=== PATIENT | male | born 1955 | race Caucasian/White ===

== ENCOUNTER → 2017-06-19 | Outpatient (CLI) | payer MEDICARE ==
--- NOTE | 2017-06-19 11:22 | REP ---
A PA and lateral chest: There are no comparisons. There are sternotomy wires and cardiomegaly. The right paratracheal stripe and right hilus are enlarged. This could represent adenopathy or mass. There is mild interstitial coarsening compatible with vascular engorgement versus interstitial lung disease. There are no focal infiltrates or effusions. Signed by Denton Treviño MD 06/19/2017 11:14 A
[2017-06-19 12:41] LABS: BASO # 0.1 10^3/uL (0.0-0.2); BASO % 0.4 % (0.0-1.0); EOS # 0.1 10^3/uL (0.0-0.50); EOS % 0.4 % (0.0-3.0); IMMATURE GRANULOCYTE % 0.4 % (0-0); LYMPH # 2.2 10^3/uL (1.5-4.5); LYMPH % 17.7 % (24.0-44.0); MEAN CORPUSCULAR HEMOGLOBIN 33.1 pg (27.0-33.0); MEAN CORPUSCULAR HGB CONC 32.3 g/dl (32.0-36.5); MEAN CORPUSCULAR VOLUME 102.5 fl (80.0-96.0); MONO # 0.8 10^3/uL (0.0-0.8); MONO % 6.6 % (0.0-5.0); NEUTROPHILS # 9.2 10^3/uL (1.8-7.7); NEUTROPHILS % 74.5 % (36.0-66.0); PLATELET COUNT, AUTOMATED 254 10^3/uL (150-450); RED CELL DISTRIBUTION WIDTH 13.3 % (11.5-14.5); WHITE BLOOD COUNT 12.4 10^3/uL (4.0-10.0)
[2017-06-19 12:48] LABS: INR 0.96
[2017-06-19 13:21] LABS: ALBUMIN 4.2 GM/DL (3.2-5.2); ALBUMIN/GLOBULIN RATIO 1.11 (1.00-1.93); ALKALINE PHOSPHATASE 85 U/L (45-117); ALT/SGPT 84 U/L (12-78); ANION GAP 9 MEQ/L (8-16); AST/SGOT 44 U/L (15-37); BILIRUBIN,TOTAL 0.5 MG/DL (0.2-1.0); BLOOD UREA NITROGEN 16 MG/DL (7-18); CALCIUM LEVEL 9.7 MG/DL (8.8-10.2); CARBON DIOXIDE LEVEL 32 MEQ/L (21-32); CHLORIDE LEVEL 99 MEQ/L (98-107); CHOLESTEROL LEVEL 198 MG/DL (<200); CREATININE FOR GFR 1.11 MG/DL (0.70-1.30); GLOMERULAR FILTRATION RATE > 60.0 (>49); GLUCOSE, FASTING 162 MG/DL (80-110); MAGNESIUM LEVEL 1.8 MG/DL (1.8-2.4); POTASSIUM SERUM 4.8 MEQ/L (3.5-5.1); SODIUM LEVEL 140 MEQ/L (136-145); TRIGLYCERIDES LEVEL 240 MG/DL (<150)
[2017-06-19 14:07] LABS: PLT CLUMPS? POS FLAG; POS COUNT POS FLAG
== END ==
LOC: M WUC 08:57
PROVIDERS: ATTEND Internal Medicine Cardiovascular Disease
DX: R06.02 Shortness of breath (principal); I51.7 Cardiomegaly; Z95.1 Presence of aortocoronary bypass graft; I48.2 Chronic atrial fibrillation; I25.10 Atherosclerotic heart disease of native coronary artery without angina pectoris

== ENCOUNTER → 2017-07-06 | Outpatient (CLI) | payer MEDICARE ==
[2017-07-06 17:09] LABS: INR 1.87
== END ==
LOC: M WUC 13:17
PROVIDERS: ATTEND Internal Medicine Cardiovascular Disease
DX: I48.2 Chronic atrial fibrillation (principal)

== ENCOUNTER → 2017-07-22 | Outpatient (CLI) | payer MEDICARE ==
[2017-07-22 17:01] LABS: INR 1.78
== END ==
LOC: M WUC 13:33
PROVIDERS: ATTEND Nurse Practitioner Family
DX: I48.2 Chronic atrial fibrillation (principal)

== ENCOUNTER → 2017-07-30 | Outpatient (CLI) | payer MEDICARE ==
[2017-07-30 13:32] LABS: INR 1.7
== END ==
LOC: M WUC 10:25
PROVIDERS: ATTEND Physician Assistant
DX: I48.2 Chronic atrial fibrillation (principal)

== ENCOUNTER → 2017-08-13 | Outpatient (CLI) | payer MEDICARE ==
[2017-08-13 17:03] LABS: INR 2.18
== END ==
LOC: M WUC 10:54
PROVIDERS: ATTEND Physician Assistant
DX: Z51.81 Encounter for therapeutic drug level monitoring (principal); Z79.01 Long term (current) use of anticoagulants; I48.2 Chronic atrial fibrillation

== ENCOUNTER → 2017-08-13 | Outpatient (CLI) | payer MEDICARE ==
[2017-08-13 16:43] LABS: MEAN CORPUSCULAR HEMOGLOBIN 32.3 pg (27.0-33.0); MEAN CORPUSCULAR HGB CONC 31.5 g/dl (32.0-36.5); MEAN CORPUSCULAR VOLUME 102.5 fl (80.0-96.0); PLATELET COUNT, AUTOMATED 314 10^3/uL (150-450); RED CELL DISTRIBUTION WIDTH 13.4 % (11.5-14.5); WHITE BLOOD COUNT 10.2 10^3/uL (4.0-10.0)
[2017-08-13 16:55] LABS: VITAMIN B12 LEVEL 234 PG/ML (247-911)
[2017-08-13 16:58] LABS: ADD MANUAL DIFFER YES; ALBUMIN 3.8 GM/DL (3.2-5.2); ALBUMIN/GLOBULIN RATIO 1.09 (1.00-1.93); ALT/SGPT 39 U/L (12-78); ANION GAP 5 MEQ/L (8-16); AST/SGOT 22 U/L (7-37); BILIRUBIN,TOTAL 0.4 MG/DL (0.2-1.0); BLASTS POS FLAG; BLOOD UREA NITROGEN 12 MG/DL (7-18); CALCIUM LEVEL 8.8 MG/DL (8.8-10.2); CARBON DIOXIDE LEVEL 33 MEQ/L (21-32); CHLORIDE LEVEL 103 MEQ/L (98-107); CHOLESTEROL LEVEL 118 MG/DL (<200); CREATININE FOR GFR 0.81 MG/DL (0.70-1.30); DIFF SLIDE NUMBER 188; GLOMERULAR FILTRATION RATE > 60.0 (>49); GLUCOSE, FASTING 111 MG/DL (80-110); POSITIVE MORPH POS FLAG; SODIUM LEVEL 141 MEQ/L (136-145); TOTAL PROTEIN 7.3 GM/DL (6.4-8.2); TRIGLYCERIDES LEVEL 234 MG/DL (<150)
[2017-08-13 17:04] LABS: ALKALINE PHOSPHATASE 85 U/L (45-117); FREE T4 0.97 NG/DL (0.76-1.46)
[2017-08-13 18:15] LABS: BANDS 1 % (< 11); BASOPHILS 1 % (0-4)
[2017-08-13 18:16] LABS: ANISOCYTOSIS 1+
== END ==
LOC: M WUC 10:50
PROVIDERS: ATTEND Physician Assistant Medical
DX: Z12.5 Encounter for screening for malignant neoplasm of prostate (principal); R73.01 Impaired fasting glucose; E78.00 Pure hypercholesterolemia, unspecified; E66.9 Obesity, unspecified; Z79.01 Long term (current) use of anticoagulants; I48.2 Chronic atrial fibrillation

== ENCOUNTER → 2017-08-26 | Outpatient (CLI) | payer MEDICARE | LOC: M SMT 11:02 | DX: G47.30 Sleep apnea, unspecified (principal) | CPT/HCPCS: 71046 ==

== ENCOUNTER → 2017-09-12 | Outpatient (CLI) | payer MEDICARE | LOC: M SLEEP 20:00 | DX: G47.33 Obstructive sleep apnea (adult) (pediatric) (principal) | CPT/HCPCS: 95810 ==

== ENCOUNTER → 2017-10-05 | Outpatient (CLI) | payer MEDICARE ==
[2017-10-05 19:19] LABS: INR 2.75; PROTHROMBIN TIME 30.3 SECONDS (12.4-14.5)
== END ==
LOC: M WUC 14:31
DX: Z79.01 Long term (current) use of anticoagulants (principal)
CPT/HCPCS: 85610

== ENCOUNTER → 2017-11-10 | Outpatient (CLI) | payer MEDICARE | LOC: M SLEEP 19:56 | DX: G47.33 Obstructive sleep apnea (adult) (pediatric) (principal) | CPT/HCPCS: 95811 ==

== ENCOUNTER → 2017-11-13 | Outpatient (CLI) | payer MEDICARE ==
[2017-11-13 13:16] LABS: INR 2.43; PROTHROMBIN TIME 27.4 SECONDS (12.4-14.5)
== END ==
LOC: M WUC 09:43
DX: I48.2 Chronic atrial fibrillation (principal)
CPT/HCPCS: 85610

== ENCOUNTER → 2017-11-26 | Outpatient (REF) | payer MEDICARE ==
[2017-11-26 15:53] LABS: BASO # 0.1 10^3/uL (0.0-0.2); BASO % 0.4 % (0.0-1.0); EOS # 0.1 10^3/uL (0.0-0.50); EOS % 0.5 % (0.0-3.0); HEMATOCRIT 46.6 % (42.0-52.0); HEMOGLOBIN 14.9 g/dl (13.5-17.5); IMMATURE GRANULOCYTE % 0.4 % (0-3.0); LYMPH % 16.6 % (24.0-44.0); MEAN CORPUSCULAR HEMOGLOBIN 31.7 pg (27.0-33.0); MEAN CORPUSCULAR VOLUME 99.1 fl (80.0-96.0); MONO # 0.9 10^3/uL (0.0-0.8); MONO % 7.5 % (0.0-5.0); NEUTROPHILS # 8.8 10^3/uL (1.8-7.7); NEUTROPHILS % 74.6 % (36.0-66.0); PLATELET COUNT, AUTOMATED 282 10^3/uL (150-450); RED CELL DISTRIBUTION WIDTH 13.2 % (11.5-14.5); WHITE BLOOD COUNT 11.9 10^3/uL (4.0-10.0)
[2017-11-26 16:14] LABS: ESTIMATED AVERAGE GLUCOSE 163 MG/DL (60-110); HEMOGLOBIN A1c 7.3 %
== END ==
LOC: M SFHCPLAZ 12:48
DX: R73.01 Impaired fasting glucose (principal); I10 Essential (primary) hypertension
CPT/HCPCS: 83036

== ENCOUNTER → 2018-02-18 | Outpatient (CLI) | payer MEDICARE ==
[2018-02-18 17:08] LABS: INR 2.26; PROTHROMBIN TIME 25.4 SECONDS (12.1-14.4)
== END ==
LOC: M WUC 14:24
DX: I48.2 Chronic atrial fibrillation (principal)
CPT/HCPCS: 85610

== ENCOUNTER → 2018-02-22 | Outpatient (REF) | payer MEDICARE ==
[2018-02-22 13:46] LABS: ALBUMIN 3.6 GM/DL (3.2-5.2); ALBUMIN/GLOBULIN RATIO 0.95 (1.00-1.93); ALKALINE PHOSPHATASE 88 U/L (45-117); ALT/SGPT 27 U/L (12-78); ANION GAP 4 MEQ/L (8-16); AST/SGOT 18 U/L (7-37); BILIRUBIN,TOTAL 0.4 MG/DL (0.2-1.0); BLOOD UREA NITROGEN 11 MG/DL (7-18); CALCIUM LEVEL 8.7 MG/DL (8.8-10.2); CARBON DIOXIDE LEVEL 32 MEQ/L (21-32); CHLORIDE LEVEL 105 MEQ/L (98-107); CHOLESTEROL LEVEL 84 MG/DL (<200); CHOLESTEROL RISK RATIO 2.625 (<5); CPK CREATINE PHOSPHOKINASE 70 U/L (39-308); CREATININE FOR GFR 0.84 MG/DL (0.70-1.30); GLOMERULAR FILTRATION RATE > 60.0 (>49); GLUCOSE, FASTING 156 MG/DL (70-100); HDL CHOLESTEROL 32 MG/DL (>40); LDL CHOLESTEROL 18.6 MG/DL (<100); NON-HDL-C 52 MG/DL; POTASSIUM SERUM 4.5 MEQ/L (3.5-5.1); SODIUM LEVEL 141 MEQ/L (136-145); TOTAL PROTEIN 7.4 GM/DL (6.4-8.2); TRIGLYCERIDES LEVEL 167 MG/DL (<150)
== END ==
LOC: M SFHCPLAZ 09:55
DX: E78.00 Pure hypercholesterolemia, unspecified (principal)
CPT/HCPCS: 82550

== ENCOUNTER → 2018-04-12 | Outpatient (CLI) | payer MEDICARE ==
[2018-04-12 17:44] LABS: INR 1.91; PROTHROMBIN TIME 22.3 SECONDS (12.1-14.4)
== END ==
LOC: M WUC 14:25
DX: Z51.81 Encounter for therapeutic drug level monitoring (principal); Z79.01 Long term (current) use of anticoagulants; I48.2 Chronic atrial fibrillation
CPT/HCPCS: 85610

== ENCOUNTER → 2018-05-06 | Outpatient (CLI) | payer MEDICARE ==
[2018-05-06 16:00] LABS: INR 1.19; PROTHROMBIN TIME 15.3 SECONDS (12.1-14.4)
== END ==
LOC: M WUC 13:44
DX: I48.2 Chronic atrial fibrillation (principal)
CPT/HCPCS: 85610

== ENCOUNTER → 2018-05-17 | Outpatient (CLI) | payer MEDICARE ==
[2018-05-17 18:47] LABS: INR 2.25; PROTHROMBIN TIME 25.3 SECONDS (12.1-14.4)
== END ==
LOC: M WUC 14:50
DX: I48.2 Chronic atrial fibrillation (principal)
CPT/HCPCS: 85610

== ENCOUNTER → 2018-06-01 | Outpatient (CLI) | payer MEDICARE ==
[2018-06-01 19:51] LABS: INR 2.04; PROTHROMBIN TIME 23.4 SECONDS (12.1-14.4)
== END ==
LOC: M WUC 16:10
DX: I48.2 Chronic atrial fibrillation (principal)
CPT/HCPCS: 85610

== ENCOUNTER → 2018-06-24 | Outpatient (REF) | payer MEDICARE ==
[2018-06-24 14:32] LABS: ALBUMIN 3.8 GM/DL (3.2-5.2); ALBUMIN/GLOBULIN RATIO 1.06 (1.00-1.93); ALKALINE PHOSPHATASE 76 U/L (45-117); ALT/SGPT 32 U/L (12-78); ANION GAP 8 MEQ/L (8-16); AST/SGOT 19 U/L (7-37); BILIRUBIN,TOTAL 0.5 MG/DL (0.2-1.0); BLOOD UREA NITROGEN 12 MG/DL (7-18); CALCIUM LEVEL 8.6 MG/DL (8.8-10.2); CARBON DIOXIDE LEVEL 31 MEQ/L (21-32); CHLORIDE LEVEL 100 MEQ/L (98-107); CREATININE FOR GFR 0.84 MG/DL (0.70-1.30); GLOMERULAR FILTRATION RATE > 60.0 (>49); GLUCOSE, FASTING 166 MG/DL (70-100); NT-PRO BNP 278 PG/ML (<125); POTASSIUM SERUM 4.4 MEQ/L (3.5-5.1); SODIUM LEVEL 139 MEQ/L (136-145); TOTAL PROTEIN 7.4 GM/DL (6.4-8.2)
[2018-06-24 14:46] LABS: ESTIMATED AVERAGE GLUCOSE 174 MG/DL (60-110); HEMOGLOBIN A1c 7.7 %
== END ==
LOC: M SFHCPLAZ 10:52
DX: E11.8 Type 2 diabetes mellitus with unspecified complications (principal); E78.00 Pure hypercholesterolemia, unspecified; I50.22 Chronic systolic (congestive) heart failure
CPT/HCPCS: 80053

== ENCOUNTER → 2018-07-08 | Outpatient (CLI) | payer MEDICARE ==
[2018-07-08 15:32] LABS: INR 2.04; PROTHROMBIN TIME 23.4 SECONDS (12.1-14.4)
== END ==
LOC: M WUC 12:14
DX: I48.2 Chronic atrial fibrillation (principal)
CPT/HCPCS: 85610

== ENCOUNTER → 2018-09-09 | Outpatient (CLI) | payer MEDICARE ==
[2018-09-09 11:46] LABS: BASO # 0.1 10^3/uL (0.0-0.2); BASO % 0.6 % (0.0-1.0); EOS # 0.1 10^3/uL (0.0-0.50); EOS % 0.6 % (0.0-3.0); HEMATOCRIT 39.9 % (42.0-52.0); HEMOGLOBIN 13.4 g/dl (13.5-17.5); LYMPH % 22.4 % (24.0-44.0); MEAN CORPUSCULAR HEMOGLOBIN 32.2 pg (27.0-33.0); MEAN CORPUSCULAR HGB CONC 33.6 g/dl (32.0-36.5); MEAN CORPUSCULAR VOLUME 95.9 fl (80.0-96.0); MONO # 0.7 10^3/uL (0.0-0.8); NEUTROPHILS # 6.1 10^3/uL (1.8-7.7); NEUTROPHILS % 68.1 % (36.0-66.0); PLATELET COUNT, AUTOMATED 247 10^3/uL (150-450); RED BLOOD COUNT 4.16 10^6/uL (4.30-6.10); WHITE BLOOD COUNT 8.9 10^3/uL (4.0-10.0)
[2018-09-09 12:30] LABS: ALBUMIN 3.6 GM/DL (3.2-5.2); ALT/SGPT 37 U/L (12-78); BILIRUBIN,TOTAL 0.4 MG/DL (0.2-1.0); BLOOD UREA NITROGEN 16 MG/DL (7-18); CALCIUM LEVEL 8.4 MG/DL (8.8-10.2); CARBON DIOXIDE LEVEL 32 MEQ/L (21-32); CHLORIDE LEVEL 98 MEQ/L (98-107); CREATININE FOR GFR 0.99 MG/DL (0.70-1.30); GLOMERULAR FILTRATION RATE > 60.0 (>49); GLUCOSE, FASTING 261 MG/DL (70-100); NT-PRO BNP 177 PG/ML (<125); POTASSIUM SERUM 4.4 MEQ/L (3.5-5.1); SODIUM LEVEL 137 MEQ/L (136-145)
== END ==
LOC: M WUC 09:39
PROVIDERS: ATTEND Internal Medicine Cardiovascular Disease
DX: I50.32 Chronic diastolic (congestive) heart failure (principal); I48.2 Chronic atrial fibrillation

== ENCOUNTER → 2018-09-09 | Outpatient (CLI) | payer MEDICARE ==
[2018-09-09 12:28] LABS: INR 1.87; PROTHROMBIN TIME 21.9 SECONDS (12.1-14.4)
== END ==
LOC: M WUC 09:42
PROVIDERS: ATTEND Physician Assistant
DX: I48.2 Chronic atrial fibrillation (principal)

== ENCOUNTER → 2018-11-24 | Outpatient (CLI) | payer MEDICARE ==
[2018-11-24 12:56] LABS: INR 1.76; PROTHROMBIN TIME 20.8 SECONDS (12.1-14.4)
== END ==
LOC: M WUC 10:20
PROVIDERS: ATTEND Physician Assistant
DX: I48.2 Chronic atrial fibrillation (principal)

== ENCOUNTER → 2018-12-10 | Outpatient (CLI) | payer MEDICARE ==
[2018-12-10 17:55] LABS: INR 2.16; PROTHROMBIN TIME 24.6 SECONDS (12.1-14.4)
== END ==
LOC: M WUC 12:19
PROVIDERS: ATTEND Physician Assistant
DX: I48.2 Chronic atrial fibrillation (principal)

== ENCOUNTER 2018-12-27 10:27 | Inpatient (IN) | payer MEDICARE ==
[~2018-12-27] VITALS: Ht 182.9 cm; Wt 141.0 kg
[2018-12-27] MEDS ORDERED: WARF-21 PO (10:48)
[2018-12-27] MEDS ORDERED: ASPI81CH33 PO (10:48)
[2018-12-27] MEDS ORDERED: LASI20TA3 PO (10:48)
[2018-12-27] MEDS ORDERED: METF500T13 PO (10:48)
[2018-12-27] MEDS ORDERED: ATOR80TA59 PO (10:48)
[2018-12-27] MEDS ORDERED: CETI10CH PO (10:48)
[2018-12-27] MEDS ORDERED: COUM10TA PO (10:48)
[2018-12-27] MEDS ORDERED: DIGO0.25 PO (10:48)
[2018-12-27] MEDS ORDERED: CARV6.25 PO (10:48)
[2018-12-27 11:17] LABS: BASO % 0.3 % (0.0-1.0); EOS # 0.1 10^3/uL (0.0-0.50); EOS % 0.4 % (0.0-3.0); HEMATOCRIT 45.1 % (42.0-52.0); LYMPH # 1.5 10^3/uL (1.5-4.5); LYMPH % 12.5 % (24.0-44.0); MEAN CORPUSCULAR HEMOGLOBIN 31.1 pg (27.0-33.0); MEAN CORPUSCULAR HGB CONC 33.3 g/dl (32.0-36.5); MEAN CORPUSCULAR VOLUME 93.4 fl (80.0-96.0); MONO # 1.1 10^3/uL (0.0-0.8); MONO % 8.9 % (0.0-5.0); NEUTROPHILS # 9.2 10^3/uL (1.8-7.7); NEUTROPHILS % 77.6 % (36.0-66.0); PLATELET COUNT, AUTOMATED 308 10^3/uL (150-450); RED BLOOD COUNT 4.83 10^6/uL (4.30-6.10); WHITE BLOOD COUNT 11.8 10^3/uL (4.0-10.0)
[2018-12-27] MEDS ORDERED: ONDANSETRON 4MG/2ML VIAL (J2405) IV ONE (11:45)
[2018-12-27 11:52] LABS: ALBUMIN 3.1 GM/DL (3.2-5.2); ALT/SGPT 40 U/L (12-78); BILIRUBIN,DIRECT 0.1 MG/DL (0.0-0.2); BILIRUBIN,TOTAL 0.8 MG/DL (0.2-1.0); BLOOD UREA NITROGEN 14 MG/DL (7-18); CALCIUM LEVEL 8.7 MG/DL (8.8-10.2); CARBON DIOXIDE LEVEL 30 MEQ/L (21-32); CHLORIDE LEVEL 93 MEQ/L (98-107); CK-MB VALUE MASS < 1.0 NG/ML (<3.6); CPK CREATINE PHOSPHOKINASE 103 U/L (39-308); GLOMERULAR FILTRATION RATE > 60.0 (>49); GLUCOSE, FASTING 397 MG/DL (70-100); LIPASE 83 U/L (73-393); MB/CK RELATIVE INDEX 0.97 (< OR =4); POTASSIUM SERUM 4.6 MEQ/L (3.5-5.1); SODIUM LEVEL 130 MEQ/L (136-145); TROPONIN I < 0.02 NG/ML (< 0.10)
[2018-12-27 12:03] LABS: INR 2.53; PROTHROMBIN TIME 27.8 SECONDS (12.1-14.4)
[2018-12-27 12:04] LABS: PARTIAL THROMBOPLASTIN TIME 42.4 SECONDS (25.4-37.6)
[2018-12-27] MEDS: MORPHINE 4 MG/ML 1ML VIAL/SYRINGE (J2270) IV PRN ×2 (12:04→13:09)
[2018-12-27] MEDS: GASTROGRAFIN SOLUTION 30ML PO SCH ×2 (13:10→13:39)
[2018-12-27] MEDS ORDERED: NS 1,000 ML IV SCH (13:30)
[2018-12-27] MEDS ORDERED: KETOROLAC 30 MG/ML VIAL (J1885) IV ONE (14:00)
[2018-12-27] MEDS ORDERED: ISOVUE-370 76% 100ML VIAL (Q9967) As Ordered ONE (14:30)
--- NOTE | 2018-12-27 15:16 | REP ---
CT ABDOMEN AND PELVIS WITH ORAL AND IV CONTRAST: TECHNIQUE: Axial contrast enhanced images from the lung bases to the pubic symphysis using 100 mL Isovue 370 intravenous contrast material with multiplanar reformations. Visualized lung bases demonstrate no abnormal lung opacities. There is a mass in the hepatic flexure of the colon causing stricturing and obstruction of the colon at that location. There is local neoplastic infiltration of the pericolonic fat. Right colon is dilated with air and fluid, and there is dilatation of distal small bowel as well. The more distal colon is relatively collapsed. Liver demonstrates multiple metastases. These involve both the right and left lobes. The largest is at the dome of the liver and measures about 3.1 cm in diameter. The spleen is unremarkable. The left adrenal gland is diffusely thickened without a definite mass. Pancreas is unremarkable. There is a tiny cyst in the upper pole of the left kidney. There is no hydronephrosis. There is no abdominal aortic aneurysm. No periaortic adenopathy is seen. There is no free air or free fluid. No pelvic mass is seen. Small left inguinal hernia contains fat. The patient has had a prior cholecystectomy. IMPRESSION: Stricturing mass in the hepatic flexure of the colon causes colonic obstruction. There is proximal bowel dilatation of a moderate degree. Both the right colon and distal small bowel are dilated. There is local ill-defined neoplastic infiltration of the pericolonic fat at the hepatic flexure. Multiple liver metastases are noted. Electronically Signed by Denton Frost MD 12/28/2018 03:14 P
[2018-12-27] MEDS ORDERED: ASPI81TA26 PO (15:27)
[2018-12-27] MEDS ORDERED: FURO40TA2 PO (15:27)
[2018-12-27] MEDS ORDERED: METF500T4 PO (15:27)
[2018-12-27] MEDS ORDERED: WARF-23 PO ×2 (15:27)
[2018-12-27] MEDS ORDERED: ALLE180T33 PO (15:27)
[2018-12-27] MEDS ORDERED: REFR0.5D8 OU (15:29)
[2018-12-27] MEDS ORDERED: GLUCOSE 4 GM CHEW TABLET PO PRN (16:45)
[2018-12-27] MEDS ORDERED: GLUCAGON FOR INJ 1 MG VIAL (J1610) SC PRN (16:45)
[2018-12-27] MEDS ORDERED: DEXTROSE 50% 50 ML SYRINGE IV PRN (16:45)
[2018-12-27 17:18] LABS: DIGOXIN LEVEL 0.6 NG/ML (0.5-2.0)
[2018-12-27] MEDS ORDERED: PHYTONADIONE INJection 5 MG in NS 50 ML IV ONE (17:30)
[2018-12-27] MEDS ORDERED: HumaLOG INSULIN (NovoLOG) PER UNIT SC SCH (18:00)
[2018-12-27] MEDS: DIGOXIN INJ 0.5 MG/2 ML AMP (J1160) IV SCH (19:04)
[2018-12-27] MEDS ORDERED: ALBUTEROL SULFATE 2.5 MG/0.5 ML INH NEB SOLN NEB PRN (20:00)
--- NOTE | 2018-12-27 20:18 | HPEPDOC ---
General Date of Admission 12/27/18 Attending Physician: LICO ALONSO MD Chief Complaint The patient is a 63-year-old male admitted with a reason for visit of Abdominal Pain. Source: Patient, Family, RN/MD, Old records Exam Limitations: No limitations History of Present Illness 63 year old male with PMH of CAD s/p CABG, Morbid obesity, CHF, CALE on CPAP with 5 liters bleed in, chronic respiratory failure with hypoxia, diabetes, atrial fib on coumadin, h/o dvt , bowel obs in 2009 with bowel resection, incisional hernia after this repaired with mesh, umbilical hernia repaired, persistent abdominal wall hernia presented to the ED with 7 days history of constipation and abdominal pain . Pain is constantly present more on the right upper abdomen, right lumber region and periumbilicaly. He has been unable to pass even gas for 3 days. He has had irregular bowel habits with intermittent diarrheas and constipation since 2009 after his bowel obstruction surgery. During his episodes of constipation he would do some home remedies which would relieve it . However this week he tried everything but still did not move his bowels. He started feeling very bloated and unable to pass gas over the last 3 days so came to the ED. he has some associated nausea but no vomiting. CT in the ED showed Stricturing mass in the hepatic flexure of the colon causes colonic obstruction. There is proximal bowel dilatation of a moderate degree. Both the right colon and distal small bowel are dilated. There is local ill-defined neoplastic infiltration of the pericolonic fat at the hepatic flexure. Multiple liver metastases are noted. He was admitted for Acute large bowel obstruction. Home Medications Scheduled Aspirin (Aspirin EC) 81 Mg Tablet.dr, 81 MG PO DAILY, (Reported) Atorvastatin Calcium (Atorvastatin Calcium) 80 Mg Tablet, 80 MG PO QHS, (Reported) Carvedilol (Carvedilol) 6.25 Mg Tablet, 6.25 MG PO BID, (Reported) Digoxin (Digoxin) 250 Mcg Tablet, 250 MCG PO DAILY, (Reported) Furosemide (Furosemide) 40 Mg Tablet, 40 MG PO DAILY, (Reported) Metformin HCl (Metformin HCl ER) 500 Mg Tab.er.24h, 500 MG PO QPM, (Reported) DINNERTIME Warfarin Sodium (Warfarin Sodium) 5 Mg Tablet, 10 MG PO 3XW, (Reported) TU,,SAT Warfarin Sodium (Warfarin Sodium) 5 Mg Tablet, 7.5 MG PO 4XWK, (Reported) MON,WED,FRI,SUN Scheduled PRN Carboxymethylcellulose Sodium (Refresh Tears) 15 Ml Drops, 1 DROP OU QID PRN for DRY EYES, (Reported) Fexofenadine HCl (Alie Allergy) 180 Mg Tablet, 180 MG PO DAILY PRN for ALL ERGIES, (Reported) Allergies Coded Allergies: No Known Allergies (Unverified , 12/27/18) Past Medical History Medical History CAD s/p CABG, Morbid obesity, CHF, CALE on CPAP with 5 liters bleed in, chronic respiratory failure with hypoxia, diabetes, atrial fib on coumadin, h/o dvt , Surgical History Bowel resection for bowel obstruction in 2009. CABG in 2003. cholecystectomy. appendectomy. Incisional hernia repair with mesh. umbilical hernia repair. Family History FATHER: 80 YRS, DIAGNOSED WITH DIABETES MOTHER: 86 YRS, DIAGNOSED WITH STROKE 4 BROTHER(S) .DAD DISCONTINUED VASC. CATH. & ESRD 2 BRO.S OF THROAT CA, AN EXPLOSION IN [employer]. Social History * Smoker: former Smoker, quit greater than 1 year Alcohol: Denies Drugs: denies A-FIB/CHADSVASC A-FIB History Current/History of A-Fib/PAF?: Yes Current Oral Anticoagulant The: Yes Review of Systems Constitutional: Denies: Chills, Fever, Night Sweats Eyes: Denies: Pain, Vision change ENT: Denies: Head Aches, Ear Pain, Dysphagia Skin: Denies: Rash, Lesions, Breakdown Pulmonary: Denies: Dyspnea, Cough Cardiovascular: Denies: Chest Pain, Palpitations, Orthopnea, Paroxysmal Noc. Dyspnea Gastrointestinal: Reports: Nausea, Abdominal Pain, Constipation; Denies: Vomiting, Diarrhea, Melena, Hematochezia Genitourinary: Denies: Dysuria, Incontinence, Retention Hematologic: Denies: Bruising, Bleeding Excessively Musculoskeletal: Reports: Back Pain Neurological: Denies: Weakness, Numbness, Change in speech, Confusion Physical Examination General Exam: Positive: Alert, Cooperative, No Acute Distress Eye Exam: Positive: PERRLA, Conjunctiva & lids normal, EOMI; Negative: Sclera icteric ENT Exam: Positive: Mucous membr. moist/pink, Tongue Midline Neck Exam: Positive: Supple; Negative: JVD, thyromegaly Chest Exam: Positive: Clear to auscultation, Diminished; Negative: Rales, Rhonchi, Wheezing Heart Exam: Positive: Rate Normal, Irregular Rhythm, Normal S1, Normal S2; Negative: Tachycardic, Bradycardic, Regular Rhythm, Gallops, Murmurs, Rubs Telemetry: Positive: Atrial fibrillation Abdomen Exam: Positive: BS Hypoactive, Soft, Tenderness (on right side of the abdomen), Hernia (abdominal wall), Other (distented) Extremity Exam: Negative: Clubbing, Cyanosis, Edema Skin Exam: Positive: Nl turgor and temperature; Negative: Breakdown, Lesion Neuro Exam: Positive: Normal Speech, Strength at 5/5 X4 ext, Normal Tone Psych Exam: Positive: Anxiety, Memory Intact, Oriented x 3 Vital Signs Vital Signs Date Time Temp Pulse Resp B/P (MAP) Pulse Ox O2 Delivery O2 Flow Rate FiO2 12/27/18 14:00 24 12/27/18 13:48 138/60 (86) 12/27/18 13:42 104 95 5.0 12/27/18 10:28 97.6 Nasal Cannula Laboratory Data Labs 24H Laboratory Tests 2 12/27/18 11:05: Immature Granulocyte % (Auto) 0.3, White Blood Count 11.8H, Red Blood Count 4.83, Hemoglobin 15.0, Hematocrit 45.1, Mean Corpuscular Volume 93.4, Mean Corpuscular Hemoglobin 31.1, Mean Corpuscular Hemoglobin Concent 33.3, Red Cell Distribution Width 12.4, Platelet Count 308, Neutrophils (%) (Auto) 77.6H, Lymphocytes (%) (Auto) 12.5L, Monocytes (%) (Auto) 8.9H, Eosinophils (%) (Auto) 0.4, Basophils (%) (Auto) 0.3, Neutrophils # (Auto) 9.2H, Lymphocytes # (Auto) 1.5, Monocytes # (Auto) 1.1H, Eosinophils # (Auto) 0.1, Basophils # (Auto) 0.0, Nucleated Red Blood Cells % (auto) 0.0, Prothrombin Time 27.8H, Prothromb Time International Ratio 2.53, Activated Partial Thromboplast Time 42.4H, Anion Gap 7L, Glomerular Filtration Rate > 60.0, Calcium Level 8.7L, Aspartate Amino Transf (AST/SGOT) 40H, Alanine Aminotransferase (ALT/SGPT) 40, Alkaline Phosphatase 127H, Total Bilirubin 0.8, Direct Bilirubin 0.1, Total Creatine Kinase 103, Creatine Kinase MB < 1.0, Creatine Kinase MB Relative Index 0.97, Troponin I < 0.02, Total Protein 8.0, Albumin 3.1L, Albumin/Globulin Ratio 0.63L, Lipase 83 12/27/18 11:58: Lactic Acid Level 1.5 CBC/BMP Laboratory Tests 12/27/18 11:05 Red Blood Count 4.83, Mean Corpuscular Volume 93.4, Mean Corpuscular Hemoglobin 31.1, Mean Corpuscular Hemoglobin Concent 33.3, Red Cell Distribution Width 12.4, Neutrophils (%) (Auto) 77.6 H, Lymphocytes (%) (Auto) 12.5 L, Monocytes (%) (Auto) 8.9 H, Eosinophils (%) (Auto) 0.4, Basophils (%) (Auto) 0.3, Neutrophils # (Auto) 9.2 H, Lymphocytes # (Auto) 1.5, Monocytes # (Auto) 1.1 H, Eosinophils # (Auto) 0.1, Basophils # (Auto) 0.0 Assessment/Plan 63 year old male with PMH of CAD s/p CABG, Morbid obesity, CHF, CALE on CPAP with 5 liters bleed in, chronic respiratory failure with hypoxia, diabetes, atrial fib on coumadin, h/o dvt , bowel obs in 2009 with bowel resection, incisional hernia after this repaired with mesh, umbilical hernia repaired, persistent abdominal wall hernia presented to the ED with 7 days history of constipation and abdominal pain . He has been unable to pass even gas for 3 days. He has had irregular bowel habits with intermittent diarrheas aand constipation since 2009 after his bowel obstruction surgery. During his episodes of constipation he would do some home remedies which would relieve it . However this week he tried everything but still did not move his bowels. He started feeling very bloated and unable to pass gas over the last 3 days so came to the ED. CT in the ED showed Stricturing mass in the hepatic flexure of the colon causes colonic obstruction. There is proximal bowel dilatation of a moderate degree. Both the right colon and distal small bowel are dilated. There is local ill-defined neoplastic infiltration of the pericolonic fat at the hepatic flexure. Multiple liver metastases are noted. He was admitted for Acute large bowel obstruction. 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 CALE on CPAP continue CPAP if tolerated and oxygen supplementation Chronic hypoxic respiratory failure on 5 litrs oxygen Afib rate controlled will continue coreg and digoxin will give vit K to reverse the INR. Hypertensive heart disease with CHF Last EF was 65% in aug 2018 patient is euvolemic at present will hold lasix continue gentle hydration, NPO Morbid obesity with multiple abdominal surgeries will complicate care. Any abdominal surgery will greatly hamper his respiration and will probably be difficult to extubate. will consult pulmonary to help in the perioperative period to manage his respir atory issues. CAD s/p CABG no issues recently Had a stress test in the last 1 year was negative for ischemia will hold asa and statin as pt is NPO Diabetes will put on lispro sliding scale FS q 6 hours as patient is NPO DVT prophylaxis has been ordered. Plan / VTE VTE Prophylaxis Ordered?: Yes LICO ALONSO MD December 27, 2018 17:09
[2018-12-27 20:25] VITALS: BP 136/90
[2018-12-27] MEDS: CARVedilol 6.25 MG TAB PO SCH (21:56)
--- NOTE | 2018-12-27 22:08 | ECGEPIP ---
Stationary ECG Study [facility] - ED Test Date: 2018-12-27 Pat Name: HUGH TODD Department: Room: - Gender: M [employer]: : 1955 Requested By: ZULEIMA JANG Order Number: [id number] Reading MD: Hugh Martinez Measurements Intervals [place] Rate: 103 P: IA: 0 QRS: -1 QRSD: 81 T: -1 QT: 294 QTc: 386 Interpretive Statements ATRIAL FIBRILLATION WITH RAPID VENTRICULAR RESPONSE MODERATE ST DEPRESSION NO PRIORS FOR COMPARISON Electronically Signed On 12-27-2018 22:08:48 EDT by Hugh Martinez
[2018-12-27] MEDS: NS 1,000 ML IV SCH (23:14)
[2018-12-28] VITALS (11 sets, daily range): BP systolic 130–157; BP diastolic 63–90; O2SAT 96–99
[2018-12-28] MEDS: HumaLOG INSULIN (NovoLOG) PER UNIT SC SCH ×5 (00:29→23:47)
[2018-12-28 05:04] LABS: BASO % 0.2 % (0.0-1.0); EOS # 0.1 10^3/uL (0.0-0.50); EOS % 0.7 % (0.0-3.0); HEMATOCRIT 41.2 % (42.0-52.0); HEMOGLOBIN 13.3 g/dl (13.5-17.5); LYMPH # 1.1 10^3/uL (1.5-4.5); LYMPH % 13.2 % (24.0-44.0); MEAN CORPUSCULAR HEMOGLOBIN 30.3 pg (27.0-33.0); MEAN CORPUSCULAR HGB CONC 32.3 g/dl (32.0-36.5); MEAN CORPUSCULAR VOLUME 93.8 fl (80.0-96.0); MONO # 0.8 10^3/uL (0.0-0.8); MONO % 9.4 % (0.0-5.0); NEUTROPHILS # 6.5 10^3/uL (1.8-7.7); PLATELET COUNT, AUTOMATED 265 10^3/uL (150-450); RED BLOOD COUNT 4.39 10^6/uL (4.30-6.10); WHITE BLOOD COUNT 8.5 10^3/uL (4.0-10.0)
[2018-12-28 05:13] LABS: INR 1.38; PROTHROMBIN TIME 17.2 SECONDS (12.1-14.4)
[2018-12-28 05:17] LABS: BLOOD UREA NITROGEN 13 MG/DL (7-18); CARBON DIOXIDE LEVEL 32 MEQ/L (21-32); CHLORIDE LEVEL 101 MEQ/L (98-107); CREATININE FOR GFR 0.79 MG/DL (0.70-1.30); GLOMERULAR FILTRATION RATE > 60.0 (>49); GLUCOSE, FASTING 235 MG/DL (70-100); POTASSIUM SERUM 3.8 MEQ/L (3.5-5.1); SODIUM LEVEL 140 MEQ/L (136-145)
[2018-12-28] MEDS: DIGOXIN INJ 0.5 MG/2 ML AMP (J1160) IV SCH (08:34)
[2018-12-28] MEDS: NYSTATIN 100,000 UNITS/GM TOPICAL PWD 15 GM TOP SCH ×2 (08:34→20:18)
[2018-12-28] MEDS: CARVedilol 6.25 MG TAB PO SCH ×2 (08:34→20:19)
--- NOTE | 2018-12-28 09:36 | CR.PDOC ---
General Surgery Consultation Date of Consultation 12/27/18 History and Physical CONSULT REPORT FOR: emergency room/hospitalist service REASON FOR CONSULTATION: Colon obstruction, possible malignant obstruction HISTORY OF PRESENT ILLNESS: Mr. Vyas presented himself to the emergency room with a one-week history of abdominal distention, abdominal cramping that has worsened over the weekend. He reports a prior history of bowel obstruction that required a laparotomy followed afterwards with complications including what sounds like necrotizing fasciitis from leakage around the gastrostomy feeding tube that required him to be at the burn unit for a few months. He also subsequently developed a hernia that was fixed with placement of mesh and subsequently also recurred. This happened more than 10 years ago. After that he did not have any subsequent bowel obstructions that requires hospitalization though he reports several intermittent episodes where he thought he might have a blockage for which she would decrease oral intake and this would resolve by itself. This current episode started roughly about a week. Last bowel movement was about 4 days ago. He did weigh usually did which is to decrease oral intake. Over the weekend he had increasing abdominal pain and cramping Thursday and Thursday which led him to the emergency room. He reports nausea and at least one episode of vomiting Thursday evening. His last colonoscopy was about 7 years ago and by his recollection, they did not find any high risk lesions requiring close surveillance. He denies any unexplained abnormal weight loss. He denies any significant family history for colorectal malignancy. He previously resided in [place] and most of his care especially the surgical care is been done over that area and we have no records of that here. They have recently transplanted themselves here. They have established with a medical provider as well as with Dr. Amin. He has significant cardiac history including previous 4 vessel CABG, atrial fibrillation. He is on Coumadin and he last took Coumadin yesterday. Along this he also has diabetes. He has sleep apnea and uses 5 L of oxygen. He reports he is able to climb a flight of stairs at home though he feels tired at the end of the climb. He denies any chest pains with this type of activity. PAST MEDICAL HISTORY: 1. Coronary artery disease status post four-vessel CABG 2. Atrial fibrillation on Coumadin 3. Congestive heart failure 4. Morbid obesity with a BMI of 43 5. Obstructive sleep apnea on CPAP 6. Chronic hypoxia on 5 L of warm saline nasal cannula 7. Diabetes 8. Recurrent incisional/ventral hernia. PAST SURGICAL HISTORY: INCLUDES: 1. Four-vessel CABG 2. Exploratory laparotomy for small bowel obstruction, appendectomy 3. Debridement of "burned" skin around the gastrostomy site 4. Umbilical and ventral/incisional hernia repair 5. Cholecystectomy 6. Right knee arthroplasty PREVIOUS ANESTHESIA REACTIONS: Denies ALLERGIES: Please see below. FAMILY HISTORY: Denies family history of colorectal malignancy, GI malignancy HOME MEDICATIONS: Please see below. REVIEW OF SYSTEMS: GENERAL: Patient denies any unexplained weight loss. HEENT: [Denies blurred vision and double vision. Denies ear symptoms. Denies hoarseness]. Wears dentures NECK: Denies any neck pain CARDIOVASCULAR: Significant cardiac history, follows with Dr. Amin. He has been on diuretics with improvement of his leg edema.. MUSCULOSKELETAL: [Denies arthralgias, back pain and thrombophlebitis]. SKIN: [Denies rash]. NEUROLOGIC: [Denies headache, stroke and transient ischemic attack]. PSYCHIATRIC: [Denies anxiety and depression]. ENDOCRINE: Patient is known diabetic. HEMATOLOGY/ONCOLOGY: [Denies bleeding or clotting disorder]. Patient on Coumadin for atrial fibrillation. Last intake was on the evening HEART: Patient with limited activity both secondary to his cardiac and pulmonary condition but denies any chest pain with light activity. PULMONARY: [Denies chronic cough, dyspnea and wheezing]. Patient on chronic 5 L of oxygen via nasal cannula. Denies overt shortness of breath. He feels fatigued with light activity. GASTROINTESTINAL: See HPI. GENITOURINARY: [Denies dysuria, frequency, hematuria and nocturia]. ENDOCRINE: [Denies polydipsia, polyphagia, polyuria, heat or cold intolerance]. INFECTIOUS: [Denies any recent upper respiratory tract infection, UTI, need for use of antibiotics]. NUTRITION: Fair to poor appetite the past few days secondary to abdominal complaints.. PHYSICAL EXAMINATION: VITALS SIGNS: Please see below. GENERAL APPEARANCE: Patient is seen, he is relatively comfortable and moves arou nd the bed without any increased discomfort though mildly uncomfortable during palpation. He is cooperative. SKIN: Warm and dry. HEENT: [Normocephalic, atraumatic. [place] palpebral conjunctiva, anicteric sclerae. Lips and mucosa appear dry]. NECK: [Supple, no thyromegaly. No obvious jugular venous distention]. LUNGS: [Clear to auscultation bilaterally. No wheezing appreciated]. HEART: [No chest wall abnormalities. irregular rate and rhythm with no murmurs appreciated]. ABDOMEN: Abdomen is markedly protuberant, moderately distended but soft. He has a midline incision as well as some previous scar from the gastrostomy site. He has a very thin stretched out abdominal wall especially that of the middle portion of the upper abdomen down to the umbilicus. He is a certain recurrent hernia over or underneath the umbilicus. He is mildly tender on deep palpation over the right lower quadrant area and suprapubic area with mild grimacing, no involuntary guarding. He is nontender on the left side of the abdomen., soft, EXTREMITIES: [Extremities have no deformities. No edema identified] ANCILLARIES: . LABORATORY DATA: Please see below. IMAGING STUDIES: CT scan abdomen and pelvis Stricturing mass in the hepatic flexure of the colon causes colonic obstruction. There is proximal bowel dilatation of a moderate degree. Both the right colon and distal small bowel are dilated. There is local ill-defined neoplastic infiltration of the pericolonic fat at the hepatic flexure. Multiple liver metastases are noted. IMPRESSION AND PLAN: Colon obstruction secondary to intracolonic stricturing mass with liver metastasis wide diastases, thin abdominal wall and recurrent incisional hernia morbid obesity Atrial fibrillation on Coumadin with INR of 2.5 on admission Chronic hypoxia on 5 L of oxygen via nasal cannula Sleep apnea on CPAP at night I had a long discussion with the patient as well as his who was at the bedside with him. I've also discussed the case with Dr. Palmer who is admitting the patient under the hospitalist service. Patient has evidence of colon obstruction secondary to a colon mass over the patient's right hepatic flexure probably malignant and with evidence of metastasis to both lobes of the liver. Patient appears to have an advanced colon malignancy with metastasis which on the medial condition would need chemotherapy initially to observe for response before even discussing possibility of surgery for her primary as well as for the liver metastases. Unfortunately patient came in his bowel obstruction secondary to the primary colon mass. Thus he will need surgery to address the obstruction. I have discussed with him the options at the time of surgery that I would have to consider which includes diversion without resection, versus resection with or without anastomosis/colostomy, possibly also get some tissue samples for documentation of the pathology if a resection is not performed. I expect this to be a complicated surgery given baseline he has multiple abdominal surgeries including at current presence of recurrent incisional hernia with a very thin abdominal wall that is probably just being contained by mesh. All his surgeries and fortunately were done in [place]. I will have our nurses try to get records if they are still available from the previous institution though this may not matter within this timeframe as he definitely will need some sort of surgery to relieve the obstruction. His intraoperative and perioperative course with also be complicated by his multiple medical problems as stated above. 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 So in terms of optimizing him, he probably has to best that he will ever be given the circumference of sepsis. I discussed with him possibility of needing prolonged ventilation, postoperative myocardial infarction, postoperative congestive heart failure, hernia formation, wound problems related to a colostomy. I will have my office point time to do his surgery this week, tentatively on Thursday. For now his Coumadin is on hold and he is being given vitamin K. After my best to answer their questions and concerns at this point. We'll proceed as outlined above. Vital Signs Vital Signs Date Time Temp Pulse Resp B/P (MAP) Pulse Ox O2 Delivery O2 Flow Rate FiO2 12/27/18 14:00 24 12/27/18 13:48 138/60 (86) 12/27/18 13:42 104 95 5.0 12/27/18 10:28 97.6 Nasal Cannula Laboratory Data Labs 24H Laboratory Tests 2 12/27/18 11:05: Immature Granulocyte % (Auto) 0.3, White Blood Count 11.8H, Red Blood Count 4.83, Hemoglobin 15.0, Hematocrit 45.1, Mean Corpuscular Volume 93.4, Mean Corpuscular Hemoglobin 31.1, Mean Corpuscular Hemoglobin Concent 33.3, Red Cell Distribution Width 12.4, Platelet Count 308, Neutrophils (%) (Auto) 77.6H, Lymphocytes (%) (Auto) 12.5L, Monocytes (%) (Auto) 8.9H, Eosinophils (%) (Auto) 0.4, Basophils (%) (Auto) 0.3, Neutrophils # (Auto) 9.2H, Lymphocytes # (Auto) 1.5, Monocytes # (Auto) 1.1H, Eosinophils # (Auto) 0.1, Basophils # (Auto) 0.0, Nucleated Red Blood Cells % (auto) 0.0, Prothrombin Time 27.8H, Prothromb Time International Ratio 2.53, Activated Partial Thromboplast Time 42.4H, Anion Gap 7L, Glomerular Filtration Rate > 60.0, Calcium Level 8.7L, Aspartate Amino Transf (AST/SGOT) 40H, Alanine Aminotransferase (ALT/SGPT) 40, Alkaline Phosphatase 127H, Total Bilirubin 0.8, Direct Bilirubin 0.1, Total Creatine Kinase 103, Creatine Kinase MB < 1.0, Creatine Kinase MB Relative Index 0.97, Troponin I < 0.02, Total Protein 8.0, Albumin 3.1L, Albumin/Globulin Ratio 0.63L, Lipase 83, Digoxin Level 0.6 12/27/18 11:58: Lactic Acid Level 1.5 CBC/BMP Laboratory Tests 12/27/18 11:05 Red Blood Count 4.83, Mean Corpuscular Volume 93.4, Mean Corpuscular Hemoglobin 31.1, Mean Corpuscular Hemoglobin Concent 33.3, Red Cell Distribution Width 12.4, Neutrophils (%) (Auto) 77.6 H, Lymphocytes (%) (Auto) 12.5 L, Monocytes (%) (Auto) 8.9 H, Eosinophils (%) (Auto) 0.4, Basophils (%) (Auto) 0.3, Neutrophils # (Auto) 9.2 H, Lymphocytes # (Auto) 1.5, Monocytes # (Auto) 1.1 H, Eosinophils # (Auto) 0.1, Basophils # (Auto) 0.0 Home Medications Scheduled Aspirin (Aspirin EC) 81 Mg Tablet.dr, 81 MG PO DAILY, (Reported) Atorvastatin Calcium (Atorvastatin Calcium) 80 Mg Tablet, 80 MG PO QHS, (Reported) Carvedilol (Carvedilol) 6.25 Mg Tablet, 6.25 MG PO BID, (Reported) Digoxin (Digoxin) 250 Mcg Tablet, 250 MCG PO DAILY, (Reported) Furosemide (Furosemide) 40 Mg Tablet, 40 MG PO DAILY, (Reported) Metformin HCl (Metformin HCl ER) 500 Mg Tab.er.24h, 500 MG PO QPM, (Reported) DINNERTIME Warfarin Sodium (Warfarin Sodium) 5 Mg Tablet, 10 MG PO 3XW, (Reported) ,,SAT Warfarin Sodium (Warfarin Sodium) 5 Mg Tablet, 7.5 MG PO 4XWK, (Reported) MON,WED,FRI,SUN Scheduled PRN Carboxymethylcellulose Sodium (Refresh Tears) 15 Ml Drops, 1 DROP OU QID PRN for DRY EYES, (Reported) Fexofenadine HCl (Alie Allergy) 180 Mg Tablet, 180 MG PO DAILY PRN for ALLERGIES, (Reported) Allergies Coded Allergies: No Known Allergies (Unverified , 12/27/18) NEDRA MARTINEZ MD December 27, 2018 17:20
[2018-12-28] MEDS: NS 1,000 ML IV SCH ×2 (10:56→22:40)
[2018-12-28] MEDS: MORPHINE 4 MG/ML 1ML VIAL/SYRINGE (J2270) IV PRN ×4 (10:56→23:48)
--- NOTE | 2018-12-28 12:54 | IPNPDOC ---
Subjective Date Seen The patient was seen on 12/28/18. Subjective Chief Complaint/HPI c/o pain right lower abdomen. No further n/v. NG tube in place Constitutional: Denies: Chills, Fever Pulmonary: Reports: Dyspnea (chronic); Denies: Cough Cardiovascular: Denies: Chest Pain, Palpitations, Orthopnea Gastrointestinal: Reports: Abdominal Pain; Denies: Nausea, Vomiting, Diarrhea, Constipation Objective Physical Examination General Exam: Positive: Alert, No Acute Distress (NG tube in place) Chest Exam: Positive: Clear to auscultation, Diminished; Negative: Rales, Rhonchi, Wheezing Heart Exam: Positive: Regular Rhythm Abdomen Exam: Positive: BS Hypoactive, Soft, Tenderness (Right abdomen tender) Extremity Exam: Positive: Edema (trace) A-FIB/CHADSVASC A-FIB History Current/History of A-Fib/PAF?: Yes Current Oral Anticoagulant The: Yes Assessment /Plan Problems (1) Obstruction of colon Status: Acute Problem Text: PEr Dr. Fry - NG tube in place Morphine for pain Plan for surgical resection of colonic mass tomorrow with anastamosis vs diverting ostomy (2) Chronic hypoxemic respiratory failure Problem Specific Plan: Consult Specialist Problem Text: Patient on chronic 5 liters NC as outpatient - sats currently high 90s on 5 liters No wheezes small pleural effusions per imaging likely related to atelectasis H/O CALE on CPAP Will need aggressive pul toilet/IS post-operatively with nebs prn Dr. Bertrand consulted to optimize patient pre-operatively from resp standpoint and manage post-operatively (3) Diastolic CHF, chronic Status: Chronic Response to Treatment: Stable Problem Text: Euvolemic at this point off HD fur 40 QD (4) Colonic mass Status: Acute Problem Text: with liver mets - see above (5) A-fib Status: Chronic Response to Treatment: Stable Problem Text: Rate controlled on HD carve 6.25 BID, dig 250 Coumadin on hold in anticipation for surgery tomorrow INR = 1.38 today (6) CALE on CPAP Status: Chronic Problem Text: severe baseline CALE on CPAP 14 (but not palliated at this pressure) (7) CAD (coronary artery disease) Status: Chronic Response to Treatment: Stable (8) Diabetes Status: Chronic Problem Text: HbA1c = 7.7 as ove 06/2018 Normally on Metformin as outpatient cont SSiI coverage q6H (9) CAD (coronary artery disease) Status: Chronic Response to Treatment: Stable Problem Text: No signs of ischemia continue BB, statin (decreased dose given hepatic mets) 06/2017 treadmill stress SPECT-normal perfusion images-Amin Plan/VTE VTE Prophylaxis Ordered?: Yes Disposition anticoag on hold in anticipation for surgery tomorrow VS, I&O, 24H, Fishbone Vital Signs/I&O Vital Signs Date Time Temp Pulse Resp B/P (MAP) Pulse Ox O2 Delivery O2 Flow Rate FiO2 12/28/18 12:00 98 Nasal Cannula 5.0 12/28/18 11:06 16 12/28/18 08:34 78 136/63 12/28/18 08:00 97.5 I&O- Last 24 Hours up to 6 AM 12/28/18 06:00 Intake Total 858 ml Output Total 925 ml Balance -67 ml Laboratory Data 24H LABS Laboratory Tests 2 12/27/18 18:43: Bedside Glucose (Misc Panel) 334H 12/28/18 00:20: Bedside Glucose (Misc Panel) 265H 12/28/18 04:16: Immature Granulocyte % (Auto) 0.5, White Blood Count 8.5, Red Blood Count 4.39, Hemoglobin 13.3L, Hematocrit 41.2L, Mean Corpuscular Volume 93.8, Mean Corpuscular Hemoglobin 30.3, Mean Corpuscular Hemoglobin Concent 32.3, Red Cell Distribution Width 12.4, Platelet Count 265, Neutrophils (%) (Auto) 76.0H, Lymphocytes (%) (Auto) 13.2L, Monocytes (%) (Auto) 9.4H, Eosinophils (%) (Auto) 0.7, Basophils (%) (Auto) 0.2, Neutrophils # (Auto) 6.5, Lymphocytes # (Auto) 1.1L, Monocytes # (Auto) 0.8, Eosinophils # (Auto) 0.1, Basophils # (Auto) 0.0, Nucleated Red Blood Cells % (auto) 0.0, Prothrombin Time 17.2H, Prothromb Time International Ratio 1.38, Anion Gap 7L, Glomerular Filtration Rate > 60.0, Lactic Acid Level 1.0, Blood Urea Nitrogen 13, Creatinine 0.79, Sodium Level 140#, Potassium Level 3.8, Chloride Level 101, Carbon Dioxide Level 32, Calcium Level 8.0L 12/28/18 06:08: Bedside Glucose (Misc Panel) 254H 12/28/18 11:26: Bedside Glucose (Misc Panel) 247H CBC/BMP Laboratory Tests 12/28/18 04:16 Red Blood Count 4.39, Mean Corpuscular Volume 93.8, Mean Corpuscular Hemoglobin 30.3, Mean Corpuscular Hemoglobin Concent 32.3, Red Cell Distribution Width 12.4, Neutrophils (%) (Auto) 76.0 H, Lymphocytes (%) (Auto) 13.2 L, Monocytes (%) (Auto) 9.4 H, Eosinophils (%) (Auto) 0.7, Basophils (%) (Auto) 0.2, Neutrophils # (Auto) 6.5, Lymphocytes # (Auto) 1.1 L, Monocytes # (Auto) 0.8, Eosinophils # (Auto) 0.1, Basophils # (Auto) 0.0, Calcium Level 8.0 L AMANDA VIRAMONTES PA-C December 28, 2018 12:54 Elroy Woods M.D. December 28, 2018 17:00
--- NOTE | 2018-12-28 15:10 | CR ---
DATE OF PULMONARY CONSULTATION: 12/28/2018 HISTORY OF PRESENT ILLNESS: The patient is a 63-year-old male with a past medical history of CAD, status post coronary artery bypass graft (CABG), atrial fibrillation on Coumadin, history of deep venous thrombosis (DVT), morbid obesity, congestive heart failure (CHF), obstructive sleep apnea (CALE) on continuous positive airway pressure (CPAP), chronic hypoxemic respiratory failure on nasal cannula oxygen supplementation of 5 liters per minute, history of a bowel obstruction requiring laparotomy and complicated with an incisional hernia afterwards repaired with mesh and with some persistent abdominal wall hernia, who had presented to the emergency department (ED) with the complaint of worsening abdominal pain and constipation for the past 7 days. The patient reports that he does have a history of intermittent diarrhea and constipation since his bowel surgery in 2009. He does have occasional episodes of constipation where he will take the some home remedies and decreased oral intake and this will usually resolve on its own. However, at this point, prior to his admission, he was having worsening abdominal pain and had not even been passing gas for the past 3 days prior to his admission. He was also noting increasing abdominal distension and bloating. The patient did have an episode of nausea and vomiting prior to his admission. He had denied any significant weight loss. He denied any chest pains or increased shortness of breath or cough. He does have a history of some dyspnea on exertion, although he does not feel this has worsened. The patient had been on nasal cannula oxygen for the past 2 years after an episode of pneumonia, which from the description sounds to have been an aspiration pneumonia. Since that time, he had required nasal cannula oxygen supplementation; was initially on 2-3 liters and more recently in the past year he had been increased to 5 liters per minute. 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 The patient had been seen by someone in our office previously for obstructive sleep apnea but did not have any workup for his pulmonary issues, including his shortness of breath and dyspnea on exertion. He is able to climb a flight of stairs currently, although he does feel tired at the end of the climb. He does also note a history of lower extremity edema, although this has been improved since he had been on new medications and followup with Dr. Amin for cardiology. The patient denies any history of wheezing recently. He has not had any recent fevers or chills at home. He had previously been prescribed inhalers to use as needed but the patient has not been using them as did not know that he had any history of lung disease and was unclear on the benefits with the inhalers. PAST MEDICAL HISTORY: 1. CAD status post CABG. 2. Atrial fibrillation, on Coumadin. 3. CHF. 4. Morbid obesity. 5. CALE on CPAP. 6. Chronic hypoxemic respiratory failure, on nasal cannula supplementation 5 liters per minute. 7. Diabetes. 8. recurrent incisional/ventral hernia. PAST SURGICAL HISTORY: 1. Exploratory laparotomies for a small bowel obstruction and appendectomy. 2. Debridement of necrotic skin around a gastrostomy site. 4. Umbilical and ventral incisional hernia repair. 5. Cholecystectomy. 6. Right knee arthroplasty. 7. Four-vessel CABG. ALLERGIES: NO KNOWN DRUG ALLERGIES. HOME MEDICATIONS: - aspirin - atorvastatin - carvedilol - digoxin - Lasix 40 mg daily - metformin - Coumadin - Alie as needed FAMILY HISTORY: No family history of gastrointestinal (GI) or colon malignancy. SOCIAL HISTORY: The patient is a former smoker, was 2 packs a day for 40 years, quit approximately 10 years ago. 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 His mother also had evidence of asbestos related lung disease likely from contact with her husbands clothes PHYSICAL EXAMINATION: Temperature 97.5, pulse 86, respirations 19, blood pressure 136/63, oxygen saturation 98% on 5 liters per minute nasal cannula. General: The patient is an obese male. He is lying in bed, does not appear to be in any respiratory distress, is able to speak in complete sentences and is not using any accessory muscles of respiration. HEENT: Normocephalic, atraumatic. Mucous membranes are moist. Neck is supple. No palpable adenopathy. No obvious jugular venous distention. Lungs: Clear to auscultation bilaterally. No wheezing, rales or rhonchi. Abdomen is markedly distended. He has some tenderness to palpation in the right lower quadrant. The patient has a midline incision as well as previous scar from a gastrostomy site. Extremities: There is no lower extremity edema noted bilaterally. LABS: WBC 8.5, hemoglobin 13.3, platelets 265. Chemistry: Sodium is 140, potassium 3.8, chloride 101, bicarbonate 32, BUN 13, creatinine 0.79. Glucose is 235. Lactic acid was 1.8. Lipase is 83. Troponins were negative. IMAGING: CT abdomen and pelvis showed a stricturing mass in the hepatic flexure causing proximal bowel dilatation and there was dilatation in his distal small bowel and right colon. There is also evidence of liver metastases. There is some trace pleural thickening bilaterally in the lungs and no evidence of any plaquing. ASSESSMENT AND PLAN: The patient is a 63-year-old male with a history of CAD status post CABG, atrial fibrillation, on Coumadin, congestive heart failure, obstructive sleep apnea, on CPAP, chronic hypoxemic respiratory failure on nasal cannula oxygen supplementation, diabetes, previous complicated abdominal surgery who presented with increasing abdominal pain and constipation for the past few days. The patient was found on imaging to have a stricturing a mass in the hepatic flexure of his colon causing colonic obstruction. He has been evaluated by surgery and given the evidence of the colon obstruction secondary to a mass, which is likely malignant due to evidence of likely metastases in his liver, the patient will need surgery to address the obstruction, which will also likely give a diagnosis in terms of the mass. As per surgery based on his previous abdominal surgeries and recurrent incisional hernia with a very thin abdominal wall, he will likely have a complicated surgery. The patient also has a history of chronic cardiac issues, which currently appears stable at this time as per cardiology. He also has a history of chronic hypoxemic respiratory failure requiring nasal cannula oxygen supplementation, which has not been worked up previously in the past. The patient does have a significant smoking history and may have previously undiagnosed chronic obstructive pulmonary disease (COPD). On the lung windows in his CT abdomen, there was no significant emphysematous changes. There were few blebs but there was no significant lung disease. He did have some mild pleural thickening but no evidence of plaques. There is a possible history of asbestos exposure for the patient as well, but at least on the available lung windows there is no asbestos related lung disease clearly noted. Suspect that some of his chronic hypoxemia is likely due to obesity hypoventilation syndrome (OHS) with CALE given his obesity. He may also have a component of restrictive lung disease as well due to his obesity. The patient reported he has needed increasing nasal cannula oxygen supplementation. However, while here he has been saturating 97-99% on 5 liters nasal cannula, and so we did discuss with the patient that he likely does not need 5 liters at rest but can be weaned down as tolerated to maintain an oxygen saturation above 88%. On labs he has evidence of elevated bicarbonate and suspect on an arterial blood gas (ABG) we would find chronic hypercarbic respiratory failure likely secondary to his OHS. In terms of preoperative optimization given the semi-emergent nature of the surgery, we did discuss with the patient and his that he will need abdominal surgery for his obstruction and that he is at intermediate risk of pulmonary complications postoperatively due to the nature of the surgery and his other comorbidities. - Would have the patient continue with home CPAP while in the hospital. Postoperatively, he should be extubated to his home CPAP. He should also be extubated once fully awake. - He will also likely have significant atelectasis postoperatively given his obesity and the nature of his surgery. Therefore, pulmonary toilet for him is of importance including incentive spirometer, pain control and positive expiratory pressure (PEP) therapy. - Can start DuoNeb treatments prn. He did not have any significant wheezing noted on exam today and denies a history of any wheezing or coughing recently. The patient can get a breathing treatment prior to his surgery as well. - The patient can followup with us in pulmonary as an outpatient for further workup for possible COPD including complete pulmonary function tests (PFTs). Continue deep venous thrombosis (DVT) prophylaxis. He was on Coumadin, which is being held currently for his surgery. Would continue with thromboembolism deterrents (TEDs) and sequential compressive devices (SCDs) while his anticoagulation is being held. ISAIAS
--- NOTE | 2018-12-28 21:06 | CR ---
DATE OF CONSULTATION: 12/28/2018 CARDIOLOGY CONSULTATION REFERRING PHYSICIAN: Dr. Palmer INDICATION: Preoperative cardiac clearance. Acute on chronic bowel obstruction. 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 Last seen in my office October 13, 2018. Customarily limited by his dyspnea even with supplemental oxygen by nasal prongs. Admits to having considerable difficulty with breathing climbing a flight of stairs even though he has lost 20 pounds since his last visit. Sleeps well with his bilevel positive airway pressure (BiPAP) and supplemental oxygen. Has been free of any chest discomfort, awareness of his heart action and tolerating his medications including his oral anticoagulation without adverse effect. Does admit to some lightheadedness when he becomes dyspneic. Has had a longstanding history of gastroesophageal reflux complicated by prior aspiration pneumonia, as well as intermittent constipation and diarrhea attributed to spastic colon in the past. One week prior to his current admission, had been having more problems passing stool and then was unable to pass stool or gas. Presented to the emergency room yesterday and was found to have large bowel obstruction attributed to colon cancer with extensive intra-abdominal metastases. Current consultation placed prior to surgical intervention. LAST CARDIAC TESTING:: Holter monitor December 28, 2015 for palpitations showed underlying atrial fibrillation with controlled ventricular response and rare isolated premature ventricular contractions (PVCs.) Treadmill Cardiolite heart scan July 01, 2017 showed somewhat poor exercise tolerance, completing only 4 minutes of David, stopping with dyspnea and fatigue with peak heart rate 154, blood pressure 150/95, but no chest pain. Baseline EKG ST/T-wave abnormalities became more prominent, only occasional PVC. Left ventricular size was normal with normal wall motion, left ventricular ejection fraction (LVEF) 68%. There was diaphragmatic attenuation artifact but no reversible stress SPECT myocardial perfusion defect. Chest x-ray August 26, 2017 - [place] left lateral study, [facility], showed marked cardiomegaly with sternotomy wire sutures. Pulmonary vascular engorgement with interstitial lung disease. No pleural effusions, focal infiltrates or masses. Echocardiogram September 13, 2018 showed mild left ventricle hypertrophy with normal wall motion. Moderate left atrial enlargement with estimated mean left atrial pressure at that time within normal limits. Right heart chamber sizes were upper limits of normal with normal wall motion. Estimated pulmonary arterial pressure was believed to be only mildly increased, though his inferior vena cava could not be visualized. Mild aortic valvular sclerosis with normal aortic diameters. Normal mitral valve appearance and function. No pericardial effusion. PRIOR CARDIAC PROCEDURES: Coronary artery bypass surgery July 2004. Direct current cardioversions times four in 2014 because of recurrent atrial fibrillation. PAST SURGICAL HISTORY: Cholecystectomy. Appendectomy. Umbilical hernia repair. Resection of part of colon. Incisional hernia repair using mesh. SYSTEMS REVIEW: As mentioned above with respect to his cardiac, pulmonary and gastrointestinal (GI) history. Denies any fever, chills or night sweats. Wears corrective lenses. No musculoskeletal complaints. All other systems review is negative. CORONARY RISK FACTORS: Male gender. Age. Morbid obesity. Chronic hypertension. Hypercholesterolemia. Diabetes mellitus. Former 41-year smoking history. Family history of premature coronary heart disease. MEDICATIONS: At home, he was taking digoxin 0.25 mg daily with carvedilol 6.25 mg by mouth twice a day, Lasix 40 mg daily with KCl 10 mEq daily, atorvastatin 80 mg nightly, aspirin 81 mg daily, warfarin oral anticoagulant as directed by cardiology, metformin 500 mg by mouth daily and continuous home oxygen (O2) at 3 liters by nasal prongs during the day and 5 liters by nasal prongs while sleeping. BiPAP for severe obstructive sleep apnea with O2 desaturations to 75%, primarily obstructive. ALLERGIES: None known. PHYSICAL EXAMINATION: Vital signs: Weight 319 pounds, height 72 inches, body mass index (BMI) 43.3, heart rate 96 beats per minute (bpm) and irregular, blood pressure 125/68 with large cuff. O2 saturation on 3 liters by nasal prongs 96% at rest. Constitutional: Morbidly obese, barrel-chested, late middle-aged male laying comfortably with the head of bed elevated 30 degrees. Eyes: Normal conjunctivae without pallor or icterus. Arcus senilis. No xanthelasma. Edentulous with upper and lower dentures. Normal oral moisture. No central cyanosis or pallor. Neck: Trachea midline. Thyroid normal in size. Jugular veins difficult to assess in light of his body habitus. Respiratory: Increased anteroposterior chest diameter with reduced chest excursion. Well-healed sternotomy incision. Reduced air entry but no localized inspiratory rales. Slight prolongation of expiration but no audible wheeze. Cardiovascular: Apical impulse not palpable. Heart sounds distant and variable, question accentuated pulmonary closure with splitting audible over the right base. No audible gallops, murmur or rub. Normal carotid upstroke but variable volume related to his arrhythmia. No bruits. Abdominal aorta and femoral arteries not palpable because of obesity. No bruits. Pedal pulses difficult to palpate because of edema. Extremities: 1 mm pitting edema one-third up both lower legs. A few superficial venules both lower legs. No clubbing, peripheral cyanosis or splinter hemorrhages. Abdomen: Somewhat distended and somewhat tympanic, obvious lower abdominal pannus. Well-healed median laparotomy incision with prior left upper quadrant functioning colostomy. Unable to determine organomegaly because of his obesity. Rectal examination not indicated. Musculoskeletal: No obvious joint deformities. Normal appearing muscular strength and tone. Gait was not assessed. Skin: No pallor. Chronic skin changes both lower legs. Well healed left forearm incision. Right radial artery donor for coronary artery bypass graft (CABG) in the past. Neurologic/Psychologic: Bright, alert and oriented, gave a lucid history. Eye, facial, and extremity movements appear to be symmetrical and normal. INVESTIGATIONS: Curiously, no chest x-ray was taken at the time of his admission. Abdominal and pelvic CT scan with IV and oral contrast showed normal lung bases but obvious cardiomegaly. Inferior vena cava (IVC) size was 2.2 cm, upper limits of normal. At least moderately dilated left atrium. Normal left ventricular size with right heart chambers upper limits of normal in size and at least mildly dilated pulmonary trunk in keeping with pulmonary hypertension. Reported mass at the hepatic flexure of the colon, constricting and obstructing the colon with local neoplastic infiltration of the pericolic fat with dilated right colon and distal small bowel. Multiple hepatic metastases with largest measuring 3.1 cm in diameter. Pancreas unremarkable. Left kidney size normal. Normal adrenal glands. Normal spleen. No abdominal aortic aneurysm. Prior cholecystectomy. Small left inguinal hernia. EKG showed underlying atrial fibrillation with somewhat rapid ventricular response averaging 106 bpm. Slightly prominent R-waves, suggestive of RVH versus prior posterior wall myocardial infarction (TN). Nonspecific ST/T-wave abnormalities that did not appear changed from September 06, 2018. BLOOD WORK:: Hemoglobin on admission was 15; this has drifted to 13.3 with IV hydration. His white blood cell count of 11.8 on admission has normalized. Platelet count is normal. Admission PT/INR was 27.8/2.5, and this has normalized with vitamin K1 IV. Chemistry this morning confirmed electrolyte balance with potassium 3.8, bicarbonate was slightly elevated at 32, BUN normal at 13, creatinine 0.79, fasting glucose 235. Lactic acid levels have been negative. Serum albumin on admission was 3.1, calcium 8.7, negative Troponin I level. SGPT marginally elevated at 40 with alkaline phosphatase 127. Lipase was normal. Digoxin level was therapeutic at 0.8. IMPRESSION/PLAN: 1. Heart failure (diastolic/chronic): At this point, I believe he is compensated, receiving IV fluid with nothing by mouth (n.p.o.) status. Currently off his diuretic therapy, electrolyte balance with normal renal function at this time. 2. Chronic atrial fibrillation: Current ventricular response is adequately controlled with his digoxin and carvedilol. His oral anticoagulation has been reversed in preparation for surgical intervention. Currently receiving antithrombotic measures for his lower extremities with thromboembolism deterrent (MELITON) sequentials. 3. Coronary artery disease ([place] vessel)/post CABG: Remains free of symptomatic myocardial ischemia. His current EKG is not changed from last August and cardiac enzymes are negative at this point. Remains on protective combination carvedilol and atorvastatin. 4. Hypertensive heart disease with heart failure: Current blood pressure adequately controlled with low-dose carvedilol alone. Chemistry as mentioned. 5. Cor pulmonale (chronic): Echocardiographic study interestingly appears to underplay his pulmonary hypertension. His chest CT scan does show a dilated pulmonary trunk and at least mildly dilated right heart chambers and IVC size upper limits of normal. Undoubtedly this is improved with his 20-pound weight loss. Remains an issue that will complicate surgical and anesthetic measures. Remains on controlled supplemental oxygen. Unfortunately with his nasogastric tube, he is unable to wear his BiPAP mask. 6. Preoperative cardiac examination: It is obvious the patient requires decompression of his colon. Presently has a nasogastric tube in place and is nothing by mouth. I have spoken with Dr. Fry, general surgeon, regarding this patient's extremely complicated medical problems. He is already well aware of his complicated abdominal situation with prior partial bowel resection, complicated surgery and abdominal mesh. We would be in favor of the most minimal decompressive procedure necessary. We recognize his long-term prognosis is extremely guarded with the bulk of his cancer. The patient has been DO NOT RESUSCITATE (DNR). We will plan on following him perioperatively with you. The patient remains extremely high risk for any abdominal surgical intervention from both the cardiac and respiratory standpoint. ISAIAS
[2018-12-29] VITALS (10 sets, daily range): BP systolic 119–157; BP diastolic 59–92; O2SAT 94–98
[2018-12-29] MEDS: MORPHINE 4 MG/ML 1ML VIAL/SYRINGE (J2270) IV PRN ×2 (05:58→10:02)
[2018-12-29] MEDS: HumaLOG INSULIN (NovoLOG) PER UNIT SC SCH ×3 (05:58→18:00)
[2018-12-29 06:10] LABS: BASO % 0.2 % (0.0-1.0); EOS % 0.2 % (0.0-3.0); HEMATOCRIT 42.3 % (42.0-52.0); HEMOGLOBIN 13.4 g/dl (13.5-17.5); LYMPH % 11.2 % (24.0-44.0); MEAN CORPUSCULAR HEMOGLOBIN 30.9 pg (27.0-33.0); MEAN CORPUSCULAR HGB CONC 31.7 g/dl (32.0-36.5); MEAN CORPUSCULAR VOLUME 97.7 fl (80.0-96.0); MONO # 0.8 10^3/uL (0.0-0.8); MONO % 8.8 % (0.0-5.0); NEUTROPHILS # 7.3 10^3/uL (1.8-7.7); NEUTROPHILS % 79.3 % (36.0-66.0); PLATELET COUNT, AUTOMATED 257 10^3/uL (150-450); RED BLOOD COUNT 4.33 10^6/uL (4.30-6.10); WHITE BLOOD COUNT 9.3 10^3/uL (4.0-10.0)
[2018-12-29 06:28] LABS: INR 1.13; PROTHROMBIN TIME 14.7 SECONDS (12.1-14.4)
[2018-12-29 06:47] LABS: BLOOD UREA NITROGEN 8 MG/DL (7-18); CALCIUM LEVEL 8.2 MG/DL (8.8-10.2); CARBON DIOXIDE LEVEL 30 MEQ/L (21-32); CHLORIDE LEVEL 105 MEQ/L (98-107); CREATININE FOR GFR 0.65 MG/DL (0.70-1.30); GLOMERULAR FILTRATION RATE > 60.0 (>49); GLUCOSE, FASTING 228 MG/DL (70-100); NT-PRO BNP 205 PG/ML (<125); SODIUM LEVEL 141 MEQ/L (136-145)
--- NOTE | 2018-12-29 08:53 | IPNPDOC ---
Subjective Date Seen The patient was seen on 12/29/18. Subjective Chief Complaint/HPI No new complaints today. Pain well controlled with Morphine. No SOB , cough or CP. NG tube in place. No BMs Constitutional: Denies: Chills, Fever Pulmonary: Denies: Dyspnea, Cough Cardiovascular: Denies: Chest Pain, Palpitations Gastrointestinal: Reports: Abdominal Pain, Constipation; Denies: Nausea, Vomiting, Diarrhea Objective Physical Examination General Exam: Positive: Alert, No Acute Distress (NG tube in place - draining brownish fluid) Chest Exam: Positive: Clear to auscultation, Diminished; Negative: Rales, Rhonchi, Wheezing Heart Exam: Positive: Regular Rhythm Abdomen Exam: Positive: BS Hypoactive, Soft, Tenderness (Right abdomen tender) Extremity Exam: Positive: Edema (trace) A-FIB/CHADSVASC A-FIB History Current/History of A-Fib/PAF?: Yes Current Oral Anticoagulant The: No (on hold for surgery) Assessment /Plan Problems (1) Obstruction of colon Status: Acute Problem Text: 12/29 - Anticipate surgery at noon today for partial bowel resec tion of abdominal mass with anastamosis vs diverting ostomy by Dr. Fry. NG tube in place Morphine for pain Resp and cardiac status stable currently - pre-op evaluations and recommendations done per Cardiology and Pulmonary who will be following patient post-operatively Currently on his chronic 5L NC Will need aggressive pulmonary toilet/IS post-operatively to prevent worsening atelectasis Coumadin on hold for surgery INR today = 1.13 (2) Chronic hypoxemic respiratory failure Problem Specific Plan: Consult Specialist Problem Text: Patient on chronic 5 liters NC as outpatient - sats currently high 90s on 5 liters No wheezes small pleural effusions per imaging likely related to atelectasis H/O CALE on CPAP Will need aggressive pul toilet/IS post-operatively with nebs prn Dr. Bertrand consulted to optimize patient pre-operatively from resp standpoint and manage post-operatively (3) Diastolic CHF, chronic Status: Chronic Response to Treatment: Stable Problem Text: 12/29 - Currently getting IVF at 80/hour Euvolemic at this point off HD fur 40 QD (4) Colonic mass Status: Acute Problem Text: with liver mets - see above (5) A-fib Status: Chronic Response to Treatment: Stable Problem Text: 12/29 - Rate controlled on HD carve 6.25 BID, dig 250 Coumadin on hold in anticipation for surgery tomorrow INR = 1.13 today (6) CALE on CPAP Status: Chronic Problem Text: severe baseline CALE on CPAP 14 (but not palliated at this pressure) (7) CAD (coronary artery disease) Status: Chronic Response to Treatment: Stable (8) Diabetes Status: Chronic Problem Text: HbA1c = 7.7 as ove 06/2018 Normally on Metformin as outpatient cont SSiI coverage q6H (9) CAD (coronary artery disease) Status: Chronic Response to Treatment: Stable Problem Text: No signs of ischemia continue BB, statin (decreased dose given hepatic mets) 06/2017 treadmill stress SPECT-normal perfusion images-Amin Plan/VTE VTE Prophylaxis Ordered?: Yes (TEDs/Sequentlial - Coumadin on hold for surgery) VS, I&O, 24H, Fishbone Vital Signs/I&O Vital Signs Date Time Temp Pulse Resp B/P (MAP) Pulse Ox O2 Delivery O2 Flow Rate FiO2 12/29/18 08:00 97.1 94 20 144/82 (102) 96 3.0 12/29/18 04:00 Nasal Cannula I&O- Last 24 Hours up to 6 AM 12/29/18 06:00 Intake Total 975 ml Output Total 2505 ml Balance -1530 ml Laboratory Data 24H LABS Laboratory Tests 2 12/28/18 11:26: Bedside Glucose (Misc Panel) 247H 12/28/18 17:07: Bedside Glucose (Misc Panel) 240H 12/28/18 23:45: Bedside Glucose (Misc Panel) 185H 12/29/18 05:55: Immature Granulocyte % (Auto) 0.3, White Blood Count 9.3, Red Blood Count 4.33, Hemoglobin 13.4L, Hematocrit 42.3, Mean Corpuscular Volume 97.7H, Mean Corpuscular Hemoglobin 30.9, Mean Corpuscular Hemoglobin Concent 31.7L, Red Cell Distribution Width 12.6, Platelet Count 257, Neutrophils (%) (Auto) 79.3H, Lymphocytes (%) (Auto) 11.2L, Monocytes (%) (Auto) 8.8H, Eosinophils (%) (Auto) 0.2, Basophils (%) (Auto) 0.2, Neutrophils # (Auto) 7.3, Lymphocytes # (Auto) 1.0L, Monocytes # (Auto) 0.8, Eosinophils # (Auto) 0.0, Basophils # (Auto) 0.0, Nucleated Red Blood Cells % (auto) 0.0, Prothrombin Time 14.7H, Prothromb Time International Ratio 1.13, Anion Gap 6L, Glomerular Filtration Rate > 60.0, Blood Urea Nitrogen 8, Creatinine 0.65L, Sodium Level 141, Potassium Level 4.0, Chloride Level 105, Carbon Dioxide Level 30, Calcium Level 8.2L, BP-Mqm-I-Type Natriuretic Peptide 205H 12/29/18 05:56: Bedside Glucose (Misc Panel) 213H 12/29/18 06:47: CBC/BMP Laboratory Tests 12/29/18 05:55 Red Blood Count 4.33, Mean Corpuscular Volume 97.7 H, Mean Corpuscular Hemoglobin 30.9, Mean Corpuscular Hemoglobin Concent 31.7 L, Red Cell Distribution Width 12.6, Neutrophils (%) (Auto) 79.3 H, Lymphocytes (%) (Auto) 11.2 L, Monocytes (%) (Auto) 8.8 H, Eosinophils (%) (Auto) 0.2, Basophils (%) (Auto) 0.2, Neutrophils # (Auto) 7.3, Lymphocytes # (Auto) 1.0 L, Monocytes # (Auto) 0.8, Eosinophils # (Auto) 0.0, Basophils # (Auto) 0.0, Calcium Level 8.2 L AMANDA VIRAMONTES PA-C December 29, 2018 08:53
[2018-12-29] MEDS: ATORVASTATIN 20 MG TAB PO SCH (08:55)
[2018-12-29] MEDS: NYSTATIN 100,000 UNITS/GM TOPICAL PWD 15 GM TOP SCH ×2 (08:56→21:14)
[2018-12-29] MEDS: DIGOXIN INJ 0.5 MG/2 ML AMP (J1160) IV SCH (08:56)
[2018-12-29] MEDS: CARVedilol 6.25 MG TAB PO SCH ×2 (08:56→21:15)
[2018-12-29] MEDS ORDERED: ONDANSETRON 4MG/2ML VIAL (J2405) IV PRN ×2 (09:30→19:00)
[2018-12-29] MEDS: NS 1,000 ML IV SCH (10:02)
--- NOTE | 2018-12-29 10:48 | REP ---
CHEST X-RAY: Two views. HISTORY: Chronic heart failure and respiratory failure. COMPARISON CHEST X-RAY: November 30, 2017. FINDINGS: EKG monitoring electrodes and oxygen delivery tubing are seen overlying the chest. The patient is status post prior median sternotomy. A nasogastric tube is seen entering the left upper quadrant on the lateral radiograph. This is not well displayed on the frontal view. There is benign pleural thickening present bilaterally. The pleural angles are sharp. Pulmonary vasculature is not increased. No infiltrate is seen. IMPRESSION: Mildly enlarged heart. Prior sternotomy. NG tube in place. Electronically Signed by Ki Espinosa MD 12/29/2018 03:41 P
[2018-12-29] MEDS ORDERED: metroNIDAZOLE 500 MG in APPROPRIATE DILUENT 1 EA IV ONE (11:00)
[2018-12-29] MEDS ORDERED: cefoTEtan DISODIUM 2 GM in D5W MINI-BAG PLUS 50 ML IV ONE (11:30)
[2018-12-29] MEDS ORDERED: BUPIVACAINE HCL 0.25% 30 ML VIAL As Ordered ONE ×3 (11:50→11:52)
[2018-12-29] MEDS ORDERED: LIDOCAINE 1% SDV INJ 30 ML VIAL As Ordered ONE (11:50)
[2018-12-29] MEDS ORDERED: MIDAZOLAM INJ 2 MG/2 ML VIAL (J2250) As Ordered ONE ×3 (12:08→18:01)
[2018-12-29] MEDS ORDERED: LIDOCAINE 2% INJ 100 MG/5 ML SDV (FOR ANES.) As Ordered ONE ×2 (12:08→12:49)
[2018-12-29] MEDS ORDERED: fentaNYL 250 MCG/5 ML INJECTION (J3010) As Ordered ONE ×2 (12:08→12:49)
[2018-12-29] MEDS ORDERED: ONDANSETRON 4MG/2ML VIAL (J2405) As Ordered ONE ×2 (12:08→12:49)
[2018-12-29] MEDS ORDERED: ROCURONIUM BROMIDE 50 MG/5 ML VIAL As Ordered ONE ×4 (12:08→15:23)
[2018-12-29] MEDS ORDERED: PROPOFOL 200 MG/20 ML VIAL As Ordered ONE ×2 (12:08→12:49)
[2018-12-29] MEDS ORDERED: dexameTHASONE 4 MG/ML 1ML VIAL (J1100) As Ordered ONE ×2 (12:08→12:49)
[2018-12-29] MEDS ORDERED: KETAMINE HCL 200 MG/20 ML VIAL As Ordered ONE (12:49)
[2018-12-29] MEDS ORDERED: ETOMIDATE INJ 20MG/10ML VIAL As Ordered ONE (13:35)
[2018-12-29] MEDS ORDERED: cefoTEtan INJ 2GM VIAL (S0074 PER 500MG) As Ordered ONE (13:38)
[2018-12-29] MEDS ORDERED: PHENYLephrine HCL 500 MCG/5 ML (100MCG/ML) SYRINGE (J2370) As Ordered ONE (14:02)
[2018-12-29] MEDS ORDERED: HYDROmorphone HCL 2 MG/ML 1ML VIAL (J1170) As Ordered ONE (16:01)
[2018-12-29] MEDS ORDERED: SEVOFLURANE INHAL SOLN 250 ML BTL As Ordered ONE (16:04)
[2018-12-29] MEDS ORDERED: VECURONIUM BROMIDE 10 MG VIAL As Ordered ONE (16:46)
[2018-12-29] MEDS ORDERED: PROPOFOL 1,000 MG/100 ML VIAL As Ordered ONE (17:27)
[2018-12-29] MEDS ORDERED: BUPIVACAINE HCL 0.5% 30 ML VIAL As Ordered ONE (17:28)
[2018-12-29] MEDS ORDERED: BUPIVACAINE LIPOSOME/PF 1.3% 20ML VIAL (13.3MG/ML)(EXPAREL)(C9290 PER1MG) As Ordered ONE (17:28)
[2018-12-29] MEDS ORDERED: BUPIVACAINE HCL 0.25% 10 ML VIAL As Ordered ONE (17:30)
[2018-12-29] MEDS ORDERED: fentaNYL 100 MCG/2 ML INJECTION (J3010) As Ordered ONE (17:37)
[2018-12-29] MEDS ORDERED: MIDAZOLAM INJ 5 MG/ML VIAL (J2250) As Ordered ONE (17:39)
[2018-12-29] MEDS: PROPOFOL 1,000 MG in APPROPRIATE DILUENT 1 EA IV SCH ×2 (17:47→21:13)
[2018-12-29 18:52] LABS: HEMATOCRIT 47.1 % (42.0-52.0); HEMOGLOBIN 14.9 g/dl (13.5-17.5); MEAN CORPUSCULAR HEMOGLOBIN 31.7 pg (27.0-33.0); MEAN CORPUSCULAR HGB CONC 31.6 g/dl (32.0-36.5); MEAN CORPUSCULAR VOLUME 100.2 fl (80.0-96.0); PLATELET COUNT, AUTOMATED 207 10^3/uL (150-450); WHITE BLOOD COUNT 8.2 10^3/uL (4.0-10.0)
[2018-12-29 18:53] LABS: ABG BASE EXCESS -0.1 (-2.0-2.0); ABG HCO3 24.4 MEQ/L (22.0-26.0); ABG O2 SATURATION 95.9 % (95.0-99.0); ABG PARTIAL PRESSURE CO2 39.6 mmHg (35.0-45.0); ABG PARTIAL PRESSURE O2 103.4 mmHg (75.0-100.0); ABG STANDARD HCO3 24.4 MEQ/L (22.0-26.0); ABG TOTAL CO2 25.6 MEQ/L (23.0-31.0); ABG pH (ARTERIAL) 7.408 UNITS (7.350-7.450)
[2018-12-29] MEDS ORDERED: LR 1,000 ML IV SCH (19:00)
[2018-12-29 19:19] LABS: ALBUMIN 2.4 GM/DL (3.2-5.2); ALT/SGPT 54 U/L (12-78); BILIRUBIN,TOTAL 0.6 MG/DL (0.2-1.0); BLOOD UREA NITROGEN 10 MG/DL (7-18); CALCIUM LEVEL 7.4 MG/DL (8.8-10.2); CARBON DIOXIDE LEVEL 26 MEQ/L (21-32); CHLORIDE LEVEL 108 MEQ/L (98-107); CREATININE FOR GFR 0.69 MG/DL (0.70-1.30); GLOMERULAR FILTRATION RATE > 60.0 (>49); GLUCOSE, FASTING 234 MG/DL (70-100); POTASSIUM SERUM 4.7 MEQ/L (3.5-5.1); SODIUM LEVEL 141 MEQ/L (136-145)
[2018-12-29] MEDS: fentaNYL 100 MCG/2 ML INJECTION (J3010) IV PRN ×2 (19:33→20:22)
[2018-12-29] MEDS: CHLORHEXIDINE GLUCONATE 0.12 % 15ML UDC (PERIDEX ORAL RINSE) MT SCH (21:14)
[2018-12-29] MEDS: LR 1,000 ML IV SCH (21:15)
[2018-12-29] MEDS: metroNIDAZOLE 500 MG in APPROPRIATE DILUENT 1 EA IV SCH (21:15)
[2018-12-29] MEDS ORDERED: PILL CRUSHER/CUTTER 1 EACH XX PRN (21:30)
--- NOTE | 2018-12-29 22:20 | IPN ---
DATE: 12/29/2018 CARDIOLOGY PROGRESS NOTE The patient underwent surgical intervention today related to his large bowel obstruction due to malignant tumor with known diffuse intra-abdominal metastasis. I understand a simple functioning colostomy could not be performed, a laparotomy with resection of his right colon was necessary. Review of his intraoperative course indicates fairly stable blood pressures despite anesthesia and his intervention. He received a total of 2500 mL of fluid. Estimated blood loss was approximately 200 mL and his urine output was 150 mL. He is currently in the recovery room intubated and on a mechanical ventilator. He is receiving IV sedation. Heart rate 104 beats per minute and irregular, blood pressure 128/64 on mechanical ventilator with rate 18. Oxygen saturation 98% on 40% oxygen. Obese barrel chested male currently has symmetrical air entry both lung randall with no inspiratory rales. Heart sounds again quite distant. Has some dependent edema. Abdomen is currently soft with obvious incision and functioning ileostomy right abdomen draining light brown colored fluid. Portable upright chest x-ray in the recovery room was reviewed independently and shows again his cardiomegaly but remarkably clear lung randall with no infiltrate, pulmonary venous congestion or effusion. EKG reviewed independently shows atrial fibrillation with controlled ventricular response, somewhat low limb voltages with subtle repolarization abnormalities that were not more marked than his preoperative tracing. POSTOPERATIVE BLOOD WORK: Hemoglobin 14.9. Normal white blood cell count and platelet count. Arterial blood gas on his current ventilator settings showed a pH of 7.41, pCO2 of 40, pO2 of 103. Electrolytes were in balance with potassium 4.7, bicarbonate 26, BUN 10, creatinine 0.7, random glucose 234, albumin likely diluted at 2.4. IMPRESSION / PLAN: 1. Heart failure (diastolic / chronic): Remarkably he has tolerated this very complicated surgery from Dr. Fry's description with relatively stable hemodynamics. He has some systemic edema related to his IV fluid administration, but his chest x-ray is clear at this time. Electrolytes are in balance and his renal function is normal. Remains intubated and on a mechanical ventilator. In light of his anticipated abdominal fluid shifts, he will remain on IV fluid as directed by surgery. No diuretic therapy will be administered at this time. Followup chest x-ray will be obtained in the morning. 2. Chronic atrial fibrillation: Given his course his heart rate remains nicely controlled on digoxin and carvedilol which have been reordered. Restarting his anticoagulant therapy will be determined by surgery. Currently wearing sequentials and MELITON stockings. 3. Coronary artery disease ([place] vessel) / post CABG: At this point no EKG change to suggest myocardial ischemia. I have requested followup EKGs and cardiac enzymes. Will remain on his carvedilol beta-josh therapy. 4. Hypertensive heart disease with heart failure: Currently has a fairly normal blood pressure without pressor therapies. Chemistry as mentioned. 5. Cor pulmonale (chronic): Despite his documented pulmonary hypertension, fared very well with his abdominal intervention. Currently maintained intubated on a ventilator and Dr. Bertrand is monitoring his respiratory status and related settings. I will continue to follow him closely with you and appreciate the opportunity to participate in his care. ISAIAS
[2018-12-29] MEDS: cefoTEtan DISODIUM 1 GM in D5W MINI-BAG PLUS 50 ML IV SCH (22:56)
[2018-12-30] VITALS (23 sets, daily range): BP systolic 92–143; BP diastolic 51–99; O2SAT 89–99
[2018-12-30] MEDS: PROPOFOL 1,000 MG in APPROPRIATE DILUENT 1 EA IV SCH ×4 (00:14→11:13)
[2018-12-30] MEDS: HumaLOG INSULIN (NovoLOG) PER UNIT SC SCH ×4 (00:14→18:10)
[2018-12-30] MEDS: LR 1,000 ML IV SCH ×2 (03:55→14:24)
[2018-12-30] MEDS: metroNIDAZOLE 500 MG in APPROPRIATE DILUENT 1 EA IV SCH ×3 (03:55→20:23)
[2018-12-30] MEDS: MORPHINE 4 MG/ML 1ML VIAL/SYRINGE (J2270) IV PRN ×2 (04:02→18:30)
[2018-12-30 05:18] LABS: BASO % 0.3 % (0.0-1.0); HEMOGLOBIN 14.1 g/dl (13.5-17.5); LYMPH % 9.1 % (24.0-44.0); MEAN CORPUSCULAR HEMOGLOBIN 31.5 pg (27.0-33.0); MEAN CORPUSCULAR VOLUME 98.2 fl (80.0-96.0); MONO % 9.1 % (0.0-5.0); NEUTROPHILS # 9.3 10^3/uL (1.8-7.7); NEUTROPHILS % 81.1 % (36.0-66.0); PLATELET COUNT, AUTOMATED 278 10^3/uL (150-450); RED BLOOD COUNT 4.48 10^6/uL (4.30-6.10); WHITE BLOOD COUNT 11.5 10^3/uL (4.0-10.0)
--- NOTE | 2018-12-30 05:31 | IPN ---
DATE OF VISIT: 12/29/2018 The patient was seen and examined post surgery. Today the patient underwent an exploratory laparoscopy with colon resection with a right hemicolectomy with ileostomy. Postoperatively the patient was kept intubated and transferred to the intensive care unit (ICU) for further management. During the procedure, the patient tolerated it well, did require some as needed phenylephrine pushes but otherwise was hemodynamically stable. The patient does have an nasogastric tube placed post surgery for drainage and he had a colostomy bag as well. PHYSICAL EXAMINATION: VITAL SIGNS : Temperature 99.6, pulse 96, respirations 18, blood pressure 131/65, O2 sat 98% on 40% FIO2. GENERAL: The patient is an obese male who is lying in bed intubated and sedated and is minimally responsive to painful stimuli. HEENT: Normocephalic, atraumatic. Mucous membranes are moist. NECK: Neck is supple. No palpable adenopathy or obvious jugular venous distention (JVD). HEART: Regular rate and rhythm. Normal S1-S2. Unable to appreciate any murmurs. LUNGS: Clear to auscultation bilaterally. No wheezing, rales or rhonchi anteriorly. ABDOMEN: Obese. He has a right sided colostomy bag and dressing in place for his midline incision. EXTREMITIES: There is no lower extremity edema noted bilaterally. LABORATORY DATA: WBC 8.2, hemoglobin 14.9, platelets 207. Chemistry: Sodium 141, potassium 4.7, chloride 108, bicarbonate 27, BUN 10, creatinine 0.69, glucose 234. Arterial blood gas (ABG) post intubation: pH 7.408, pCO2 of 39.6, pO2 of 103.4. Chest x-ray shows nasogastric (NG) tube in place crossing below the diaphragm. There is an endotracheal tube (ET) in place with the tip approximately one as 1 - 1.5 cm above the analilia. There is a left lower lobe infiltrate which is new and some right atelectasis and hemidiaphragm elevation. ASSESSMENT/PLAN: The patient is a 63-year-old male with a past medical history of coronary artery disease (CAD) status post coronary artery bypass grafting (CABG), atrial fibrillation, congestive heart failure (CHF) obstructive sleep apnea ( CALE) on C-PAP, chronic hypoxemic respiratory failure on nasal cannula oxygen supplementation, diabetes, previous complicated abdominal surgery who presented with abdominal pain and constipation for the past few days. He was found on imaging to have a stricturing mass in the hepatic flexure of the colon causing colonic obstruction. This mass is likely malignant due to evidence of likely metastatic lesions in his liver. The patient underwent an exploratory laparotomy today with hemicolectomy and ileostomy formation. Postoperatively the patient has been kept intubated and he is transferred to the intensive care unit (ICU) for further management and weaning. Will continue the patient on ventilator on pressure regulated volume controlled ventilation (PRVC) with the settings of 480/18/8/and 40. Will continue to wean down his FIO2 as tolerated. Will get daily arterial blood gases (ABGs) and chest x-rays while intubated. Will start vent bundle care with chlorhexidine mouthwash and head of bed elevation. The patient's chest x-ray postoperatively did show evidence of a left lower lobe infiltrate possibly aspiration. Will also pull back his endotracheal tube by 1 cm. He is on broad-spectrum antibiotics post surgery with Cefotan and Flagyl given his intra-abdominal surgery but he is already on broad-spectrum antibiotics. It will already aspiration pneumonia organisms as well. Will continue sedation with propofol while intubated and titrate for a Karen of two. Will perform a sedation vacation in the morning for a possible weaning trial. Given his history of CALE and likely chronic hypercarbic respiratory failure, given evidence of elevated bicarb on his baseline chemistry he may need to be extubated to C-PAP or BiPap. The patient will need significant pulmonary toilet after extubation including incentive spirometer, pain control and positive expiratory pressure therapy. Continue with DuoNebs taken as needed. He does not have any evidence of significant wheezing and there is a possible history of chronic pulmonary obstructive disease (COPD) given his smoking history but the patient is not on any inhalers. Deep venous thrombosis (DVT) prophylaxis with thromboembolic deterrent stockings (TEDs) and sequential compression device (SCDs). CODE STATUS: Full code. MTDD
[2018-12-30 05:32] LABS: INR 1.22; PROTHROMBIN TIME 15.6 SECONDS (12.1-14.4)
[2018-12-30 05:39] LABS: BLOOD UREA NITROGEN 12 MG/DL (7-18); CALCIUM LEVEL 7.6 MG/DL (8.8-10.2); CARBON DIOXIDE LEVEL 29 MEQ/L (21-32); CHLORIDE LEVEL 106 MEQ/L (98-107); CREATININE FOR GFR 0.83 MG/DL (0.70-1.30); GLOMERULAR FILTRATION RATE > 60.0 (>49); GLUCOSE, FASTING 249 MG/DL (70-100); POTASSIUM SERUM 4.5 MEQ/L (3.5-5.1); SODIUM LEVEL 141 MEQ/L (136-145); TROPONIN I < 0.02 NG/ML (< 0.10)
[2018-12-30 05:51] LABS: ABG BASE EXCESS 2.8 (-2.0-2.0); ABG HCO3 28.2 MEQ/L (22.0-26.0); ABG O2 SATURATION 67.7 % (95.0-99.0); ABG STANDARD HCO3 26.3 MEQ/L (22.0-26.0); ABG TOTAL CO2 29.6 MEQ/L (23.0-31.0); ABG pH (ARTERIAL) 7.405 UNITS (7.350-7.450)
[2018-12-30 05:52] LABS: ABG PARTIAL PRESSURE O2 36.2 mmHg (75.0-100.0)
[2018-12-30 06:18] LABS: ABG BASE EXCESS 1.6 (-2.0-2.0); ABG HCO3 25.9 MEQ/L (22.0-26.0); ABG O2 SATURATION 95.3 % (95.0-99.0); ABG PARTIAL PRESSURE CO2 39.7 mmHg (35.0-45.0); ABG PARTIAL PRESSURE O2 94.3 mmHg (75.0-100.0); ABG STANDARD HCO3 25.8 MEQ/L (22.0-26.0); ABG TOTAL CO2 27.1 MEQ/L (23.0-31.0); ABG pH (ARTERIAL) 7.432 UNITS (7.350-7.450)
--- NOTE | 2018-12-30 08:26 | REP ---
Portable chest x-ray: Single view. History: Postop colon resection. CHF. On ventilator. Comparison study: December 28, 2018. Findings: EKG monitoring electrodes overlie the chest. Median sternotomy wires are noted. Endotracheal tube is seen in position terminating just above the analilia. Nasogastric tube is noted entering the left upper quadrant. There is some pleural thickening bilaterally and the right pleural angle is slightly blunted. Heart size is unchanged. Impression: No infiltrate seen. Slight blunting of the right lateral pleural angle. Endotracheal tube in position just above the analilia. Electronically Signed by Ki Espinosa MD 12/30/2018 01:03 P
[2018-12-30] MEDS: CHLORHEXIDINE GLUCONATE 0.12 % 15ML UDC (PERIDEX ORAL RINSE) MT SCH (08:59)
[2018-12-30] MEDS: ATORVASTATIN 20 MG TAB PO SCH (08:59)
[2018-12-30] MEDS: cefoTEtan DISODIUM 1 GM in D5W MINI-BAG PLUS 50 ML IV SCH ×2 (09:00→21:59)
[2018-12-30] MEDS: CARVedilol 6.25 MG TAB PO SCH ×2 (09:00→20:24)
[2018-12-30] MEDS: PANTOPRAZOLE 40MG INJ (PROTONIX) (C9113) IV SCH (09:01)
[2018-12-30] MEDS: NYSTATIN 100,000 UNITS/GM TOPICAL PWD 15 GM TOP SCH ×2 (09:01→20:23)
[2018-12-30] MEDS: DIGOXIN INJ 0.5 MG/2 ML AMP (J1160) IV SCH (09:01)
--- NOTE | 2018-12-30 09:11 | ROOPDOC ---
[facility] Report Of Operation Report of Operation DATE OF PROCEDURE: 12/29/18 PREPROCEDURE DIAGNOSES: Colon obstruction from hepatic flexure mass, liver metastasis POSTPROCEDURE DIAGNOSES: Malignant colon obstruction from hepatic flexure mass, liver metastasis. PROCEDURE: Diagnostic laparoscopy converted to exploratory laparotomy, lysis of adhesion, right hemicolectomy with end ileostomy. SURGEON: Pasha Fry MD [employer] WORKER: Bentley Darnell MD ANESTHESIA: General anesthesia. I placed Exparel with 1/4% Marcaine. ESTIMATED BLOOD LOSS: Approximately 200 ML's mL. COMPLICATIONS: Patient remains intubated, hemodynamically stable at the end of the procedure URINE OUTPUT: 150 mLs. REMARKS: Patient is a 63-year-old male admitted through the emergency room with complaints of abdominal distention, obstipation and found to have an obstructing hepatic flexure mass with most likely bilateral liver lobe metastasis. Baseline he is morbidly obese, has history of CHF and atrial fibrillation on Coumadin, chronic hypoxic respiratory failure on 5 L nasal cannula O2, obstructive sleep apnea on CPAP at night with multiple previous abdominal surgeries including hernia surgeries in the large piece of mesh within the abdomen.. PROCEDURE NOTE: On entry via a 5 mm Visiport and the right upper quadrant it was noted that he had a colon injury. Surgery was converted to open exploratory laparotomy. He had multiple adhesions related to his previous surgeries and the presence of the mesh. The cecum is markedly distended with necrotic patches. He seems to have chronic moderate to markedly small bowel distention at the mid a bdomen separate from the obstruction caused by the malignant process in the hepatic flexure, most likely from multiple interbowel and abdominal wall to bowel adhesions. DESCRIPTION OF PROCEDURE: Patient was given a dose of cefotetan 2 g IV, and metronidazole 500 mg IV for prophylactic antibiotic. He is brought to the operating room, placed supine on the table. Sequential Compression boots placed on both lower extremities for DVT prophylaxis. Gen. endotracheal anesthesia started with the patient remaining hemodynamically stable. A Roman catheter placed for urine output monitoring. His abdomen was then prepped and draped widely in usual sterile fashion.We paused for a surgical timeout using both pre-incision safety checklist to verify correct patient, procedure site and additional clinical information prior to beginning the procedure. Anesthesia attempted to place a right arterial line but was unable to cannulate the radial artery which seems to be highly calcified. I marked patient's landmark and the abdomen to prepare for possible placement of a colostomy/ileostomy. I started the procedure by inserting a right upper quadrant Veress needle. Patient has had a previous gastrostomy tube placed through the left upper quadrant with resulting infection/necrotizing fasciitis over the area. Intra-abdominal placement was confirmed with saline drop technique. Started insufflation it was erratic and that the pressure liver is fluctuates from -2-40. The Veress needle was adjusted and tested again for placement of right and continued insufflation. There was uneven insufflation of the abdomen with the upper abdomen expanding more than the lower abdomen. After getting to 15 mm Hg, a 5 mm Visiport was placed under direct vision of laparoscope. Once placed I surveyed the area and noted that I was actually inside of a piece of bowel. A pullback I tried to survey the area beyond the bowel but there were very distended loops of bowel and adhesive bands all around the placement of laparoscope. At this point the laparoscopy was terminated and I decided to perform a midline incision to start laparotomy. I started to make a midline incision above the umbilicus to the mid epigastric area slowly taking this down through to the anterior fascia. He is a very thin abdominal wall and immediately got into the fascia. Under direct vision this was opened up. The fascia was lifted up and we went through the layers of the abdomen and as expected through the previously placed mesh on the abdominal wall. As soon as we entered the abdominal wall, omental adhesions were encountered and carefully lysed. There is an enlarged loop of bowel which was not clear whether this is small bowel or colon running north-south before we have our incision which took time to free up to safely enter the abdomen. Once the abdomen was carefully entered the incision was slowly enlarged both superiorly and inferiorly. I palpated for a window to get into the right side of the abdomen and located the hepatic flexure mass which was covered with thickened, sclerosed omentum. I continued to work on the enlarged bowel believing this to be: After further freeing this up, this proves to be a very markedly distended small bowel and not colon. After getting entry into the abdominal cavity I searched for the enterotomy created from the Visiport insertion I found that this appears to be at the descending colon which was also enlarged. There was a small amount of leakage of stool contents just on the intestinal wall. This was suctioned off and contained by placing silk sutures. My concern at this time is that there may be a second or a different colotomy and enterotomy from the Veress needle insertion. Thus I proceeded tried to free up and visualized the whole side of the right colon and the bowels on the right side of the abdomen. As point in time Dr. Darnell has been available and assisted me with the procedure. I continued freeing up the bowel to fully gain entry into the abdomen. After successfully doing so I was able to visualize better the status of the right colon. The cecum is markedly distended. I noticed patchy necrotic areas in the mccain of the cecum but there was no gross perforation. Because of this chronic rashes I felt compelled to continue to perform a right colectomy. The right colon was delivered into the view by pulling up and moving this medially. The lateral attachments were opened up from below the cecum towards the hepatic flexure. I felt for any extension of the hepatic flexure mass for possibility of involvement of involvement of underlying structures including vascular structures, duodenum and the seems to be able to be lifted up and freely movable. I continued taking down the hepatic flexure and transverse colon from the mesocolic attachments beyond the area of the mass. I was able to medially rotate the colon to the right to the midline wound and with this take down the ileocolic vessels and right colic vessels with the echelon 60 mm stapler with a vascular load. Rest of the mesentery was divided with Harmonic scalpel. I ran the small bowel from the terminal ileum to the portion of the small bowel was markedly distended to verify that there was no small bowel involvement causing more proximal obstruction related to the hepatic flexure mass. There was no clear point of obstruction after releasing all the adhesions to explain the marked distention of this loop of distal ileum but the distention does seem to return to normal bowel as it approaches the terminal ileum. This goes up towards the attic flexure. There was some scarring and adhesions tethering this to the mesentery close to the area but this does not seem to be intimately involved with the mass itself and I was able to lyse this away. Beyond this area of dilatation, the small bowel that he receives back to normal size going towards the left side of the abdomen. At this point I chose an area of resection at the small bowel. This is divided with the same echelon 60 mm stapler. The rest of the colon attachments were divided and the colon was transected at the mid transverse colon with 2 firings of the same echelon 60 mm stapler with a green load. The specimen was removed. I proceeded with continuing to lyse the interbowel adhesions over the left side and at the lower portion of the midline incision. I left some interbowel adhesions it does not seem to be causing any obstruction. No other portions of the bowel seems to be distended. I then proceeded with irrigating the abdomen to check for adequate hemostasis. I left some fibrin glue sealant along the mesentery line. I checked the bowel for injury to his portion of bowel which was dissected) no serosal injury that I placed fibrin glue also. I did not notice any evidence of other bowel injuries. I chose an area up higher on the right side of the abdominal wall at the paramedian area for colostomy placement given his body habitus and protuberance of his abdomen. Discussed skin was removed along with the subcutaneous tissue. The fascia was opened up and expanded to allow 2 fingerbreadths. The mesentery of the ileum was trimmed to straighten the course of the ileostomy stump. There is still some moderate thickening of the mesentery. The ileostomy stump was pulled through transabdominally. The abdomen was then closed using one looped PDS in a running fashion. In between the looped PDS I placed 0 nylon sutures interruptedly as an internal type retention suture given the thinness of his abdominal wall, presence of mesh on the abdominal wall. The subcutaneous tissue which was then was slightly undermined to allow for skin closure and this was closed with selena. The ileostomy was then matured in a Antonette fashion. I trimmed the distal 4-5 cm of the ileostomy stump as this was dusky in appearance. Ileostomy seems viable, pink but swollen. I checked the course of the ileostomy with my finger in the seems to be straightened and the fascial opening not too tight. Patient remained intubated. He is hemodynamically stable throughout the procedure. We checked for his hemoglobin and hematocrit midway through the procedure and we didn't that he did not require any transfusion intraopera tively. He was brought to the recovery room. The operative course were discussed with anesthesia as well as with our critical care doctor. PASHA FRY MD December 30, 2018 09:11
--- NOTE | 2018-12-30 09:17 | IPNPDOC ---
Subjective Date Seen The patient was seen on 12/30/18. Subjective Chief Complaint/HPI s/p lap right hemicolectomy with ileostomy 12/29. currently intubated on vent. No complications post-op General: Reports: ROS Unobtainable Constitutional: Denies: Chills, Fever Pulmonary: Denies: Dyspnea Objective Physical Examination General Exam: Positive: No Acute Distress; Negative: Alert (intubated on vent) Eye Exam: Negative: Sclera icteric Chest Exam: Positive: Clear to auscultation, Diminished; Negative: Rales, Rhonchi, Wheezing Heart Exam: Positive: Rate Normal, Irregular Rhythm, Normal S1, Normal S2; Negative: Tachycardic, Bradycardic, Regular Rhythm, Gallops, Murmurs, Rubs Telemetry: Positive: Atrial fibrillation Abdomen Exam: Positive: BS Hypoactive, Soft, Hernia (abdominal wall), Other (ileostomy present) Extremity Exam: Positive: Edema (trace BL) A-FIB/CHADSVASC A-FIB History Current/History of A-Fib/PAF?: Yes Current Oral Anticoagulant The: No Assessment /Plan Problems (1) Obstruction of colon Status: Acute Problem Text: 12/30 POD #1 s/p lap Right hemicolectomy with ileostomy - Per surgery 12/29 - Anticipate surgery at noon today for partial bowel resection of abdominal mass with anastamosis vs diverting ostomy by Dr. Fry. NG tube in place Morphine for pain Resp and cardiac status stable currently - pre-op evaluations and recommendations done per Cardiology and Pulmonary who will be following patient post-operatively Currently on his chronic 5L NC Will need aggressive pulmonary toilet/IS post-operatively to prevent worsening atelectasis Coumadin on hold for surgery INR today = 1.13 (2) Chronic hypoxemic respiratory failure Problem Specific Plan: Consult Specialist Problem Text: Currently intubated on vent per Pulmonary - plan for trial of extubation today Will need aggressive pulm toilet/IS Patient on chronic 5 liters NC as outpatient - sats currently high 90s on 5 liters H/O CALE on CPAP normally (3) Diastolic CHF, chronic Status: Chronic Response to Treatment: Stable Problem Text: 12/29 - Currently getting IVF LR at 125/hour Euvolemic at this point off HD fur 40 QD (4) A-fib Status: Chronic Response to Treatment: Stable Problem Text: 12/30 rate adequately controlled on HD carve 6.25 BID, dig 250 Coumadin on hold post-op (5) Colonic mass Status: Acute Problem Text: with liver mets - see above (6) CALE on CPAP Status: Chronic Problem Text: severe baseline CALE on CPAP 14 (but not palliated at this pressure) (7) CAD (coronary artery disease) Status: Chronic Response to Treatment: Stable (8) Diabetes Status: Chronic Problem Text: HbA1c = 7.7 as of 06/2018 Normally on Metformin as outpatient cont SSiI coverage q6H (9) CAD (coronary artery disease) Status: Chronic Response to Treatment: Stable Problem Text: No signs of ischemia continue BB, statin (decreased dose given hepatic mets) 06/2017 treadmill stress SPECT-normal perfusion images-Amin Plan/VTE VTE Prophylaxis Ordered?: Yes (TEDs/Sequentlial - Coumadin on hold for surgery) VS, I&O, 24H, Fishbone Vital Signs/I&O Vital Signs Date Time Temp Pulse Resp B/P (MAP) Pulse Ox O2 Delivery O2 Flow Rate FiO2 12/30/18 09:01 120 12/30/18 09:00 131/60 12/30/18 05:00 20 95 30 12/30/18 05:00 Ventilator 12/30/18 04:00 98.8 12/29/18 12:00 3.0 I&O- Last 24 Hours up to 6 AM 12/30/18 06:00 Intake Total 4262 ml Output Total 2495 ml Balance 1767 ml Laboratory Data 24H LABS Laboratory Tests 2 12/29/18 11:10: Bedside Glucose (Misc Panel) 217H 12/29/18 18:35: Blood Gas Bicarbonate Standard 24.4, Arterial Blood pH 7.408, Arterial Blood Partial Pressure CO2 39.6, Arterial Blood Partial Pressure O2 103.4H, Arterial Blood Total CO2 25.6, Arterial Blood HCO3 24.4, Arterial Blood Base Excess -0.1, Arterial Blood Oxygen Saturation 95.9 12/29/18 18:39: Nucleated Red Blood Cells % (auto) 0.0, Anion Gap 7L, Glomerular Filtration Rate > 60.0, Blood Urea Nitrogen 10, Creatinine 0.69L, Sodium Level 141, Potassium Level 4.7, Chloride Level 108H, Carbon Dioxide Level 26, Calcium Level 7.4L, Aspartate Amino Transf (AST/SGOT) 37, Alanine Aminotransferase (ALT/SGPT) 54, Alkaline Phosphatase 133H, Total Bilirubin 0.6, Total Protein 6.0#L, Albumin 2. 4#L, Albumin/Globulin Ratio 0.67L 12/29/18 23:03: Bedside Glucose (Misc Panel) 270H 12/30/18 04:54: Immature Granulocyte % (Auto) 0.4, White Blood Count 11.5H, Red Blood Count 4.48, Hemoglobin 14.1, Hematocrit 44.0, Mean Corpuscular Volume 98.2H, Mean Corpuscular Hemoglobin 31.5, Mean Corpuscular Hemoglobin Concent 32.0, Red Cell Distribution Width 12.8, Platelet Count 278, Neutrophils (%) (Auto) 81.1H, Lymphocytes (%) (Auto) 9.1L, Monocytes (%) (Auto) 9.1H, Eosinophils (%) (Auto) 0.0, Basophils (%) (Auto) 0.3, Neutrophils # (Auto) 9.3H, Lymphocytes # (Auto) 1.0L, Monocytes # (Auto) 1.0H, Eosinophils # (Auto) 0.0, Basophils # (Auto) 0.0, Nucleated Red Blood Cells % (auto) 0.0, Prothrombin Time 15.6H, Prothromb Time International Ratio 1.22, Anion Gap 6L, Glomerular Filtration Rate > 60.0, Blood Urea Nitrogen 12, Creatinine 0.83, Sodium Level 141, Potassium Level 4.5, Chloride Level 106, Carbon Dioxide Level 29, Calcium Level 7.6L, Troponin I < 0.02 12/30/18 05:18: Blood Gas Bicarbonate Standard 26.3H, Arterial Blood pH 7.405, Arterial Blood Partial Pressure CO2 46.0H, Arterial Blood Partial Pressure O2 36.2*L, Arterial Blood Total CO2 29.6, Arterial Blood HCO3 28.2H, Arterial Blood Base Excess 2.8H, Arterial Blood Oxygen Saturation 67.7L 12/30/18 06:05: Blood Gas Bicarbonate Standard 25.8, Arterial Blood pH 7.432, Arterial Blood Partial Pressure CO2 39.7, Arterial Blood Partial Pressure O2 94.3, Arterial Blood Total CO2 27.1, Arterial Blood HCO3 25.9, Arterial Blood Base Excess 1.6, Arterial Blood Oxygen Saturation 95.3 CBC/BMP Laboratory Tests 12/29/18 18:39 Red Blood Count 4.70, Mean Corpuscular Volume 100.2 H, Mean Corpuscular Hemoglobin 31.7, Mean Corpuscular Hemoglobin Concent 31.6 L, Red Cell Distribution Width 12.8, Calcium Level 7.4 L, Aspartate Amino Transf (AST/SGOT) 37, Alanine Aminotransferase (ALT/SGPT) 54, Alkaline Phosphatase 133 H, Total Bilirubin 0.6, Total Protein 6.0 #L, Albumin 2.4 #L 12/30/18 04:54 Red Blood Count 4.48, Mean Corpuscular Volume 98.2 H, Mean Corpuscular Hemoglobin 31.5, Mean Corpuscular Hemoglobin Concent 32.0, Red Cell Distribution Width 12.8, Calcium Level 7.6 L, Neutrophils (%) (Auto) 81.1 H, Lymphocytes (%) (Auto) 9.1 L, Monocytes (%) (Auto) 9.1 H, Eosinophils (%) (Auto) 0.0, Basophils (%) (Auto) 0.3, Neutrophils # (Auto) 9.3 H, Lymphocytes # (Auto) 1.0 L, Monocytes # (Auto) 1.0 H, Eosinophils # (Auto) 0.0, Basophils # (Auto) 0.0 AMANDA VIRAMONTES PA-C December 30, 2018 09:17 Elroy Woods M.D. December 30, 2018 16:08
--- NOTE | 2018-12-30 09:45 | REP ---
CHEST, SINGLE VIEW: Single view of the chest is performed and compared to a prior study of 12/29/2018. Cardiomegaly is again noted. There is tortuosity of the thoracic aorta. Mediastinal silhouette is unchanged. Endotracheal tube is seen with the tip approximately 3.7 cm above the analilia. A nasogastric tube is seen traversing into the stomach. There is blunting of the costophrenic angle suggesting small pleural effusions bilaterally. Lungs are otherwise unchanged. Electronically Signed by Denton Frost MD 12/30/2018 04:16 P
[2018-12-30] MEDS: dexmedeTOMidine 200 MCG in APPROPRIATE DILUENT 1 EA IV SCH ×2 (12:53→14:27)
[2018-12-30 14:08] LABS: ABG BASE EXCESS 2.1 (-2.0-2.0); ABG HCO3 25.1 MEQ/L (22.0-26.0); ABG O2 SATURATION 95.2 % (95.0-99.0); ABG PARTIAL PRESSURE CO2 34.2 mmHg (35.0-45.0); ABG PARTIAL PRESSURE O2 93.3 mmHg (75.0-100.0); ABG STANDARD HCO3 26.3 MEQ/L (22.0-26.0); ABG TOTAL CO2 26.2 MEQ/L (23.0-31.0); ABG pH (ARTERIAL) 7.484 UNITS (7.350-7.450)
--- NOTE | 2018-12-30 16:13 | IPN ---
DATE: 12/30/2018 Patient was seen and examined this morning during bedside rounds. The patient was transferred to the intensive care unit (ICU) post surgery intubated. He has been on propofol overnight for sedation and has had no significant overnight events. The patient has had minimal output from his nasogastric (NG) tube overnight. PHYSICAL EXAMINATION: VITAL SIGNS: Temperature 98.4, pulse 113, respirations 20, blood pressure 131/60, oxygen saturation 96% on 30% FiO2. Ins 3.4 liters, out 3.2 liters. GENERAL: The patient is an obese male who is lying in bed intubated and sedated. He is responsive to painful stimuli. HEENT: Normocephalic, atraumatic. Mucous membranes are moist. There is an nasogastric (NG) tube in place. NECK: Supple. No palpable adenopathy or obvious jugular venous distention (JVD). HEART: Regular rate and rhythm. Normal S1, S2. Unable to appreciate any murmurs. LUNGS: Clear to auscultation bilaterally except for mild crackles at the bases. No wheezing or rhonchi. ABDOMEN: Obese. The patient has a right-sided colostomy bag and a dressing in place in the midline status post surgery. EXTREMITIES: There is no lower extremity edema noted bilaterally. LABORATORY DATA: WBC and 11.5, hemoglobin 14.1, platelets 278. Chemistry: Sodium 141, potassium 4.5, chloride 106, bicarbonate 29, BUN 12, creatinine 0.83, glucose is 249. AB.432, pCO2 of 39.7, pO2 of 94.3. Chest x-ray showed a T tube in place and NG tube traversing into the stomach. There is mild blunting of the costophrenic angles bilaterally, suggesting trace pleural effusions bilaterally. No focal opacities or infiltrates. The previously noted left lower lobe infiltrate has improved. ASSESSMENT AND PLAN: The patient is a 63-year-old male with a past medical history of coronary artery disease (CAD), status post coronary artery bypass graft (CABG), atrial fibrillation, congestive heart failure (CHF), obstructive sleep apnea (CALE), on continuous positive airway pressure (CPAP), chronic hypoxemic respiratory failure, on nasal cannula oxygen supplementation, diabetes, previous complicated abdominal surgery, who presented with abdominal pain and constipation for the past few days. He was found to have on imaging a stricturing mass in the hepatic flexure of colon causing a colonic obstruction. This is likely malignant lesion due to evidence of likely metastatic lesions in his liver. Patient is status post exploratory laparotomy with right hemicolectomy and ileostomy. Postoperatively, the patient was kept intubated and transferred to the ICU yesterday evening. This morning, he is intubated and sedated. Has not had any events overnight. His chest x-ray shows some possible trace pleural effusions but no focal opacities. - Will perform a sedation vacation. Patient is on propofol for sedation, and as per patient's family, he has a history of becoming very agitated on ventilator when he is coming off of sedation. Therefore, will start Precedex and wean off the propofol and perform a weaning trial with the Precedex. - Will get arterial blood gas (ABG) on weaning trial, and if acceptable will extubate the patient to his home CPAP. - Continue with vent bundle care while intubated and daily ABGs and chest x-rays. - Post extubation patient will need pulmonary toilet, including incentive spirometer, pain control, and positive expiratory pressure therapy. Will also encourage him to get out of bed to chair. - Would continue him post extubation with his home CPAP at bedtime, during naps, and as needed. - Continue with DuoNeb as needed. - Deep vein thrombosis (DVT) prophylaxis with thromboembolic deterrents (TEDs), sequential compression devices (SCDs), and would restart with heparin as per surgery. Code status: Full code
--- NOTE | 2018-12-30 19:52 | IPN ---
CARDIOLOGY PROGRESS NOTE DATE: 12/30/2018 SUBJECTIVE The patient has been successfully extubated and is currently alert and awake and communicative. Denies any discomfort at rest, but does have some abdominal pain with his coughing. Denies shortness of breath or chest discomfort. Unaware of his heart action. OBJECTIVE Obese barrel-chested gentleman lying with head elevated 30 degrees, in no distress. No pallor or cyanosis. Heart rate 91 bpm and irregular. Blood pressure 123/68, respiratory rate 18, O2 saturation 97% with supplemental oxygen at 5 liters per minute. Neck veins are difficult to assess. Increased anteroposterior chest diameter with fairly good air entry over both lung randall, no more than subtle bibasilar inspiratory crepitations that clear with a deep breath. No expiratory wheezes. Norman not palpable. Heart sounds distant. Has no more than plus/minus distal lower leg pitting. cargo bracer: This shows underlying atrial fibrillation with controlled ventricular response. Chest x-ray: Portable upright study taken earlier today was reviewed independently and again shows obvious cardiomegaly with tortuous thoracic aorta. Pulmonary vasculature did not appear to be congested with blunting of his costophrenic angles. EKG: Study performed this morning reviewed independently shows underlying atrial fibrillation with slightly more rapid ventricular response averaging 121 bpm. Somewhat low limb voltage. Slightly prominent R wave in V3 with small inferior Q-waves; possible prior inferoposterior infarction. Subtle diffuse repolarization abnormalities that did appear somewhat more prominent with the more rapid rate. LABORATORY DATA Showed a hemoglobin of 14.1, white blood cell count was 11.5 thousand. Normal platelet count. PT/INR was slightly elevated at 15.6 / 1.2. INR arterial blood gas this afternoon showed a pH of 7.48, pCO2 34, pO2 of 93 on his current supplemental oxygen. Chemistry this morning showed electrolyte balance with potassium 4.5, bicarb 29, BUN 12, creatinine 0.8. Fasting glucose 249, negative Troponin I level. IMPRESSION AND PLAN: 1. Heart failure (diastolic / chronic): Continues to be compensated with no current symptom or sign of decompensation. Chest x-ray as mentioned above. Remains on IV fluid per surgery (with his intervention we anticipate he will be oozing fluid into his peritoneal cavity that will likely be reabsorbed at a later date). Remains off diuretic therapy at this time. Continues on controlled supplemental oxygen and a followup chest x-ray will be obtained in the morning. 2. Chronic atrial fibrillation: At this present time his ventricular response is adequately controlled, digoxin IV and carvedilol. Remains off oral anticoagulation at this time. 3. Coronary artery disease ([place] vessel) / post CABG: Remains free of symptom of myocardial ischemia. EKG changes earlier today. Suspected to be rate related. Troponin I was negative. Continues on carvedilol beta-josh therapy. Followup EKG and troponin I will be obtained tomorrow morning. 4. Hypertensive heart disease with heart failure: Current blood pressure remains controlled without pressor therapy. Chemistry as mentioned. 5. Cor pulmonale (chronic): Has been able to successfully be weaned off ventilator and appears to be breathing comfortably with a good oxygenation at this time. Dr. Cuadra will be taking over cardiology follow up at this time. ISAIAS
[2018-12-30] MEDS ORDERED: ACETAMINOPHEN TAB 650MG DOSE (2X325MG) PO PRN (20:30)
[2018-12-30] MEDS: NORCO, ANEXSIA 5/325MG TABLET (HYDROcodone/ACETAMINOPHEN) PO PRN (20:42)
[2018-12-31] VITALS (19 sets, daily range): BP systolic 112–147; BP diastolic 53–89; O2SAT 94–99
[2018-12-31] MEDS: NORCO, ANEXSIA 5/325MG TABLET (HYDROcodone/ACETAMINOPHEN) PO PRN ×2 (01:23→06:47)
[2018-12-31] MEDS: LR 1,000 ML IV SCH (01:26)
[2018-12-31] MEDS: HumaLOG INSULIN (NovoLOG) PER UNIT SC SCH ×5 (01:34→21:39)
[2018-12-31] MEDS: MORPHINE 4 MG/ML 1ML VIAL/SYRINGE (J2270) IV PRN ×2 (02:43→09:01)
[2018-12-31] MEDS: metroNIDAZOLE 500 MG in APPROPRIATE DILUENT 1 EA IV SCH ×3 (04:46→19:56)
[2018-12-31 06:22] LABS: ABG BASE EXCESS 4.9 (-2.0-2.0); ABG HCO3 29.5 MEQ/L (22.0-26.0); ABG O2 SATURATION 96.5 % (95.0-99.0); ABG PARTIAL PRESSURE CO2 43.5 mmHg (35.0-45.0); ABG PARTIAL PRESSURE O2 115.5 mmHg (75.0-100.0); ABG STANDARD HCO3 28.9 MEQ/L (22.0-26.0); ABG TOTAL CO2 30.8 MEQ/L (23.0-31.0); ABG pH (ARTERIAL) 7.449 UNITS (7.350-7.450)
--- NOTE | 2018-12-31 07:40 | IPNPDOC ---
Subjective General Date/Time Seen The patient was seen on 12/31/18 at 07:38. Subject Chief Complaint/History The patient is a 63-year-old male admitted with a reason for visit of A-Fib Obstructionv Of Colon. doing well extubated yesterday afternoon, back to pr at 5 L (baseline) Current Medications Current Medications Current Medications Acetaminophen (Tylenol Tab) 650 mg Q4HP PRN PO mild pain; Start 12/30/18 at 20:30 Acetaminophen/ Hydrocodone Bitart ([place], Anexsia 5/325) 1 tab Q4HP PRN PO moderate pain (5-7); Start 12/30/18 at 20:30 Acetaminophen/ Hydrocodone Bitart ([place], Anexsia 5/325) 2 tab Q4HP PRN PO SEVERE PAIN (PS 8-10) Last administered on 12/31/18at 06:47; Start 12/30/18 at 20:30 Albuterol Sulfate (Proventil Neb) 2.5 mg Q2HP PRN NEB SOB/WHEEZING; Start 12/27/18 at 20:00 Atorvastatin Calcium (Lipitor) 20 mg DAILY PO Last administered on 12/30/18at 08:59; Start 12/29/18 at 09:00 Carvedilol (COReg) 6.25 mg BID PO Last administered on 12/30/18at 20:24; Start 12/27/18 at 21:00 Cefotetan Disodium 1 gm/ Dextrose 50 ml @ 100 mls/hr Q12H IV Last administered on 12/30/18at 21:59; Start 12/29/18 at 21:00; Stop 01/05/19 at 20:59 Chlorhexidine Gluconate (Peridex Oral Rinse) SWAB/BRUSH ORAL CAVITY BID MT Last administered on 12/30/18at 08:59; Start 12/29/18 at 21:00; Stop 12/30/18 at 21:07; Status DC Dexmedetomidine HCl 200 mcg/IV Miscellaneous Supplies 50 ml @ 0 mls/hr Q0M IV Last administered on 12/30/18at 14:27; Start 12/30/18 at 09:45; Stop 12/30/18 at 21:08; Status DC Dextrose (Dextrose 50%) 25 ml ASDIRECTED PRN IV SEE LABEL COMMENTS; Start 12/27/18 at 16:45 Diatrizoate Meglum/ Diatrizoate Sod (Gastrografin) 10 ml Q30M PO Last adminis tered on 12/27/18at 13:39; Start 12/27/18 at 12:30; Stop 12/27/18 at 13:01; Status DC Digoxin (Lanoxin) 0.25 mg DAILY IV Last administered on 12/30/18at 09:01; Start 12/27/18 at 09:00 Fentanyl Citrate (Sublimaze) 25 mcg Q5MP PRN IV MODERATE PAIN (PS 4-7) Last administered on 12/29/18at 20:22; Start 12/29/18 at 19:00; Stop 12/29/18 at 20:00; Status DC Furosemide (LASIX injection) 40 mg DAILY IV ; Start 12/31/18 at 09:00 Glucagon (Glucagon) 1 mg ASDIRECTED PRN SC SEE LABEL COMMENTS; Start 12/27/18 at 16:45 Glucose (Glucose) 16 GM ASDIRECTED PRN PO SEE LABEL COMMENTS; Start 12/27/18 at 16:45 Home Med (Med Rec Complete!) ASDIRECTED XX ; Start 12/27/18 at 15:45; Stop 12/27/18 at 15:45; Status DC Insulin Human Lispro (HumaLOG INSULIN) PER NPO PROTOCOL Q6H SC ; Start 12/27/18 at 18:00; Stop 12/27/18 at 20:05; Status DC Insulin Human Lispro (HumaLOG INSULIN) SEE PROTOCOL TABLE Q6H SC Last admini stered on 12/31/18at 06:46; Start 12/28/18 at 00:00 Lactated Ringer's 1,000 ml @ 75 mls/hr [id number] IV ; Start 12/29/18 at 19:00; Stop 12/29/18 at 20:00; Status DC Lactated Ringer's 1,000 ml @ 125 mls/hr Q8H IV Last administered on 12/31/18at 01:26; Start 12/29/18 at 18:15; Stop 12/31/18 at 07:36; Status DC Metronidazole 500 mg/IV Miscellaneous Supplies 100 ml @ 100 mls/hr Q8H IV Last administered on 12/31/18at 04:46; Start 12/29/18 at 20:00 Morphine Sulfate (Morphine Sulfate Inj) 4 mg Q30M PRN IV SEVERE PAIN (PS 8-10) Last administered on 12/27/18 13:09; Start 12/27/18 at 11:45; Stop 12/27/18 at 13:10; Status DC Morphine Sulfate (Morphine Sulfate Inj) 4 mg Q4HP PRN IV SEVERE PAIN (PS 8-10) Last administered on 12/31/18 02:43; Start 12/28/18 at 10:45 Nystatin (Mycostatin Powder, Nystop) BID TOP Last administered on 12/30/18 20:23; Start 12/28/18 at 09:00 Ondansetron HCl (ZOFRAN INJection) 4 mg Q4HP PRN IV NAUSEA OR VOMITING; Start 12/29/18 at 19:00; Stop 12/29/18 at 20:00; Status DC Ondansetron HCl (ZOFRAN INJection) 4 mg Q6HP PRN IV NAUSEA OR VOMITING Last administered on 12/29/18 10:02; Start 12/29/18 at 09:30 Pantoprazole Sodium (Protonix) 40 mg DAILY IV Last administered on 12/30/18at 09:01; Start 12/30/18 at 09:00 Propofol 1000 mg/ IV Miscellaneous Supplies 100 ml @ 8.68 mls/hr [id number] IV Last administered on 12/30/18 11:13; Start 12/29/18 at 17:47; Stop 12/30/18 at 21:07; Status DC Sodium Chloride 1,000 ml @ 80 mls/hr [id number] IV Last administered on 12/27/18at 13:39; Start 12/27/18 at 13:30; Stop 12/27/18 at 23:03; Status DC Sodium Chloride 1,000 ml @ 80 mls/hr [id number] IV Last administered on 12/29/18 10:02; Start 12/27/18 at 23:15; Stop 12/29/18 at 18:17; Status DC Allergies Coded Allergies: No Known Allergies (Unverified , 12/27/18) Objective Physical Examination Examination GENERAL APPEARANCE:[Patient seen, laying in bed, awake, alert, and oriented. Comfortable, in no acute distress]. SKIN: [Warm and moist]. HEENT: [Normocephalic, atraumatic. [place] palpebral conjunctiva, anicteric sclerae. Lips and mucosa appear moist]. NECK: [Supple, no thyromegaly. No obvious jugular venous distention]. LUNGS: [Clear to auscultation bilaterally. No wheezing appreciated]. HEART: [No chest wall abnormalities. Regular rate and rhythm with no murmurs appreciated]. ABDOMEN: Abdomen is obese, soft, minimally distended. Midline incision mostly dry, no drainage, no erythema, RLQ ileostomy mild swollen, functioning. EXTREMITIES: mild hand edema, minimal lower extremity edema. Vital Signs Vital Signs Date Time Temp Pulse Resp B/P (MAP) Pulse Ox O2 Delivery O2 Flow Rate FiO2 12/31/18 06:47 22 12/31/18 05:00 85 136/61 (86) 99 5.0 12/31/18 05:00 Nasal Cannula 12/31/18 04:00 98.9 12/30/18 13:00 30 I&Os I&O- Last 24 Hours up to 6 AM 12/31/18 06:00 Intake Total 4089 ml Output Total 2485 ml Balance 1604 ml Laboratory Data Labs 24H Laboratory Tests 2 12/30/18 12:34: Bedside Glucose (Misc Panel) 279H 12/30/18 13:55: Blood Gas Bicarbonate Standard 26.3H, Arterial Blood pH 7.484H, Arterial Blood Partial Pressure CO2 34.2L, Arterial Blood Partial Pressure O2 93.3, Arterial Blood Total CO2 26.2, Arterial Blood HCO3 25.1, Arterial Blood Base Excess 2.1H, Arterial Blood Oxygen Saturation 95.2 12/30/18 18:00: Bedside Glucose (Misc Panel) 305H 12/31/18 01:29: Bedside Glucose (Misc Panel) 250H 12/31/18 06:06: Blood Gas Bicarbonate Standard 28.9H, Arterial Blood pH 7.449, Arterial Blood Partial Pressure CO2 43.5, Arterial Blood Partial Pressure O2 115.5H, Arterial Blood Total CO2 30.8, Arterial Blood HCO3 29.5H, Arterial Blood Base Excess 4.9H, Arterial Blood Oxygen Saturation 96.5 12/31/18 06:41: Bedside Glucose (Misc Panel) 196H Impression POD2 right colectomy and ileostomy ok for clear liquids lasix 40 mg iv daily sliv increase activity pt Plan / VTE VTE Prophylaxis Ordered?: Yes (TEDs/Sequentlial - Coumadin on hold for surgery) Plan / Urinary Catheter Reason for insertion/continuin: Critical Pt monitoring NEDRA MARTINEZ MD December 31, 2018 07:40
[2018-12-31 07:58] LABS: BASO % 0.3 % (0.0-1.0); EOS # 0.1 10^3/uL (0.0-0.50); HEMATOCRIT 35.7 % (42.0-52.0); LYMPH # 1.2 10^3/uL (1.5-4.5); MEAN CORPUSCULAR HEMOGLOBIN 31.3 pg (27.0-33.0); MEAN CORPUSCULAR HGB CONC 31.9 g/dl (32.0-36.5); MEAN CORPUSCULAR VOLUME 98.1 fl (80.0-96.0); MONO # 0.8 10^3/uL (0.0-0.8); MONO % 7.5 % (0.0-5.0); NEUTROPHILS # 8.4 10^3/uL (1.8-7.7); NEUTROPHILS % 79.8 % (36.0-66.0); PLATELET COUNT, AUTOMATED 213 10^3/uL (150-450); RED BLOOD COUNT 3.64 10^6/uL (4.30-6.10); WHITE BLOOD COUNT 10.5 10^3/uL (4.0-10.0)
[2018-12-31 08:01] LABS: HEMOGLOBIN 11.4 g/dl (13.5-17.5)
[2018-12-31 08:16] LABS: INR 1.26
--- NOTE | 2018-12-31 08:16 | REP ---
Portable chest x-ray: AP semi-erect view. History: Intubated patient. Comparison study: December 30, 2018. Findings: The endotracheal tube has apparently been withdrawn. Median sternotomy wires and EKG electrodes are seen. Mild pleural thickening is noted bilaterally unchanged. Mild cardiomegaly unchanged. Pulmonary vasculature is cephalized. No infiltrate or free pleural effusion seen. No evidence of pulmonary edema. Electronically Signed by Ki Espinosa MD 12/31/2018 08:07 A
[2018-12-31 08:25] LABS: BLOOD UREA NITROGEN 12 MG/DL (7-18); CALCIUM LEVEL 7.4 MG/DL (8.8-10.2); CARBON DIOXIDE LEVEL 31 MEQ/L (21-32); CHLORIDE LEVEL 104 MEQ/L (98-107); CREATININE FOR GFR 0.75 MG/DL (0.70-1.30); GLOMERULAR FILTRATION RATE > 60.0 (>49); GLUCOSE, FASTING 208 MG/DL (70-100); POTASSIUM SERUM 3.8 MEQ/L (3.5-5.1); SODIUM LEVEL 139 MEQ/L (136-145); TROPONIN I < 0.02 NG/ML (< 0.10)
[2018-12-31] MEDS: cefoTEtan DISODIUM 1 GM in D5W MINI-BAG PLUS 50 ML IV SCH ×2 (08:48→22:00)
[2018-12-31] MEDS: PANTOPRAZOLE 40MG INJ (PROTONIX) (C9113) IV SCH (08:49)
[2018-12-31] MEDS: ALVIMOPAN 12 MG CAPSULE (ENTEREG) PO SCH ×2 (08:50→21:23)
[2018-12-31] MEDS: ASPIRIN 81 MG ENTERIC TAB PO SCH (08:51)
[2018-12-31] MEDS: CARVedilol 6.25 MG TAB PO SCH ×2 (08:51→21:24)
[2018-12-31] MEDS: ATORVASTATIN 20 MG TAB PO SCH (08:51)
[2018-12-31] MEDS: FUROSEMIDE 40 MG/4 ML VIAL (J1940) IV SCH (08:52)
[2018-12-31] MEDS: DIGOXIN INJ 0.5 MG/2 ML AMP (J1160) IV SCH (08:52)
[2018-12-31] MEDS: NYSTATIN 100,000 UNITS/GM TOPICAL PWD 15 GM TOP SCH ×2 (08:52→22:00)
--- NOTE | 2018-12-31 11:24 | IPNPDOC ---
Subjective Date Seen The patient was seen on 12/31/18. Subjective Chief Complaint/HPI Pt this morning is feeling pretty good. He denies pain. C/o of feeling like he is full of fluid with bag beneath his eyes. He states that his breathing is alright, denies CP. Notes output in his ostomy bag. General: Reports: Fatigue Constitutional: Denies: Chills, Fever Skin: Denies: Rash, Lesions Pulmonary: Denies: Dyspnea, Cough Cardiovascular: Denies: Chest Pain, Palpitations Gastrointestinal: Denies: Nausea, Vomiting Neurological: Denies: Weakness Psych: Reports: Mood Normal Objective Physical Examination General Exam: Positive: Alert, No Acute Distress Eye Exam: Positive: Other Eye Symptoms (periobital edema); Negative: Sclera icteric ENT Exam: Positive: Mucous membr. moist/pink Chest Exam: Positive: Clear to auscultation, Diminished; Negative: Rales, Rhonchi, Wheezing Heart Exam: Positive: Rate Normal, Irregular Rhythm, Normal S1, Normal S2; Negative: Tachycardic, Bradycardic, Regular Rhythm, Gallops, Murmurs, Rubs Telemetry: Positive: Atrial fibrillation Abdomen Exam: Positive: BS Hypoactive, Soft, Hernia (abdominal wall), Other (ileostomy present, clean dry incision) Extremity Exam: Positive: Edema (trace BL) Neuro Exam: Positive: Normal Speech Psych Exam: Positive: Mood NL A-FIB/CHADSVASC A-FIB History Current/History of A-Fib/PAF?: Yes Current Oral Anticoagulant The: No Assessment /Plan Problems (1) Obstruction of colon Status: Acute Problem Text: POD 2 s/p lap Right hemicolectomy with ileostomy ( 2 abdominal mass c liver mets) Dr. Fry. D2 metro/cefotet no s/s infection (2) Chronic hypoxemic respiratory failure Problem Specific Plan: Consult Specialist Problem Text: 12/31 Doing well extubated, cont to monitor sats. CPAP while sleeping. Patient on chronic 5 liters NC as outpatient - sats currently high 90s on 5 liters H/O CALE on CPAP normally (3) Diastolic CHF, chronic Status: Chronic Response to Treatment: Stable Problem Text: 12/31 IVF stopped. Given Lasix IV 40 mg daily, started this morning, + diuresis, will plan to d/c arias in AM, nursing aware, 12/29 - Currently getting IVF LR at 125/hour Euvolemic at this point off HD fur 40 QD (4) A-fib Status: Chronic Response to Treatment: Stable Problem Text: Rate adequately controlled on HD carve 6.25 BID, dig 250 Coumadin on hold post-op (5) Colonic mass Status: Acute Problem Text: 12/29 CEA 3.9 12/29 pathology P-patient favors aggressive rx-understands probably chemorx (6) CALE on CPAP Status: Chronic Problem Text: severe baseline CALE on CPAP 14 (but not palliated at this pressure) (7) Diabetes Status: Chronic Problem Text: HbA1c = 7.7 as of 06/2018 Normally on Metformin as outpatient cont SSiI coverage q6H (8) CAD (coronary artery disease) Status: Chronic Response to Treatment: Stable Problem Text: No signs of ischemia continue BB, statin (decreased dose given hepatic mets) 06/2017 treadmill stress SPECT-normal perfusion images-Amin Plan/VTE VTE Prophylaxis Ordered?: Yes (TEDs/Sequentlial - Coumadin on hold for surgery) Plan/Urinary Catheter Reason for insertion/continuin: Critical Pt monitoring VS, I&O, 24H, Fishbone Vital Signs/I&O Vital Signs Date Time Temp Pulse Resp B/P (MAP) Pulse Ox O2 Delivery O2 Flow Rate FiO2 12/31/18 09:50 97.8 88 20 133/80 (97) 97 3.0 12/31/18 05:00 Nasal Cannula 12/30/18 13:00 30 I&O- Last 24 Hours up to 6 AM 12/31/18 06:00 Intake Total 4089 ml Output Total 2485 ml Balance 1604 ml Laboratory Data 24H LABS Laboratory Tests 2 12/30/18 12:34: Bedside Glucose (Misc Panel) 279H 12/30/18 13:55: Blood Gas Bicarbonate Standard 26.3H, Arterial Blood pH 7.484H, Arterial Blood P artial Pressure CO2 34.2L, Arterial Blood Partial Pressure O2 93.3, Arterial Blood Total CO2 26.2, Arterial Blood HCO3 25.1, Arterial Blood Base Excess 2.1H, Arterial Blood Oxygen Saturation 95.2 12/30/18 18:00: Bedside Glucose (Misc Panel) 305H 12/31/18 01:29: Bedside Glucose (Misc Panel) 250H 12/31/18 06:06: Blood Gas Bicarbonate Standard 28.9H, Arterial Blood pH 7.449, Arterial Blood Partial Pressure CO2 43.5, Arterial Blood Partial Pressure O2 115.5H, Arterial Blood Total CO2 30.8, Arterial Blood HCO3 29.5H, Arterial Blood Base Excess 4.9H, Arterial Blood Oxygen Saturation 96.5 12/31/18 06:41: Bedside Glucose (Misc Panel) 196H 12/31/18 07:40: Immature Granulocyte % (Auto) 0.4, White Blood Count 10.5H, Red Blood Count 3.64L, Hemoglobin 11.4#L, Hematocrit 35.7L, Mean Corpuscular Volume 98.1H, Mean Corpuscular Hemoglobin 31.3, Mean Corpuscular Hemoglobin Concent 31.9L, Red Cell Distribution Width 13.0, Platelet Count 213, Neutrophils (%) (Auto) 79.8H, Lymphocytes (%) (Auto) 11.0L, Monocytes (%) (Auto) 7.5H, Eosinophils (%) (Auto) 1.0, Basophils (%) (Auto) 0.3, Neutrophils # (Auto) 8.4H, Lymphocytes # (Auto) 1.2L, Monocytes # (Auto) 0.8, Eosinophils # (Auto) 0.1, Basophils # (Auto) 0.0, Nucleated Red Blood Cells % (auto) 0.0, Prothrombin Time 16.0H, Prothromb Time International Ratio 1.26, Anion Gap 4L, Glomerular Filtration Rate > 60.0, Blood Urea Nitrogen 12, Creatinine 0.75, Sodium Level 139, Potassium Level 3.8, Chloride Level 104, Carbon Dioxide Level 31, Calcium Level 7.4L, Troponin I < 0.02 CBC/BMP Laboratory Tests 12/31/18 07:40 Red Blood Count 3.64 L, Mean Corpuscular Volume 98.1 H, Mean Corpuscular Hemoglobin 31.3, Mean Corpuscular Hemoglobin Concent 31.9 L, Red Cell Distribution Width 13.0, Neutrophils (%) (Auto) 79.8 H, Lymphocytes (%) (Auto) 11.0 L, Monocytes (%) (Auto) 7.5 H, Eosinophils (%) (Auto) 1.0, Basophils (%) (Auto) 0.3, Neutrophils # (Auto) 8.4 H, Lymphocytes # (Auto) 1.2 L, Monocytes # (Auto) 0.8, Eosinophils # (Auto) 0.1, Basophils # (Auto) 0.0, Calcium Level 7.4 L JAZMIN WILLIAMSON PA-C December 31, 2018 11:24 Elroy Woods M.D. December 31, 2018 16:50
--- NOTE | 2018-12-31 23:38 | ECGEPIP ---
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 HEART RATE IS NOW SLOWER Electronically Signed On 12-31-2018 23:37:30 EDT by Cornelio Fowler
--- NOTE | 2018-12-31 23:42 | ECGEPIP ---
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
--- NOTE | 2018-12-31 23:54 | ECGEPIP ---
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 HEART RATE IS NOW UNDER CONTROL Electronically Signed On 12-31-2018 23:54:22 EDT by Cornelio Fowler
[2019-01-01] VITALS (14 sets, daily range): BP systolic 132–144; BP diastolic 71–88; O2SAT 93–97
[2019-01-01] MEDS: metroNIDAZOLE 500 MG in APPROPRIATE DILUENT 1 EA IV SCH ×3 (04:21→20:01)
[2019-01-01 05:26] LABS: BASO % 0.4 % (0.0-1.0); EOS % 1.7 % (0.0-3.0); HEMATOCRIT 36.6 % (42.0-52.0); HEMOGLOBIN 11.8 g/dl (13.5-17.5); MEAN CORPUSCULAR HEMOGLOBIN 30.6 pg (27.0-33.0); MEAN CORPUSCULAR HGB CONC 32.2 g/dl (32.0-36.5); MEAN CORPUSCULAR VOLUME 95.1 fl (80.0-96.0); MONO # 0.8 10^3/uL (0.0-0.8); MONO % 8.4 % (0.0-5.0); NEUTROPHILS # 7.6 10^3/uL (1.8-7.7); NEUTROPHILS % 79.1 % (36.0-66.0); PLATELET COUNT, AUTOMATED 246 10^3/uL (150-450); RED BLOOD COUNT 3.85 10^6/uL (4.30-6.10); WHITE BLOOD COUNT 9.6 10^3/uL (4.0-10.0)
[2019-01-01 05:27] LABS: EOS # 0.2 10^3/uL (0.0-0.50)
[2019-01-01 05:36] LABS: INR 1.18; PROTHROMBIN TIME 15.2 SECONDS (12.1-14.4)
[2019-01-01 05:53] LABS: BLOOD UREA NITROGEN 7 MG/DL (7-18); CALCIUM LEVEL 7.8 MG/DL (8.8-10.2); CARBON DIOXIDE LEVEL 33 MEQ/L (21-32); CHLORIDE LEVEL 101 MEQ/L (98-107); CREATININE FOR GFR 0.81 MG/DL (0.70-1.30); GLOMERULAR FILTRATION RATE > 60.0 (>49); GLUCOSE, FASTING 210 MG/DL (70-100); POTASSIUM SERUM 3.6 MEQ/L (3.5-5.1); SODIUM LEVEL 140 MEQ/L (136-145); TROPONIN I < 0.02 NG/ML (< 0.10)
[2019-01-01] MEDS: HumaLOG INSULIN (NovoLOG) PER UNIT SC SCH ×4 (07:53→21:53)
[2019-01-01] MEDS: NORCO, ANEXSIA 5/325MG TABLET (HYDROcodone/ACETAMINOPHEN) PO PRN ×2 (07:55→21:51)
--- NOTE | 2019-01-01 08:06 | REP ---
Portable chest x-ray: Two views. History: Intubated patient. Comparison study: December 31, 2018. Findings: EKG monitoring electrodes are seen. Median sternotomy wires are noted. Cardiomediastinal silhouette is unchanged. Heart size is borderline. Pleural thickening is again noted bilaterally. No endotracheal tube is visible. Oxygen delivery tubing is seen. No infiltrate or effusion seen. Electronically Signed by Ki Espinosa MD 01/01/2019 07:57 A
--- NOTE | 2019-01-01 09:27 | IPNPDOC ---
Subjective Date Seen The patient was seen on 01/01/19. Subjective Chief Complaint/HPI doing well Constitutional: Denies: Chills, Night Sweats ENT: Denies: Head Aches, Dysphagia Pulmonary: Denies: Dyspnea, Cough, Pleuritic Chest Pain Cardiovascular: Denies: Chest Pain, Palpitations Gastrointestinal: Reports: Abdominal Pain (reports mid abdominal sharp discomfort this am, took his ordered pain med); Denies: Nausea Hematologic: Denies: Bruising Endocrine: Denies: Polydipsia Neurological: Denies: Numbness, Change in speech Psych: Reports: Mood Normal Objective Physical Examination General Exam: Positive: Alert, No Acute Distress Eye Exam: Negative: Sclera icteric, Other Eye Symptoms ENT Exam: Positive: Mucous membr. moist/pink Chest Exam: Positive: Clear to auscultation, Diminished; Negative: Rales, Rhonchi, Wheezing Heart Exam: Positive: Rate Normal, Irregular Rhythm, Normal S1, Normal S2; Negative: Tachycardic, Bradycardic, Regular Rhythm, Gallops, Murmurs, Rubs Telemetry: Positive: Atrial fibrillation Abdomen Exam: Positive: BS Hypoactive, Soft, Hernia (abdominal wall), Other (ileostomy present, clean dry incision, ostomy appears to be functioning well.) Extremity Exam: Negative: Edema (trace BL) Skin Exam: Positive: Nl turgor and temperature Neuro Exam: Positive: Normal Speech Psych Exam: Positive: Mood NL A-FIB/CHADSVASC A-FIB History Current/History of A-Fib/PAF?: Yes Current Oral Anticoagulant The: Yes Age/Risk Factor Scoring CHADSVASC: CHADSVASC Response (Comments) Value Age Risk Factor Age < 65 years old 0 Gender Risk Factor Male 0 Hx of CHF Yes (chronic) 1 Hx of Diabetes Yes 1 Total 2 Treatment Treatment ordered: Warfarin Assessment /Plan Problems (1) Obstruction of colon Status: Acute Response to Treatment: Improving Problem Text: POD3, s/p right hemicolectomy, seems to be doing well. asking appropriate questions about implications of liver mets finding. discussed need for medical oncology referral post-op POD 2 s/p lap Right hemicolectomy with ileostomy ( 2 abdominal mass c liver mets) Dr. Fry. D2 metro/cefotet no s/s infection (2) Chronic hypoxemic respiratory failure Status: Chronic Response to Treatment: Stable Problem Specific Plan: Consult Specialist Problem Text: 12/31 Doing well extubated, cont to monitor sats. CPAP while sleeping. Patient on chronic 5 liters NC as outpatient - sats currently high 90s on 5 liters H/O CALE on CPAP normally (3) Diastolic CHF, chronic Status: Chronic Response to Treatment: Stable Problem Text: 12/31 IVF stopped. Given Lasix IV 40 mg daily, started this morning, + diuresis, will plan to d/c arias in AM, nursing aware, 12/29 - Currently getting IVF LR at 125/hour Euvolemic at this point off HD fur 40 QD (4) A-fib Status: Chronic Response to Treatment: Stable Problem Text: 01/01: restart warfarin at usual dose, monitor INR. resume ASA today for prophylaxis re CAD as well. Rate adequately controlled on HD carve 6.25 BID, dig 250 Coumadin on hold post-op (5) Colonic mass Status: Acute Response to Treatment: Improving Problem Text: 12/29 CEA 3.9 12/29 pathology P-patient favors aggressive rx-understands probably chemorx (6) CALE on CPAP Status: Chronic Problem Text: severe baseline CALE on CPAP 14 (but not palliated at this pressure) (7) Diabetes Status: Chronic Response to Treatment: Stable Problem Text: HbA1c = 7.7 as of 06/2018 Normally on Metformin as outpatient cont SSiI coverage q6H (8) CAD (coronary artery disease) Status: Chronic Response to Treatment: Stable Problem Text: 01/01: continue carvedilol, resume ASA today. he is on atorvastatin as outpatient will restart No signs of ischemia continue BB, statin (decreased dose given hepatic mets) 06/2017 treadmill stress SPECT-normal perfusion images-Amin Plan/VTE VTE Prophylaxis Ordered?: Yes (TEDs/Sequentlial - Coumadin on hold for surgery) Plan/Urinary Catheter Reason for insertion/continuin: Critical Pt monitoring VS, I&O, 24H, Fishbone Vital Signs/I&O Vital Signs Date Time Temp Pulse Resp B/P (MAP) Pulse Ox O2 Delivery O2 Flow Rate FiO2 01/01/19 08:00 96.4 85 20 144/78 (100) 99 2.0 01/01/19 04:00 BIPAP/CPAP 12/30/18 13:00 30 I&O- Last 24 Hours up to 6 AM 01/01/19 06:00 Intake Total 2265 ml Output Total 5175 ml Balance -2910 ml Laboratory Data 24H LABS Laboratory Tests 2 12/31/18 12:17: Bedside Glucose (Misc Panel) 300H 12/31/18 18:02: Bedside Glucose (Misc Panel) 290H 12/31/18 21:16: Bedside Glucose (Misc Panel) 246H 01/01/19 05:09: Immature Granulocyte % (Auto) 0.4, White Blood Count 9.6, Red Blood Count 3.85L, Hemoglobin 11.8L, Hematocrit 36.6L, Mean Corpuscular Volume 95.1, Mean Corpuscular Hemoglobin 30.6, Mean Corpuscular Hemoglobin Concent 32.2, Red Cell Distribution Width 12.5, Platelet Count 246, Neutrophils (%) (Auto) 79.1H, Lymphocytes (%) (Auto) 10.0L, Monocytes (%) (Auto) 8.4H, Eosinophils (%) (Auto) 1.7, Basophils (%) (Auto) 0.4, Neutrophils # (Auto) 7.6, Lymphocytes # (Auto) 1.0L, Monocytes # (Auto) 0.8, Eosinophils # (Auto) 0.2, Basophils # (Auto) 0.0, Nucleated Red Blood Cells % (auto) 0.0, Prothrombin Time 15.2H, Prothromb Time International Ratio 1.18, Anion Gap 6L, Glomerular Filtration Rate > 60.0, Blood Urea Nitrogen 7, Creatinine 0.81, Sodium Level 140, Potassium Level 3.6, Chloride Level 101, Carbon Dioxide Level 33H, Calcium Level 7.8L, Troponin I < 0.02 CBC/BMP Laboratory Tests 01/01/19 05:09 Red Blood Count 3.85 L, Mean Corpuscular Volume 95.1, Mean Corpuscular Hemoglobin 30.6, Mean Corpuscular Hemoglobin Concent 32.2, Red Cell Distribution Width 12.5, Neutrophils (%) (Auto) 79.1 H, Lymphocytes (%) (Auto) 10.0 L, Monocytes (%) (Auto) 8.4 H, Eosinophils (%) (Auto) 1.7, Basophils (%) (Auto) 0.4, Neutrophils # (Auto) 7.6, Lymphocytes # (Auto) 1.0 L, Monocytes # (Auto) 0.8, Eosinophils # (Auto) 0.2, Basophils # (Auto) 0.0, Calcium Level 7.8 L Pranav Shaw MD January 01, 2019 09:27
[2019-01-01] MEDS: PANTOPRAZOLE 40MG INJ (PROTONIX) (C9113) IV SCH (09:35)
[2019-01-01] MEDS: FUROSEMIDE 40 MG/4 ML VIAL (J1940) IV SCH (09:35)
[2019-01-01] MEDS: ALVIMOPAN 12 MG CAPSULE (ENTEREG) PO SCH ×2 (09:36→21:52)
[2019-01-01] MEDS: ASPIRIN 81 MG ENTERIC TAB PO SCH (09:36)
[2019-01-01] MEDS: DIGOXIN 0.25 MG TAB PO SCH (09:36)
[2019-01-01] MEDS: cefoTEtan DISODIUM 1 GM in D5W MINI-BAG PLUS 50 ML IV SCH ×2 (09:36→21:54)
[2019-01-01] MEDS: ATORVASTATIN 20 MG TAB PO SCH (09:36)
[2019-01-01] MEDS: CARVedilol 6.25 MG TAB PO SCH ×2 (09:36→21:52)
[2019-01-01] MEDS: NYSTATIN 100,000 UNITS/GM TOPICAL PWD 15 GM TOP SCH ×2 (09:37→21:54)
[2019-01-01] MEDS ORDERED: WARFARIN SOD 5 MG TAB PO SCH (17:00)
[2019-01-02] VITALS (15 sets, daily range): BP systolic 125–164; BP diastolic 71–91; O2SAT 92–99
[2019-01-02] MEDS: metroNIDAZOLE 500 MG in APPROPRIATE DILUENT 1 EA IV SCH ×3 (04:24→20:22)
[2019-01-02 06:20] LABS: BASO % 0.6 % (0.0-1.0); EOS # 0.2 10^3/uL (0.0-0.50); EOS % 2.1 % (0.0-3.0); HEMATOCRIT 37.2 % (42.0-52.0); LYMPH # 1.1 10^3/uL (1.5-4.5); LYMPH % 14.8 % (24.0-44.0); MEAN CORPUSCULAR HGB CONC 32.3 g/dl (32.0-36.5); MEAN CORPUSCULAR VOLUME 96.1 fl (80.0-96.0); MONO # 0.7 10^3/uL (0.0-0.8); MONO % 9.7 % (0.0-5.0); NEUTROPHILS # 5.2 10^3/uL (1.8-7.7); NEUTROPHILS % 72.1 % (36.0-66.0); PLATELET COUNT, AUTOMATED 225 10^3/uL (150-450); RED BLOOD COUNT 3.87 10^6/uL (4.30-6.10); WHITE BLOOD COUNT 7.2 10^3/uL (4.0-10.0)
[2019-01-02 06:33] LABS: INR 1.14; PROTHROMBIN TIME 14.8 SECONDS (12.1-14.4)
[2019-01-02 06:42] LABS: BLOOD UREA NITROGEN 7 MG/DL (7-18); CALCIUM LEVEL 8.1 MG/DL (8.8-10.2); CARBON DIOXIDE LEVEL 32 MEQ/L (21-32); CHLORIDE LEVEL 101 MEQ/L (98-107); CREATININE FOR GFR 0.62 MG/DL (0.70-1.30); GLOMERULAR FILTRATION RATE > 60.0 (>49); GLUCOSE, FASTING 224 MG/DL (70-100); POTASSIUM SERUM 3.4 MEQ/L (3.5-5.1); SODIUM LEVEL 139 MEQ/L (136-145)
[2019-01-02] MEDS: PANTOPRAZOLE 40MG INJ (PROTONIX) (C9113) IV SCH (08:49)
[2019-01-02] MEDS: FUROSEMIDE 40 MG/4 ML VIAL (J1940) IV SCH (08:49)
[2019-01-02] MEDS: DIGOXIN 0.25 MG TAB PO SCH (08:50)
[2019-01-02] MEDS: ASPIRIN 81 MG ENTERIC TAB PO SCH (08:50)
[2019-01-02] MEDS: CARVedilol 6.25 MG TAB PO SCH ×2 (08:51→20:30)
[2019-01-02] MEDS: cefoTEtan DISODIUM 1 GM in D5W MINI-BAG PLUS 50 ML IV SCH ×2 (08:51→20:32)
[2019-01-02] MEDS: ALVIMOPAN 12 MG CAPSULE (ENTEREG) PO SCH (08:51)
[2019-01-02] MEDS: HumaLOG INSULIN (NovoLOG) PER UNIT SC SCH ×4 (08:52→20:33)
[2019-01-02] MEDS: NYSTATIN 100,000 UNITS/GM TOPICAL PWD 15 GM TOP SCH ×2 (08:52→20:33)
[2019-01-02] MEDS: NORCO, ANEXSIA 5/325MG TABLET (HYDROcodone/ACETAMINOPHEN) PO PRN ×2 (09:00→20:32)
--- NOTE | 2019-01-02 09:52 | IPNPDOC ---
Subjective General Date/Time Seen The patient was seen on 01/02/19 at 09:46. Subject Chief Complaint/History The patient is a 63-year-old male admitted with a reason for visit of A-Fib Obstructionv Of Colon. Current Medications Current Medications Current Medications Acetaminophen (Tylenol Tab) 650 mg Q4HP PRN PO mild pain; Start 12/30/18 at 20:30 Acetaminophen/ Hydrocodone Bitart ([place], Anexsia 5/325) 1 tab Q4HP PRN PO moderate pain (5-7) Last administered on 01/02/19at 09:00; Start 12/30/18 at 20:30 Acetaminophen/ Hydrocodone Bitart ([place], Anexsia 5/325) 2 tab Q4HP PRN PO SEVERE PAIN (PS 8-10) Last administered on 01/01/19at 21:51; Start 12/30/18 at 20:30 Albuterol Sulfate (Proventil Neb) 2.5 mg Q2HP PRN NEB SOB/WHEEZING; Start 12/27/18 at 20:00 Alvimopan (Entereg) 12 mg BID PO Last administered on 01/02/19 08:51; Start 12/31/18 at 09:00; Stop 01/05/19 at 08:59 Aspirin (Ecotrin) 81 mg DAILY PO Last administered on 01/02/19 08:50; Start 12/31/18 at 09:00 Atorvastatin Calcium (Lipitor) 20 mg DAILY PO Last administered on 01/01/19at 09:36; Start 12/29/18 at 09:00; Stop 01/01/19 at 09:42; Status DC Atorvastatin Calcium (Lipitor) 40 mg QHS PO ; Start 01/02/19 at 21:00 Carvedilol (COReg) 6.25 mg BID PO Last administered on 01/02/19 08:51; Start 12/27/18 at 21:00 Cefotetan Disodium 1 gm/ Dextrose 50 ml @ 100 mls/hr Q12H IV Last administered on 01/02/19 08:51; Start 12/29/18 at 21:00; Stop 01/05/19 at 20:59 Chlorhexidine Gluconate (Peridex Oral Rinse) SWAB/BRUSH ORAL CAVITY BID MT Last administered on 12/30/18 08:59; Start 12/29/18 at 21:00; Stop 12/30/18 at 21:07; Status DC Dexmedetomidine HCl 200 mcg/IV Miscellaneous Supplies 50 ml @ 0 mls/hr Q0M IV Last administered on 12/30/18at 14:27; Start 12/30/18 at 09:45; Stop 12/30/18 at 21:08; Status DC Dextrose (Dextrose 50%) 25 ml ASDIRECTED PRN IV SEE LABEL COMMENTS; Start 12/27/18 at 16:45 Diatrizoate Meglum/ Diatrizoate Sod (Gastrografin) 10 ml Q30M PO Last administered on 12/27/18at 13:39; Start 12/27/18 at 12:30; Stop 12/27/18 at 13:01; Status DC Digoxin (Lanoxin) 0.25 mg DAILY IV Last administered on 12/31/18at 08:52; Start 12/27/18 at 09:00; Stop 12/31/18 at 12:49; Status DC Digoxin (Lanoxin) 0.25 mg DAILY PO Last administered on 01/02/19at 08:50; Start 01/01/19 at 09:00 Fentanyl Citrate (Sublimaze) 25 mcg Q5MP PRN IV MODERATE PAIN (PS 4-7) Last administered on 12/29/18at 20:22; Start 12/29/18 at 19:00; Stop 12/29/18 at 20:00; Status DC Furosemide (LASIX injection) 40 mg DAILY IV Last administered on 01/02/19at 08:49; Start 12/31/18 at 09:00 Glucagon (Glucagon) 1 mg ASDIRECTED PRN SC SEE LABEL COMMENTS; Start 12/27/18 at 16:45 Glucose (Glucose) 16 GM ASDIRECTED PRN PO SEE LABEL COMMENTS; Start 12/27/18 at 16:45 Home Med (Med Rec Complete!) ASDIRECTED XX ; Start 12/27/18 at 15:45; Stop 12/27/18 at 15:45; Status DC Insulin Human Lispro (HumaLOG INSULIN) PER NPO PROTOCOL Q6H SC ; Start 12/27/18 at 18:00; Stop 12/27/18 at 20:05; Status DC Insulin Human Lispro (HumaLOG INSULIN) SEE PROTOCOL TABLE ACHS SC Last administered on 01/02/19at 08:52; Start 12/31/18 at 17:30 Insulin Human Lispro (HumaLOG INSULIN) SEE PROTOCOL TABLE Q6H SC Last administered on 12/31/18 12:32; Start 12/28/18 at 00:00; Stop 12/31/18 at 12:57; Status DC Lactated Ringer's 1,000 ml @ 75 mls/hr [id number] IV ; Start 12/29/18 at 19:00; Stop 12/29/18 at 20:00; Status DC Lactated Ringer's 1,000 ml @ 125 mls/hr Q8H IV Last administered on 12/31/18 01:26; Start 12/29/18 at 18:15; Stop 12/31/18 at 07:36; Status DC Metronidazole 500 mg/IV Miscellaneous Supplies 100 ml @ 100 mls/hr Q8H IV Last administered on 01/02/19 04:24; Start 12/29/18 at 20:00 Morphine Sulfate (Morphine Sulfate Inj) 4 mg Q30M PRN IV SEVERE PAIN (PS 8-10) Last administered on 12/27/18 13:09; Start 12/27/18 at 11:45; Stop 12/27/18 at 13:10; Status DC Morphine Sulfate (Morphine Sulfate Inj) 4 mg Q4HP PRN IV SEVERE PAIN (PS 8-10) Last administered on 12/31/18at 09:01; Start 12/28/18 at 10:45 Nystatin (Mycostatin Powder, Nystop) BID TOP Last administered on 01/02/19 08:52; Start 12/28/18 at 09:00 Ondansetron HCl (ZOFRAN INJection) 4 mg Q4HP PRN IV NAUSEA OR VOMITING; Start 12/29/18 at 19:00; Stop 12/29/18 at 20:00; Status DC Ondansetron HCl (ZOFRAN INJection) 4 mg Q6HP PRN IV NAUSEA OR VOMITING Last administered on 12/29/18at 10:02; Start 12/29/18 at 09:30 Pantoprazole Sodium (Protonix) 40 mg DAILY IV Last administered on 01/02/19 08:49; Start 12/30/18 at 09:00 Propofol 1000 mg/ IV Miscellaneous Supplies 100 ml @ 8.68 mls/hr [id number] IV Last administered on 12/30/18at 11:13; Start 12/29/18 at 17:47; Stop 12/30/18 at 21:07; Status DC Sodium Chloride 1,000 ml @ 80 mls/hr [id number] IV Last administered on 12/27/18at 13:39; Start 12/27/18 at 13:30; Stop 12/27/18 at 23:03; Status DC Sodium Chloride 1,000 ml @ 80 mls/hr [id number] IV Last administered on 12/29/18at 10:02; Start 12/27/18 at 23:15; Stop 12/29/18 at 18:17; Status DC Warfarin Sodium (Coumadin) 7.5 mg SuTuThFr@1700 PO ; Start 01/02/19 at 17:00 Warfarin Sodium (Coumadin) 10 mg MoWeSa@1700 PO Last administered on 01/01/19at 17:08; Start 01/01/19 at 17:00 Allergies Coded Allergies: No Known Allergies (Unverified , 12/27/18) Objective Physical Examination Examination GENERAL APPEARANCE:[Patient seen, laying in bed, awake, alert, and oriented. Comfortable, in no acute distress]. SKIN: [Warm and moist]. HEENT: [Normocephalic, atraumatic. [place] palpebral conjunctiva, anicteric sclerae. Lips and mucosa appear moist]. NECK: [Supple, no thyromegaly. No obvious jugular venous distention]. LUNGS: [Clear to auscultation bilaterally. No wheezing appreciated]. HEART: [No chest wall abnormalities. Regular rate and rhythm with no murmurs appreciated]. ABDOMEN: Abdomen is , soft, . [No hepatosplenomegaly. No umbilical or groin herniations, nondistended. No noticeable rebound or guarding. No grimacing with palpation. No rebound tenderness. No masses appreciated]. EXTREMITIES: [Extremities have no deformities. No edema identified]. Vital Signs Vital Signs Date Time Temp Pulse Resp B/P (MAP) Pulse Ox O2 Delivery O2 Flow Rate FiO2 01/02/19 09:00 18 98 3.0 01/02/19 08:51 96 137/74 01/02/19 08:00 96.3 01/02/19 04:00 Nasal Cannula 12/30/18 13:00 30 I&Os I&O- Last 24 Hours up to 6 AM 01/02/19 06:00 Intake Total 2790 ml Output Total 4525 ml Balance -1735 ml Laboratory Data Labs 24H Laboratory Tests 2 01/01/19 11:35: Bedside Glucose (Misc Panel) 386H 01/01/19 16:50: Bedside Glucose (Misc Panel) 335H 01/01/19 20:54: Bedside Glucose (Misc Panel) 369H 01/02/19 05:45: Immature Granulocyte % (Auto) 0.7, White Blood Count 7.2, Red Blood Count 3.87L, Hemoglobin 12.0L, Hematocrit 37.2L, Mean Corpuscular Volume 96.1H, Mean Corpuscular Hemoglobin 31.0, Mean Corpuscular Hemoglobin Concent 32.3, Red Cell Distribution Width 12.6, Platelet Count 225, Neutrophils (%) (Auto) 72.1H, Lymphocytes (%) (Auto) 14.8L, Monocytes (%) (Auto) 9.7H, Eosinophils (%) (Auto) 2.1, Basophils (%) (Auto) 0.6, Neutrophils # (Auto) 5.2, Lymphocytes # (Auto) 1.1L, Monocytes # (Auto) 0.7, Eosinophils # (Auto) 0.2, Basophils # (Auto) 0.0, Nucleated Red Blood Cells % (auto) 0.0, Prothrombin Time 14.8H, Prothromb Time International Ratio 1.14, Anion Gap 6L, Glomerular Filtration Rate > 60.0, Blood Urea Nitrogen 7, Creatinine 0.62L, Sodium Level 139, Potassium Level 3.4L, Chloride Level 101, Carbon Dioxide Level 32, Calcium Level 8.1L CBC/BMP Laboratory Tests 01/02/19 05:45 Red Blood Count 3.87 L, Mean Corpuscular Volume 96.1 H, Mean Corpuscular Hemoglobin 31.0, Mean Corpuscular Hemoglobin Concent 32.3, Red Cell Distribution Width 12.6, Neutrophils (%) (Auto) 72.1 H, Lymphocytes (%) (Auto) 14.8 L, Monocytes (%) (Auto) 9.7 H, Eosinophils (%) (Auto) 2.1, Basophils (%) (Auto) 0.6, Neutrophils # (Auto) 5.2, Lymphocytes # (Auto) 1.1 L, Monocytes # (Auto) 0.7, Eosinophils # (Auto) 0.2, Basophils # (Auto) 0.0, Calcium Level 8.1 L A-FIB/CHADSVASC A-FIB History Current/History of A-Fib/PAF?: Yes Current Oral Anticoagulant The: Yes Age/Risk Factor Scoring CHADSVASC: CHADSVASC Response (Comments) Value Age Risk Factor Age < 65 years old 0 Gender Risk Factor Male 0 Hx of CHF Yes (chronic) 1 Hx of Diabetes Yes 1 Total 2 Impression POD 4 Right Colectomy with Ileostomy Atrial Fibrillation history of CHF history of chronic respiratory failure on 5L O2 Ostructive Sleep Apnea on CPAP morbid obesity colon cancer (presumed) with malignant obstruction with liver metastases abdominal wall hernia with recurrence, wide mesh on the abdominal wall PLAN: Plan / VTE VTE Prophylaxis Ordered?: Yes (TEDs/Sequentlial - Coumadin on hold for surgery) Plan / Urinary Catheter Urinary Catheter: D/C Roman Reason for insertion/continuin: Critical Pt monitoring NEDRA MARTINEZ MD January 02, 2019 09:52
--- NOTE | 2019-01-02 09:58 | IPNPDOC ---
Subjective Date Seen The patient was seen on 01/02/19. Subjective Chief Complaint/HPI minimal pain, up and around, no CV symptoms ENT: Denies: Head Aches Pulmonary: Denies: Dyspnea, Cough, Pleuritic Chest Pain Cardiovascular: Denies: Chest Pain, Palpitations, Orthopnea Gastrointestinal: Denies: Nausea, Vomiting Hematologic: Denies: Bruising Endocrine: Denies: Polydipsia Neurological: Denies: Weakness, Change in speech Psych: Reports: Mood Normal Objective Physical Examination General Exam: Positive: Alert, No Acute Distress Eye Exam: Negative: Sclera icteric, Other Eye Symptoms ENT Exam: Positive: Mucous membr. moist/pink Chest Exam: Positive: Clear to auscultation, Diminished; Negative: Rales, Rhonchi, Wheezing Heart Exam: Positive: Rate Normal, Irregular Rhythm, Normal S1, Normal S2; Negative: Tachycardic, Bradycardic, Regular Rhythm, Gallops, Murmurs, Rubs Telemetry: Positive: Atrial fibrillation Abdomen Exam: Positive: BS Hypoactive, Soft, Hernia (abdominal wall), Other (ileostomy present, clean dry incision, ostomy appears to be functioning well.) Extremity Exam: Negative: Edema (trace BL) Skin Exam: Positive: Nl turgor and temperature Neuro Exam: Positive: Normal Speech Psych Exam: Positive: Mood NL A-FIB/CHADSVASC A-FIB History Current/History of A-Fib/PAF?: Yes Age/Risk Factor Scoring CHADSVASC: CHADSVASC Response (Comments) Value Age Risk Factor Age < 65 years old 0 Gender Risk Factor Male 0 Hx of CHF Yes (chronic) 1 Hx of Diabetes Yes 1 Total 2 Treatment Treatment ordered: Warfarin Assessment /Plan Problems (1) Obstruction of colon Status: Acute Response to Treatment: Improving Problem Text: POD4 up and around, seems to be doing well tolerating diet. POD3, s/p right hemicolectomy, seems to be doing well. asking appropriate questions about implications of liver mets finding. discussed need for medical oncology referral post-op POD 2 s/p lap Right hemicolectomy with ileostomy ( 2 abdominal mass c liver mets) Dr. Fry. D2 metro/cefotet no s/s infection (2) Chronic hypoxemic respiratory failure Status: Chronic Response to Treatment: Stable, Improving Problem Specific Plan: Consult Specialist Problem Text: 12/31 Doing well extubated, cont to monitor sats. CPAP while sleeping. Patient on chronic 5 liters NC as outpatient - sats currently high 90s on 5 liters H/O CALE on CPAP normally (3) Diastolic CHF, chronic Status: Chronic Response to Treatment: Stable Problem Text: 01/02 resume chronic oral lasxis. K low today 40mEq dose po order ed. 12/31 IVF stopped. Given Lasix IV 40 mg daily, started this morning, + diuresis, will plan to d/c hugo in AM, nursing aware, 12/29 - Currently getting IVF LR at 125/hour Euvolemic at this point off HD fur 40 QD (4) A-fib Status: Chronic Response to Treatment: Stable Problem Text: 01/01: restart warfarin at usual dose, monitor INR. resume ASA today for prophylaxis re CAD as well. Rate adequately controlled on HD carve 6.25 BID, dig 250 Coumadin on hold post-op (5) Colonic mass Status: Acute Response to Treatment: Improving Problem Text: 12/29 CEA 3.9 12/29 pathology P-patient favors aggressive rx-understands probably chemorx (6) CALE on CPAP Status: Chronic Response to Treatment: Stable Problem Text: severe baseline CALE on CPAP 14 (but not palliated at this pressure) (7) Diabetes Status: Chronic Response to Treatment: Stable Problem Text: HbA1c = 7.7 as of 06/2018 Normally on Metformin as outpatient cont SSiI coverage q6H (8) CAD (coronary artery disease) Status: Chronic Response to Treatment: Stable Problem Text: 01/01: continue carvedilol, resume ASA today. he is on atorvastatin as outpatient will restart No signs of ischemia continue BB, statin (decreased dose given hepatic mets) 06/2017 treadmill stress SPECT-normal perfusion images-Amin Plan/VTE VTE Prophylaxis Ordered?: Yes (TEDs/Sequentlial - Coumadin on hold for surgery) Plan/Urinary Catheter Urinary Catheter: D/C Hugo Reason for insertion/continuin: Critical Pt monitoring Plan Anticipated Discharge: Home VS, I&O, 24H, Fishbone Vital Signs/I&O Vital Signs Date Time Temp Pulse Resp B/P (MAP) Pulse Ox O2 Delivery O2 Flow Rate FiO2 01/02/19 09:00 18 98 3.0 01/02/19 08:51 96 137/74 01/02/19 08:00 96.3 01/02/19 04:00 Nasal Cannula 12/30/18 13:00 30 I&O- Last 24 Hours up to 6 AM 01/02/19 06:00 Intake Total 2790 ml Output Total 4525 ml Balance -1735 ml Laboratory Data 24H LABS Laboratory Tests 2 01/01/19 11:35: Bedside Glucose (Misc Panel) 386H 01/01/19 16:50: Bedside Glucose (Misc Panel) 335H 01/01/19 20:54: Bedside Glucose (Misc Panel) 369H 01/02/19 05:45: Immature Granulocyte % (Auto) 0.7, White Blood Count 7.2, Red Blood Count 3.87L, Hemoglobin 12.0L, Hematocrit 37.2L, Mean Corpuscular Volume 96.1H, Mean Corpuscular Hemoglobin 31.0, Mean Corpuscular Hemoglobin Concent 32.3, Red Cell Distribution Width 12.6, Platelet Count 225, Neutrophils (%) (Auto) 72.1H, Lymphocytes (%) (Auto) 14.8L, Monocytes (%) (Auto) 9.7H, Eosinophils (%) (Auto) 2.1, Basophils (%) (Auto) 0.6, Neutrophils # (Auto) 5.2, Lymphocytes # (Auto) 1.1L, Monocytes # (Auto) 0.7, Eosinophils # (Auto) 0.2, Basophils # (Auto) 0.0, Nucleated Red Blood Cells % (auto) 0.0, Prothrombin Time 14.8H, Prothromb Time International Ratio 1.14, Anion Gap 6L, Glomerular Filtration Rate > 60.0, Blood Urea Nitrogen 7, Creatinine 0.62L, Sodium Level 139, Potassium Level 3.4L, Chloride Level 101, Carbon Dioxide Level 32, Calcium Level 8.1L CBC/BMP Laboratory Tests 01/02/19 05:45 Red Blood Count 3.87 L, Mean Corpuscular Volume 96.1 H, Mean Corpuscular Hemoglobin 31.0, Mean Corpuscular Hemoglobin Concent 32.3, Red Cell Distribution Width 12.6, Neutrophils (%) (Auto) 72.1 H, Lymphocytes (%) (Auto) 14.8 L, Monocytes (%) (Auto) 9.7 H, Eosinophils (%) (Auto) 2.1, Basophils (%) (Auto) 0.6, Neutrophils # (Auto) 5.2, Lymphocytes # (Auto) 1.1 L, Monocytes # (Auto) 0.7, Eosinophils # (Auto) 0.2, Basophils # (Auto) 0.0, Calcium Level 8.1 L Pranav Shaw MD January 02, 2019 09:58
[2019-01-02] MEDS ORDERED: POTASSIUM CHLORIDE 10 MEQ SR TABLET PO ONE (10:00)
[2019-01-02] MEDS ORDERED: WARFARIN SOD 7.5 MG TAB PO SCH (17:00)
[2019-01-02] MEDS: ATORVASTATIN 20 MG TAB PO SCH (20:29)
[2019-01-03] VITALS: BP 130/71; O2SAT 97
[2019-01-03 04:00] VITALS: BP 142/77; O2SAT 98
[2019-01-03 04:09] LABS: BASO # 0.1 10^3/uL (0.0-0.2); BASO % 0.6 % (0.0-1.0); EOS # 0.2 10^3/uL (0.0-0.50); EOS % 2.1 % (0.0-3.0); HEMATOCRIT 36.4 % (42.0-52.0); HEMOGLOBIN 11.7 g/dl (13.5-17.5); LYMPH # 1.2 10^3/uL (1.5-4.5); LYMPH % 14.8 % (24.0-44.0); MEAN CORPUSCULAR HEMOGLOBIN 30.5 pg (27.0-33.0); MEAN CORPUSCULAR HGB CONC 32.1 g/dl (32.0-36.5); MONO # 0.8 10^3/uL (0.0-0.8); MONO % 9.6 % (0.0-5.0); NEUTROPHILS # 5.6 10^3/uL (1.8-7.7); PLATELET COUNT, AUTOMATED 269 10^3/uL (150-450); RED BLOOD COUNT 3.83 10^6/uL (4.30-6.10); WHITE BLOOD COUNT 7.8 10^3/uL (4.0-10.0)
[2019-01-03 04:18] LABS: INR 1.28; PROTHROMBIN TIME 16.2 SECONDS (12.1-14.4)
[2019-01-03 04:28] LABS: BLOOD UREA NITROGEN 5 MG/DL (7-18); CALCIUM LEVEL 7.9 MG/DL (8.8-10.2); CARBON DIOXIDE LEVEL 32 MEQ/L (21-32); CHLORIDE LEVEL 102 MEQ/L (98-107); CREATININE FOR GFR 0.65 MG/DL (0.70-1.30); GLOMERULAR FILTRATION RATE > 60.0 (>49); GLUCOSE, FASTING 200 MG/DL (70-100); POTASSIUM SERUM 3.5 MEQ/L (3.5-5.1); SODIUM LEVEL 139 MEQ/L (136-145)
[2019-01-03] MEDS: metroNIDAZOLE 500 MG in APPROPRIATE DILUENT 1 EA IV SCH ×3 (04:39→20:50)
[2019-01-03] MEDS: HumaLOG INSULIN (NovoLOG) PER UNIT SC SCH ×4 (07:57→20:53)
[2019-01-03 08:00] VITALS: BP 137/78
--- NOTE | 2019-01-03 08:37 | IPNPDOC ---
Subjective Date Seen The patient was seen on 01/03/19. Subjective Chief Complaint/HPI colon mass Events since last encounter at bedside. Patient progressing well. participating in PT. Resumed warfarin 5 days ago. ostomy draining well. Pulmonary: Reports: Dyspnea (chronic), Cough (chronic) Cardiovascular: Denies: Chest Pain, Palpitations, Orthopnea, Paroxysmal Noc. Dyspnea, Lt Headedness Gastrointestinal: Denies: Nausea, Vomiting, Abdominal Pain, Diarrhea, Constipation Genitourinary: Denies: Dysuria, Frequency, Incontinence, Retention Psych: Reports: Mood Normal; Denies: Depression, Memory Issues Objective Physical Examination General Exam: Positive: Alert, No Acute Distress Eye Exam: Negative: Sclera icteric, Other Eye Symptoms ENT Exam: Positive: Mucous membr. moist/pink Chest Exam: Positive: Clear to auscultation, Diminished; Negative: Rales, Rhonchi, Wheezing Heart Exam: Positive: Rate Normal, Irregular Rhythm, Normal S1, Normal S2; Negative: Tachycardic, Bradycardic, Regular Rhythm, Gallops, Murmurs, Rubs Telemetry: Positive: Atrial fibrillation Abdomen Exam: Positive: BS Hypoactive, Soft, Other (ileostomy present, clean dry incision, ostomy appears to be functioning well.) Extremity Exam: Negative: Edema (trace BL) Skin Exam: Positive: Nl turgor and temperature Neuro Exam: Positive: Normal Speech Psych Exam: Positive: Mood NL A-FIB/CHADSVASC A-FIB History Current/History of A-Fib/PAF?: Yes Current Oral Anticoagulant The: Yes Age/Risk Factor Scoring CHADSVASC: CHADSVASC Response (Comments) Value Age Risk Factor Age < 65 years old 0 Gender Risk Factor Male 0 Hx of CHF Yes (chronic) 1 Hx of Diabetes Yes 1 Total 2 Assessment /Plan Problems (1) Obstruction of colon Status: Acute Response to Treatment: Improving Problem Text: POD 5: progressing well. will start ostomy teaching. Continue with PT. On baseline oxygen needs. Tolerating po. POD4 up and around, seems to be doing well tolerating diet. POD3, s/p right hemicolectomy, seems to be doing well. asking appropriate questions about implications of liver mets finding. discussed need for medical oncology referral post-op POD 2 s/p lap Right hemicolectomy with ileostomy ( 2 abdominal mass c liver mets) Dr. Fry. D2 metro/cefotet no s/s infection (2) Chronic hypoxemic respiratory failure Status: Chronic Response to Treatment: Stable, Improving Problem Specific Plan: Consult Specialist Problem Text: 01/03/19: on baseline oxygen. Patient and requesting new Pulmonology referral outside of [place] after DC home. 12/31 Doing well extubated, cont to monitor sats. CPAP while sleeping. Patient on chronic 5 liters NC as outpatient - sats currently high 90s on 5 liters H/O CALE on CPAP normally (3) Diastolic CHF, chronic Status: Chronic Response to Treatment: Stable Problem Text: 01/03/19: appears well compensated 01/02 resume chronic oral lasxis. K low today 40mEq dose po ordered. 12/31 IVF stopped. Given Lasix IV 40 mg daily, started this morning, + diuresis, will plan to d/c arias in AM, nursing aware, 12/29 - Currently getting IVF LR at 125/hour Euvolemic at this point off HD fur 40 QD (4) A-fib Status: Chronic Response to Treatment: Stable Problem Text: 01/01: restart warfarin at usual dose, monitor INR. resume ASA today for prophylaxis re CAD as well. Rate adequately controlled on HD carve 6.25 BID, dig 250 Coumadin on hold post-op (5) Colonic mass Status: Acute Response to Treatment: Improving Problem Text: 01/03/19: pathology pending. 12/29 CEA 3.9 12/29 pathology P-patient favors aggressive rx-understands probably chemorx (6) CALE on CPAP Status: Chronic Response to Treatment: Stable Problem Text: severe baseline CALE on CPAP 14 (but not palliated at this pressure) (7) Diabetes Status: Chronic Response to Treatment: Stable Problem Text: HbA1c = 7.7 as of 06/2018 Normally on Metformin as outpatient cont SSiI coverage q6H (8) CAD (coronary artery disease) Status: Chronic Response to Treatment: Stable Problem Text: 01/01: continue carvedilol, resume ASA today. he is on atorvastatin as outpatient will restart No signs of ischemia continue BB, statin (decreased dose given hepatic mets) 06/2017 treadmill stress SPECT-normal perfusion images-Amin Plan/VTE VTE Prophylaxis Ordered?: Yes (TEDs/Sequentlial - Coumadin on hold for surgery) Plan/Urinary Catheter Urinary Catheter: D/C Arias Reason for insertion/continuin: Critical Pt monitoring Plan Anticipated Discharge: Home Family Medicine Attending Note: I saw and examined Mr. Vyas, discussed with TATI Lancaster. Agree with her note as documented. I waited until the end of the day to see him, on the hopes that his pathology report would be back. 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 It's not clear where the primary is. It is clear that this is widely metastatic since he has lesions in his liver, multiple lymph nodes, and colon. I explained this to the patient carefully. He would like to receive treatment here in [place]. Tomorrow we will need to c onnect him with the cancer navigators; he would like to see if we can meet with him and his sometime between 10-12 tomorrow morning. 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) VS, I&O, 24H, Fishbone Vital Signs/I&O Vital Signs Date Time Temp Pulse Resp B/P (MAP) Pulse Ox O2 Delivery O2 Flow Rate FiO2 01/03/19 04:00 98 Nasal Cannula 3.0 01/03/19 04:00 98.0 64 18 142/77 (98) 12/30/18 13:00 30 I&O- Last 24 Hours up to 6 AM 01/03/19 06:00 Intake Total 920 ml Output Total 3895 ml Balance -2975 ml Laboratory Data 24H LABS Laboratory Tests 2 01/02/19 12:02: Bedside Glucose (Misc Panel) 337H 01/02/19 17:06: Bedside Glucose (Misc Panel) 313H 01/02/19 20:24: Bedside Glucose (Misc Panel) 278H 01/03/19 03:58: Immature Granulocyte % (Auto) 0.9, White Blood Count 7.8, Red Blood Count 3.83L, Hemoglobin 11.7L, Hematocrit 36.4L, Mean Corpuscular Volume 95.0, Mean Corpuscular Hemoglobin 30.5, Mean Corpuscular Hemoglobin Concent 32.1, Red Cell Distribution Width 12.4, Platelet Count 269, Neutrophils (%) (Auto) 72.0H, Lymphocytes (%) (Auto) 14.8L, Monocytes (%) (Auto) 9.6H, Eosinophils (%) (Auto) 2.1, Basophils (%) (Auto) 0.6, Neutrophils # (Auto) 5.6, Lymphocytes # (Auto) 1.2L, Monocytes # (Auto) 0.8, Eosinophils # (Auto) 0.2, Basophils # (Auto) 0.1, Nucleated Red Blood Cells % (auto) 0.0, Prothrombin Time 16.2H, Prothromb Time International Ratio 1.28, Anion Gap 5L, Glomerular Filtration Rate > 60.0, Blood Urea Nitrogen 5L, Creatinine 0.65L, Sodium Level 139, Potassium Level 3.5, Chloride Level 102, Carbon Dioxide Level 32, Calcium Level 7.9L CBC/BMP Laboratory Tests 01/03/19 03:58 Red Blood Count 3.83 L, Mean Corpuscular Volume 95.0, Mean Corpuscular Hemoglobin 30.5, Mean Corpuscular Hemoglobin Concent 32.1, Red Cell Distribution Width 12.4, Neutrophils (%) (Auto) 72.0 H, Lymphocytes (%) (Auto) 14.8 L, Monocytes (%) (Auto) 9.6 H, Eosinophils (%) (Auto) 2.1, Basophils (%) (Auto) 0.6, Neutrophils # (Auto) 5.6, Lymphocytes # (Auto) 1.2 L, Monocytes # (Auto) 0.8, Eosinophils # (Auto) 0.2, Basophils # (Auto) 0.1, Calcium Level 7.9 L Sherry Salamanca January 03, 2019 8:37 am Kevin Arevalo MD January 03, 2019 10:38 pm
[2019-01-03] MEDS: FUROSEMIDE 40 MG TAB PO SCH (09:08)
[2019-01-03] MEDS: DIGOXIN 0.25 MG TAB PO SCH (09:09)
[2019-01-03] MEDS: CARVedilol 6.25 MG TAB PO SCH ×2 (09:09→20:58)
[2019-01-03] MEDS: ASPIRIN 81 MG ENTERIC TAB PO SCH (09:09)
[2019-01-03] MEDS: cefoTEtan DISODIUM 1 GM in D5W MINI-BAG PLUS 50 ML IV SCH ×2 (09:10→22:15)
[2019-01-03] MEDS: NYSTATIN 100,000 UNITS/GM TOPICAL PWD 15 GM TOP SCH ×2 (09:10→20:58)
--- NOTE | 2019-01-03 09:35 | IPNPDOC ---
Subjective General Date/Time Seen The patient was seen on 01/03/19 at 09:33. Subject Chief Complaint/History The patient is a 63-year-old male admitted with a reason for visit of A-Fib Obstructionv Of Colon. Patient continues to do very well. He was surprised by a bm yesterday. Reassured him that this is expected. Current Medications Current Medications Current Medications Acetaminophen (Tylenol Tab) 650 mg Q4HP PRN PO mild pain; Start 12/30/18 at 20:30 Acetaminophen/ Hydrocodone Bitart ([place], Anexsia 5/325) 1 tab Q4HP PRN PO moderate pain (5-7) Last administered on 01/02/19 09:00; Start 12/30/18 at 20:30 Acetaminophen/ Hydrocodone Bitart ([place], Anexsia 5/325) 2 tab Q4HP PRN PO SEVERE PAIN (PS 8-10) Last administered on 01/02/19at 20:32; Start 12/30/18 at 20:30 Albuterol Sulfate (Proventil Neb) 2.5 mg Q2HP PRN NEB SOB/WHEEZING; Start 12/27/18 at 20:00 Alvimopan (Entereg) 12 mg BID PO Last administered on 01/02/19 08:51; Start 12/31/18 at 09:00; Stop 01/02/19 at 09:50; Status DC Aspirin (Ecotrin) 81 mg DAILY PO Last administered on 01/03/19 09:09; Start 12/31/18 at 09:00 Atorvastatin Calcium (Lipitor) 20 mg DAILY PO Last administered on 01/01/19at 09:36; Start 12/29/18 at 09:00; Stop 01/01/19 at 09:42; Status DC Atorvastatin Calcium (Lipitor) 40 mg QHS PO Last administered on 01/02/19 20:29; Start 01/02/19 at 21:00 Carvedilol (COReg) 6.25 mg BID PO Last administered on 01/03/19 09:09; Start 12/27/18 at 21:00 Cefotetan Disodium 1 gm/ Dextrose 50 ml @ 100 mls/hr Q12H IV Last administered on 01/03/19 09:10; Start 12/29/18 at 21:00; Stop 01/05/19 at 20:59 Chlorhexidine Gluconate (Peridex Oral Rinse) SWAB/BRUSH ORAL CAVITY BID MT Last administered on 12/30/18 08:59; Start 12/29/18 at 21:00; Stop 12/30/18 at 21:07; Status DC Dexmedetomidine HCl 200 mcg/IV Miscellaneous Supplies 50 ml @ 0 mls/hr Q0M IV Last administered on 12/30/18at 14:27; Start 12/30/18 at 09:45; Stop 12/30/18 at 21:08; Status DC Dextrose (Dextrose 50%) 25 ml ASDIRECTED PRN IV SEE LABEL COMMENTS; Start 12/27/18 at 16:45 Diatrizoate Meglum/ Diatrizoate Sod (Gastrografin) 10 ml Q30M PO Last administered on 12/27/18 13:39; Start 12/27/18 at 12:30; Stop 12/27/18 at 13:01; Status DC Digoxin (Lanoxin) 0.25 mg DAILY IV Last administered on 12/31/18at 08:52; Start 12/27/18 at 09:00; Stop 12/31/18 at 12:49; Status DC Digoxin (Lanoxin) 0.25 mg DAILY PO Last administered on 01/03/19at 09:09; Start 01/01/19 at 09:00 Fentanyl Citrate (Sublimaze) 25 mcg Q5MP PRN IV MODERATE PAIN (PS 4-7) Last administered on 12/29/18at 20:22; Start 12/29/18 at 19:00; Stop 12/29/18 at 20:00; Status DC Furosemide (LASIX injection) 40 mg DAILY IV Last administered on 01/02/19at 08: 49; Start 12/31/18 at 09:00; Stop 01/02/19 at 09:51; Status DC Furosemide (Lasix) 40 mg DAILY PO Last administered on 01/03/19at 09:08; Start 01/03/19 at 09:00 Glucagon (Glucagon) 1 mg ASDIRECTED PRN SC SEE LABEL COMMENTS; Start 12/27/18 at 16:45 Glucose (Glucose) 16 GM ASDIRECTED PRN PO SEE LABEL COMMENTS; Start 12/27/18 at 16:45 Home Med (Med Rec Complete!) ASDIRECTED XX ; Start 12/27/18 at 15:45; Stop 12/27/18 at 15:45; Status DC Insulin Human Lispro (HumaLOG INSULIN) PER NPO PROTOCOL Q6H SC ; Start 12/27/18 at 18:00; Stop 12/27/18 at 20:05; Status DC Insulin Human Lispro (HumaLOG INSULIN) SEE PROTOCOL TABLE ACHS SC Last administered on 01/03/19at 07:57; Start 12/31/18 at 17:30 Insulin Human Lispro (HumaLOG INSULIN) SEE PROTOCOL TABLE Q6H SC Last administered on 12/31/18at 12:32; Start 12/28/18 at 00:00; Stop 12/31/18 at 12:57; Status DC Lactated Ringer's 1,000 ml @ 75 mls/hr [id number] IV ; Start 12/29/18 at 19:00; Stop 12/29/18 at 20:00; Status DC Lactated Ringer's 1,000 ml @ 125 mls/hr Q8H IV Last administered on 12/31/18at 01:26; Start 12/29/18 at 18:15; Stop 12/31/18 at 07:36; Status DC Metronidazole 500 mg/IV Miscellaneous Supplies 100 ml @ 100 mls/hr Q8H IV Last administered on 01/03/19at 04:39; Start 12/29/18 at 20:00 Morphine Sulfate (Morphine Sulfate Inj) 4 mg Q30M PRN IV SEVERE PAIN (PS 8-10) Last administered on 12/27/18 13:09; Start 12/27/18 at 11:45; Stop 12/27/18 at 13:10; Status DC Morphine Sulfate (Morphine Sulfate Inj) 4 mg Q4HP PRN IV SEVERE PAIN (PS 8-10) Last administered on 12/31/18 09:01; Start 12/28/18 at 10:45 Nystatin (Mycostatin Powder, Nystop) BID TOP Last administered on 01/03/19at 09:10; Start 12/28/18 at 09:00 Ondansetron HCl (ZOFRAN INJection) 4 mg Q4HP PRN IV NAUSEA OR VOMITING; Start 12/29/18 at 19:00; Stop 12/29/18 at 20:00; Status DC Ondansetron HCl (ZOFRAN INJection) 4 mg Q6HP PRN IV NAUSEA OR VOMITING Last administered on 12/29/18 10:02; Start 12/29/18 at 09:30 Pantoprazole Sodium (Protonix) 40 mg DAILY IV Last administered on 01/02/19 08:49; Start 12/30/18 at 09:00; Stop 01/02/19 at 09:50; Status DC Propofol 1000 mg/ IV Miscellaneous Supplies 100 ml @ 8.68 mls/hr [id number] IV Last administered on 12/30/18 11:13; Start 12/29/18 at 17:47; Stop 12/30/18 at 21:07; Status DC Sodium Chloride 1,000 ml @ 80 mls/hr [id number] IV Last administered on 12/27/18 13:39; Start 12/27/18 at 13:30; Stop 12/27/18 at 23:03; Status DC Sodium Chloride 1,000 ml @ 80 mls/hr [id number] IV Last administered on 12/29/18 10:02; Start 12/27/18 at 23:15; Stop 12/29/18 at 18:17; Status DC Warfarin Sodium (Coumadin) 7.5 mg SuTuThFr@1700 PO Last administered on 01/02/19 17:27; Start 01/02/19 at 17:00 Warfarin Sodium (Coumadin) 10 mg MoWeSa@1700 PO Last administered on 01/01/19 17:08; Start 01/01/19 at 17:00 Allergies Coded Allergies: No Known Allergies (Unverified , 12/27/18) Objective Physical Examination Examination GENERAL APPEARANCE:[Patient seen, laying in bed, awake, alert, and oriented. Comfortable, in no acute distress]. SKIN: [Warm and moist]. HEENT: [Normocephalic, atraumatic. Edon palpebral conjunctiva, anicteric sclerae. Lips and mucosa appear moist]. NECK: [Supple, no thyromegaly. No obvious jugular venous distention]. LUNGS: [Clear to auscultation bilaterally. No wheezing appreciated]. HEART: [No chest wall abnormalities. Regular rate and rhythm with no murmurs appreciated]. ABDOMEN: Abdomen is obese, soft, minimally distended. midline incision is clean, dry, intact. Right side ileostomy functioning well. Nontender on palpation. EXTREMITIES: UE edema nearly resolved, not much LE edema. Vital Signs Vital Signs Date Time Temp Pulse Resp B/P (MAP) Pulse Ox O2 Delivery O2 Flow Rate FiO2 01/03/19 09:09 97 01/03/19 09:09 137/78 01/03/19 08:00 95.5 20 97 3.0 01/03/19 04:00 Nasal Cannula 12/30/18 13:00 30 I&Os I&O- Last 24 Hours up to 6 AM 01/03/19 06:00 Intake Total 920 ml Output Total 3895 ml Balance -2975 ml Laboratory Data Labs 24H Laboratory Tests 2 01/02/19 12:02: Bedside Glucose (Misc Panel) 337H 01/02/19 17:06: Bedside Glucose (Misc Panel) 313H 01/02/19 20:24: Bedside Glucose (Misc Panel) 278H 01/03/19 03:58: Immature Granulocyte % (Auto) 0.9, White Blood Count 7.8, Red Blood Count 3.83L, Hemoglobin 11.7L, Hematocrit 36.4L, Mean Corpuscular Volume 95.0, Mean Corpuscular Hemoglobin 30.5, Mean Corpuscular Hemoglobin Concent 32.1, Red Cell Distribution Width 12.4, Platelet Count 269, Neutrophils (%) (Auto) 72.0H, Lymphocytes (%) (Auto) 14.8L, Monocytes (%) (Auto) 9.6H, Eosinophils (%) (Auto) 2.1, Basophils (%) (Auto) 0.6, Neutrophils # (Auto) 5.6, Lymphocytes # (Auto) 1.2L, Monocytes # (Auto) 0.8, Eosinophils # (Auto) 0.2, Basophils # (Auto) 0.1, Nucleated Red Blood Cells % (auto) 0.0, Prothrombin Time 16.2H, Prothromb Time International Ratio 1.28, Anion Gap 5L, Glomerular Filtration Rate > 60.0, Blood Urea Nitrogen 5L, Creatinine 0.65L, Sodium Level 139, Potassium Level 3.5, Chloride Level 102, Carbon Dioxide Level 32, Calcium Level 7.9L CBC/BMP Laboratory Tests 01/03/19 03:58 Red Blood Count 3.83 L, Mean Corpuscular Volume 95.0, Mean Corpuscular Hemoglobin 30.5, Mean Corpuscular Hemoglobin Concent 32.1, Red Cell Distribution Width 12.4, Neutrophils (%) (Auto) 72.0 H, Lymphocytes (%) (Auto) 14.8 L, Monocytes (%) (Auto) 9.6 H, Eosinophils (%) (Auto) 2.1, Basophils (%) (Auto) 0.6, Neutrophils # (Auto) 5.6, Lymphocytes # (Auto) 1.2 L, Monocytes # (Auto) 0.8, Eosinophils # (Auto) 0.2, Basophils # (Auto) 0.1, Calcium Level 7.9 L A-FIB/CHADSVASC A-FIB History Current/History of A-Fib/PAF?: Yes Current Oral Anticoagulant The: Yes Age/Risk Factor Scoring CHADSVASC: CHADSVASC Response (Comments) Value Age Risk Factor Age < 65 years old 0 Gender Risk Factor Male 0 Hx of CHF Yes (chronic) 1 Hx of Diabetes Yes 1 Total 2 Impression POD 5 Right Colectomy with Ileostomy Atrial Fibrillation history of CHF history of chronic respiratory failure on 5L O2 Ostructive Sleep Apnea on CPAP morbid obesity colon cancer (presumed) with malignant obstruction with liver metastases abdominal wall hernia with recurrence, wide mesh on the abdominal wall PLAN: awaiting pathology results start ostomy teaching increase activity - PT Ill stop the abx at POD 7 metamucil to congeal the ileostomy output - easier to manage from surgical standpoint ok to go to regular floors Plan / VTE VTE Prophylaxis Ordered?: Yes (TEDs/Sequentlial - Coumadin on hold for surgery) Plan / Urinary Catheter Urinary Catheter: D/C Roman Reason for insertion/continuin: Critical Pt monitoring NEDRA MARTINEZ MD January 03, 2019 09:35
[2019-01-03] MEDS: METAMUCIL (PSYLLIUM) PACKET PO SCH (11:43)
[2019-01-03 13:56] VITALS: BP 146/88
[2019-01-03] MEDS: NORCO, ANEXSIA 5/325MG TABLET (HYDROcodone/ACETAMINOPHEN) PO PRN (20:42)
[2019-01-03] MEDS: ATORVASTATIN 20 MG TAB PO SCH (20:54)
[2019-01-03 22:00] VITALS: BP 152/82
[2019-01-04] MEDS: NORCO, ANEXSIA 5/325MG TABLET (HYDROcodone/ACETAMINOPHEN) PO PRN ×5 (00:49→22:56)
[2019-01-04] MEDS: metroNIDAZOLE 500 MG in APPROPRIATE DILUENT 1 EA IV SCH ×3 (04:20→19:28)
[2019-01-04 06:00] VITALS: BP 135/74
[2019-01-04 06:29] LABS: HEMATOCRIT 35.8 % (42.0-52.0); HEMOGLOBIN 11.6 g/dl (13.5-17.5); MEAN CORPUSCULAR HEMOGLOBIN 31.2 pg (27.0-33.0); MEAN CORPUSCULAR HGB CONC 32.4 g/dl (32.0-36.5); MEAN CORPUSCULAR VOLUME 96.2 fl (80.0-96.0); PLATELET COUNT, AUTOMATED 261 10^3/uL (150-450); RED BLOOD COUNT 3.72 10^6/uL (4.30-6.10); WHITE BLOOD COUNT 7.8 10^3/uL (4.0-10.0)
[2019-01-04 06:56] LABS: ALBUMIN 1.9 GM/DL (3.2-5.2); ALT/SGPT 51 U/L (12-78); BILIRUBIN,TOTAL 0.2 MG/DL (0.2-1.0); BLOOD UREA NITROGEN 6 MG/DL (7-18); CALCIUM LEVEL 7.9 MG/DL (8.8-10.2); CARBON DIOXIDE LEVEL 33 MEQ/L (21-32); CHLORIDE LEVEL 102 MEQ/L (98-107); CREATININE FOR GFR 0.65 MG/DL (0.70-1.30); GLOMERULAR FILTRATION RATE > 60.0 (>49); GLUCOSE, FASTING 219 MG/DL (70-100); POTASSIUM SERUM 3.5 MEQ/L (3.5-5.1); SODIUM LEVEL 139 MEQ/L (136-145); TOTAL PROTEIN 5.9 GM/DL (6.4-8.2)
[2019-01-04] MEDS: HumaLOG INSULIN (NovoLOG) PER UNIT SC SCH ×4 (07:30→21:29)
[2019-01-04] MEDS: CARVedilol 6.25 MG TAB PO SCH ×2 (07:41→21:25)
[2019-01-04] MEDS: FUROSEMIDE 40 MG TAB PO SCH (07:41)
[2019-01-04] MEDS: DIGOXIN 0.25 MG TAB PO SCH (07:41)
[2019-01-04] MEDS: ASPIRIN 81 MG ENTERIC TAB PO SCH (07:41)
[2019-01-04] MEDS: cefoTEtan DISODIUM 1 GM in D5W MINI-BAG PLUS 50 ML IV SCH ×2 (07:42→21:22)
[2019-01-04] MEDS: METAMUCIL (PSYLLIUM) PACKET PO SCH (07:42)
[2019-01-04] MEDS: NYSTATIN 100,000 UNITS/GM TOPICAL PWD 15 GM TOP SCH ×2 (07:42→21:22)
--- NOTE | 2019-01-04 12:28 | IPNPDOC ---
Subjective General Date/Time Seen The patient was seen on 01/04/19 at 12:25. Subject Chief Complaint/History The patient is a 63-year-old male admitted with a reason for visit of A-Fib Obstructionv Of Colon. Overall continues to do well. He reports some mild crampy discomfort prior to him passing gas from his ostomy. He has good appetite. He is working with our ostomy nurse to get familiar with ostomy care. Current Medications Current Medications Current Medications Acetaminophen (Tylenol Tab) 650 mg Q4HP PRN PO mild pain; Start 12/30/18 at 20:30 Acetaminophen/ Hydrocodone Bitart ([place], Anexsia 5/325) 1 tab Q4HP PRN PO moderate pain (5-7) Last administered on 01/04/19at 07:43; Start 12/30/18 at 20:30 Acetaminophen/ Hydrocodone Bitart ([place], Anexsia 5/325) 2 tab Q4HP PRN PO SEVERE PAIN (PS 8-10) Last administered on 01/04/19at 00:49; Start 12/30/18 at 2 0:30 Albuterol Sulfate (Proventil Neb) 2.5 mg Q2HP PRN NEB SOB/WHEEZING; Start 12/27/18 at 20:00 Alvimopan (Entereg) 12 mg BID PO Last administered on 01/02/19at 08:51; Start 12/31/18 at 09:00; Stop 01/02/19 at 09:50; Status DC Aspirin (Ecotrin) 81 mg DAILY PO Last administered on 01/04/19at 07:41; Start 12/31/18 at 09:00 Atorvastatin Calcium (Lipitor) 20 mg DAILY PO Last administered on 01/01/19at 09:36; Start 12/29/18 at 09:00; Stop 01/01/19 at 09:42; Status DC Atorvastatin Calcium (Lipitor) 40 mg QHS PO Last administered on 01/03/19at 20:54; Start 01/02/19 at 21:00 Carvedilol (COReg) 6.25 mg BID PO Last administered on 01/04/19at 07:41; Start 12/27/18 at 21:00 Cefotetan Disodium 1 gm/ Dextrose 50 ml @ 100 mls/hr Q12H IV Last administered on 01/04/19at 07:42; Start 12/29/18 at 21:00; Stop 01/05/19 at 20:59 Chlorhexidine Gluconate (Peridex Oral Rinse) SWAB/BRUSH ORAL CAVITY BID MT Last administered on 12/30/18at 08:59; Start 12/29/18 at 21:00; Stop 12/30/18 at 21:07; Status DC Dexmedetomidine HCl 200 mcg/IV Miscellaneous Supplies 50 ml @ 0 mls/hr Q0M IV Last administered on 12/30/18at 14:27; Start 12/30/18 at 09:45; Stop 12/30/18 at 21:08; Status DC Dextrose (Dextrose 50%) 25 ml ASDIRECTED PRN IV SEE LABEL COMMENTS; Start 12/27/18 at 16:45 Diatrizoate Meglum/ Diatrizoate Sod (Gastrografin) 10 ml Q30M PO Last administered on 12/27/18at 13:39; Start 12/27/18 at 12:30; Stop 12/27/18 at 13:01; Status DC Digoxin (Lanoxin) 0.25 mg DAILY IV Last administered on 12/31/18at 08:52; Start 12/27/18 at 09:00; Stop 12/31/18 at 12:49; Status DC Digoxin (Lanoxin) 0.25 mg DAILY PO Last administered on 01/04/19at 07:41; Start 01/01/19 at 09:00 Fentanyl Citrate (Sublimaze) 25 mcg Q5MP PRN IV MODERATE PAIN (PS 4-7) Last administered on 12/29/18at 20:22; Start 12/29/18 at 19:00; Stop 12/29/18 at 20:00; Status DC Furosemide (LASIX injection) 40 mg DAILY IV Last administered on 01/02/19at 08:49; Start 12/31/18 at 09:00; Stop 01/02/19 at 09:51; Status DC Furosemide (Lasix) 40 mg DAILY PO Last administered on 01/04/19at 07:41; Start 01/03/19 at 09:00 Glucagon (Glucagon) 1 mg ASDIRECTED PRN SC SEE LABEL COMMENTS; Start 12/27/18 at 16:45 Glucose (Glucose) 16 GM ASDIRECTED PRN PO SEE LABEL COMMENTS; Start 12/27/18 at 16:45 Home Med (Med Rec Complete!) ASDIRECTED XX ; Start 12/27/18 at 15:45; Stop 12/27/18 at 15:45; Status DC Insulin Human Lispro (HumaLOG INSULIN) PER NPO PROTOCOL Q6H SC ; Start 12/27/18 at 18:00; Stop 12/27/18 at 20:05; Status DC Insulin Human Lispro (HumaLOG INSULIN) SEE PROTOCOL TABLE ACHS SC Last administered on 01/04/19at 12:00; Start 12/31/18 at 17:30 Insulin Human Lispro (HumaLOG INSULIN) SEE PROTOCOL TABLE Q6H SC Last administered on 12/31/18at 12:32; Start 12/28/18 at 00:00; Stop 12/31/18 at 12:57; Status DC Lactated Ringer's 1,000 ml @ 75 mls/hr [id number] IV ; Start 12/29/18 at 19:00; Stop 12/29/18 at 20:00; Status DC Lactated Ringer's 1,000 ml @ 125 mls/hr Q8H IV Last administered on 12/31/18at 01:26; Start 12/29/18 at 18:15; Stop 12/31/18 at 07:36; Status DC Metronidazole 500 mg/IV Miscellaneous Supplies 100 ml @ 100 mls/hr Q8H IV Last administered on 01/04/19at 12:08; Start 12/29/18 at 20:00 Morphine Sulfate (Morphine Sulfate Inj) 4 mg Q30M PRN IV SEVERE PAIN (PS 8-10) Last administered on 12/27/18at 13:09; Start 12/27/18 at 11:45; Stop 12/27/18 at 13:10; Status DC Morphine Sulfate (Morphine Sulfate Inj) 4 mg Q4HP PRN IV SEVERE PAIN (PS 8-10) Last administered on 12/31/18at 09:01; Start 12/28/18 at 10:45 Nystatin (Mycostatin Powder, Nystop) BID TOP Last administered on 01/04/19at 07:42; Start 12/28/18 at 09:00 Ondansetron HCl (ZOFRAN INJection) 4 mg Q4HP PRN IV NAUSEA OR VOMITING; Start 12/29/18 at 19:00; Stop 12/29/18 at 20:00; Status DC Ondansetron HCl (ZOFRAN INJection) 4 mg Q6HP PRN IV NAUSEA OR VOMITING Last administered on 12/29/18 10:02; Start 12/29/18 at 09:30 Pantoprazole Sodium (Protonix) 40 mg DAILY IV Last administered on 01/02/19 08:49; Start 12/30/18 at 09:00; Stop 01/02/19 at 09:50; Status DC Propofol 1000 mg/ IV Miscellaneous Supplies 100 ml @ 8.68 mls/hr [id number] IV Last administered on 12/30/18 11:13; Start 12/29/18 at 17:47; Stop 12/30/18 at 21:07; Status DC Psyllium Hydrophilic Mucilloid (Metamucil) 1 pkt DAILY PO Last administered on 01/04/19 07:42; Start 01/03/19 at 09:00 Sodium Chloride 1,000 ml @ 80 mls/hr [id number] IV Last administered on 12/27/18 13:39; Start 12/27/18 at 13:30; Stop 12/27/18 at 23:03; Status DC Sodium Chloride 1,000 ml @ 80 mls/hr [id number] IV Last administered on 12/29/18 10:02; Start 12/27/18 at 23:15; Stop 12/29/18 at 18:17; Status DC Warfarin Sodium (Coumadin) 7.5 mg SuTuThFr@1700 PO Last administered on 01/02/19 17:27; Start 01/02/19 at 17:00; Stop 01/03/19 at 10:59; Status DC Warfarin Sodium (Coumadin) 10 mg MoWeSa@1700 PO Last administered on 01/01/19 17:08; Start 01/01/19 at 17:00; Stop 01/03/19 at 10:59; Status DC Allergies Coded Allergies: No Known Allergies (Unverified , 12/27/18) Objective Physical Examination Examination GENERAL APPEARANCE: Sitting up on the chair, eating lunch looks very comfortable. SKIN: Warm and moist. HEENT: Normocephalic, atraumatic. [place] palpebral conjunctiva, anicteric sclerae. Lips and mucosa appear moist. NECK: Supple, no thyromegaly. No obvious jugular venous distention. LUNGS: Clear to auscultation bilaterally. No wheezing appreciated. HEART: Regular rhythm, rate in the 80s. ABDOMEN: Abdomen is moderately rounded, soft, minimally distended. Upper midline incision with selena, intact, healing accordingly. No drainage. Right lower abdomen ileostomy, mildly swelling, healthy with gas and stool in the bag. EXTREMITIES: No gross edema on lower extremities. Vital Signs Vital Signs Date Time Temp Pulse Resp B/P (MAP) Pulse Ox O2 Delivery O2 Flow Rate FiO2 01/04/19 08:49 2.0 01/04/19 08:13 18 01/04/19 07:41 74 01/04/19 07:41 136/78 01/04/19 06:00 97.3 99 01/03/19 04:00 Nasal Cannula 12/30/18 13:00 30 I&Os I&O- Last 24 Hours up to 6 AM 01/04/19 06:00 Intake Total 1710 ml Output Total 4150 ml Balance -2440 ml Laboratory Data Labs 24H Laboratory Tests 2 01/03/19 17:49: Bedside Glucose (Misc Panel) 273H 01/03/19 20:18: Bedside Glucose (Misc Panel) 308H 01/04/19 05:56: Nucleated Red Blood Cells % (auto) 0.0, Anion Gap 4L, Glomerular Filtration Rate > 60.0, Blood Urea Nitrogen 6L, Creatinine 0.65L, Sodium Level 139, Potassium Level 3.5, Chloride Level 102, Carbon Dioxide Level 33H, Calcium Level 7.9L, Aspartate Amino Transf (AST/SGOT) 55H, Alanine Aminotransferase (ALT/SGPT) 51, Alkaline Phosphatase 95, Total Bilirubin 0.2, Total Protein 5.9L, Albumin 1.9L, Albumin/Globulin Ratio 0.48L 01/04/19 12:00: Bedside Glucose (Misc Panel) 368H CBC/BMP Laboratory Tests 01/04/19 05:56 Red Blood Count 3.72 L, Mean Corpuscular Volume 96.2 H, Mean Corpuscular Hemoglobin 31.2, Mean Corpuscular Hemoglobin Concent 32.4, Red Cell Distribution Width 12.7, Calcium Level 7.9 L, Aspartate Amino Transf (AST/SGOT) 55 H, Alanine Aminotransferase (ALT/SGPT) 51, Alkaline Phosphatase 95, Total Bilirubin 0.2, Total Protein 5.9 L, Albumin 1.9 L A-FIB/CHADSVASC A-FIB History Current/History of A-Fib/PAF?: Yes Current Oral Anticoagulant The: Yes Age/Risk Factor Scoring CHADSVASC: CHADSVASC Response (Comments) Value Age Risk Factor Age < 65 years old 0 Gender Risk Factor Male 0 Hx of CHF Yes (chronic) 1 Hx of Diabetes Yes 1 Total 2 Impression POD 6 Right Colectomy with Ileostomy Atrial Fibrillation history of CHF history of chronic respiratory failure on 5L O2 Ostructive Sleep Apnea on CPAP morbid obesity colon cancer (presumed) with malignant obstruction with liver metastases abdominal wall hernia with recurrence, wide mesh on the abdominal wall PLAN: Continue with ostomy teaching increase activity - ambulate to hallways Ill stop the abx at POD 7 metamucil to congeal the ileostomy output - easier to manage from surgical standpoint ok to go to regular floors I discussed pathology results with the patient and his . I have not had a conversation with the oncologists as of this moment. Certainly he will need further imaging (PET vs Chromogranin scan). This is mostly arranged outpatient. He has a CT chest pending. Will send out markers for chromogranin level. Patient wants comfortable taking care of his ostomy may be able to go home soon. I will repeat restart him with his Coumadin level. I stopped this last night thinking of the possibility of doing a biopsy on his liver metastases. Plan / VTE VTE Prophylaxis Ordered?: Yes (TEDs/Sequentlial - Coumadin on hold for surgery) Plan / Urinary Catheter Urinary Catheter: D/C Roman Reason for insertion/continuin: Critical Pt monitoring NEDRA MARTINEZ MD January 04, 2019 12:28
[2019-01-04] MEDS ORDERED: ISOVUE-370 76% 100ML VIAL (Q9967) As Ordered ONE (12:56)
--- NOTE | 2019-01-04 16:23 | REP ---
CT chest with IV contrast: History: Chronic cough. Neuroendocrine tumor. CT findings: Preliminary digital director of donor relations radiograph demonstrates median sternotomy wires and surgical clips in the upper abdomen. The patient is apparently status post recent abdominal surgery. CT contrast dose: 75 ml of intravenous Isovue 370. On axial CT images there are multiple low-density lesions in the liver consistent with colonic metastases as seen on the abdomen CT study December 27, 2018. There is no evidence of pleural effusion. No pericardial effusion is seen. No mediastinal mass or adenopathy is observed. There is no CT evidence of pulmonary embolus. No aortic aneurysm or dissection is seen. There are normal-sized subcarinal lymph nodes. No pulmonary nodule is appreciated. No bony destructive lesion is seen. Impression: No active cardiopulmonary disease. Postoperative changes in the upper abdominal wall and right upper quadrant. Metastatic lesions in the liver. Prior sternotomy. Electronically Signed by Ki Espinosa MD 01/04/2019 05:28 P
[2019-01-04] MEDS ORDERED: WARFARIN SOD 7.5 MG TAB PO SCH (17:00)
--- NOTE | 2019-01-04 18:52 | MEDONCENPD ---
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
--- NOTE | 2019-01-04 19:51 | CR ---
DATE OF CONSULTATION: 01/04/2019 HEMATOLOGY/ONCOLOGY CONSULTATION This is a very pleasant 63-year-old gentleman who had complained of several years of intermittent diarrhea and constipation. The patient has recently relocated to the [facility] from [place] to be closer to their grandchildren in his half-way. The patient's states that he had a colonoscopy approximately 10 years ago. He had no polyps noted and was advised he did not need another one for a 10-year interval. He had an intermittent rash on the upper extremities as well as the posterior trunk that had been brought to the attention of his prior physicians and was advised to place creams on it. He also relates having had intermittent flushing and sweats occasionally for years. Some of that had been attributed possibly to his weight. He came into the emergency room with a chief complaint this time of abdominal pain, persistent, as well as obstipation. He had a past medical history of a bowel resection in 2009 with an incisional hernia and mesh, and has had a persistent abdominal wall hernia that he had no prior problems with. He stated his bowels had previously been irregular, off and on constipation, diarrhea, not knowing what to take. He states this has been going on for about the past 7 years. He did have a history of bowel obstruction and underwent surgery for that as well. This was in 2009. He had nausea but did not vomit. A CT scan was done in the emergency room showing a very large obstructing mass in the hepatic flexure causing his colonic obstruction. He had also multiple liver metastatic areas of disease that were noted. He is now postoperative. He has a colostomy placed. He is feeling good, able to eat, has no nausea, and his is currently with him at the bedside to help with the history. PAST MEDICAL HISTORY: Includes coronary artery bypass times four, history of congestive heart failure. He has had a history of diabetes, atrial fibrillation, history of deep vein thrombosis (DVT). He is status post cholecystectomy, appendectomy, incisional hernia with mesh repair and umbilical hernia. He has also had a history of obstructive sleep apnea and congestive heart failure (CHF), as well as morbid obesity. FAMILY HISTORY: Father in his 80s, had diabetes. His mother in her mid 80s; she had a CVA. He has four brothers, one with renal disease and one brother of throat cancer and one in the [place] due to an accident on ship. SOCIAL HISTORY: He is a former smoker. He stopped smoking about a year ago. REVIEW OF SYSTEMS: He did note no visual problems, but sweats, fever, no problems with swallowing. Occasional shortness of breath with exertion but no hemoptysis, hematemesis, etcetera. Colostomy is currently functioning after surgery. He has had no problems with current urination or hematuria. Extremities: He has occasional swelling, a little worsened since he has been in the hospital. PHYSICAL EXAMINATION: His height is 182 cm, his weight is 141 kg. His body surface area is 2.74. HEENT: Normocephalic, atraumatic. Pupils equal and reactive to light and accommodation. Extraocular muscles intact. Sclerae is otherwise white, nonicteric. Oropharynx is otherwise clear. His neck is supple with no adenopathy. Chest is clear to auscultation and percussion. Cardiovascular: S1 and S2 are appreciated with no murmurs. He has a midline surgical incision, well-healed surgically. His abdomen is very large, globoid. His surgical incision is midline ventral, which is healing. No signs of any bleeding. He has the ileostomy in the right upper abdominal area, stoma itself is pink and there is some liquid discharge noted. Skin examination: He has small areas of pinpoint erythema located on the posterior aspect of the chest wall, minimal on the anterior pectoralis area and on the upper extremities. Right arm appears to be swollen in a prior IV site. Neurological examination: Cranial nerves II-XII are grossly intact. The patient was able to walk in the examination room and appeared to do so without any deficit. LABORATORY DATA: WBC count is 7.8, hemoglobin is 11.6 over hematocrit of 35.8, MCV is 96.2, RDW is 12.7, platelet count of 261,000. Serum chemistries: Sodium is 139, potassium is 3.5, chloride 102, CO2 33, BUN of 6, creatinine is 0.65, fasting glucose is 219, calcium of 7.9, total bilirubin is 0.2, total protein is 5.9, albumin is 1.9, alkaline phosphatase is 95, ALT is 51, AST is 55. On the patient's pathology, it is right colon segmental resection consistent with a high-grade neuroendocrine carcinoma. He has 8 out of 16 pericolonic lymph nodes that are noted. The majority of the tumor appears centered in the pericolonic soft tissue and grows into the mucosa. It is associated with abundant necrosis. The primary site cannot be elucidated with certainty; however, it appears to be possibly mets from another site. S100 is negative. On the patient's imaging studies, he had a CT scan of the abdomen and pelvis. This was done in the emergency room on 12/27/2018 showing a mass in the hepatic flexure of the colon causing stricturing and obstruction of the colon at the location. There is a local neoplastic infiltration of the pericolonic fat. The right colon is dilated with air and fluid levels. There is dilatation of distal small bowel as well, and the more distal colon is relatively collapsed. The liver demonstrates multiple mets; these involve both the right and the left lobes. The largest of the liver metastases is noted in the dome the liver and measures 3.1 cm in diameter. Pancreas is unremarkable in itself. There is no periaortic lymphadenopathy noted. On the patient's CT scan of the chest, he shows no active cardiopulmonary disease. There is no evidence of any pulmonary emboli. No aortic aneurysm, and there is no bony destructive lesions seen. On the patient's laboratories, he has a sodium of 139, potassium of 3.5, chloride of 102, CO2 of 33, BUN is 6, creatinine is 0.65, glucose is 219, calcium of 7.9, AST is 55, ALT of 51, alkaline phosphatase is 95, total protein is 5.9, albumin is 1.9. Pathology was noted. ASSESSMENT: 1. At this time is high-grade neuroendocrine carcinoma with liver metastases, now status post right colonic resection. 2. Morbid obesity. 3. Diabetes. 4. Coronary artery disease. 5. Obstructive sleep apnea. PLAN: 1. I have had a discussion with the patient and his regarding his recent surgery. I have advised them that he will need to heal up that midline incision. The patient is very large and obese and appropriate healing is imperative in his initial care. 2. Port-A-Cath placement. 3. I have recommended that the patient get etoposide and carboplatin q. 21 days for three cycles, then be restaged to see if the patient has had a disease response. 4. To get a serum chromogranin A level. 5. Serotonin level. Further imaging studies at this point. He has already had the CT scan of the chest and the CT scan of the abdomen, and due to the high-grade nature of the neuroendocrine carcinoma, I would like to get him started as soon as possible. I have recommended that they come and see me 2 weeks after the surgery. He has been given the contact information for the nurse emergency department manager, and for the nurse navigator at our center. Thank you for your confidence in this consultation. Sincerely, cc: MD Melisa Stinson MD Regina Wetterhahn, PA-C
[2019-01-04] MEDS: ATORVASTATIN 20 MG TAB PO SCH (21:22)
--- NOTE | 2019-01-04 21:52 | IPNPDOC ---
Subjective Date Seen The patient was seen on 01/04/19. Subjective Chief Complaint/HPI Patient reports to be feeling well. He and his express frustration with his cancer diagnosis and want a plan for moving forward. Constitutional: Denies: Chills, Fever Pulmonary: Reports: Cough, Other Symptoms (Chronic O2 ); Denies: Dyspnea, Pleuritic Chest Pain Cardiovascular: Denies: Chest Pain, Palpitations, Orthopnea, Edema Gastrointestinal: Reports: Abdominal Pain, Other Symptoms (ileostomy ); Denies: Nausea, Vomiting Genitourinary: Denies: Dysuria Psych: Reports: Anger Objective Physical Examination General Exam: Positive: Alert, No Acute Distress Eye Exam: Negative: Sclera icteric, Other Eye Symptoms ENT Exam: Positive: Mucous membr. moist/pink Chest Exam: Positive: Clear to auscultation, Diminished; Negative: Rales, Rhonchi, Wheezing Heart Exam: Positive: Rate Normal, Irregular Rhythm, Normal S1, Normal S2; Negative: Tachycardic, Bradycardic, Regular Rhythm, Gallops, Murmurs, Rubs Telemetry: Positive: Atrial fibrillation Abdomen Exam: Positive: BS Hypoactive, Soft, Other (ileostomy present, clean dry incision, ostomy appears to be functioning well.) Extremity Exam: Negative: Edema (trace BL) Skin Exam: Positive: Nl turgor and temperature Neuro Exam: Positive: Normal Speech Psych Exam: Positive: Mood NL A-FIB/CHADSVASC A-FIB History Current/History of A-Fib/PAF?: Yes Current Oral Anticoagulant The: Yes Age/Risk Factor Scoring CHADSVASC: CHADSVASC Response (Comments) Value Age Risk Factor Age < 65 years old 0 Gender Risk Factor Male 0 Hx of CHF Yes (chronic) 1 Hx of Diabetes Yes 1 Total 2 Assessment /Plan Problems (1) Obstruction of colon Status: Acute Response to Treatment: Improving Problem Text: 01/04/19: Patient appears to be progressing well. He is working with PT daily. Surgery managing POD 5: progressing well. will start ostomy teaching. Continue with PT. On baseline oxygen needs. Tolerating po. POD4 up and around, seems to be doing well tolerating diet. POD3, s/p right hemicolectomy, seems to be doing well. asking appropriate questions about implications of liver mets finding. discussed need for medical oncology referral post-op POD 2 s/p lap Right hemicolectomy with ileostomy ( 2 abdominal mass c liver m ets) Dr. Fry. D2 metro/cefotet no s/s infection (2) Chronic hypoxemic respiratory failure Status: Chronic Response to Treatment: Stable, Improving Problem Specific Plan: Consult Specialist Problem Text: 01/04/19: Patient at baseline. wants further diagnostics performed to assess his lungs. I will discuss this with attending 01/03/19: on baseline oxygen. Patient and requesting new Pulmonology referral outside of [place] after DC home. 12/31 Doing well extubated, cont to monitor sats. CPAP while sleeping. Patient on chronic 5 liters NC as outpatient - sats currently high 90s on 5 liters H/O CALE on CPAP normally (3) Diastolic CHF, chronic Status: Chronic Response to Treatment: Stable Problem Text: 01/04/19: Appears well compensated 01/03/19: appears well compensated 01/02 resume chronic oral lasxis. K low today 40mEq dose po ordered. 12/31 IVF stopped. Given Lasix IV 40 mg daily, started this morning, + diuresis, will plan to d/c arias in AM, nursing aware, 12/29 - Currently getting IVF LR at 125/hour Euvolemic at this point off HD fur 40 QD (4) A-fib Status: Chronic Response to Treatment: Stable Problem Text: 01/04/19: We will need to resume his Warfarin and monitor INRs 01/01: restart warfarin at usual dose, monitor INR. resume ASA today for prophylaxis re CAD as well. Rate adequately controlled on HD carve 6.25 BID, dig 250 Coumadin on hold post-op (5) Colonic mass Status: Acute Response to Treatment: Improving Problem Text: 01/04/19: Pathology reviewed and meeting with oncology nurse navigator and attending scheduled today 01/03/19: pathology pending. 12/29 CEA 3.9 12/29 pathology P-patient favors aggressive rx-understands probably chemorx (6) CALE on CPAP Status: Chronic Response to Treatment: Stable Problem Text: severe baseline CALE on CPAP 14 (but not palliated at this pressure) (7) Diabetes Status: Chronic Response to Treatment: Stable Problem Text: HbA1c = 7.7 as of 06/2018 Normally on Metformin as outpatient cont SSiI coverage q6H (8) CAD (coronary artery disease) Status: Chronic Response to Treatment: Stable Problem Text: 01/01: continue carvedilol, resume ASA today. he is on atorvastatin as outpatient will restart No signs of ischemia continue BB, statin (decreased dose given hepatic mets) 06/2017 treadmill stress SPECT-normal perfusion images-Amin Plan/VTE VTE Prophylaxis Ordered?: Yes (TEDs/Sequentlial - Coumadin on hold for surgery) Plan/Urinary Catheter Urinary Catheter: D/C Arias Reason for insertion/continuin: Critical Pt monitoring Plan Anticipated Discharge: Home Family Medicine Attending Note: I saw and examined Mr. Vyas, discussed with Preeti Monterroso DNP. Agree with her note as documented. This morning I met with the patient, his , and to cancer navigators. I reviewed the diagnosis and introduced a navigators. They helped answer some of the patient and family's qu estions. Consulted oncology and actually had a chance to meet with Dr. Jose later in the day. She has given us her recommendations and has no objection to his discharge his soon as he is ready from a surgical standpoint. She will follow up with him in her office they will move forward with his treatment plan from there. 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) VS, I&O, 24H, Fishbone Vital Signs/I&O Vital Signs Date Time Temp Pulse Resp B/P (MAP) Pulse Ox O2 Delivery O2 Flow Rate FiO2 01/04/19 08:49 2.0 01/04/19 08:13 18 01/04/19 07:41 74 01/04/19 07:41 136/78 01/04/19 06:00 97.3 99 01/03/19 04:00 Nasal Cannula 12/30/18 13:00 30 I&O- Last 24 Hours up to 6 AM 01/04/19 06:00 Intake Total 1710 ml Output Total 4150 ml Balance -2440 ml Laboratory Data 24H LABS Laboratory Tests 2 01/03/19 11:41: Bedside Glucose (Misc Panel) 348H 01/03/19 17:49: Bedside Glucose (Misc Panel) 273H 01/03/19 20:18: Bedside Glucose (Misc Panel) 308H 01/04/19 05:56: Nucleated Red Blood Cells % (auto) 0.0, Anion Gap 4L, Glomerular Filtration Rate > 60.0, Blood Urea Nitrogen 6L, Creatinine 0.65L, Sodium Level 139, Potassium Level 3.5, Chloride Level 102, Carbon Dioxide Level 33H, Calcium Level 7.9L, Aspartate Amino Transf (AST/SGOT) 55H, Alanine Aminotransferase (ALT/SGPT) 51, Alkaline Phosphatase 95, Total Bilirubin 0.2, Total Protein 5.9L, Albumin 1.9L, Albumin/Globulin Ratio 0.48L CBC/BMP Laboratory Tests 01/04/19 05:56 Red Blood Count 3.72 L, Mean Corpuscular Volume 96.2 H, Mean Corpuscular Hemoglobin 31.2, Mean Corpuscular Hemoglobin Concent 32.4, Red Cell Distribution Width 12.7, Calcium Level 7.9 L, Aspartate Amino Transf (AST/SGOT) 55 H, Alanine Aminotransferase (ALT/SGPT) 51, Alkaline Phosphatase 95, Total Bilirubin 0.2, Total Protein 5.9 L, Albumin 1.9 L PREETI MONTERROSO January 04, 2019 11:15 am Kevin Arevalo MD January 04, 2019 9:52 pm
[2019-01-04 22:00] VITALS: BP 163/83
[2019-01-05] MEDS: metroNIDAZOLE 500 MG in APPROPRIATE DILUENT 1 EA IV SCH (03:42)
[2019-01-05 06:00] VITALS: BP 146/63
[2019-01-05 06:27] LABS: INR 1.44; PROTHROMBIN TIME 17.8 SECONDS (12.1-14.4)
--- NOTE | 2019-01-05 07:13 | IPNPDOC ---
Subjective General Date/Time Seen The patient was seen on 01/05/19 at 07:06. Subject Chief Complaint/History The patient is a 63-year-old male admitted with a reason for visit of A-Fib Obstructionv Of Colon. Current Medications Current Medications Current Medications Acetaminophen (Tylenol Tab) 650 mg Q4HP PRN PO mild pain; Start 12/30/18 at 20:30 Acetaminophen/ Hydrocodone Bitart ([place], Anexsia 5/325) 1 tab Q4HP PRN PO moderate pain (5-7) Last administered on 01/04/19 07:43; Start 12/30/18 at 20:30 Acetaminophen/ Hydrocodone Bitart ([place], Anexsia 5/325) 2 tab Q4HP PRN PO SEVERE PAIN (PS 8-10) Last administered on 01/04/19 22:56; Start 12/30/18 at 20:30 Albuterol Sulfate (Proventil Neb) 2.5 mg Q2HP PRN NEB SOB/WHEEZING; Start 12/27/18 at 20:00 Alvimopan (Entereg) 12 mg BID PO Last administered on 01/02/19at 08:51; Start 12/31/18 at 09:00; Stop 01/02/19 at 09:50; Status DC Aspirin (Ecotrin) 81 mg DAILY PO Last administered on 01/04/19 07:41; Start 12/31/18 at 09:00 Atorvastatin Calcium (Lipitor) 20 mg DAILY PO Last administered on 01/01/19at 09:36; Start 12/29/18 at 09:00; Stop 01/01/19 at 09:42; Status DC Atorvastatin Calcium (Lipitor) 40 mg QHS PO Last administered on 01/04/19 21:22; Start 01/02/19 at 21:00 Carvedilol (COReg) 6.25 mg BID PO Last administered on 01/04/19 21:25; Start 12/27/18 at 21:00 Cefotetan Disodium 1 gm/ Dextrose 50 ml @ 100 mls/hr Q12H IV Last administered on 01/04/19 21:22; Start 12/29/18 at 21:00; Stop 01/05/19 at 20:59 Chlorhexidine Gluconate (Peridex Oral Rinse) SWAB/BRUSH ORAL CAVITY BID MT Last administered on 5/9/19at 08:59; Start 12/29/18 at 21:00; Stop 12/30/18 at 21:07; Status DC Dexmedetomidine HCl 200 mcg/IV Miscellaneous Supplies 50 ml @ 0 mls/hr Q0M IV Last administered on 12/30/18at 14:27; Start 12/30/18 at 09:45; Stop 12/30/18 at 21:08; Status DC Dextrose (Dextrose 50%) 25 ml ASDIRECTED PRN IV SEE LABEL COMMENTS; Start 12/27/18 at 16:45 Diatrizoate Meglum/ Diatrizoate Sod (Gastrografin) 10 ml Q30M PO Last administered on 12/27/18at 13:39; Start 12/27/18 at 12:30; Stop 12/27/18 at 13:01; Status DC Digoxin (Lanoxin) 0.25 mg DAILY IV Last administered on 12/31/18 08:52; Start 12/27/18 at 09:00; Stop 12/31/18 at 12:49; Status DC Digoxin (Lanoxin) 0.25 mg DAILY PO Last administered on 01/04/19at 07:41; Start 01/01/19 at 09:00 Fentanyl Citrate (Sublimaze) 25 mcg Q5MP PRN IV MODERATE PAIN (PS 4-7) Last administered on 12/29/18at 20:22; Start 12/29/18 at 19:00; Stop 12/29/18 at 20:00; Status DC Furosemide (LASIX injection) 40 mg DAILY IV Last administered on 01/02/19 08:49; Start 12/31/18 at 09:00; Stop 01/02/19 at 09:51; Status DC Furosemide (Lasix) 40 mg DAILY PO Last administered on 01/04/19at 07:41; Start 01/03/19 at 09:00 Glucagon (Glucagon) 1 mg ASDIRECTED PRN SC SEE LABEL COMMENTS; Start 12/27/18 at 16:45 Glucose (Glucose) 16 GM ASDIRECTED PRN PO SEE LABEL COMMENTS; Start 12/27/18 at 16:45 Home Med (Med Rec Complete!) ASDIRECTED XX ; Start 12/27/18 at 15:45; Stop 12/27/18 at 15:45; Status DC Insulin Human Lispro (HumaLOG INSULIN) PER NPO PROTOCOL Q6H SC ; Start 12/27/18 at 18:00; Stop 12/27/18 at 20:05; Status DC Insulin Human Lispro (HumaLOG INSULIN) SEE PROTOCOL TABLE ACHS SC Last a dministered on 01/04/19at 21:29; Start 12/31/18 at 17:30 Insulin Human Lispro (HumaLOG INSULIN) SEE PROTOCOL TABLE Q6H SC Last a dministered on 12/31/18at 12:32; Start 12/28/18 at 00:00; Stop 12/31/18 at 12:57; Status DC Lactated Ringer's 1,000 ml @ 75 mls/hr [id number] IV ; Start 12/29/18 at 19:00; Stop 12/29/18 at 20:00; Status DC Lactated Ringer's 1,000 ml @ 125 mls/hr Q8H IV Last administered on 12/31/18at 01:26; Start 12/29/18 at 18:15; Stop 12/31/18 at 07:36; Status DC Metronidazole 500 mg/IV Miscellaneous Supplies 100 ml @ 100 mls/hr Q8H IV Last administered on 01/05/19at 03:42; Start 12/29/18 at 20:00 Morphine Sulfate (Morphine Sulfate Inj) 4 mg Q30M PRN IV SEVERE PAIN (PS 8-10) Last administered on 12/27/18at 13:09; Start 12/27/18 at 11:45; Stop 12/27/18 at 13:10; Status DC Morphine Sulfate (Morphine Sulfate Inj) 4 mg Q4HP PRN IV SEVERE PAIN (PS 8-10) Last administered on 12/31/18at 09:01; Start 12/28/18 at 10:45 Nystatin (Mycostatin Powder, Nystop) BID TOP Last administered on 01/04/19at 21:22; Start 12/28/18 at 09:00 Ondansetron HCl (ZOFRAN INJection) 4 mg Q4HP PRN IV NAUSEA OR VOMITING; Start 12/29/18 at 19:00; Stop 12/29/18 at 20:00; Status DC Ondansetron HCl (ZOFRAN INJection) 4 mg Q6HP PRN IV NAUSEA OR VOMITING Last administered on 12/29/18at 10:02; Start 12/29/18 at 09:30 Pantoprazole Sodium (Protonix) 40 mg DAILY IV Last administered on 01/02/19at 08:49; Start 12/30/18 at 09:00; Stop 01/02/19 at 09:50; Status DC Propofol 1000 mg/ IV Miscellaneous Supplies 100 ml @ 8.68 mls/hr [id number] IV Last administered on 12/30/18at 11:13; Start 12/29/18 at 17:47; Stop 12/30/18 at 21:07; Status DC Psyllium Hydrophilic Mucilloid (Metamucil) 1 pkt DAILY PO Last administered on 01/04/19at 07:42; Start 01/03/19 at 09:00 Sodium Chloride 1,000 ml @ 80 mls/hr [id number] IV Last administered on 12/27/18at 13:39; Start 12/27/18 at 13:30; Stop 12/27/18 at 23:03; Status DC Sodium Chloride 1,000 ml @ 80 mls/hr [id number] IV Last administered on 12/29/18at 10:02; Start 12/27/18 at 23:15; Stop 12/29/18 at 18:17; Status DC Warfarin Sodium (Coumadin) 7.5 mg SuTuThFr@1700 PO Last administered on 01/02/19at 17:27; Start 01/02/19 at 17:00; Stop 01/03/19 at 10:59; Status DC Warfarin Sodium (Coumadin) 7.5 mg SuTuThFr@1700 PO Last administered on 01/04/19at 17:05; Start 01/04/19 at 17:00 Warfarin Sodium (Coumadin) 10 mg MoWeSa@1700 PO Last administered on 01/01/19at 17:08; Start 01/01/19 at 17:00; Stop 01/03/19 at 10:59; Status DC Warfarin Sodium (Coumadin) 10 mg MoWeSa@1700 PO ; Start 01/05/19 at 17:00 Allergies Coded Allergies: No Known Allergies (Unverified , 12/27/18) Objective Physical Examination Examination GENERAL APPEARANCE:[Patient seen, laying in bed, awake, alert, and oriented. Comfortable, in no acute distress]. SKIN: [Warm and moist]. HEENT: [Normocephalic, atraumatic. [place] palpebral conjunctiva, anicteric sclerae. Lips and mucosa appear moist]. NECK: [Supple, no thyromegaly. No obvious jugular venous distention]. LUNGS: [Clear to auscultation bilaterally. No wheezing appreciated]. HEART: [No chest wall abnormalities. Regular rate and rhythm with no murmurs appreciated]. ABDOMEN: Abdomen is , soft, . [No hepatosplenomegaly. No umbilical or groin herniations, nondistended. No noticeable rebound or guarding. No grimacing with palpation. No rebound tenderness. No masses appreciated]. EXTREMITIES: [Extremities have no deformities. No edema identified]. Vital Signs Vital Signs Date Time Temp Pulse Resp B/P (MAP) Pulse Ox O2 Delivery O2 Flow Rate FiO2 01/05/19 06:00 97.5 89 16 146/63 (90) 96 2.0 01/03/19 04:00 Nasal Cannula 12/30/18 13:00 30 I&Os I&O- Last 24 Hours up to 6 AM 01/05/19 06:00 Intake Total 2185 ml Output Total 3325 ml Balance -1140 ml Laboratory Data Labs 24H Laboratory Tests 2 01/04/19 12:00: Bedside Glucose (Misc Panel) 368H 01/04/19 16:38: Bedside Glucose (Misc Panel) 345H 01/04/19 19:03: 01/04/19 21:04: Bedside Glucose (Misc Panel) 387H 01/05/19 05:51: Prothrombin Time 17.8H, Prothromb Time International Ratio 1.[address] Chest No active cardiopulmonary disease. Postoperative changes in the upper abdominal wall and right upper quadrant. Metastatic lesions in the liver. Prior sternotomy. Impression POD 7 Right Colectomy with Ileostomy Atrial Fibrillation history of CHF history of chronic respiratory failure on 5L O2 Ostructive Sleep Apnea on CPAP morbid obesity colon cancer (presumed) with malignant obstruction with liver metastases abdominal wall hernia with recurrence, wide mesh on the abdominal wall PLAN: Continue with ostomy teaching increase activity - ambulate to hallways D/C abx today - no signs of skin or space organ infections metamucil to congeal the ileostomy output - easier to manage once comfortable with ostomy care, can be discharged. Patient seen and spoke with our oncologist and tentative plan for chemotherapy as an outpt. I have sent out chromogranin a level which is a sendout and I expect will take some time to return. I will d/c his abx today (POD7) as no signs of any skin infection, surgical site/space organ infection. Plan / VTE VTE Prophylaxis Ordered?: Yes (TEDs/Sequentlial - Coumadin on hold for surgery) Plan / Urinary Catheter Urinary Catheter: D/C Roman Reason for insertion/continuin: Critical Pt monitoring NEDRA MARTINEZ MD January 05, 2019 07:13
[2019-01-05] MEDS: HumaLOG INSULIN (NovoLOG) PER UNIT SC SCH ×4 (07:30→20:45)
[2019-01-05] MEDS: FUROSEMIDE 40 MG TAB PO SCH (08:26)
[2019-01-05] MEDS: CARVedilol 6.25 MG TAB PO SCH ×2 (08:26→20:44)
[2019-01-05] MEDS: ASPIRIN 81 MG ENTERIC TAB PO SCH (08:27)
[2019-01-05] MEDS: DIGOXIN 0.25 MG TAB PO SCH (08:27)
[2019-01-05] MEDS: cefoTEtan DISODIUM 1 GM in D5W MINI-BAG PLUS 50 ML IV SCH (08:27)
[2019-01-05] MEDS: NORCO, ANEXSIA 5/325MG TABLET (HYDROcodone/ACETAMINOPHEN) PO PRN ×3 (08:41→20:50)
[2019-01-05] MEDS: METAMUCIL (PSYLLIUM) PACKET PO SCH (09:14)
[2019-01-05] MEDS: NYSTATIN 100,000 UNITS/GM TOPICAL PWD 15 GM TOP SCH ×2 (09:40→20:45)
[2019-01-05 14:00] VITALS: BP 139/83
[2019-01-05] MEDS ORDERED: WARFARIN SOD 5 MG TAB PO SCH ×2 (17:00→18:30)
--- NOTE | 2019-01-05 18:24 | IPNPDOC ---
Subjective Date Seen The patient was seen on 01/05/19. Subjective Chief Complaint/HPI The patient reports he is doing well. Nursing states that he is trained to manage his colostomy bag. I spoke with Dr. Fry, his surgeon, who feels that he is ready for discharge home tomorrow. He met with Dr. Jose yesterday and she laid out a treatment plan for him. She did make it clear she does not anticipate doing any chemotherapy within the next 2 weeks because he still healing from his surgery. General: Reports: Normal Appetite Pulmonary: Denies: Dyspnea, Cough Cardiovascular: Denies: Chest Pain, Palpitations Psych: Reports: Mood Normal Objective Physical Examination General Exam: Positive: Alert, Cooperative (laying flat in bed when I entered his room), No Acute Distress Eye Exam: Positive: Conjunctiva & lids normal; Negative: Sclera icteric ENT Exam: Positive: Mucous membr. moist/pink Neck Exam: Negative: Lymphadenopathy Chest Exam: Positive: Clear to auscultation, Diminished Heart Exam: Positive: Rate Normal, Irregular Rhythm, Normal S1, Normal S2 Telemetry: Positive: Atrial fibrillation Abdomen Exam: Positive: BS Hypoactive, Soft, Other (ileostomy present, clean dry incision, ostomy appears to be functioning well.) Extremity Exam: Negative: Edema (trace BL) Skin Exam: Positive: Nl turgor and temperature Neuro Exam: Positive: Normal Speech Psych Exam: Positive: Mental status NL, Mood NL, Memory Intact A-FIB/CHADSVASC A-FIB History Current/History of A-Fib/PAF?: Yes Current Oral Anticoagulant The: Yes Age/Risk Factor Scoring CHADSVASC: CHADSVASC Response (Comments) Value Age Risk Factor Age < 65 years old 0 Gender Risk Factor Male 0 Hx of CHF Yes (chronic) 1 Hx of Diabetes Yes 1 Total 2 Treatment Treatment ordered: Warfarin Assessment /Plan Problems (1) Obstruction of colon Status: Acute Response to Treatment: Improving Problem Text: 01/05/19: Surgery feels he is ready for discharge tomorrow. His ostomy is functioning well. 01/04/19: Patient appears to be progressing well. He is working with PT daily. Surgery managing POD 5: progressing well. will start ostomy teaching. Continue with PT. On baseline oxygen needs. Tolerating po. POD4 up and around, seems to be doing well tolerating diet. POD3, s/p right hemicolectomy, seems to be doing well. asking appropriate questions about implications of liver mets finding. discussed need for medical oncology referral post-op POD 2 s/p lap Right hemicolectomy with ileostomy ( 2 abdominal mass c liver mets) Dr. Fry. D2 metro/cefotet no s/s infection (2) Chronic hypoxemic respiratory failure Status: Chronic Response to Treatment: Stable, Improving Problem Specific Plan: Consult Specialist Problem Text: 01/05/19: Most of this is probably obesity-hypoventilation syndrome. Fortunately the CT of his chest did not show anything of clinical interest. 01/04/19: Patient at baseline. wants further diagnostics performed to assess his lungs. 01/03/19: on baseline oxygen. Patient and requesting new Pulmonology referral outside of [place] after DC home. 12/31 Doing well extubated, cont to monitor sats. CPAP while sleeping. Patient on chronic 5 liters NC as outpatient - sats currently high 90s on 5 liters H/O CALE on CPAP normally (3) A-fib Status: Chronic Response to Treatment: Stable Problem Text: 01/05/19: His INR is still subtherapeutic, but it is coming up. Do not want to raise it to aggressively because of his recent surgery. Continue current regimen, monitor. 01/04/19: We will need to resume his Warfarin and monitor INRs 01/01: restart warfarin at usual dose, monitor INR. resume ASA today for prophylaxis re CAD as well. Rate adequately controlled on HD carve 6.25 BID, dig 250 Coumadin on hold post-op (4) Colonic mass Status: Acute Response to Treatment: Improving Problem Text: 01/05/19: The mass was a neuroendocrine tumor that very well may have been metastatic to the colon. He has met with Dr. Jose of the oncology service, and the oncology nurse navigator. 01/04/19: Pathology reviewed and meeting with oncology nurse navigator and attending scheduled today 01/03/19: pathology pending. 12/29 CEA 3.9 12/29 pathology P-patient favors aggressive rx-understands probably chemorx (5) Diabetes Status: Chronic Response to Treatment: Stable Problem Text: His blood glucose levels have been poorly controlled while here. So this may because of the neuroendocrine tumor, and possible pancreatic involvement. I restarted metformin but rather than 500 at night, which was his home dose, I started him on 1000 mg by mouth twice a day. (6) Diastolic CHF, chronic Status: Chronic Response to Treatment: Stable Problem Text: Appears well compensated 01/03/19: appears well compensated 01/02 resume chronic oral lasxis. K low today 40mEq dose po ordered. 12/31 IVF stopped. Given Lasix IV 40 mg daily, started this morning, + diuresis, will plan to d/c hugo in AM, nursing aware, 12/29 - Currently getting IVF LR at 125/hour Euvolemic at this point off HD fur 40 QD (7) CALE on CPAP Status: Chronic Response to Treatment: Stable Problem Text: severe baseline CALE on CPAP 14 (but not palliated at this pressure) (8) CAD (coronary artery disease) Status: Chronic Response to Treatment: Stable Problem Text: 01/01: continue carvedilol, resume ASA today. he is on atorvastatin as outpatient will restart No signs of ischemia continue BB, statin (decreased dose given hepatic mets) 06/2017 treadmill stress SPECT-normal perfusion images-Amin Plan/VTE VTE Prophylaxis Ordered?: Yes (TEDs/Sequentlial - Coumadin on hold for surgery) Plan/Urinary Catheter Urinary Catheter: D/C Hugo Reason for insertion/continuin: Critical Pt monitoring Plan Anticipated Discharge: Home (tomorrow) VS, I&O, 24H, Fishbone Vital Signs/I&O Vital Signs Date Time Temp Pulse Resp B/P (MAP) Pulse Ox O2 Delivery O2 Flow Rate FiO2 01/05/19 15:08 16 01/05/19 14:16 2.0 01/05/19 14:00 96.7 82 139/83 (101) 97 01/03/19 04:00 Nasal Cannula 12/30/18 13:00 30 I&O- Last 24 Hours up to 6 AM 01/05/19 06:00 Intake Total 2185 ml Output Total 3325 ml Balance -1140 ml Laboratory Data 24H LABS Laboratory Tests 2 01/04/19 19:03: 01/04/19 21:04: Bedside Glucose (Misc Panel) 387H 01/05/19 05:51: Prothrombin Time 17.8H, Prothromb Time International Ratio 1.44 01/05/19 06:18: Bedside Glucose (Misc Panel) 260H 01/05/19 07:30: Bedside Glucose (Misc Panel) 269H 01/05/19 11:30: Bedside Glucose (Misc Panel) 447H 01/05/19 17:10: Bedside Glucose (Misc Panel) 254H Kevin Arevalo MD January 05, 2019 6:24 pm
[2019-01-05] MEDS: metFORMIN (GLUCOPHAGE) 1000 MG TABLET PO SCH (19:20)
[2019-01-05] MEDS: ATORVASTATIN 20 MG TAB PO SCH (20:44)
[2019-01-05 22:00] VITALS: BP 165/85
[2019-01-06 06:00] VITALS: BP 142/85
[2019-01-06 06:25] LABS: HEMATOCRIT 34.6 % (42.0-52.0); HEMOGLOBIN 11.1 g/dl (13.5-17.5); MEAN CORPUSCULAR HEMOGLOBIN 31.1 pg (27.0-33.0); MEAN CORPUSCULAR HGB CONC 32.1 g/dl (32.0-36.5); MEAN CORPUSCULAR VOLUME 96.9 fl (80.0-96.0); PLATELET COUNT, AUTOMATED 296 10^3/uL (150-450); RED BLOOD COUNT 3.57 10^6/uL (4.30-6.10); WHITE BLOOD COUNT 8.1 10^3/uL (4.0-10.0)
[2019-01-06 06:32] LABS: INR 1.55; PROTHROMBIN TIME 18.8 SECONDS (12.1-14.4)
[2019-01-06 06:54] LABS: ALBUMIN 2.1 GM/DL (3.2-5.2); ALT/SGPT 51 U/L (12-78); BILIRUBIN,TOTAL 0.2 MG/DL (0.2-1.0); BLOOD UREA NITROGEN 5 MG/DL (7-18); CALCIUM LEVEL 8.3 MG/DL (8.8-10.2); CARBON DIOXIDE LEVEL 32 MEQ/L (21-32); CHLORIDE LEVEL 100 MEQ/L (98-107); CREATININE FOR GFR 0.68 MG/DL (0.70-1.30); GLOMERULAR FILTRATION RATE > 60.0 (>49); GLUCOSE, FASTING 219 MG/DL (70-100); POTASSIUM SERUM 3.6 MEQ/L (3.5-5.1); SODIUM LEVEL 139 MEQ/L (136-145); TOTAL PROTEIN 5.9 GM/DL (6.4-8.2)
[2019-01-06] MEDS: METAMUCIL (PSYLLIUM) PACKET PO SCH (08:34)
[2019-01-06] MEDS: HumaLOG INSULIN (NovoLOG) PER UNIT SC SCH ×2 (08:34→12:26)
[2019-01-06] MEDS: FUROSEMIDE 40 MG TAB PO SCH (08:34)
[2019-01-06] MEDS: metFORMIN (GLUCOPHAGE) 1000 MG TABLET PO SCH (08:34)
[2019-01-06] MEDS: DIGOXIN 0.25 MG TAB PO SCH (08:35)
[2019-01-06] MEDS: ASPIRIN 81 MG ENTERIC TAB PO SCH (08:35)
[2019-01-06 08:36] VITALS: BP 142/85
[2019-01-06] MEDS: CARVedilol 6.25 MG TAB PO SCH (08:36)
[2019-01-06] MEDS: NYSTATIN 100,000 UNITS/GM TOPICAL PWD 15 GM TOP SCH (08:37)
[2019-01-06] MEDS: NORCO, ANEXSIA 5/325MG TABLET (HYDROcodone/ACETAMINOPHEN) PO PRN ×2 (08:45→14:01)
[2019-01-06] MEDS ORDERED: HYDR-4571 PO (10:19)
[2019-01-06] MEDS ORDERED: META1POW PO (10:19)
[2019-01-06 14:00] VITALS: BP 153/69
--- NOTE | 2019-01-06 17:18 | DS.PDOC ---
Discharge Summary General Date of Admission December 27, 2018 at 17:09 Date of Discharge 01/06/19 Primary Care Physician: Priscilla Ramirez Attending Physician: Kevin Arevalo MD Specialist/Consultants Involve: NEDRA FRY MD Specialist/Consultants Involve Cardiology-Dr. Amin for pre-operative clearance Pulmonary-Dr. Bertrand Oncology-Dr. Jose Discharge Summary PROCEDURES PERFORMED DURING STAY: Right hemicolectomy with ileostomy ADMITTING DIAGNOSES: 1. Large bowel obstruction 2. 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 CALE 4. Chronic hypoxic respiratory failure 5. Afib 6. Hypertensive heart disease with CHF 7. Morbid obesity 8. CAD s/p CABG 9. Diabetes DISCHARGE DIAGNOSES: 1. Neuroendocrine carcinoma with hep mets 2. CALE 3. Chronic hypoxic respiratory failure 4. Afib 5. Hypertensive heart disease with CHF 6. Morbid obesity 7. CAD s/p CABG 8. Diabetes COMPLICATIONS/CHIEF COMPLAINT: A-Fib Obstructionv Of Colon. HISTORY OF PRESENT ILLNESS: 63 year old male with PMH of CAD s/p CABG, Morbid obesity, CHF, CALE on CPAP, chronic respiratory failure with hypoxia, diabetes, atrial fib on coumadin, h/o dvt , bowel obs in 2009 with bowel resection, incisional hernia with mesh, umbilical hernia repaired, persistent abdominal wall hernia, presented to the ED with 7 days history of constipation and abdominal pain. Pain was present more on the right upper abdomen, right lumber region and periumbilicaly. He had been unable to pass gas for 3 days. He's had irregular bowel habits with intermittent diarrhea and constipation since 2009 after his bowel obstruction surgery. During his episodes of constipation he would do some home remedies which would relieve it . However this week he tried everything but still did not move his bowels. He started feeling very bloated and unable to pass gas and presented to ED for further evaluation. He had some associated with his discomfort but no vomiting. CT in the ED showed Stricturing mass in the hepatic flexure of the colon causing a colonic obstruction. There was proximal bowel dilatation of a moderate degree. Both the right colon and distal small bowel were dilated. There was a local ill-defined neoplastic infiltration of the pericolonic fat at the hepatic flexure. Multiple liver metastases were noted. He was admitted for Acute large bowel obstruction. HOSPITAL COURSE: 1. Obstruction of colon: Dr. Fry was consulted. Patient underwent a right hemicolectomy with ileostomy. He tolerated procedure well. Ileostomy functioned. No signs of infection s/p surgery. Education regarding ostomy care was provided to patient and . Arrangements for home health were made. Patient to f/u with surgeon in 1-2 weeks 2. Chronic hypoxemic respiratory failure: Pulmonary was consulted prior to surgery. Recommendations made by Pulmonary: the patient was continued with home CPAP while in the hospital. IT was anticipated that he would have significant atelectasis postoperatively given his obesity and the nature of his surgery. Pulmonary toilet was ordered for him which included incentive spirometer, pain control and positive expiratory pressure (PEP) therapy. He was started on DuoNeb treatments prn. It was instructed for him to followup with pulmonary as an outpatient for further workup for possible COPD including complete pulmonary function tests (PFTs). Patient was maintained on Oxygen. CT scan was performed post-operatively on 01/04/19: Impression: No active cardiopulmonary disease. Postoperative changes in the upper abdominal wall and right upper quadrant. Metastatic lesions in the liver. Prior sternotomy. 3. A-fib: Rate was well controlled during hospital stay. His Coumadin was temporarily d/c d/t surgery and was restarted prior to discharge. Cardiology was consulted for preop clearance. 4. Colonic mass: Pathology revealed a high grade neuroendocrine carcinoma -4/TR Metastatic neuroendocrine carcinoma in eight of sixteen pericolonic lymph nodes. This very well may have been metastatic to the colon. He consulted with Dr. Jose, and the oncology nurse navigator. Dr. Jose advised that he will need to heal up his midline incision as appropriate healing is imperative in his initial care. He will need to be scheduled for a Port-A-Cath placement. It was recommended that he get etoposide and carboplatin q. 21 days for three cycles, then be restaged to see if the patient has had a disease response. Dr. Jose recommended that he get a serum chromogranin A level, a serotonin level. Patient is to follow-up with oncology 2 weeks. 5. Diabetes: Metformin was increased to 1000mg i po bid d/t poor glycemic control. Script for Metformin 1000mg i po bid from [facility] 6. Diastolic CHF, chronic: Patient remained well compensated during his hospitalization. 7. CALE on CPAP: Patient was maintained on his home CPAP regimen 8. CAD (coronary artery disease): Remained on carvedilol. ASA was resumed after surgery and was restarted on his atorvastatin. DISCHARGE MEDICATIONS: Please see below. ALLERGIES: Please see below. PHYSICAL EXAMINATION ON DISCHARGE: VITAL SIGNS: Please see below. GENERAL: AOx3 HEENT: unremarkable NECK: soft, supple, no JVD CARDIOVASCULAR EXAMINATION: RRR RESPIRATORY EXAMINATION: CTA ABDOMINAL EXAMINATION: selena intact, ileostomy draining EXTREMITIES: no edema SKIN: warm, dry PSYCHIATRIC EXAMINATION: normal LABORATORY DATA: Please see below. IMAGING: Multiple Chest x-rays Chest X-ray 01/01/19: Findings: EKG monitoring electrodes are seen. Median sternotomy wires are noted. Cardiomediastinal silhouette is unchanged. Heart size is borderline. Pleural thickening is again noted bilaterally. No endotracheal tube is visible. Oxygen delivery tubing is seen. No infiltrate or effusion seen. CT Abdomen/Pelvis W/IV and oral contrast 12/27/18: IMPRESSION: Stricturing mass in the hepatic flexure of the colon causes colonic obstruction. There is proximal bowel dilatation of a moderate degree. Both the right colon and distal small bowel are dilated. There is local ill-defined neoplastic infiltration of the pericolonic fat at the hepatic flexure. Multiple liver metastases are noted. CT Scan chest with contrast 01/04/19: Impression: No active cardiopulmonary disease. Postoperative changes in the upper abdominal wall and right upper quadrant. Metastatic lesions in the liver. Prior sternotomy. ACTIVITY: As tolerated DISCHARGE PLAN: To home with services/home health for colostomy care DISCHARGE INSTRUCTIONS: 1. F/U PCP in one week 2. F/U with general surgery 1-2 weeks 3. F/U with oncology 2 weeks Items to follow-up on: 1. Patient will need to be referred to Pulmonary 2. Richard-Cath placement DISCHARGE CONDITION: Stable Vital Signs/I&Os Vital Signs Date Time Temp Pulse Resp B/P (MAP) Pulse Ox O2 Delivery O2 Flow Rate FiO2 01/06/19 09:15 17 01/06/19 08:36 88 142/85 01/06/19 06:00 97.1 98 2.0 01/03/19 04:00 Nasal Cannula I&O- Last 24 Hours up to 6 AM 01/06/19 06:00 Intake Total 1560 ml Output Total 2735 ml Balance -1175 ml Laboratory Data Labs 24H Laboratory Tests 2 01/05/19 11:30: Bedside Glucose (Misc Panel) 447H 01/05/19 17:10: Bedside Glucose (Misc Panel) 254H 01/05/19 20:38: Bedside Glucose (Misc Panel) 395H 01/06/19 05:38: Nucleated Red Blood Cells % (auto) 0.0, Prothrombin Time 18.8H, Prothromb Time International Ratio 1.55, Anion Gap 7L, Glomerular Filtration Rate > 60.0, Blood Urea Nitrogen 5L, Creatinine 0.68L, Sodium Level 139, Potassium Level 3.6, Chloride Level 100, Carbon Dioxide Level 32, Calcium Level 8.3L, Aspartate Amino Transf (AST/SGOT) 31, Alanine Aminotransferase (ALT/SGPT) 51, Alkaline Phosphatase 110, Total Bilirubin 0.2, Total Protein 5.9L, Albumin 2.1L, Albumi n/Globulin Ratio 0.55L CBC/BMP Laboratory Tests 01/06/19 05:38 Red Blood Count 3.57 L, Mean Corpuscular Volume 96.9 H, Mean Corpuscular Hemoglobin 31.1, Mean Corpuscular Hemoglobin Concent 32.1, Red Cell Distribution Width 12.8, Calcium Level 8.3 L, Aspartate Amino Transf (AST/SGOT) 31, Alanine Aminotransferase (ALT/SGPT) 51, Alkaline Phosphatase 110, Total Bilirubin 0.2, Total Protein 5.9 L, Albumin 2.1 L FSBS Laboratory Tests Test 01/05/19 11:30 01/05/19 17:10 01/05/19 20:38 Range/Units Bedside Glucose (Misc Panel) 447 254 395 80-115 MG/DL Discharge Medications Scheduled Aspirin (Aspirin EC) 81 Mg Tablet.dr, 81 MG PO DAILY, (Reported) Atorvastatin Calcium (Atorvastatin Calcium) 80 Mg Tablet, 80 MG PO QHS, (Reported) Carvedilol (Carvedilol) 6.25 Mg Tablet, 6.25 MG PO BID, (Reported) Digoxin (Digoxin) 250 Mcg Tablet, 250 MCG PO DAILY, (Reported) Furosemide (Furosemide) 40 Mg Tablet, 40 MG PO DAILY, (Reported) Metformin HCl (Metformin HCl ER) 500 Mg Tab.er.24h, 500 MG PO QPM, (Reported) DINNERTIME Psyllium Husk/Aspartame (Metamucil Fiber Singles Packet) 3.4 Gm Powd.pack, 1 PKT PO DAILY Warfarin Sodium (Warfarin Sodium) 5 Mg Tablet, 10 MG PO 3XW, (Reported) ,,SAT Warfarin Sodium (Warfarin Sodium) 5 Mg Tablet, 7.5 MG PO 4XWK, (Reported) MON,WED,FRI,SUN Scheduled PRN Carboxymethylcellulose Sodium (Refresh Tears) 15 Ml Drops, 1 DROP OU QID PRN for DRY EYES, (Reported) Fexofenadine HCl (Alie Allergy) 180 Mg Tablet, 180 MG PO DAILY PRN for ALL ERGIES, (Reported) Hydrocodone/Acetaminophen (Hydrocodone-Acetamin 5-325 mg) 1 Each Tablet, 2 TAB PO Q6HP PRN for SEVERE PAIN (PS 8-10) Allergies Coded Allergies: No Known Allergies (Unverified , 12/27/18) PREETI BURT January 06, 2019 10:21
== END 2019-01-06 15:19 | disposition home health service (06) | DRG 330 ==
LOC: M ED 10:27 → M ED INP 17:09 → M PCU 20:25 → M ICU 12-29 17:56 → M PCU 12-31 09:34 → M MSPAV 01-03 13:53
PROVIDERS: ADMIT Internal Medicine Nephrology; ATTEND Family Medicine
PROC: 0DN80ZZ Release Small Intestine, Open Approach (ICD-10-PCS; 2018-12-29)
PROC: 0DBL0ZX Excision of Transverse Colon, Open Approach, Diagnostic (ICD-10-PCS; 2018-12-29)
PROC: 0D1H0Z4 Bypass Cecum to Cutaneous, Open Approach (ICD-10-PCS; principal; 2018-12-29 12:30)
DX: K56.609 Unspecified intestinal obstruction, unspecified as to partial versus complete obstruction (principal); J96.11 Chronic respiratory failure with hypoxia; Z68.41 Body mass index [BMI] 40.0-44.9, adult; C78.7 Secondary malignant neoplasm of liver and intrahepatic bile duct; I50.32 Chronic diastolic (congestive) heart failure; C77.2 Secondary and unspecified malignant neoplasm of intra-abdominal lymph nodes; C7A.1 Malignant poorly differentiated neuroendocrine tumors; E66.01 Morbid (severe) obesity due to excess calories; I11.0 Hypertensive heart disease with heart failure; I48.2 Chronic atrial fibrillation; I25.10 Atherosclerotic heart disease of native coronary artery without angina pectoris; Z95.1 Presence of aortocoronary bypass graft; E11.9 Type 2 diabetes mellitus without complications; G47.33 Obstructive sleep apnea (adult) (pediatric); Z79.899 Other long term (current) drug therapy; Z79.82 Long term (current) use of aspirin; Z79.01 Long term (current) use of anticoagulants; Z87.891 Personal history of nicotine dependence; Z96.651 Presence of right artificial knee joint; I27.81 Cor pulmonale (chronic); Z53.31 Laparoscopic surgical procedure converted to open procedure

== ENCOUNTER → 2019-01-18 | Outpatient (REF) | payer MEDICARE ==
[~2019-01-18] MED LIST: ALLE180T33 PO; ASPI81CH33 PO; ASPI81TA26 PO; ATOR80TA59 PO; CARV6.25 PO; CETI10CH PO; COUM10TA PO; DIGO0.25 PO; FURO40TA2 PO; HYDR-4571 PO; LASI20TA3 PO; META1POW PO; METF500T13 PO; METF500T4 PO; REFR0.5D8 OU; WARF-21 PO; WARF-23 PO
[2019-01-18 12:13] LABS: BASO # 0.1 10^3/uL (0.0-0.2); BASO % 0.7 % (0.0-1.0); EOS # 0.2 10^3/uL (0.0-0.50); EOS % 2.2 % (0.0-3.0); HEMATOCRIT 40.6 % (42.0-52.0); HEMOGLOBIN 13.6 g/dl (13.5-17.5); LYMPH # 1.5 10^3/uL (1.5-4.5); MEAN CORPUSCULAR HEMOGLOBIN 31.2 pg (27.0-33.0); MEAN CORPUSCULAR HGB CONC 33.5 g/dl (32.0-36.5); MEAN CORPUSCULAR VOLUME 93.1 fl (80.0-96.0); MONO # 0.8 10^3/uL (0.0-0.8); MONO % 8.6 % (0.0-5.0); NEUTROPHILS # 7.1 10^3/uL (1.8-7.7); PLATELET COUNT, AUTOMATED 382 10^3/uL (150-450); RED BLOOD COUNT 4.36 10^6/uL (4.30-6.10); WHITE BLOOD COUNT 9.8 10^3/uL (4.0-10.0)
[2019-01-18 12:28] LABS: INR 2.33
[2019-01-18 12:39] LABS: ALBUMIN 3.3 GM/DL (3.2-5.2); ALT/SGPT 82 U/L (12-78); BILIRUBIN,TOTAL 0.5 MG/DL (0.2-1.0); BLOOD UREA NITROGEN 17 MG/DL (7-18); CALCIUM LEVEL 8.8 MG/DL (8.8-10.2); CARBON DIOXIDE LEVEL 27 MEQ/L (21-32); CHLORIDE LEVEL 94 MEQ/L (98-107); CREATININE FOR GFR 1.06 MG/DL (0.70-1.30); GLOMERULAR FILTRATION RATE > 60.0 (>49); GLUCOSE, FASTING 195 MG/DL (70-100); MAGNESIUM LEVEL 1.5 MG/DL (1.8-2.4); NT-PRO BNP 241 PG/ML (<125); POTASSIUM SERUM 4.5 MEQ/L (3.5-5.1); SODIUM LEVEL 133 MEQ/L (136-145); TOTAL PROTEIN 8.3 GM/DL (6.4-8.2)
[2019-01-18 12:45] LABS: VITAMIN B12 LEVEL 286 PG/ML (247-911)
== END ==
LOC: M SFHCPLAZ 11:30
PROVIDERS: ATTEND Family Medicine
DX: I50.32 Chronic diastolic (congestive) heart failure (principal); I48.2 Chronic atrial fibrillation

== ENCOUNTER → 2019-01-19 | Outpatient (CLI) | payer MEDICARE ==
[~2019-01-19] MED LIST changes: +BACT800T5 PO; +BUPIVACAINE HCL 0.5% 10 ML VIAL As Ordered ONE; +LIDOCAINE 2% MDV 20 ML VIAL As Ordered ONE; +OMEP40CA2 PO; +ONDA8TAB7 PO; +OXYC-517 PO; +TRES1INJ2 SC; +ceFAZolin 1GM INJ (J0690 PER 500MG) As Ordered ONE
--- NOTE | 2019-01-29 14:36 | REPIR ---
DATE OF PROCEDURE: 01/19/2019 ATTENDING SURGEON: Sammy Fleming MD PREOPERATIVE DIAGNOSIS: Colon cancer. POSTOPERATIVE DIAGNOSIS: Colon cancer. PROCEDURE: Ultrasound and fluoroscopic-guided right internal jugular vein tunneled central venous catheter with subcutaneous port placement using a Bard PowerPort with 21 cm length catheter. INDICATION: The patient is a 63-year-old male with colon cancer who requires access for chemotherapy. ANESTHESIA: Local. ESTIMATED BLOOD LOSS: Minimal. INTRAVENOUS (IV) FLUID: 100 mL. FLUORO TIME: 0.1 minutes. CONTRAST: None. COMPLICATIONS: None. DRAINS: None. SPECIMENS: None. IMPLANTS: None. DESCRIPTION OF PROCEDURE: The patient was taken to the angiography suite, placed supine on the angiography room table, and then prepped and draped in a standard surgical fashion. The right internal jugular vein was cannulated using ultrasound guidance and then sequentially dilated under fluoroscopic guidance. Catheter was positioned with the tip in the superior vena cava right atrial junction and then tunneled through the anterior chest wall. A port was placed on the catheter, which was then placed in a pocket created in the right chest. The port was accessed, noted to aspirate easily, and then flushed with heparinized saline. The incisions were then closed using 3-0 Monocryl in inverted interrupted fashion. Steri-Strips and dressings were applied. The patient tolerated the procedure well. All instrument, sponge, and needle counts were correct at the end of the case. There were no complications. Dr. Fleming was present for and directed the entire case. The patient was transferred to the holding area and subsequently discharged in stable condition.
== END | disposition home or self-care (01) ==
LOC: M IRPRO 09:49
PROVIDERS: ATTEND Surgery
DX: C18.9 Malignant neoplasm of colon, unspecified (principal)
CPT/HCPCS: 36561; 77001; C1788; C1894; J0690

== ENCOUNTER → 2019-02-03 | Outpatient (REF) | payer MEDICARE ==
[~2019-02-03] MED LIST changes: -BACT800T5 PO; -BUPIVACAINE HCL 0.5% 10 ML VIAL As Ordered ONE; -LIDOCAINE 2% MDV 20 ML VIAL As Ordered ONE; -OMEP40CA2 PO; -OXYC-517 PO; -TRES1INJ2 SC; -ceFAZolin 1GM INJ (J0690 PER 500MG) As Ordered ONE
== END ==
LOC: M SFHCPLAZ 13:04
PROVIDERS: ATTEND Family Medicine
DX: T81.49XA Infection following a procedure, other surgical site, initial encounter (principal)

== ENCOUNTER → 2019-02-07 | Outpatient (CLI) | payer MEDICARE ==
[~2019-02-07] MED LIST changes: +BACT800T5 PO; +HYDR-3713 PO; +OMEP40CA2 PO; +OXYC-517 PO; +TRES1INJ SC; +TRES1INJ2 SC
--- NOTE | 2019-02-07 12:22 | REP ---
LUMBAR SPINE SERIES: Five views. HISTORY: Lumbar spondylosis. The patient gives a history of liver and colon malignancy. FINDINGS: There is moderate gaseous distension in the colon extending at least to the descending sigmoid junction. There are postoperative clips in the right abdomen. Lumbar vertebral body heights are preserved. There is degenerative disc disease at each lumbar and visualized lower thoracic level. There is a retrolisthesis at L1-2 due to degenerative disc disease. This measures 6 mm. Some vascular calcification is seen. Psoas margins are obscured. An enterostomy ring is seen in the right abdomen. Sacrum and SI joints are intact. IMPRESSION: Diffuse degenerative disc changes. Degenerative retrolisthesis at L1-2. No bony destructive lesion is seen. Moderate gaseous distension of the colon is noted. Electronically Signed by Ki Espinosa MD 02/07/2019 01:39 P
--- NOTE | 2019-02-07 12:31 | REP ---
THORACIC SPINE SERIES: SIX VIEWS. HISTORY: Lumbar spondylosis. Low and mid back pain and pain on the right. History of colon carcinoma. FINDINGS: An Wuqjya-V-Chkr catheter is noted in place on the right. Median sternotomy wires are visible. Thoracic vertebral body heights are preserved. Alignment is normal. There is thoracic degenerative disc spurring mild in degree anteriorly. Degenerative disc disease is seen in the lower cervical spine on swimmer's lateral view as well. No fracture or collapse is seen. No malalignment is noted. IMPRESSION: No acute bony abnormality. Degenerative disc disease. Postoperative changes. Electronically Signed by Ki Espinosa MD 02/07/2019 01:39 P
== END ==
LOC: M WUC 10:39
PROVIDERS: ATTEND Family Medicine
DX: M47.816 Spondylosis without myelopathy or radiculopathy, lumbar region (principal)

== ENCOUNTER 2019-02-10 11:02 | Inpatient (IN) | payer MEDICARE ==
[~2019-02-10] VITALS: Ht 182.9 cm; Wt 128.9 kg
[~2019-02-10 11:02] MED LIST changes: -HYDR-3713 PO; -TRES1INJ SC
[2019-02-10] MEDS ORDERED: HYDR-3713 PO (11:22)
[2019-02-10] MEDS ORDERED: NS 1,000 ML IV SCH (11:43)
[2019-02-10] MEDS ORDERED: MORPHINE 4 MG/ML 1ML VIAL/SYRINGE (J2270) IV PRN (11:45)
[2019-02-10] MEDS ORDERED: ONDANSETRON 4MG/2ML VIAL (J2405) IV ONE (11:45)
[2019-02-10] MEDS ORDERED: LIDOCAINE 2% 5ML JELLY UROJET As Ordered ONE (11:58)
[2019-02-10] MEDS ORDERED: SODIUM CHLORIDE 0.9% INJ 10 ML SYR IV PRN (12:00)
[2019-02-10 12:43] LABS: BASO % 0.1 % (0.0-1.0); EOS % 0.1 % (0.0-3.0); HEMATOCRIT 39.7 % (42.0-52.0); LYMPH # 0.7 10^3/uL (1.5-4.5); LYMPH % 6.2 % (24.0-44.0); MEAN CORPUSCULAR HEMOGLOBIN 30.2 pg (27.0-33.0); MEAN CORPUSCULAR HGB CONC 32.7 g/dl (32.0-36.5); MEAN CORPUSCULAR VOLUME 92.3 fl (80.0-96.0); MONO # 0.2 10^3/uL (0.0-0.8); NEUTROPHILS # 10.7 10^3/uL (1.8-7.7); NEUTROPHILS % 91.2 % (36.0-66.0); PLATELET COUNT, AUTOMATED 321 10^3/uL (150-450); WHITE BLOOD COUNT 11.7 10^3/uL (4.0-10.0)
[2019-02-10 13:00] LABS: PARTIAL THROMBOPLASTIN TIME 75.4 SECONDS (25.0-38.4)
[2019-02-10] MEDS ORDERED: LIDOCAINE 2% 5ML JELLY UROJET TOP ONE (13:00)
--- NOTE | 2019-02-10 13:07 | REP ---
Acute abdominal series five views including PA chest, upright view of the abdomen, and three supine views of the abdomen: Comparison is the abdomen and pelvis CT dated 12/27/2018. On the comparison CT there was a mass in the hepatic flexure of the colon with infiltration of the pericolonic fat and multiple hepatic metastases. PA chest: Comparison is 12/28/2018. There has been interval placement of a right IJ central venous catheter with the tip at the confluence of the superior vena cava and right atrium in satisfactory location. There are sternotomy wires, unchanged. There has been interval placement of a nasogastric tube with the term the tip terminating in the abdominal left upper quadrant. There is a focal density peripherally in the right lung of uncertain significance, not present previously, infiltrate versus artifact extrinsic to the patient. The left lung is clear. There are no pleural effusions. Cardiac size is normal. The kun, mediastinum, skeletal structures are unremarkable. There is no free subdiaphragmatic air. Impression: No free subdiaphragmatic air. Infiltrate versus artifact from density peripherally in the right lung. Right IJ central venous catheter. Nasogastric tube. Supine upright abdomen The tip of the nasogastric tube is in the abdominal left upper quadrant. There are multiple dilated large and small bowel loops with air-fluid levels compatible with bowel obstruction. There are multiple surgical clips in the abdominal right upper quadrant. Impression: Bowel obstruction. Electronically Signed by Denton Treviño MD 02/10/2019 12:58 P
[2019-02-10 13:28] LABS: ALBUMIN 2.9 GM/DL (3.2-5.2); ALT/SGPT 69 U/L (12-78); BILIRUBIN,DIRECT 0.2 MG/DL (0.0-0.2); BILIRUBIN,TOTAL 0.5 MG/DL (0.2-1.0); BLOOD UREA NITROGEN 14 MG/DL (7-18); CALCIUM LEVEL 7.9 MG/DL (8.8-10.2); CARBON DIOXIDE LEVEL 28 MEQ/L (21-32); CHLORIDE LEVEL 100 MEQ/L (98-107); CREATININE FOR GFR 0.87 MG/DL (0.70-1.30); DIGOXIN LEVEL 0.8 NG/ML (0.5-2.0); GLOMERULAR FILTRATION RATE > 60.0 (>49); GLUCOSE, FASTING 160 MG/DL (70-100); LIPASE 118 U/L (73-393); POTASSIUM SERUM 3.9 MEQ/L (3.5-5.1); SODIUM LEVEL 136 MEQ/L (136-145); TOTAL PROTEIN 7.3 GM/DL (6.4-8.2)
[2019-02-10 13:41] LABS: INR 10.56
[2019-02-10] MEDS ORDERED: OXYC-517 PO (13:54)
[2019-02-10] MEDS ORDERED: TRES1INJ SC (13:54)
[2019-02-10] MEDS ORDERED: BACT800T5 PO (13:54)
[2019-02-10] MEDS ORDERED: ONDA8TAB7 PO (13:54)
[2019-02-10] MEDS ORDERED: OMEP40CA2 PO (13:54)
[2019-02-10] MEDS ORDERED: METOCLOPRAMIDE INJ 10MG/2ML VIAL (J2765) IV PRN (15:00)
[2019-02-10] MEDS ORDERED: DEXTROSE 50% 50 ML SYRINGE IV PRN (16:00)
[2019-02-10] MEDS ORDERED: GLUCAGON FOR INJ 1 MG VIAL (J1610) SC PRN (16:00)
[2019-02-10] MEDS ORDERED: GLUCOSE 4 GM CHEW TABLET PO PRN (16:00)
[2019-02-10 16:33] VITALS: BP 116/67
[2019-02-10] MEDS: NS 1,000 ML IV SCH ×2 (16:57→21:53)
[2019-02-10] MEDS: MORPHINE 4 MG/ML 1ML VIAL/SYRINGE (J2270) IV PRN ×3 (16:58→23:01)
--- NOTE | 2019-02-10 18:20 | CR ---
DATE OF CONSULTATION: 02/10/[address] MERRITT: The patient is being admitted with small bowel obstruction. He has a history of a neuroendocrine tumor metastatic to the liver diagnosed 01/09, diagnosed at the time of a large bowel obstruction, status post right colectomy with ileostomy. Pathology showed neuroendocrine tumor. He is undergoing chemotherapy for this. His past history shows chronic atrial fibrillation - on warfarin for anticoagulation, hypertensive heart disease, sleep apnea - on bilevel positive airway pressure (BiPAP), coronary artery disease - status post coronary artery bypass graft (CABG) times four 2004, diastolic congestive heart failure, cor pulmonale/pulmonary hypertension and type 2 diabetes. HOME MEDICATIONS: - Lasix 40 mg daily - aspirin 81 mg daily - hydrocodone/acetaminophen 5/325 twice a day as needed - warfarin 10 mg twice a week, 7.5 mg five days a week - atorvastatin 80 mg at bedtime - carvedilol 6.25 mg twice a day - digoxin 0.25 mg daily - degludec insulin 18 units at bedtime FAMILY HISTORY: Father in his 80s of diabetic problems. Mother had a stroke at 86. Two brothers are , one of throat cancer, one due to explosion in the [place]. SOCIAL HISTORY: Quit smoking over 5 years ago. Moderate alcohol use. He is . ALLERGIES: None known. REVIEW OF SYSTEMS: No hematemesis, rectal bleeding, chest pain. PHYSICAL EXAMINATION: Vital signs: Per flow sheet. He looks chronically ill appearing. He is lying on his back. He has nasogastric tube in place. He feels much better since the nasogastric (NG) tube was inserted. HEENT: Unremarkable except for nasogastric tube. Neck: Supple. Lungs: Clear. Heart: Regular rhythm, no murmur. Abdomen: Obese, distended, diffusely mildly tender. Bowel sounds are reduced but present. Extremities: No clubbing, cyanosis, edema. LABORATORY: White count 11.7, hemoglobin 13, platelets 321. Sodium 136, potassium 3.9, BUN 14, creatinine 0.8, glucose 160, lactic acid is normal, INR is 10.5. IMPRESSION: 1. Atrial fibrillation. I reviewed his EKG. He is in atrial fibrillation with controlled ventricular response. Will hold his warfarin. He received digoxin intravenously. Restart anticoagulation once decision is made about surgery. 2. Diabetes. Sliding scale insulin coverage until back taking his usual regimen. 3. Hyperlipidemia. We can safely hold his atorvastatin while he is nasogastric suctioning. 4. Hypertensive heart disease. He is on carvedilol 6.25 mg twice a day. nasogastric tube after each dose. 5. Excessive anticoagulation. INR is high, probably from the bowel obstruction and no active bleeding. He did receive his chemotherapeutic treatment today. If INR rises tomorrow, will give a low dose of vitamin K. There is no active bleeding. There is no indication for fresh plasma or cryoprecipitate.
[2019-02-10] MEDS: HumaLOG INSULIN (NovoLOG) PER UNIT SC SCH (18:43)
[2019-02-10] MEDS: ONDANSETRON 4MG/2ML VIAL (J2405) IV PRN (19:41)
[2019-02-10] MEDS: PROMETHAZINE INJ 25 MG/ML VIAL (J2550) IV PRN (20:16)
[2019-02-10] MEDS ORDERED: PHYTONADIONE 10MG/ML INJECTION (J3430) SC ONE (21:00)
--- NOTE | 2019-02-10 21:45 | HPE ---
DATE OF ADMISSION: 02/10/2019 The patient is a 63-year-old male who had undergone a right colectomy with an end ileostomy approximately a month ago and was found to have metastatic disease to his liver. He essentially had a neuroendocrine tumor, metastatic, and was started on chemotherapy. However, over the last 10 days, he noticed that he has had decreased ileostomy output. And specifically over the last 3 days has had increasing abdominal distension. He had some abdominal distension, decreased ileostomy output. Did have his recent chemotherapy treatment 3 days ago and continues to have decreased output and increased abdominal distension with nausea, vomiting that started over the last 24 hours. He did not have any fevers; however, did have a slightly elevated white count of 11.7 He does have a wound that has required some dressing changes, but this has been under control and not erythematous, and the drainage has been relatively stable. The patient had a nasogastric (NG) tube placed in the emergency room and after the NG tube was placed, the patient's abdominal distension improved but most importantly, his abdominal pain significantly improved. The patient had imaging at that time while he was in the emergency room, and it revealed small bowel distension. However, I see air in the ostomy site, and it is much more consistent with a partial obstruction or at least an ileus. The patient's past medical history is significant for a history of atrial fibrillation, a history of hypertensive heart disease, history of sleep apnea, history of coronary artery disease, history of coronary artery bypass grafting, history of congestive heart failure, history of hypertension, diabetes mellitus, history of right colectomy and ileostomy. Medications include Lasix, aspirin, Coumadin, atorvastatin, carvedilol, digoxin, insulin, as well as Vicodin. PHYSICAL EXAM: Reveals an obese white male who looks stated age. HEENT: Reveals an atraumatic, normocephalic head with extraocular movements intact. Pupils are equal and reactive to light. Sclerae nonicteric. Oropharynx is clear without exudate or lesions. Neck: Supple without adenopathy. Lungs: Clear to auscultation without crackles, wheezes or rhonchi anteriorly; however, slightly diminished posteriorly. Heart is regular with multiple irregular beats. Abdomen is distended, tympanitic with some mild tenderness to deep palpation but really no significant peritoneal signs. No guarding, no rebound. The patient has a wound on his midline that is just a small subcutaneous abscess that has been adequately drained. IMPRESSION AND PLAN: The patient has an ileus at this time and overall seems to be stable. He has ostomy output and thus it is most likely either an ileus or a partial obstruction. He feels much better, and his ostomy seems to be functioning. It is very reasonable to get some follow-up x-rays in the morning. If he does not have significant improvement tomorrow, will probably get a CT scan of his abdomen and pelvis to rule out any other significant abnormalities. Although I feel that supportive care is reasonable, unfortunately our biggest concern at this time is maybe tumor that might be contributing to this decreased bowel function. If it is, the overall prognosis for this is extremely poor. I have discussed this with the patient as well as his . They understand our current position that will continue treatment nonoperatively at this time given that there are not indications for emergent or urgent intervention. Will continue with supportive care for his overall medical issues, and I appreciate Dr. Viveros's input. Otherwise, will get some followup x-rays in the morning, possible CT depending on what the x-rays show. If we see a significant improvement and his white count looks better as well, then will continue with our current treatment. However, if he has an increasing white count or his x-rays do not show significant improvement, will plan on a CT scan of the abdomen and pelvis.
--- NOTE | 2019-02-10 21:45 | ECGEPIP ---
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
[2019-02-10] MEDS: CARVedilol 6.25 MG TAB PO SCH (21:52)
[2019-02-10] MEDS: ATORVASTATIN 20 MG TAB PO SCH (21:52)
[2019-02-10 22:00] VITALS: BP 150/90
[2019-02-11] MEDS: ONDANSETRON 4MG/2ML VIAL (J2405) IV PRN ×3 (02:07→19:44)
[2019-02-11] MEDS: MORPHINE 4 MG/ML 1ML VIAL/SYRINGE (J2270) IV PRN ×6 (02:08→22:52)
[2019-02-11] MEDS: PROMETHAZINE INJ 25 MG/ML VIAL (J2550) IV PRN ×3 (03:01→22:52)
[2019-02-11 06:00] VITALS: BP 160/95
[2019-02-11] MEDS: HumaLOG INSULIN (NovoLOG) PER UNIT SC SCH ×2 (06:00)
[2019-02-11] MEDS: NS 1,000 ML IV SCH ×3 (06:25→22:52)
[2019-02-11 06:34] LABS: HEMATOCRIT 36.3 % (42.0-52.0); MEAN CORPUSCULAR HEMOGLOBIN 29.9 pg (27.0-33.0); MEAN CORPUSCULAR HGB CONC 33.1 g/dl (32.0-36.5); MEAN CORPUSCULAR VOLUME 90.3 fl (80.0-96.0); PLATELET COUNT, AUTOMATED 321 10^3/uL (150-450); RED BLOOD COUNT 4.02 10^6/uL (4.30-6.10); WHITE BLOOD COUNT 10.3 10^3/uL (4.0-10.0)
[2019-02-11 06:45] LABS: PROTHROMBIN TIME 91.1 SECONDS (11.8-14.0)
[2019-02-11 06:57] LABS: BLOOD UREA NITROGEN 12 MG/DL (7-18); CALCIUM LEVEL 8.2 MG/DL (8.8-10.2); CARBON DIOXIDE LEVEL 28 MEQ/L (21-32); CHLORIDE LEVEL 104 MEQ/L (98-107); CREATININE FOR GFR 0.64 MG/DL (0.70-1.30); GLOMERULAR FILTRATION RATE > 60.0 (>49); GLUCOSE, FASTING 111 MG/DL (70-100); POTASSIUM SERUM 3.7 MEQ/L (3.5-5.1); SODIUM LEVEL 139 MEQ/L (136-145)
[2019-02-11 06:58] LABS: INR 11.51
[2019-02-11] MEDS ORDERED: PHYTONADIONE 10MG/ML INJECTION (J3430) SC ONE (07:15)
--- NOTE | 2019-02-11 09:07 | IPNPDOC ---
Subjective Date Seen The patient was seen on 02/11/19. Subjective Chief Complaint/HPI Still with nausea despite NG tube and 12.5 mg IV phenergan at 3 am Still has abd pain as well but this is slightly improved Constitutional: Denies: Chills, Fever Pulmonary: Denies: Dyspnea, Cough Cardiovascular: Denies: Chest Pain, Palpitations, Orthopnea Gastrointestinal: Reports: Nausea, Abdominal Pain; Denies: Vomiting, Diarrhea, Constipation Objective Physical Examination General Exam: Positive: Alert, No Acute Distress Chest Exam: Positive: Clear to auscultation; Negative: Rales, Rhonchi, Wheezing Heart Exam: Positive: Rate Normal Abdomen Exam: Positive: BS Hypoactive, Other (distended - NG tube with billeous secretions. Colostomy with brown soft stool) Extremity Exam: Negative: Edema Assessment /Plan Problems (1) Small bowel obstruction Status: Acute Problem Text: Per surgery NG tube in place Nausea persists - I will increase phnergan dose if ok with Dr. jang Cont IVF WBC down. Faint hypoactive Bowel sounds with some output in Ostomy (2) Neuroendocrine carcinoma metastatic to liver Onset Date: Unknown Status: Chronic (3) CALE on CPAP Status: Chronic (4) Diastolic CHF, chronic Status: Chronic (5) A-fib Status: Chronic Response to Treatment: Stable Problem Text: rate controlled Coumadin held due to high INR and in case of need for surgery- Vit K given x 2 (6) Diabetes Status: Chronic Problem Text: Blood sugars are running 100s currnetly - NPO - D/C sliding scale to prevent hypoglycemia (7) CAD (coronary artery disease) Status: Chronic (8) Elevated INR Status: Acute Problem Text: see above Plan/VTE VTE Prophylaxis Ordered?: Yes (Coumadin) VS, I&O, 24H, Fishbone Vital Signs/I&O Vital Signs Date Time Temp Pulse Resp B/P (MAP) Pulse Ox O2 Delivery O2 Flow Rate FiO2 02/11/19 08:04 2.0 02/11/19 06:36 18 02/11/19 06:25 95 02/11/19 06:00 97.6 92 02/11/19 06:00 160/95 (116) 02/10/19 13:02 Nasal Cannula I&O- Last 24 Hours up to 6 AM 02/11/19 06:00 Intake Total 1900 ml Output Total 1425 ml Balance 475 ml Laboratory Data 24H LABS Laboratory Tests 2 02/10/19 11:43: Prothrombin Time 85.0H, Prothromb Time International Ratio 10.56*H, Activated Partial Thromboplast Time 75.4H 02/10/19 12:29: Immature Granulocyte % (Auto) 0.4, White Blood Count 11.7H, Red Blood Count 4.30, Hemoglobin 13.0L, Hematocrit 39.7L, Mean Corpuscular Volume 92.3, Mean Corpuscular Hemoglobin 30.2, Mean Corpuscular Hemoglobin Concent 32.7, Red Cell Distribution Width 14.3, Platelet Count 321, Neutrophils (%) (Auto) 91.2H, Lymphocytes (%) (Auto) 6.2L, Monocytes (%) (Auto) 2.0, Eosinophils (%) (Auto) 0.1, Basophils (%) (Auto) 0.1, Neutrophils # (Auto) 10.7H, Lymphocytes # (Auto) 0.7L, Monocytes # (Auto) 0.2, Eosinophils # (Auto) 0.0, Basophils # (Auto) 0.0, Nucleated Red Blood Cells % (auto) 0.0, Anion Gap 8, Glomerular Filtration Rate > 60.0, Lactic Acid Level 1.8, Calcium Level 7.9L, Aspartate Amino Transf (AST/SGOT) 96H, Alanine Aminotransferase (ALT/SGPT) 69, Alkaline Phosphatase 273H, Total Bilirubin 0.5, Direct Bilirubin 0.2, Total Protein 7.3, Albumin 2.9L, Albumin/Globulin Ratio 0.66L, Lipase 118, Digoxin Level 0.8 02/10/19 17:04: Bedside Glucose (Misc Panel) 146H 02/11/19 00:01: Bedside Glucose (Misc Panel) 99 02/11/19 03:07: Bedside Glucose (Misc Panel) 105 02/11/19 06:00: Nucleated Red Blood Cells % (auto) 0.0, Prothrombin Time 91.1H, Prothromb Time International Ratio 11.51*H, Anion Gap 7L, Glomerular Filtration Rate > 60.0, Blood Urea Nitrogen 12, Creatinine 0.64L, Sodium Level 139, Potassium Level 3.7, Chloride Level 104, Carbon Dioxide Level 28, Calcium Level 8.2L 02/11/19 06:04: Bedside Glucose (Misc Panel) 107 CBC/BMP Laboratory Tests 02/10/19 12:29 Red Blood Count 4.30, Mean Corpuscular Volume 92.3, Mean Corpuscular Hemoglobin 30.2, Mean Corpuscular Hemoglobin Concent 32.7, Red Cell Distribution Width 14.3, Neutrophils (%) (Auto) 91.2 H, Lymphocytes (%) (Auto) 6.2 L, Monocytes (%) (Auto) 2.0, Eosinophils (%) (Auto) 0.1, Basophils (%) (Auto) 0.1, Neutrophils # (Auto) 10.7 H, Lymphocytes # (Auto) 0.7 L, Monocytes # (Auto) 0.2, Eosinophils # (Auto) 0.0, Basophils # (Auto) 0.0 02/11/19 06:00 Red Blood Count 4.02 L, Mean Corpuscular Volume 90.3, Mean Corpuscular Hemoglobin 29.9, Mean Corpuscular Hemoglobin Concent 33.1, Red Cell Distribution Width 14.2, Calcium Level 8.2 L AMANDA VIRAMONTES PA-C Feb 11, 2019 09:07
[2019-02-11] MEDS: CARVedilol 6.25 MG TAB PO SCH ×2 (09:55→19:43)
[2019-02-11] MEDS: PANTOPRAZOLE 40MG INJ (PROTONIX) (C9113) IV SCH (09:55)
[2019-02-11 10:39] VITALS: BP 160/96
[2019-02-11] MEDS ORDERED: PHYTONADIONE INJection 10 MG in NS 50 ML IV ONE (11:00)
[2019-02-11] MEDS: DIGOXIN INJ 0.5 MG/2 ML AMP (J1160) IV SCH (11:55)
--- NOTE | 2019-02-11 14:20 | REP ---
CT ABDOMEN/PELVIS WITH NO IV CONTRAST, WITH ORAL CONTRAST: CT abdomen/pelvis performed with a small amount of oral contrast administered only. No IV contrast was administered. Comparison made with prior study of 12/27/2018, which showed a mass in the right transverse colon causing partial obstruction. Since that time, the patient has had surgery with resection of a portion of the right transverse colon. There appears to be a blind ending distal stump of transverse colon with a suture line in the midline of the upper abdomen. The adjacent remaining right colon is moderately dilated with air and does contain ingested oral contrast. This connects to a nondilated ileostomy. The right colonic dilatation appears to represent an ileus and not obstruction. Nasogastric tube is seen. Sideport is in the distal esophagus, and the distal tip is in the fundus of the stomach. Stomach is not dilated. Proximal small bowel is normal in caliber. Distal small bowel loops are mildly dilated. There is no free air or free fluid. No infiltrate is seen in the visualized lung bases. Liver demonstrates multiple metastatic nodules, which appear to have increased in size and number since the prior exam. Spleen is grossly unremarkable. Left adrenal gland is thickened and unchanged. Pancreas is grossly unremarkable. Kidneys are grossly unremarkable with no hydroureteronephrosis. Two mildly enlarged right pericardial lymph nodes have increased since prior study, the larger of the two measuring 1.6 cm in diameter. An enlarged lymph node is seen just above the level of the pancreas, and two other enlarged lymph nodes are seen just inferior to that, increased since prior study. Multiple metallic clips are seen in the right upper quadrant with streaky postsurgical change in the mesentery. A few subcentimeter lymph nodes are seen along the right crura of the diaphragm. There is evidence of prior cholecystectomy. There are degenerative changes of the spine. There is also increased size of a soft tissue nodule medial to the right kidney, now measuring 2 cm in diameter. IMPRESSION: Ingested oral contrast is seen in the right colon. At that location, there is an anastomosis with the ileostomy, which is normal in caliber and traverses to the skin surface. Right colon is moderately dilated as are some of the distal small bowel loops. This bowel dilatation mostly likely represents an ileus, although a partial obstruction at the ileocolic anastomosis is not totally excluded. No free air or free fluid. Nasogastric tube is seen with sideport in the distal esophagus and distal tip in the fundus of the stomach. There is an increased number and size in the multiple liver nodules, and there is increased central mesenteric adenopathy. Electronically Signed by Denton Frost MD 02/11/2019 02:37 P
[2019-02-11 14:21] VITALS: BP 165/100
--- NOTE | 2019-02-11 17:52 | IPN ---
DATE: 02/11/2019 Patient was admitted last night with an ileus/partial obstruction and still had some crampy abdominal pain overnight and abdominal pain in general. He has been afebrile fortunately, and his ostomy has put out a little bit of stuff. His nasogastric (NG) tube seems to be draining as well at this point. I did manipulate the NG tube earlier and did get a fair bit of fluid out. Since that time, the NG tube definitely made an improvement with his overall status. He has required some pain medication, but it is not as severe as when he first came into the emergency room. His abdomen is softly distended. He really is not tender to palpation, although some deep palpation he is uncomfortable, but no true peritoneal signs are appreciated. On his laboratory findings, his white count is coming down nicely, but what was concerning to me was that his anticoagulation is still significantly elevated with an INR of 11.5 today. Given this, I had concerns that might have some intra-abdominal bleeding, although his CT scan was done and did not reveal any evidence of ongoing or an intra-abdominal bleeding, and thus at this point I would recommend that we continue with his current treatments, try to optimize him with his medical issues, get some followup x-rays, and if we do not see evidence of resolution of his white count, consider placing him on some antibiotics empirically.
[2019-02-11 18:24] VITALS: BP 166/97
[2019-02-11] MEDS: ATORVASTATIN 20 MG TAB PO SCH (19:42)
[2019-02-12 02:00] VITALS: BP 158/84
[2019-02-12 06:00] VITALS: BP 147/97
[2019-02-12 07:18] LABS: HEMATOCRIT 37.7 % (42.0-52.0); HEMOGLOBIN 12.4 g/dl (13.5-17.5); MEAN CORPUSCULAR HEMOGLOBIN 30.8 pg (27.0-33.0); MEAN CORPUSCULAR HGB CONC 32.9 g/dl (32.0-36.5); MEAN CORPUSCULAR VOLUME 93.8 fl (80.0-96.0); PLATELET COUNT, AUTOMATED 265 10^3/uL (150-450); RED BLOOD COUNT 4.02 10^6/uL (4.30-6.10); WHITE BLOOD COUNT 8.5 10^3/uL (4.0-10.0)
[2019-02-12 07:43] LABS: INR 1.19; PROTHROMBIN TIME 14.8 SECONDS (11.8-14.0)
[2019-02-12 07:46] LABS: BLOOD UREA NITROGEN 12 MG/DL (7-18); CALCIUM LEVEL 8.4 MG/DL (8.8-10.2); CARBON DIOXIDE LEVEL 26 MEQ/L (21-32); CHLORIDE LEVEL 106 MEQ/L (98-107); GLOMERULAR FILTRATION RATE > 60.0 (>49); GLUCOSE, FASTING 113 MG/DL (70-100); POTASSIUM SERUM 3.7 MEQ/L (3.5-5.1); SODIUM LEVEL 139 MEQ/L (136-145)
--- NOTE | 2019-02-12 08:36 | REP ---
The supine upright abdomen four views: Comparison is 02/10/[address] of 02/11/2019. The tip of the nasogastric tube is in the gastric fundus. There are multiple dilated large and small bowel loops with air-fluid levels, as previously, however, the dilated bowel loops appear to have slightly decreased in size. Surgical clips are again noted in the right upper quadrant. There is a stoma projected over the abdominal right lower quadrant. Retrospect, this is probably present previously. The partially excluded at the right film margin. Impression: The dilated bowel loops have slightly decreased in size. Electronically Signed by Denton Treviño MD 02/12/2019 08:27 A
--- NOTE | 2019-02-12 08:57 | IPNPDOC ---
Text Note Date of Service The patient was seen on 02/12/19. NOTE No acute events overnight. He claims that his pain is essentially gone. His o stomy has been working well, and the NG output has decreased. His abdomen is still very distended and he is getting short of breath. VSSAF NAD abd - soft, diffuse tenderness, distended labs - below xray - distended loops of bowel are slightly improved, and the NGT is in the fundus A) 63y/o male with ileus vs. partial SBO P) ice and water ambulate NGT to LIS strict I's and O's IVF will advance diet once the distention decreases. Chance Sylvester DO VS,Fishbone, I+O VS, Fishbone, I+O Laboratory Tests 02/12/19 07:06 Red Blood Count 4.02 L, Mean Corpuscular Volume 93.8, Mean Corpuscular Hemoglobin 30.8, Mean Corpuscular Hemoglobin Concent 32.9, Red Cell Distribution Width 14.1, Calcium Level 8.4 L Vital Signs Date Time Temp Pulse Resp B/P (MAP) Pulse Ox O2 Delivery O2 Flow Rate FiO2 02/12/19 06:00 97.6 77 18 147/97 (114) 98 2.0 02/10/19 13:02 Nasal Cannula I&O- Last 24 Hours up to 6 AM 02/12/19 06:00 Intake Total 2591 ml Output Total 2575 ml Balance 16 ml JANA SYLVESTER DO Feb 12, 2019 08:57
[2019-02-12] MEDS: CARVedilol 6.25 MG TAB PO SCH ×2 (09:24→21:50)
[2019-02-12] MEDS: PANTOPRAZOLE 40MG INJ (PROTONIX) (C9113) IV SCH (09:24)
[2019-02-12] MEDS: DIGOXIN INJ 0.5 MG/2 ML AMP (J1160) IV SCH (09:25)
[2019-02-12 10:00] VITALS: BP 176/80
[2019-02-12] MEDS: NS 1,000 ML IV SCH ×2 (10:11→15:14)
[2019-02-12] MEDS: MORPHINE 4 MG/ML 1ML VIAL/SYRINGE (J2270) IV PRN ×4 (10:12→21:50)
[2019-02-12 14:00] VITALS: BP 174/78
[2019-02-12] MEDS: PROMETHAZINE INJ 25 MG/ML VIAL (J2550) IV PRN (17:48)
[2019-02-12] MEDS: ONDANSETRON 4MG/2ML VIAL (J2405) IV PRN ×2 (17:48→21:51)
[2019-02-12 18:00] VITALS: BP 156/78
[2019-02-12] MEDS: ATORVASTATIN 20 MG TAB PO SCH (21:54)
[2019-02-12 22:00] VITALS: BP 158/90
[2019-02-13] VITALS (7 sets, daily range): BP systolic 120–151; BP diastolic 58–106
[2019-02-13] MEDS ORDERED: HEPARIN SOD (PORCINE) 5000 UNITS/ML VIAL SQ SCH
--- NOTE | 2019-02-13 | IPNPDOC ---
Subjective Date Seen The patient was seen on 02/12/19. Subjective Chief Complaint/HPI He reports that he is feeling better. He is excited to have something to drink. Denies nausea. NG tube remains on suction. Constitutional: Denies: Chills, Fever Pulmonary: Denies: Dyspnea, Cough Cardiovascular: Denies: Chest Pain Gastrointestinal: Denies: Nausea, Vomiting, Diarrhea, Constipation Objective Physical Examination General Exam: Positive: Alert, No Acute Distress Chest Exam: Positive: Clear to auscultation; Negative: Rales, Rhonchi, Wheezing Heart Exam: Positive: Rate Normal Abdomen Exam: Positive: BS Hypoactive, Other (distended - NG tube with billeous secretions. Colostomy with brown soft stool) Extremity Exam: Negative: Edema Assessment /Plan Problems (1) Small bowel obstruction Status: Acute Problem Text: 02/12 -- Patient reports that nausea is improved today. NG tube continues to drain. Reports he is much more comfortable today. Per surgery NG tube in place Nausea persists - I will increase phnergan dose if ok with Dr. jang Cont IVF WBC down. Faint hypoactive Bowel sounds with some output in Ostomy (2) Neuroendocrine carcinoma metastatic to liver Onset Date: Unknown Status: Chronic (3) CALE on CPAP Status: Chronic (4) Diastolic CHF, chronic Status: Chronic (5) A-fib Status: Chronic Response to Treatment: Stable Problem Text: rate controlled Coumadin held due to high INR and in case of need for surgery- Vit K given x 2 (6) Diabetes Status: Chronic Problem Text: Blood sugars are running 100s currnetly - NPO - D/C sliding scale to prevent hypoglycemia (7) CAD (coronary artery disease) Status: Chronic (8) Elevated INR Status: Acute Problem Text: see above Plan/VTE VTE Prophylaxis Ordered?: Yes (Coumadin) VS, I&O, 24H, Fishbone Vital Signs/I&O Vital Signs Date Time Temp Pulse Resp B/P (MAP) Pulse Ox O2 Delivery O2 Flow Rate FiO2 02/12/19 21:50 91 158/90 02/12/19 21:50 18 2.0 02/12/19 18:00 98.5 99 02/10/19 13:02 Nasal Cannula I&O- Last 24 Hours up to 6 AM 02/12/19 06:00 Intake Total 2591 ml Output Total 2575 ml Balance 16 ml Laboratory Data 24H LABS Laboratory Tests 2 6/22/19 07:06: Nucleated Red Blood Cells % (auto) 0.0, Prothrombin Time 14.8H, Prothromb Time International Ratio 1.19, Anion Gap 7L, Glomerular Filtration Rate > 60.0, Blood Urea Nitrogen 12, Creatinine 0.60L, Sodium Level 139, Potassium Level 3.7, Chloride Level 106, Carbon Dioxide Level 26, Calcium Level 8.4L 02/12/19 12:03: Bedside Glucose (Misc Panel) 123H 02/12/19 16:56: Bedside Glucose (Misc Panel) 101 CBC/BMP Laboratory Tests 02/12/19 07:06 Red Blood Count 4.02 L, Mean Corpuscular Volume 93.8, Mean Corpuscular He moglobin 30.8, Mean Corpuscular Hemoglobin Concent 32.9, Red Cell Distribution Width 14.1, Calcium Level 8.4 L AMRIK GIRARD DO Feb 13, 2019 00:00
[2019-02-13] MEDS: PROMETHAZINE INJ 25 MG/ML VIAL (J2550) IV PRN ×4 (00:02→19:02)
[2019-02-13] MEDS: MORPHINE 4 MG/ML 1ML VIAL/SYRINGE (J2270) IV PRN ×6 (00:02→21:56)
[2019-02-13] MEDS: NS 1,000 ML IV SCH ×4 (00:02→23:17)
[2019-02-13] MEDS: HEPARIN SOD (PORCINE) 5000 UNITS/ML VIAL SQ SCH ×3 (06:08→21:48)
[2019-02-13 08:00] LABS: HEMATOCRIT 36.9 % (42.0-52.0); HEMOGLOBIN 11.7 g/dl (13.5-17.5); MEAN CORPUSCULAR HEMOGLOBIN 29.9 pg (27.0-33.0); MEAN CORPUSCULAR HGB CONC 31.7 g/dl (32.0-36.5); MEAN CORPUSCULAR VOLUME 94.4 fl (80.0-96.0); PLATELET COUNT, AUTOMATED 242 10^3/uL (150-450); RED BLOOD COUNT 3.91 10^6/uL (4.30-6.10); WHITE BLOOD COUNT 8.8 10^3/uL (4.0-10.0)
[2019-02-13 08:10] LABS: INR 1.13; PROTHROMBIN TIME 14.2 SECONDS (11.8-14.0)
[2019-02-13 08:25] LABS: BLOOD UREA NITROGEN 12 MG/DL (7-18); CALCIUM LEVEL 8.4 MG/DL (8.8-10.2); CARBON DIOXIDE LEVEL 29 MEQ/L (21-32); CHLORIDE LEVEL 106 MEQ/L (98-107); CREATININE FOR GFR 0.72 MG/DL (0.70-1.30); GLOMERULAR FILTRATION RATE > 60.0 (>49); GLUCOSE, FASTING 107 MG/DL (70-100); POTASSIUM SERUM 4.1 MEQ/L (3.5-5.1); SODIUM LEVEL 141 MEQ/L (136-145)
--- NOTE | 2019-02-13 08:27 | REP ---
Supine upright abdomen four views: Comparisons are 02/12/2090 and 02/10/2019. There are multiple dilated large and small bowel loops, unchanged from 02/12/2019 but slightly decreased in size from 02/10/2019. A stoma is again superimposed over the right lower quadrant. The surgical clips on the right are unchanged. Impression: No change from 02/12/2019. The nasogastric tube is unchanged with the tip in the abdominal left upper quadrant. Electronically Signed by Denton Treviño MD 02/13/2019 08:17 A
[2019-02-13] MEDS: PANTOPRAZOLE 40MG INJ (PROTONIX) (C9113) IV SCH (08:38)
[2019-02-13] MEDS: CARVedilol 6.25 MG TAB PO SCH ×2 (08:38→21:48)
[2019-02-13] MEDS: DIGOXIN INJ 0.5 MG/2 ML AMP (J1160) IV SCH (08:38)
--- NOTE | 2019-02-13 09:12 | IPNPDOC ---
Text Note Date of Service The patient was seen on 02/13/19. NOTE No acute events overnight. His ostomy has been working well, but the NG output is still elevated. Abd xray is improved from admission, but no change from yesterday. VSSAF U - 450 NG - 2600 Stool - 450 NAD abd - soft, diffuse tenderness, distended labs - below xray - distended loops of bowel are slightly improved, and the NGT is in the stomach A) 63y/o male with ileus vs. partial SBO P) ice and water ambulate NGT to LIS strict I's and O's IVF will advance diet once the distention decreases. Chance Sylvester DO VS,Fishbone, I+O VS, Fishbone, I+O Laboratory Tests 02/13/19 07:34 Red Blood Count 3.91 L, Mean Corpuscular Volume 94.4, Mean Corpuscular Hemoglobin 29.9, Mean Corpuscular Hemoglobin Concent 31.7 L, Red Cell D istribution Width 14.0, Calcium Level 8.4 L Vital Signs Date Time Temp Pulse Resp B/P (MAP) Pulse Ox O2 Delivery O2 Flow Rate FiO2 02/13/19 08:38 105 02/13/19 08:38 150/80 02/13/19 06:18 18 02/13/19 06:08 2.0 02/13/19 06:00 97.0 100 02/10/19 13:02 Nasal Cannula I&O- Last 24 Hours up to 6 AM 02/13/19 06:00 Intake Total 100 ml Output Total 4550 ml Balance -4450 ml JANA SYLVESTER DO Feb 13, 2019 09:12
[2019-02-13] MEDS: ATORVASTATIN 20 MG TAB PO SCH (21:48)
--- NOTE | 2019-02-14 00:32 | IPNPDOC ---
Subjective Date Seen The patient was seen on 02/13/19. Subjective Chief Complaint/HPI He continues to take sips of ice and water; NG tube to LIS. States his abdomen feels similar to yesterday. Constitutional: Denies: Chills, Fever Pulmonary: Denies: Dyspnea, Cough Cardiovascular: Denies: Chest Pain Gastrointestinal: Reports: Abdominal Pain (mild); Denies: Nausea, Vomiting, Diarrhea, Constipation Objective Physical Examination General Exam: Positive: Alert, No Acute Distress Chest Exam: Positive: Clear to auscultation; Negative: Rales, Rhonchi, Wheezing Heart Exam: Positive: Rate Normal Abdomen Exam: Positive: BS Hypoactive, Other (distended - NG tube with billeous secretions. Colostomy with brown soft stool) Extremity Exam: Negative: Edema Assessment /Plan Problems (1) Small bowel obstruction Status: Acute Problem Text: 02/13 -- reports that he feels similar to yesterday 02/12 -- Patient reports that nausea is improved today. NG tube continues to drain. Reports he is much more comfortable today. Per surgery NG tube in place Nausea persists - I will increase phnergan dose if ok with Dr. jang Cont IVF WBC down. Faint hypoactive Bowel sounds with some output in Ostomy (2) Neuroendocrine carcinoma metastatic to liver Onset Date: Unknown Status: Chronic (3) CALE on CPAP Status: Chronic (4) Diastolic CHF, chronic Status: Chronic (5) A-fib Status: Chronic Response to Treatment: Stable Problem Text: rate controlled Coumadin held due to high INR and in case of need for surgery- Vit K given x 2 (6) Diabetes Status: Chronic Problem Text: Blood sugars are running 100s currnetly - NPO - D/C sliding scale to prevent hypoglycemia (7) CAD (coronary artery disease) Status: Chronic (8) Elevated INR Status: Acute Problem Text: see above Plan/VTE VTE Prophylaxis Ordered?: Yes (Coumadin) VS, I&O, 24H, Fishbone Vital Signs/I&O Vital Signs Date Time Temp Pulse Resp B/P (MAP) Pulse Ox O2 Delivery O2 Flow Rate FiO2 02/13/19 22:10 18 02/13/19 21:48 97 120/84 02/13/19 20:55 97.0 95 2.0 02/10/19 13:02 Nasal Cannula I&O- Last 24 Hours up to 6 AM 02/14/19 06:00 Intake Total 120 ml Output Total 3325 ml Balance -3205 ml Laboratory Data 24H LABS Laboratory Tests 2 02/13/19 07:33: Prothrombin Time 14.2H, Prothromb Time International Ratio 1.13 02/13/19 07:34: Nucleated Red Blood Cells % (auto) 0.0, Anion Gap 6L, Glomerular Filtration Rate > 60.0, Blood Urea Nitrogen 12, Creatinine 0.72, Sodium Level 141, Potassium Level 4.1, Chloride Level 106, Carbon Dioxide Level 29, Calcium Level 8.4L 02/13/19 11:41: Bedside Glucose (Misc Panel) 95 02/13/19 16:37: Bedside Glucose (Misc Panel) 91 02/13/19 20:52: Bedside Glucose (Misc Panel) 92 CBC/BMP Laboratory Tests 02/13/19 07:34 Red Blood Count 3.91 L, Mean Corpuscular Volume 94.4, Mean Corpuscular Hemoglobin 29.9, Mean Corpuscular Hemoglobin Concent 31.7 L, Red Cell Distribution Width 14.0, Calcium Level 8.4 L AMRIK GIRARD DO Feb 14, 2019 00:31
[2019-02-14] MEDS: MORPHINE 4 MG/ML 1ML VIAL/SYRINGE (J2270) IV PRN ×5 (03:22→23:51)
[2019-02-14] MEDS: PROMETHAZINE INJ 25 MG/ML VIAL (J2550) IV PRN ×2 (03:22→19:44)
[2019-02-14] MEDS: HEPARIN SOD (PORCINE) 5000 UNITS/ML VIAL SQ SCH (05:45)
[2019-02-14 06:00] VITALS: BP 182/98
[2019-02-14 06:32] LABS: HEMATOCRIT 35.6 % (42.0-52.0); HEMOGLOBIN 11.4 g/dl (13.5-17.5); MEAN CORPUSCULAR HEMOGLOBIN 29.8 pg (27.0-33.0); MEAN CORPUSCULAR VOLUME 93.2 fl (80.0-96.0); PLATELET COUNT, AUTOMATED 207 10^3/uL (150-450); RED BLOOD COUNT 3.82 10^6/uL (4.30-6.10); WHITE BLOOD COUNT 7.2 10^3/uL (4.0-10.0)
[2019-02-14 06:41] LABS: INR 1.09; PROTHROMBIN TIME 13.8 SECONDS (11.8-14.0)
[2019-02-14 06:50] LABS: BLOOD UREA NITROGEN 9 MG/DL (7-18); CALCIUM LEVEL 8.2 MG/DL (8.8-10.2); CARBON DIOXIDE LEVEL 29 MEQ/L (21-32); CHLORIDE LEVEL 106 MEQ/L (98-107); CREATININE FOR GFR 0.56 MG/DL (0.70-1.30); GLOMERULAR FILTRATION RATE > 60.0 (>49); GLUCOSE, FASTING 96 MG/DL (70-100); SODIUM LEVEL 139 MEQ/L (136-145)
[2019-02-14] MEDS: NS 1,000 ML IV SCH ×3 (06:54→22:50)
--- NOTE | 2019-02-14 09:33 | REP ---
Clinical: Ileus. Technique: Multiple supine views of the abdomen and pelvis. Findings: A nasogastric tube is identified extending into the left upper quadrant. Evidence for prior cholecystectomy and ostomy. Distended loops of small and large bowel are essentially unchanged as compared to 02/12/2019, 02/13/2019. Impression: Nasogastric tube extensive left upper quadrant. Distended loops of small/large bowel essentially unchanged. Electronically Signed by Chad Weldon MD 02/14/2019 09:25 A
[2019-02-14] MEDS: PANTOPRAZOLE 40MG INJ (PROTONIX) (C9113) IV SCH (09:56)
[2019-02-14] MEDS: CARVedilol 6.25 MG TAB PO SCH ×2 (09:58→20:52)
[2019-02-14] MEDS: DIGOXIN INJ 0.5 MG/2 ML AMP (J1160) IV SCH (09:59)
[2019-02-14 10:00] VITALS: BP 160/80
[2019-02-14 11:47] LABS: MAGNESIUM LEVEL 1.6 MG/DL (1.8-2.4)
--- NOTE | 2019-02-14 11:54 | IPNPDOC ---
Subjective Date Seen The patient was seen on 02/14/19. Subjective Chief Complaint/HPI ileus Events since last encounter Continues with NGT to LWS. Had episodes of muscle cramping overnight. mag level pending. Constitutional: Denies: Chills, Fever, Night Sweats Gastrointestinal: Reports: Other Symptoms (liquid output from ostomy) Objective Physical Examination General Exam: Positive: Alert, No Acute Distress Chest Exam: Positive: Clear to auscultation; Negative: Rales, Rhonchi, Wheezing Heart Exam: Positive: Rate Normal Abdomen Exam: Positive: BS Hypoactive, Other (distended - NG tube with billeous secretions. Colostomy with brown soft stool) Extremity Exam: Negative: Edema Assessment /Plan Problems (1) Small bowel obstruction Status: Acute Problem Text: 02/14/19: continue with surgical recommendations. OOB tid. Mag level pending. 02/13 -- reports that he feels similar to yesterday 02/12 -- Patient reports that nausea is improved today. NG tube continues to drain. Reports he is much more comfortable today. Per surgery NG tube in place Nausea persists - I will increase phnergan dose if ok with Dr. jang Cont IVF WBC down. Faint hypoactive Bowel sounds with some output in Ostomy (2) Neuroendocrine carcinoma metastatic to liver Onset Date: Unknown Status: Chronic (3) CALE on CPAP Status: Chronic (4) Diastolic CHF, chronic Status: Chronic (5) A-fib Status: Chronic Response to Treatment: Stable Problem Text: resume Warfarin at lower dose: 5 mg. INR daily. Teds and SCDs rate controlled Coumadin held due to high INR and in case of need for surgery- Vit K given x 2 (6) Diabetes Status: Chronic Problem Text: Blood sugars are running 100s currnetly - NPO - D/C sliding scale to prevent hypoglycemia (7) CAD (coronary artery disease) Status: Chronic (8) Elevated INR Status: Acute Problem Text: see above Plan/VTE VTE Prophylaxis Ordered?: Yes (Coumadin) VS, I&O, 24H, Fishbone Vital Signs/I&O Vital Signs Date Time Temp Pulse Resp B/P (MAP) Pulse Ox O2 Delivery O2 Flow Rate FiO2 02/14/19 10:37 18 02/14/19 10:00 97.8 91 160/80 (106) 98 2.0 02/10/19 13:02 Nasal Cannula I&O- Last 24 Hours up to 6 AM 02/14/19 06:00 Intake Total 0 ml Output Total 5300 ml Balance -5300 ml Laboratory Data 24H LABS Laboratory Tests 2 02/13/19 16:37: Bedside Glucose (Misc Panel) 91 02/13/19 20:52: Bedside Glucose (Misc Panel) 92 02/14/19 06:15: Prothrombin Time 13.8, Prothromb Time International Ratio 1.09, Anion Gap 4L, Glomerular Filtration Rate > 60.0, Blood Urea Nitrogen 9, Creatinine 0.56L, Sodium Level 139, Potassium Level 4.0, Chloride Level 106, Carbon Dioxide Level 29, Calcium Level 8.2L, Magnesium Level 1.6L 02/14/19 06:16: Nucleated Red Blood Cells % (auto) 0.0 CBC/BMP Laboratory Tests 02/14/19 06:15 Calcium Level 8.2 L 02/14/19 06:16 Red Blood Count 3.82 L, Mean Corpuscular Volume 93.2, Mean Corpuscular Hemoglobin 29.8, Mean Corpuscular Hemoglobin Concent 32.0, Red Cell Distribution Width 13.8 Sherry Salamanca [employer] Feb 14, 2019 11:54
[2019-02-14] MEDS: MAG SULF 1GM/100ML (MAG RUN) 1 GM in APPROPRIATE DILUENT 1 EA IV SCH ×2 (13:17→14:12)
[2019-02-14 14:00] VITALS: BP 165/58
[2019-02-14] MEDS ORDERED: GASTROGRAFIN SOLUTION 30ML (Q9963) As Ordered ONE (15:14)
[2019-02-14] MEDS ORDERED: WARFARIN SOD 5 MG TAB PO SCH (17:00)
[2019-02-14 18:00] VITALS: BP 168/85
[2019-02-14] MEDS: ONDANSETRON 4MG/2ML VIAL (J2405) IV PRN (18:09)
[2019-02-14 20:46] VITALS: BP 140/82
[2019-02-14] MEDS: ATORVASTATIN 20 MG TAB PO SCH (20:52)
[2019-02-15] MEDS: ONDANSETRON 4MG/2ML VIAL (J2405) IV PRN ×2 (00:51→22:20)
[2019-02-15 01:11] VITALS: BP 130/89
[2019-02-15] MEDS: MORPHINE 4 MG/ML 1ML VIAL/SYRINGE (J2270) IV PRN ×6 (03:05→22:14)
[2019-02-15 06:16] VITALS: BP 133/86
[2019-02-15 06:38] LABS: HEMATOCRIT 33.1 % (42.0-52.0); HEMOGLOBIN 10.8 g/dl (13.5-17.5); MEAN CORPUSCULAR HEMOGLOBIN 29.5 pg (27.0-33.0); MEAN CORPUSCULAR HGB CONC 32.6 g/dl (32.0-36.5); MEAN CORPUSCULAR VOLUME 90.4 fl (80.0-96.0); PLATELET COUNT, AUTOMATED 194 10^3/uL (150-450); RED BLOOD COUNT 3.66 10^6/uL (4.30-6.10); WHITE BLOOD COUNT 6.5 10^3/uL (4.0-10.0)
[2019-02-15] MEDS: NS 1,000 ML IV SCH (06:51)
[2019-02-15 06:57] LABS: INR 1.03; PROTHROMBIN TIME 13.2 SECONDS (11.8-14.0)
[2019-02-15 07:05] LABS: BLOOD UREA NITROGEN 9 MG/DL (7-18); CALCIUM LEVEL 8.2 MG/DL (8.8-10.2); CARBON DIOXIDE LEVEL 26 MEQ/L (21-32); CHLORIDE LEVEL 108 MEQ/L (98-107); CREATININE FOR GFR 0.51 MG/DL (0.70-1.30); GLOMERULAR FILTRATION RATE > 60.0 (>49); GLUCOSE, FASTING 103 MG/DL (70-100); MAGNESIUM LEVEL 1.8 MG/DL (1.8-2.4); POTASSIUM SERUM 3.7 MEQ/L (3.5-5.1); SODIUM LEVEL 141 MEQ/L (136-145)
--- NOTE | 2019-02-15 08:37 | REP ---
Clinical: Follow up ileus. Technique: Three views of the abdomen and pelvis. Findings: Diffusely dilated loops of small large bowel are again identified and essentially unchanged. There is evidence for ostomy overlying the right mid abdomen as well as prior cholecystectomy. Skeletal structures are intact. Impression: Diffusely air-filled dilated loops of small large bowel unchanged. Electronically Signed by Chad Weldon MD 02/15/2019 07:58 A
[2019-02-15] MEDS: PANTOPRAZOLE 40MG INJ (PROTONIX) (C9113) IV SCH (08:41)
[2019-02-15] MEDS: DIGOXIN INJ 0.5 MG/2 ML AMP (J1160) IV SCH (08:42)
[2019-02-15] MEDS: CARVedilol 6.25 MG TAB PO SCH ×2 (08:43→21:22)
--- NOTE | 2019-02-15 09:15 | IPNPDOC ---
Subjective General Date/Time Seen The patient was seen on 02/15/19 at 09:14. Subject Chief Complaint/History The patient is a 63-year-old male admitted with a reason for visit of Ileus, Small Bowel Obstruction. Patient admitted since last for bowel obstruction. He has shown some improvement with output from his ileostomy but continues to have high nasogastric tube output. He denies taking much oral fluid intake and only has been taking a few ice chips for comfort. He continues to have abdominal distention. His nasogastric tube has been clamped overnight as part of the small bowel follow-through exam. He reports nausea with the nasogastric tube clamped as well as abdominal and back pain. He has been afebrile. Current Medications Current Medications Current Medications Atorvastatin Calcium (Lipitor) 80 mg QHS PO Last administered on 02/14/19at 2 0:52; Start 02/10/19 at 21:00 Carvedilol (COReg) 6.25 mg BID PO Last administered on 02/15/19at 08:43; Start 02/10/19 at 21:00 Dextrose (Dextrose 50%) 25 ml ASDIRECTED PRN IV SEE LABEL COMMENTS; Start 02/10/19 at 16:00 Digoxin (Lanoxin) 0.25 mg DAILY IV Last administered on 02/15/19at 08:42; Start 02/11/19 at 09:00 Glucagon (Glucagon) 1 mg ASDIRECTED PRN SC SEE LABEL COMMENTS; Start 02/10/19 at 16:00 Glucose (Glucose) 16 GM ASDIRECTED PRN PO SEE LABEL COMMENTS; Start 02/10/19 at 16:00 Heparin Sodium (Heparin (Flush)) 500 units ASDIRECTED PRN IV SEE LABEL COMMENTS; Start 02/10/19 at 12:00; Stop 02/10/19 at 16:25; Status DC Heparin Sodium (Porcine) (Heparin) 5,000 units Q8H SQ ; Start 02/13/19 at 00:00; Stop 02/13/19 at 00:46; Status DC Heparin Sodium (Porcine) (Heparin) 5,000 units Q8H SQ Last administered on 02/14/19at 05:45; Start 02/13/19 at 06:00; Stop 02/14/19 at 11:50; Status DC Home Med (Med Rec Complete!) ASDIRECTED XX ; Start 02/10/19 at 14:00; Stop 02/10/19 at 14:00; Status DC Insulin Human Lispro (HumaLOG INSULIN) SEE PROTOCOL TABLE Q6H SC Last administered on 02/10/19 18:43; Start 02/10/19 at 18:00; Stop 02/11/19 at 09:13; Status DC Magnesium Sulfate/ Dextrose 1 gm/IV Miscellaneous Supplies 100 ml @ 100 mls/hr Q1H IV Last administered on 02/14/19 14:12; Start 02/14/19 at 14:00; Stop 02/14/19 at 15:59; Status DC Metoclopramide HCl (REGLAN INJection) 10 mg Q6HP PRN IV NAUSEA OR VOMITING; Start 02/10/19 at 15:00; Stop 02/10/19 at 15:28; Status DC Morphine Sulfate (Morphine Sulfate Inj) 2 mg Q2HP PRN IV MODERATE PAIN (PS 5-7) Last administered on 02/15/19 03:05; Start 02/10/19 at 15:00 Morphine Sulfate (Morphine Sulfate Inj) 4 mg Q2HP PRN IV SEVERE PAIN (PS 8-10) Last administered on 02/15/19 08:45; Start 02/10/19 at 15:00 Morphine Sulfate (Morphine Sulfate Inj) 4 mg Q30M PRN IV SEVERE PAIN (PS 8-10) Last administered on 02/10/19at 11:50; Start 02/10/19 at 11:45; Stop 02/10/19 at 16:24; Status DC Ondansetron HCl (ZOFRAN INJection) 4 mg Q4HP PRN IV NAUSEA OR VOMITING Last administered on 02/15/19at 00:51; Start 02/11/19 at 09:45 Ondansetron HCl (ZOFRAN INJection) 4 mg Q6HP PRN IV NAUSEA OR VOMITING Last administered on 02/11/19at 02:07; Start 02/10/19 at 15:00; Stop 02/11/19 at 09:38; Status DC Pantoprazole Sodium (Protonix) 40 mg DAILY IV Last administered on 02/15/19 08:41; Start 02/11/19 at 09:00 Promethazine HCl (PHENERGAN INJection) 12.5 mg Q6HP PRN IV NAUSEA Last administered on 02/11/19at 03:01; Start 02/10/19 at 15:00; Stop 02/11/19 at 09:13; Status DC Promethazine HCl (PHENERGAN INJection) 25 mg Q6HP PRN IV NAUSEA Last administered on 02/14/19at 19:44; Start 02/11/19 at 09:15 Sodium Chloride 1,000 ml @ 100 mls/hr Q10H IV Last administered on 02/10/19at 11:50; Start 02/10/19 at 11:43; Stop 02/10/19 at 16:00; Status DC Sodium Chloride 1,000 ml @ 125 mls/hr Q8H IV Last administered on 02/15/19at 06:51; Start 02/10/19 at 14:47; Stop 02/15/19 at 08:27; Status DC Sodium Chloride (Saline Lock Flush) 10 ml ASDIRECTED PRN IV SEE LABEL COMMENTS; Start 02/10/19 at 12:00; Stop 02/10/19 at 16:25; Status DC Warfarin Sodium (Coumadin) 5 mg DAILY@17 PO Last administered on 02/14/19at 18:09; Start 02/14/19 at 17:00 Allergies Coded Allergies: No Known Allergies (Unverified , 12/27/18) Objective Physical Examination Examination GENERAL APPEARANCE: Looks relatively comfortable.. SKIN: Warm and dry. HEENT: He has a nasogastric tube in place which seems to be working. This drained 2100 ML's yesterday. This has been clamped overnight and has just recently been placed back on suction drainage of bilious fluid after he returned from the x-ray.. NECK: Short supple neck. No jugular venous distention. LUNGS: Clear to auscultation bilaterally. No wheezing appreciated. HEART: No chest wall abnormalities. Regular rate and rhythm with no murmurs appreciated. ABDOMEN: Abdomen is round, soft, moderately distended especially in the midportion of the abdomen. Tympanitic to percussion. Not much abdominal tenderness though patient reports mild discomfort with deep palpation. Most of his previous midline incision is healed save for a small subcentimeter opening with small amount of purulent drainage. This is located a few centimeters below the umbilicus.. Normal overlying skin. Ileostomy is a very thin liquid output with gas. EXTREMITIES: Extremities have no deformities. No edema identified. Vital Signs Vital Signs Date Time Temp Pulse Resp B/P (MAP) Pulse Ox O2 Delivery O2 Flow Rate FiO2 02/15/19 08:45 18 02/15/19 08:43 95 133/86 02/15/19 06:16 98.1 97 2.0 02/10/19 13:02 Nasal Cannula I&Os I&O- Last 24 Hours up to 6 AM 02/15/19 06:00 Intake Total 550 ml Output Total 4000 ml Balance -3450 ml Laboratory Data Labs 24H Laboratory Tests 2 02/14/19 11:50: Bedside Glucose (Misc Panel) 88 02/14/19 20:52: Bedside Glucose (Misc Panel) 101 02/15/19 06:05: Nucleated Red Blood Cells % (auto) 0.0, Prothrombin Time 13.2, Prothromb Time International Ratio 1.03, Anion Gap 7L, Glomerular Filtration Rate > 60.0, Blood Urea Nitrogen 9, Creatinine 0.51L, Sodium Level 141, Potassium Level 3.7, C hloride Level 108H, Carbon Dioxide Level 26, Calcium Level 8.2L, Magnesium Level 1.8 CBC/BMP Laboratory Tests 02/15/19 06:05 Red Blood Count 3.66 L, Mean Corpuscular Volume 90.4, Mean Corpuscular Hemoglobin 29.5, Mean Corpuscular Hemoglobin Concent 32.6, Red Cell Distribution Width 13.8, Calcium Level 8.2 L Impression Small bowel obstruction, secondary to adhesions or to the primary neuroendocrine tumor which is suspected to be at the midgut/small bowel Patient admitted under Dr. Cerrato while I was out. I did a right colon resection with an end ileostomy for colon obstruction. Pathology of that resection bucket turner to be a metastatic neuroendocrine tumor. Primary is unknown but suspected to be the small bowel. He has started chemotherapy last week. He has been admitted since for sites of bowel obstruction. Though he has opened up with his ileostomy continues to have high nasogastric tube output and continued abdominal distention. His small bowel follow-through results are pending. I told him that I suspect that this may be related to the primary tumor or may be just secondary to postoperative adhesions. If the obstruction does not resolve, we may still need to go back in the lysis of adhesions and possibly resect bowel. I will continue to watch him but I told him tentatively we'll plan for surgery on Thursday if he does not improve enough to show resolution of the obstruction. He tells me his last oral intake was 10 days ago. I'll start him on TPN. Overall clinically, he has improved since the last surgery. He has been weaned off the oxygen use during the day and just uses CPAP at night. He did go some weight prior to that surgery and is That though he has good appetite, good amount of energy prior to the bowel obstruction. Plan / VTE VTE Prophylaxis Ordered?: Yes (Coumadin) NEDRA MARTINEZ MD Feb 15, 2019 09:15
--- NOTE | 2019-02-15 09:44 | IPNPDOC ---
Subjective Date Seen The patient was seen on 02/15/19. Subjective Chief Complaint/HPI No new complaints Constitutional: Denies: Chills, Fever Pulmonary: Denies: Dyspnea, Cough Cardiovascular: Denies: Chest Pain Gastrointestinal: Reports: Nausea, Abdominal Pain; Denies: Diarrhea, Constipation Objective Physical Examination General Exam: Positive: Alert, No Acute Distress Chest Exam: Positive: Clear to auscultation; Negative: Rales, Rhonchi, Wheezing Heart Exam: Positive: Rate Normal Abdomen Exam: Positive: BS Hypoactive, Other (distended - NG tube with billeous secretions. Colostomy with brown soft stool) Extremity Exam: Negative: Edema Assessment /Plan Problems (1) Small bowel obstruction Status: Acute Problem Text: 02/15 - per Surgery - plan is for OR thursday for presumed excision of new tumor obstructing colon Will need COuadin held in anticipation for surgery Consult Cardiology and Pulmonary who followe him periopertively last month due to his complicated history and risk going through surgery - 02/14/19: continue with surgical recommendations. OOB tid. Mag level pending. 02/13 -- reports that he feels similar to yesterday 02/12 -- Patient reports that nausea is improved today. NG tube continues to drain. Reports he is much more comfortable today. Per surgery NG tube in place Nausea persists - I will increase phnergan dose if ok with Dr. jang Cont IVF WBC down. Faint hypoactive Bowel sounds with some output in Ostomy (2) Neuroendocrine carcinoma metastatic to liver Onset Date: Unknown Status: Chronic (3) CALE on CPAP Status: Chronic (4) Diastolic CHF, chronic Status: Chronic (5) A-fib Status: Chronic Response to Treatment: Stable Problem Text: Hold coumadin in incapacitation for surgery resume Warfarin at lower dose: 5 mg. INR daily. Teds and SCDs rate controlled Coumadin held due to high INR and in case of need for surgery- Vit K given x 2 (6) Diabetes Status: Chronic Problem Text: Blood sugars are running 100s currnetly - NPO - D/C sliding scale to prevent hypoglycemia (7) CAD (coronary artery disease) Status: Chronic (8) Elevated INR Status: Acute Problem Text: see above Plan/VTE VTE Prophylaxis Ordered?: Yes (Coumadin) VS, I&O, 24H, Fishbone Vital Signs/I&O Vital Signs Date Time Temp Pulse Resp B/P (MAP) Pulse Ox O2 Delivery O2 Flow Rate FiO2 02/15/19 08:45 18 02/15/19 08:43 95 133/86 02/15/19 06:16 98.1 97 2.0 02/10/19 13:02 Nasal Cannula I&O- Last 24 Hours up to 6 AM 02/15/19 06:00 Intake Total 550 ml Output Total 4000 ml Balance -3450 ml Laboratory Data 24H LABS Laboratory Tests 2 02/14/19 11:50: Bedside Glucose (Misc Panel) 88 02/14/19 20:52: Bedside Glucose (Misc Panel) 101 02/15/19 06:05: Nucleated Red Blood Cells % (auto) 0.0, Prothrombin Time 13.2, Prothromb Time International Ratio 1.03, Anion Gap 7L, Glomerular Filtration Rate > 60.0, Blood Urea Nitrogen 9, Creatinine 0.51L, Sodium Level 141, Potassium Level 3.7, Chloride Level 108H, Carbon Dioxide Level 26, Calcium Level 8.2L, Magnesium Level 1.8 CBC/BMP Laboratory Tests 02/15/19 06:05 Red Blood Count 3.66 L, Mean Corpuscular Volume 90.4, Mean Corpuscular Hemoglobin 29.5, Mean Corpuscular Hemoglobin Concent 32.6, Red Cell Distribution Width 13.8, Calcium Level 8.2 L Attending Note Attending Note will request chromograffin AMANDA VIRAMONTES PA-C Feb 15, 2019 09:44 Pranav Shaw MD Feb 15, 2019 10:46
[2019-02-15 10:30] VITALS: BP 154/92
[2019-02-15] MEDS: PROMETHAZINE INJ 25 MG/ML VIAL (J2550) IV PRN ×2 (13:11→19:45)
[2019-02-15 14:00] VITALS: BP 157/90
--- NOTE | 2019-02-15 16:15 | CR ---
DATE OF CONSULTATION: 02/15/2019 CARDIOLOGY CONSULTATION REFERRING PHYSICIAN: YENNI Colby and Dr. Pranav Shaw INDICATION: Preoperative cardiac clearance, ileus, small bowel obstruction. 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 He has multiple complicated medical problems including morbid obesity, obstructive sleep apnea moderate restrictive pulmonary disease and chronic respiratory failure along with ischemic, hypertensive, and pulmonary heart disease complicated by an abnormal electrocardiogram (EKG), chronic atrial fibrillation, and heart failure (diastolic dysfunction). He has also been recently diagnosed with neuroendocrine tumor with metastasis to the liver and has been started on chemotherapy. He was last seen in the office in September 2018. He continues to be limited by his dyspnea even with supplemental oxygen. He states that he does have considerable difficulty with breathing when climbing a flight of stairs. He sleeps well with his BiPap and supplemental oxygen. He denies any chest discomfort or pain, feeling his heart is racing, palpitations, lower leg edema, or lightheadedness. His only symptoms are orthopnea and some lightheadedness when he becomes dyspneic. He does have the longstanding history of gastroesophageal reflux complicated by prior aspiration pneumonia, as well as intermittent constipation, diarrhea that was attributed to spastic colon in the past. On his prior admission, he underwent surgery for acute on chronic bowel obstruction and was found to have neuroendocrine tumor with metastatic disease to liver and was subsequently started on chemotherapy. However, prior to his admission, he was having decreased ileostomy output with increasing abdominal distension. He had a nasogastric tube placed in the emergency room with subsequent improvement of his abdominal distension and abdominal pain. Current consultations placed prior to planned repeat surgical intervention, which is scheduled for this coming 02/18/2019. LAST CARDIAC TESTING: Holter monitor December 28, 2015 for palpitations showed underlying atrial fibrillation with controlled ventricular response and rare isolated premature ventricular contractions (PVCs). Treadmill Cardiolite heart scan July 01, 2017 showed somewhat poor exercise tolerance, completed only 4 minutes of MAYLIN, stopping with dyspnea and fatigue with peak heart rate 154, blood pressure 150/95, but no chest pain. Baseline EKG ST-T wave abnormalities became more prominent, only occasional PVC. Left ventricular size was normal with normal wall motion, left ventricular ejection fraction was 68%. There was diaphragmatic attenuation artifact but no reversible SPECT myocardial perfusion defect. Chest x-ray August 26, 2017: PA and left lateral study, [facility], showed marked cardiomegaly with sternotomy sutures. Pulmonary vasculature engorgement with interstitial lung disease. No pleural effusions, focal infiltrates or masses. Echocardiogram September 13, 2018 showed mild left ventricular hypertrophy with normal wall motion. Moderate left atrial large noted with estimated mean left atrial pressure at that time within normal limits. Right heart chamber sizes were upper limits of normal with normal wall motion. Estimated pulmonary arterial pressure was believed to be only mildly increased, though his inferior vena cava could not be visualized. Mild aortic valvular sclerosis with normal aortic diameters. Normal mitral valve appearance and function. No pericardial effusion. PRIOR CARDIAC PROCEDURES: Coronary artery bypass surgery August 20, 2004. Direct current cardioversions times four in 2014 because of recurrent atrial fibrillation. PAST SURGICAL HISTORY: Cholecystectomy. Appendectomy. Umbilical hernia repair. Resection of part of the colon. Incisional hernia repair using mesh. Recent right colectomy with ileostomy. REVIEW OF SYSTEMS: As mentioned above with respect to his cardiac, pulmonary and gastrointestinal history. He denies any current fevers, chills or night sweats. He wears corrective lenses. No musculoskeletal complaints. All other systems review is negative. CORONARY RISK FACTORS: Male gender. Age. Morbid obesity. Chronic hypertension. Hypercholesterolemia. Diabetes mellitus. Former 41-year smoking history. Family history of premature coronary heart disease. CURRENT INPATIENT MEDICATIONS: - atorvastatin 80 mg by mouth at night - carvedilol 6.25 mg by mouth twice a day - digoxin 0.25 mg IV daily - morphine 2 to 4 mg as needed for pain - Phenergan 25 mg IV every 6 hours as needed for nausea - Zofran 4 mg IV every 4 hours as needed for nausea or vomiting - sliding scale insulin with hypoglycemic protocol - magnesium sulfate 8 mEq - TPN ALLERGIES: NO KNOWN DRUG ALLERGIES. PHYSICAL EXAMINATION VITAL SIGNS: Weight 280.4 pounds or 127.2 kg, height 72 inches, BMI 38, heart rate 92 beats per minute and irregular, blood pressure 154/92 with a mean arterial pressure of 112. Oxygen saturation is 93% on 2 liters via nasal prongs. CONSTITUTIONAL: Morbidly obese, barrel-chested, late middle aged male lying comfortably with the head is the bed elevated 30 degrees. Eyes: Normal conjunctiva without pallor or icterus. No xanthelasmas present. ENT: Edentulous with the upper and lower dentures. Mucous membranes are moist. There is no central cyanosis or pallor. Nasogastric tube in place. Neck: Trachea is midline. Thyroid is normal in size. Jugular veins are difficult to assess in light of his body habitus, but I would approximate them to be elevated 4 cm above the sternoclavicular angle. Respiratory: Increased AP chest diameter was reduced chest excursion. Well-healed sternotomy incision. Chemotherapy port is present in the right chest. Reduced airway but no localized inspiratory rales. Slight prolongation of expiration, but no audible wheezes are present. Cardiovascular: Apical impulse is present lateral to the midclavicular line about the sixth intercostal space. His heart sounds are distant and variable with accentuated pulmonary closure with splitting audible over the left base. No audible gallops, murmurs or rubs. Normal carotid upstroke but variable volume related to his arrhythmia. No bruit ease. Abdominal aorta and femoral artery is not palpable because of obesity. No bruits. Pedal pulses are 2+ bilaterally. Extremities: No bilateral lower extremity edema is appreciated. He does have a few superficial venules of both lower legs. No clubbing, peripheral cyanosis or splinter hemorrhages. Abdomen: Round, soft, obese with moderate distension in the midportion of the abdomen. Tympanic to percussion. Mild discomfort to deep palpation. The midline incision is healed except for a small opening with some mild purulent drainage superior to the umbilicus. Ileostomy is patent was very thin liquid output. Rectal: Exam not indicated. Musculoskeletal: Gait was not assessed, the patient has normal muscular strength and tone. No obvious joint deformities. Skin: No pallor. Chronic skin changes in both lower legs. Well-healed left forearm incision. Right radial artery donor for coronary artery bypass in the past. INVESTIGATIONS: No recent chest x-ray Abdominal and pelvic CT scan done 02/11/2018 with oral contrast only showed normal lung bases with obvious cardiomegaly. I would estimate the IVC size to be unchanged from his previous scan, about 2.2 cm, which is the upper limits of normal. He does have a moderately dilated left atrium, normal left ventricular size with right heart chambers appreciated in the upper limits of normal. At least mildly dilated pulmonary trunk in keeping with pulmonary hypertension. Report shows ingested oral contrast seen in the right colon with anastomosis to an ileostomy, which is normal in caliber and transverses to the skin surface. Right colon was moderately dilated, as are some of the distal small bowel loops. No free air or free fluid. Nasogastric tube is seen in the distal esophagus and distal tip in the fundus of the stomach. There is an increased number and size of the multiple liver nodules and there is increased central mesenteric adenopathy. EKG shows underlying atrial fibrillation with controlled ventricular response averaging 86 per beats per minute. Slightly prominent R wave suggestive of RVH versus prior posterior wall myocardial infarction. Nonspecific ST-T wave abnormalities that do not appear changed from 12/31/2018/ Blood work: Hemoglobin on admission was 13; this adjusted to 10.8 with IV hydration. His white blood cell count of 11.7 on admission has normalized. Platelet count is normal. Admission PT / INR was 85 / 10.5, this is normalized with vitamin K subcutaneous and IV, as well as cessation of Coumadin. Chemistries this morning confirmed electrolyte balance with a potassium of 3.7, bicarbonate is normal at 26, BUN normal at 9, creatinine 0.51, fasting glucose 103. Troponin not done. Serum albumin on admission was 2.9, calcium 7.9. He had an elevated AST at 96 and elevated alkaline phosphatase at 273. The lipase was normal at 118. Digoxin level is therapeutic at 0.8. IMPRESSION/PLAN: 1. Heart failure (diastolic / chronic): At this point, I believe he is compensated, receiving IV fluid and TPN with nothing by mouth status. His electrolyte balance is normal, as is his renal function at this time. He is currently off diuretic therapy. 2. Chronic atrial fibrillation: Current ventricular response is well controlled with digoxin and carvedilol. Oral anticoagulation was held and was reversed in preparation for surgical intervention. He is currently receiving antithrombotic measures to his lower extremities with thromboembolic compression stockings (TEDS) and sequentials. 3. Coronary artery disease (kiana vessel), status post coronary artery bypass graft (CABG): He remains free of symptomatic myocardial ischemia. His current EKG has not changed from the last one in December. Cardiac enzymes were not assessed. He does remain on protective combination carvedilol atorvastatin. 4. Hypertensive heart disease with heart failure: Current blood pressure is somewhat elevated; however, overall looks to have been in acceptable ranges for the majority of his current hospitalization. Chemistries mentioned above. 5. Chronic cor pulmonale: Echocardiographic study underplays his pulmonary hypertension. His chest CT scan does continue to show mildly dilated pulmonary trunk with mildly dilated right heart chambers and IVC size the upper limits of normal. This is most likely improved with his significant weight loss. However, it does remain an issue that may complicate surgical and anesthetic measures. Remains on controlled supplemental oxygen. Unfortunately, with his nasogastric tube, he is unable to wear his BiPap mask. 6. Preoperative cardiac examination: The patient is currently nothing by mouth and has a nasogastric tube in place. He has not eaten in about [address] Fry, general surgery, is already well aware of the patient's complicated abdominal situation with prior partial bowel resection and right colectomy complicates surgery, abdominal mass and current neuroendocrine tumor with metastasis to liver. Clearly, being unable to eat and with his abdominal pain, the patient does require decompression. We would be in favor of the most minimal procedure necessary. His long-term prognosis is most certainly guarded, especially with his cancer diagnosis. The patient is a DO NOT RESUSCITATE. We will plan on following him perioperative with you. The patient remains extremely high risk for any abdominal surgical intervention from both cardiac and respiratory standpoint. ISAIAS
[2019-02-15] MEDS: HumaLOG INSULIN (NovoLOG) PER UNIT SC SCH (17:56)
[2019-02-15 18:00] VITALS: BP 177/93
[2019-02-15] MEDS ORDERED: AMINO AC IV SCH (18:00)
[2019-02-15] MEDS ORDERED: FAT EMULSION IV 20% 500 ML IV SCH (18:00)
[2019-02-15] MEDS ORDERED: DEX IV SCH (18:00)
[2019-02-15] MEDS ORDERED: MAGNESIUM SULFATE IV SCH (18:00)
[2019-02-15] MEDS ORDERED: ELECTROLYTE IV SCH (18:00)
[2019-02-15] MEDS ORDERED: CALC IV SCH (18:00)
[2019-02-15] MEDS: ATORVASTATIN 20 MG TAB PO SCH (21:22)
[2019-02-15 22:00] VITALS: BP 180/96
[2019-02-16] MEDS: HumaLOG INSULIN (NovoLOG) PER UNIT SC SCH ×4 (00:07→17:23)
[2019-02-16] MEDS: MORPHINE 4 MG/ML 1ML VIAL/SYRINGE (J2270) IV PRN ×6 (00:17→21:04)
[2019-02-16 02:00] VITALS: BP 138/78
[2019-02-16 05:56] VITALS: BP 156/98
[2019-02-16] MEDS: PROMETHAZINE INJ 25 MG/ML VIAL (J2550) IV PRN ×3 (06:13→21:04)
--- NOTE | 2019-02-16 06:18 | REP ---
Clinical: Chronic ileus pattern. Evaluate for possible obstruction. Technique: Findings: Multiple images of the abdomen and pelvis demonstrate oral contrast material administered via a nasogastric tube into the stomach filling multiple loops of moderately dilated bowel. Extension of contrast column to the ostomy in the right lower quadrant cannot definitively be confirmed based on current examination. Further evaluation and follow-up is recommended. Impression: Extension of contrast column to the ostomy in the right lower quadrant cannot definitively be confirmed based on current examination. Further evaluation and follow-up is recommended. Electronically Signed by Chad Weldon MD 02/16/2019 06:09 A
[2019-02-16 06:48] LABS: HEMATOCRIT 33.7 % (42.0-52.0); HEMOGLOBIN 11.1 g/dl (13.5-17.5); MEAN CORPUSCULAR HEMOGLOBIN 29.4 pg (27.0-33.0); MEAN CORPUSCULAR HGB CONC 32.9 g/dl (32.0-36.5); MEAN CORPUSCULAR VOLUME 89.2 fl (80.0-96.0); PLATELET COUNT, AUTOMATED 162 10^3/uL (150-450); RED BLOOD COUNT 3.78 10^6/uL (4.30-6.10); WHITE BLOOD COUNT 4.6 10^3/uL (4.0-10.0)
[2019-02-16 07:09] LABS: INR 1.05; PROTHROMBIN TIME 13.4 SECONDS (11.8-14.0)
[2019-02-16 07:11] LABS: BLOOD UREA NITROGEN 9 MG/DL (7-18); CALCIUM LEVEL 8.7 MG/DL (8.8-10.2); CARBON DIOXIDE LEVEL 28 MEQ/L (21-32); CHLORIDE LEVEL 106 MEQ/L (98-107); CREATININE FOR GFR 0.63 MG/DL (0.70-1.30); GLOMERULAR FILTRATION RATE > 60.0 (>49); GLUCOSE, FASTING 151 MG/DL (70-100); POTASSIUM SERUM 3.3 MEQ/L (3.5-5.1); SODIUM LEVEL 140 MEQ/L (136-145)
[2019-02-16] MEDS: PANTOPRAZOLE 40MG INJ (PROTONIX) (C9113) IV SCH (08:50)
[2019-02-16] MEDS: CARVedilol 6.25 MG TAB PO SCH ×2 (08:51→21:05)
[2019-02-16] MEDS ORDERED: VoLumen 0.1% SUSPENSION 450ML BOTTLE As Ordered ONE (08:53)
[2019-02-16] MEDS: DIGOXIN INJ 0.5 MG/2 ML AMP (J1160) IV SCH (08:57)
--- NOTE | 2019-02-16 08:59 | REP ---
Clinical: Preoperative assessment. Comparison: 01/01/2019. Findings: A nasogastric tube appears to extend below the left hemidiaphragm. Pdaeey-[id number] with tip in the SVC. Mediastinum and cardiac silhouette are stable. Evidence for prior sternotomy again noted. The lung randall are relatively clear although subtle left basilar atelectasis cannot be excluded. No discrete focal consolidation, obvious effusion, or pneumothorax. Skeletal structures intact. Impression: 1. Cannot exclude subtle left basilar atelectasis. Electronically Signed by Chad Weldon MD 02/16/2019 08:51 A
[2019-02-16] MEDS: ONDANSETRON 4MG/2ML VIAL (J2405) IV PRN ×2 (09:10→17:17)
[2019-02-16] MEDS ORDERED: ISOVUE-370 76% 100ML VIAL (Q9967) As Ordered ONE (10:46)
[2019-02-16] MEDS ORDERED: ONDANSETRON 4MG/2ML VIAL (J2405) As Ordered ONE (10:59)
[2019-02-16] MEDS ORDERED: GLUCAGON FOR INJ 1 MG VIAL (J1610) As Ordered ONE (11:10)
[2019-02-16] MEDS ORDERED: ONDANSETRON 4MG/2ML VIAL (J2405) IV ONE (11:15)
--- NOTE | 2019-02-16 12:39 | REP ---
Clinical: Evaluate for possible small bowel tumor. Technique: The axial contrast enhanced images of the abdomen and pelvis in arterial and portal venous phases of enhancement using angiographic technique including low density oral contrast medium and 100 ml Isovue 370 intravenous contrast material. Coronal and sagittal re-formations obtained. Comparison: 02/11/2019 Findings: A nasogastric tube is identified extending into the stomach. Postsurgical changes involving the small and large bowel including elements of resection as well as ostomy via the right anterior abdominopelvic wall are appreciated and appear essentially stable. Stranding through the surrounding mesentery is nonspecific soft tissue nodules in the right upper quadrant inferior to the gastric antrum and anterior to the pancreas are again noted and may represent adenopathy or metastatic foci measuring up to approximately 2.6 cm maximal diameter. No obvious focal bowel mass lesion is discernible. There is no evidence for bowel obstruction. No free air. No ascites. Liver demonstrates innumerable metastatic lesions which are essentially unchanged. Spleen, pancreas, bilateral adrenal glands and kidneys are normal / stable. Evidence for prior cholecystectomy. Pelvis demonstrates normal bladder and age appropriate prostate/seminal vesicles. Small fat containing inguinal hernias noted. Osseous structures demonstrate degenerative changes without focal abnormality. Impression: 1. Relatively stable postsurgical changes involving the residual small/large bowel and surrounding mesentery. No evidence for bowel obstruction. No obvious discernible focal bowel mass lesion appreciated. 2. Soft tissue lesions in the right upper quadrant are again noted and likely represent pathologic lymph nodes or metastatic foci measuring up to 2.6 centimeters. 3. Innumerable hepatic metastatic foci unchanged. 4. No ascites. No free air. Electronically Signed by Chad Weldon MD 02/16/2019 12:31 P
[2019-02-16] MEDS ORDERED: POTASSIUM CHLORIDE 10 MEQ SR TABLET PO ONE (13:15)
--- NOTE | 2019-02-16 15:34 | IPNPDOC ---
Subjective Date Seen The patient was seen on 02/16/19. Subjective Chief Complaint/HPI nausea. Skin: Denies: Rash Cardiovascular: Denies: Chest Pain, Orthopnea Gastrointestinal: Denies: Vomiting Hematologic: Denies: Bruising Objective Physical Examination General Exam: Positive: Alert, No Acute Distress Eye Exam: Positive: PERRLA Chest Exam: Positive: Clear to auscultation; Negative: Rales, Rhonchi, Wheezing Heart Exam: Positive: Rate Normal Abdomen Exam: Positive: BS Hypoactive, Other (somewhat distended. NG not functioning initially then function resumed when cannister changed.) Extremity Exam: Positive: Edema (1+ LE edema) Skin Exam: Negative: Rash Psych Exam: Positive: Mental status NL Assessment /Plan Problems (1) Small bowel obstruction Status: Acute Problem Text: 02/16: surgery Thursday. Dr. Fry ordered repeat CT today 02/15 - per Surgery - plan is for OR thursday for presumed excision of new tumor obstructing colon Will need COuadin held in anticipation for surgery Consult Cardiology and Pulmonary who followe him periopertively last month due to his complicated history and risk going through surgery - 02/14/19: continue with surgical recommendations. OOB tid. Mag level pending. 02/13 -- reports that he feels similar to yesterday 02/12 -- Patient reports that nausea is improved today. NG tube continues to drain. Reports he is much more comfortable today. Per surgery NG tube in place Nausea persists - I will increase phnergan dose if ok with Dr. jang Cont IVF WBC down. Faint hypoactive Bowel sounds with some output in Ostomy (2) Neuroendocrine carcinoma metastatic to liver Onset Date: Unknown Status: Chronic (3) CALE on CPAP Status: Chronic Problem Text: not on cpap due to NG in place. sats monitored overnight, continuous (4) Diastolic CHF, chronic Status: Chronic Problem Specific Plan: Consult Specialist Problem Text: Dr. Amin has been seeing patient along with Dr Mead (5) A-fib Status: Chronic Response to Treatment: Stable Problem Text: Hold coumadin in incapacitation for surgery resume Warfarin at lower dose: 5 mg. INR daily. Teds and SCDs rate controlled Coumadin held due to high INR and in case of need for surgery- Vit K given x 2 (6) Diabetes Status: Chronic Problem Text: Blood sugars are running 100s currnetly - NPO - D/C sliding scale to prevent hypoglycemia (7) CAD (coronary artery disease) Status: Chronic (8) Elevated INR Status: Acute Problem Text: see above Plan/VTE VTE Prophylaxis Ordered?: Yes (Coumadin) VS, I&O, 24H, Fishbone Vital Signs/I&O Vital Signs Date Time Temp Pulse Resp B/P (MAP) Pulse Ox O2 Delivery O2 Flow Rate FiO2 02/16/19 12:33 18 02/16/19 08:57 92 02/16/19 08:51 156/98 02/16/19 05:56 97.2 93 02/15/19 21:15 2.0 02/10/19 13:02 Nasal Cannula I&O- Last 24 Hours up to 6 AM 02/16/19 06:00 Intake Total 1440 ml Output Total 4100 ml Balance -2660 ml Laboratory Data 24H LABS Laboratory Tests 2 02/15/19 20:00: Bedside Glucose (Misc Panel) 139H 02/15/19 23:44: Bedside Glucose (Misc Panel) 131H 02/16/19 05:52: Bedside Glucose (Misc Panel) 157H 02/16/19 06:37: Nucleated Red Blood Cells % (auto) 0.0, Prothrombin Time 13.4, Prothromb Time International Ratio 1.05, Anion Gap 6L, Glomerular Filtration Rate > 60.0, Blood Urea Nitrogen 9, Creatinine 0.63L, Sodium Level 140, Potassium Level 3.3L, Chloride Level 106, Carbon Dioxide Level 28, Calcium Level 8.7L 02/16/19 13:04: Bedside Glucose (Misc Panel) 140H CBC/BMP Laboratory Tests 02/16/19 06:37 Red Blood Count 3.78 L, Mean Corpuscular Volume 89.2, Mean Corpuscular Hemogl obin 29.4, Mean Corpuscular Hemoglobin Concent 32.9, Red Cell Distribution Width 13.7, Calcium Level 8.7 L rPanav Shaw MD Feb 16, 2019 15:34
[2019-02-16] MEDS ORDERED: MULTIVITAMIN -ADULT INJECTION 10 ML, CR/CU/SE/MN/ZN INJ 1 ML, POTASSIUM CHLORIDE INJ 20... IV SCH ×5 (18:00)
[2019-02-16] MEDS ORDERED: FAT EMULSION IV 20% 500 ML IV SCH (18:00)
--- NOTE | 2019-02-16 18:13 | IPNPDOC ---
Subjective General Date/Time Seen The patient was seen on 02/16/19 at 18:07. Subject Chief Complaint/History The patient is a 63-year-old male admitted with a reason for visit of Ileus, Small Bowel Obstruction. Continues to complain of abdominal cramping, back pain. I noticed that his ileostomy output has decreased. He continues to have high ngt output. Current Medications Current Medications Current Medications Atorvastatin Calcium (Lipitor) 80 mg QHS PO Last administered on 02/15/19at 21:22; Start 02/10/19 at 21:00 Carvedilol (COReg) 6.25 mg BID PO Last administered on 02/16/19at 08:51; Start 02/10/19 at 21:00 Dextrose (Dextrose 50%) 25 ml ASDIRECTED PRN IV SEE LABEL COMMENTS; Start 02/10/19 at 16:00 Digoxin (Lanoxin) 0.25 mg DAILY IV Last administered on 02/16/19at 08:57; Start 02/11/19 at 09:00 Fat Emulsion Intravenous 500 ml @ 20 mls/hr ONCE@1800 IV Last administered on 02/15/19at 17:55; Start 02/15/19 at 18:00; Stop 02/16/19 at 18:00; Status DC Fat Emulsion Intravenous 500 ml @ 20 mls/hr ONCE@1800 IV Last administered on 02/16/19at 17:52; Start 02/16/19 at 18:00; Stop 02/17/19 at 17:59 Glucagon (Glucagon) 1 mg ASDIRECTED PRN SC SEE LABEL COMMENTS; Start 02/10/19 at 16:00 Glucose (Glucose) 16 GM ASDIRECTED PRN PO SEE LABEL COMMENTS; Start 02/10/19 at 16:00 Heparin Sodium (Heparin (Flush)) 500 units ASDIRECTED PRN IV SEE LABEL COMM ENTS; Start 02/10/19 at 12:00; Stop 02/10/19 at 16:25; Status DC Heparin Sodium (Porcine) (Heparin) 5,000 units Q8H SQ ; Start 02/13/19 at 00:00; Stop 02/13/19 at 00:46; Status DC Heparin Sodium (Porcine) (Heparin) 5,000 units Q8H SQ Last administered on 02/14/19at 05:45; Start 02/13/19 at 06:00; Stop 02/14/19 at 11:50; Status DC Home Med (Med Rec Complete!) ASDIRECTED XX ; Start 02/10/19 at 14:00; Stop 02/10/19 at 14:00; Status DC Insulin Human Lispro (HumaLOG INSULIN) SEE PROTOCOL TABLE Q6H SC Last administered on 02/10/19at 18:43; Start 02/10/19 at 18:00; Stop 02/11/19 at 09:13; Status DC Insulin Human Lispro (HumaLOG INSULIN) See Protocol Table Q6H SC Last administered on 02/16/19at 06:13; Start 02/15/19 at 18:00; Stop 02/16/19 at 12:01; Status DC Insulin Human Lispro (HumaLOG INSULIN) See Protocol Table Q6H SC ; Start 02/16/19 at 18:00; Stop 02/17/19 at 12:01 Magnesium Sulfate 8 meq/Amino Ac/ Electrol/Dextrose/ Calcium 2,002 ml @ 75 mls/hr ONCE@1800 IV Last administered on 02/15/19at 17:55; Start 02/15/19 at 18:00; Stop 02/16/19 at 18:00; Status DC Magnesium Sulfate/ Dextrose 1 gm/IV Miscellaneous Supplies 100 ml @ 100 mls/hr Q1H IV Last administered on 02/14/19at 14:12; Start 02/14/19 at 14:00; Stop 02/14/19 at 15:59; Status DC Metoclopramide HCl (REGLAN INJection) 10 mg Q6HP PRN IV NAUSEA OR VOMITING; Start 02/10/19 at 15:00; Stop 02/10/19 at 15:28; Status DC Morphine Sulfate (Morphine Sulfate Inj) 2 mg Q2HP PRN IV MODERATE PAIN (PS 5-7) Last administered on 02/16/19at 06:13; Start 02/10/19 at 15:00 Morphine Sulfate (Morphine Sulfate Inj) 4 mg Q2HP PRN IV SEVERE PAIN (PS 8-10) Last administered on 02/16/19at 17:18; Start 02/10/19 at 15:00 Morphine Sulfate (Morphine Sulfate Inj) 4 mg Q30M PRN IV SEVERE PAIN (PS 8-10) Last administered on 02/10/19at 11:50; Start 02/10/19 at 11:45; Stop 02/10/19 at 16:24; Status DC Multivitamins 10 ml/Chromium/ Copper/Manganese/ Seleni/Zn 1 ml/ Potassium Chloride 20 meq/ Magnesium Sulfate 8 meq/Amino Ac/ Electrol/Dextrose/ Calcium 2,023 ml @ 75 mls/hr ONCE@1800 IV Last administered on 02/16/19 17:53; Start 02/16/19 at 18:00; Stop 02/17/19 at 17:59 Ondansetron HCl (ZOFRAN INJection) 4 mg Q4HP PRN IV NAUSEA OR VOMITING Last administered on 02/16/19at 17:17; Start 02/11/19 at 09:45 Ondansetron HCl (ZOFRAN INJection) 4 mg Q6HP PRN IV NAUSEA OR VOMITING Last administered on 02/11/19at 02:07; Start 02/10/19 at 15:00; Stop 02/11/19 at 09:38; Status DC Pantoprazole Sodium (Protonix) 40 mg DAILY IV Last administered on 02/16/19at 08:50; Start 02/11/19 at 09:00 Promethazine HCl (PHENERGAN INJection) 12.5 mg Q6HP PRN IV NAUSEA Last administered on 02/11/19at 03:01; Start 02/10/19 at 15:00; Stop 02/11/19 at 0 9:13; Status DC Promethazine HCl (PHENERGAN INJection) 25 mg Q6HP PRN IV NAUSEA Last administered on 02/16/19at 12:22; Start 02/11/19 at 09:15 Sodium Chloride 1,000 ml @ 100 mls/hr Q10H IV Last administered on 02/10/19at 11:50; Start 02/10/19 at 11:43; Stop 02/10/19 at 16:00; Status DC Sodium Chloride 1,000 ml @ 125 mls/hr Q8H IV Last administered on 02/15/19at 06:51; Start 02/10/19 at 14:47; Stop 02/15/19 at 08:27; Status DC Sodium Chloride (Saline Lock Flush) 10 ml ASDIRECTED PRN IV SEE LABEL COMMENTS; Start 02/10/19 at 12:00; Stop 02/10/19 at 16:25; Status DC Warfarin Sodium (Coumadin) 5 mg DAILY@17 PO Last administered on 02/14/19at 18:09; Start 02/14/19 at 17:00; Stop 02/15/19 at 10:26; Status DC Allergies Coded Allergies: No Known Allergies (Unverified , 12/27/18) Objective Physical Examination Examination GENERAL APPEARANCE:Laying on bed, mildly uncomfortable. SKIN: warm and dry. HEENT: NGT in place, working. . NECK: Supple, no thyromegaly. No obvious jugular venous distention. LUNGS: Clear to auscultation bilaterally. No wheezing appreciated. HEART: No chest wall abnormalities. Regular rate and rhythm with no murmurs appreciated. ABDOMEN: Abdomen is round, soft, looks more distended that it was yesterday. Minimally tender at mid abdomen on deep palpation. EXTREMITIES: Extremities have no deformities. No edema identified. Vital Signs Vital Signs Date Time Temp Pulse Resp B/P (MAP) Pulse Ox O2 Delivery O2 Flow Rate FiO2 02/16/19 17:53 18 02/16/19 08:57 92 02/16/19 08:51 156/98 02/16/19 05:56 97.2 93 02/15/19 21:15 2.0 02/10/19 13:02 Nasal Cannula I&Os I&O- Last 24 Hours up to 6 AM 02/16/19 06:00 Intake Total 1440 ml Output Total 4100 ml Balance -2660 ml Laboratory Data Labs 24H Laboratory Tests 2 02/15/19 20:00: Bedside Glucose (Misc Panel) 139H 02/15/19 23:44: Bedside Glucose (Misc Panel) 131H 02/16/19 05:52: Bedside Glucose (Misc Panel) 157H 02/16/19 06:37: Nucleated Red Blood Cells % (auto) 0.0, Prothrombin Time 13.4, Prothromb Time International Ratio 1.05, Anion Gap 6L, Glomerular Filtration Rate > 60.0, Blood Urea Nitrogen 9, Creatinine 0.63L, Sodium Level 140, Potassium Level 3.3L, C hloride Level 106, Carbon Dioxide Level 28, Calcium Level 8.7L 02/16/19 13:04: Bedside Glucose (Misc Panel) 140H 02/16/19 17:20: Bedside Glucose (Misc Panel) 104 CBC/BMP Laboratory Tests 02/16/19 06:37 Red Blood Count 3.78 L, Mean Corpuscular Volume 89.2, Mean Corpuscular Hemoglobin 29.4, Mean Corpuscular Hemoglobin Concent 32.9, Red Cell Distribution Width 13.7, Calcium Level 8.[address] Enterography 1. Relatively stable postsurgical changes involving the residual small/large bowel and surrounding mesentery. No evidence for bowel obstruction. No obvious discernible focal bowel mass lesion appreciated. 2. Soft tissue lesions in the right upper quadrant are again noted and likely represent pathologic lymph nodes or metastatic foci measuring up to 2.6 centimeters. 3. Innumerable hepatic metastatic foci unchanged. 4. No ascites. No free air. Impression Small bowel obstruction History of metastatic neuroendocrine tumor multiple prior abdominal surgery recent (5 weeks) right colectomy with ileostomy Patient continues to show evidence of small bowel obstruction. His ileostomy output has decreased overnight and he continues to have high ngt output. CT Enterography did not offer much in terms of trying to find out whether there is an intraluminal tumor as the cause of obstruction. The described dilated colon in CT is actually dilated small bowel, I think. He is stable for now but will need abdominal exploration. Given his multiple medical problems, his recent surgery, history of multiple abdominal surgeries, his history of metastatic neuroendocrine tumor, I anticipate that this will be a difficult surgery. Continue with TPN for now. I have held his coumadin in anticipation of his upcoming surgery. Plan / VTE VTE Prophylaxis Ordered?: Yes (Coumadin) NEDRA MARTINEZ MD Feb 16, 2019 18:13
[2019-02-16] MEDS: ATORVASTATIN 20 MG TAB PO SCH (21:05)
[2019-02-16 22:00] VITALS: BP 118/62
[2019-02-17] MEDS: MORPHINE 4 MG/ML 1ML VIAL/SYRINGE (J2270) IV PRN ×8 (01:40→23:50)
[2019-02-17] MEDS: ONDANSETRON 4MG/2ML VIAL (J2405) IV PRN ×5 (01:44→23:50)
[2019-02-17 06:00] VITALS: BP 138/70
[2019-02-17] MEDS: HumaLOG INSULIN (NovoLOG) PER UNIT SC SCH ×5 (06:25→23:58)
[2019-02-17] MEDS: PROMETHAZINE INJ 25 MG/ML VIAL (J2550) IV PRN ×3 (06:26→19:56)
[2019-02-17 07:24] LABS: HEMATOCRIT 37.2 % (42.0-52.0); HEMOGLOBIN 12.1 g/dl (13.5-17.5); MEAN CORPUSCULAR HEMOGLOBIN 28.7 pg (27.0-33.0); MEAN CORPUSCULAR HGB CONC 32.5 g/dl (32.0-36.5); MEAN CORPUSCULAR VOLUME 88.2 fl (80.0-96.0); PLATELET COUNT, AUTOMATED 147 10^3/uL (150-450); RED BLOOD COUNT 4.22 10^6/uL (4.30-6.10); WHITE BLOOD COUNT 2.1 10^3/uL (4.0-10.0)
[2019-02-17 07:37] LABS: INR 1.06; PROTHROMBIN TIME 13.5 SECONDS (11.8-14.0)
[2019-02-17 08:04] LABS: BLOOD UREA NITROGEN 12 MG/DL (7-18); CALCIUM LEVEL 8.8 MG/DL (8.8-10.2); CARBON DIOXIDE LEVEL 27 MEQ/L (21-32); CHLORIDE LEVEL 103 MEQ/L (98-107); CREATININE FOR GFR 0.81 MG/DL (0.70-1.30); DIGOXIN LEVEL 0.6 NG/ML (0.5-2.0); GLOMERULAR FILTRATION RATE > 60.0 (>49); GLUCOSE, FASTING 158 MG/DL (70-100); POTASSIUM SERUM 3.6 MEQ/L (3.5-5.1); SODIUM LEVEL 137 MEQ/L (136-145)
[2019-02-17] MEDS: CARVedilol 6.25 MG TAB PO SCH ×2 (09:10→19:55)
[2019-02-17] MEDS: DIGOXIN INJ 0.5 MG/2 ML AMP (J1160) IV SCH (09:10)
[2019-02-17] MEDS: PANTOPRAZOLE 40MG INJ (PROTONIX) (C9113) IV SCH (09:11)
[2019-02-17 10:45] VITALS: BP 126/68
[2019-02-17] MEDS ORDERED: CHLORASEPTIC SPRAY MT PRN (12:45)
[2019-02-17 14:30] VITALS: BP 144/76
--- NOTE | 2019-02-17 14:31 | IPNPDOC ---
Subjective Date Seen The patient was seen on 02/17/19. Subjective Chief Complaint/HPI no increase in abdominal pain, no cough, no CP, no wheezes, no GILL BOX FIXER symptoms. Constitutional: Denies: Chills ENT: Denies: Head Aches Pulmonary: Denies: Dyspnea, Cough Gastrointestinal: Reports: Nausea (intermittent, when NG is not suctioning well.) Hematologic: Denies: Bruising Objective Physical Examination General Exam: Positive: Alert, No Acute Distress Eye Exam: Positive: PERRLA Neck Exam: Positive: Supple; Negative: thyromegaly Chest Exam: Positive: Clear to auscultation; Negative: Rales, Rhonchi, Wheezing Heart Exam: Positive: Rate Normal Abdomen Exam: Positive: BS Hypoactive, Other (tympanitic but not particularly tender.) Extremity Exam: Positive: Edema (1+ LE edema) Skin Exam: Negative: Rash Neuro Exam: Positive: Normal Speech Psych Exam: Positive: Mental status NL Assessment /Plan Problems (1) Small bowel obstruction Status: Acute Response to Treatment: Stable Problem Text: 02/17 NG is keeping him fairly comfortable. minimal output at ostomy. 02/16: surgery Thursday. Dr. Fry ordered repeat CT today 02/15 - per Surgery - plan is for OR thursday for presumed excision of new tumor obstructing colon Will need COuadin held in anticipation for surgery Consult Cardiology and Pulmonary who followe him periopertively last month due to his complicated history and risk going through surgery - 02/14/19: continue with surgical recommendations. OOB tid. Mag level pending. 02/13 -- reports that he feels similar to yesterday 02/12 -- Patient reports that nausea is improved today. NG tube continues to drain. Reports he is much more comfortable today. Per surgery NG tube in place Nausea persists - I will increase phnergan dose if ok with Dr. jang Cont IVF WBC down. Faint hypoactive Bowel sounds with some output in Ostomy (2) Neuroendocrine carcinoma metastatic to liver Onset Date: Unknown Status: Chronic Response to Treatment: Stable (3) CALE on CPAP Status: Chronic Problem Text: not on cpap due to NG in place. sats monitored overnight, continuous (4) Diastolic CHF, chronic Status: Chronic Response to Treatment: Stable Problem Specific Plan: Consult Specialist Problem Text: Dr. Amin has been seeing patient along with Dr Mead (5) A-fib Status: Chronic Response to Treatment: Stable Problem Text: Hold coumadin in incapacitation for surgery resume Warfarin at lower dose: 5 mg. INR daily. Teds and SCDs rate controlled Coumadin held due to high INR and in case of need for surgery- Vit K given x 2 (6) Diabetes Status: Chronic Problem Text: Blood sugars are running 100s currnetly - NPO - D/C sliding scale to prevent hypoglycemia (7) CAD (coronary artery disease) Status: Chronic Response to Treatment: Stable Problem Specific Plan: Consult Specialist (Dr. Amin following.) (8) Elevated INR Status: Acute Problem Text: see above Plan/VTE VTE Prophylaxis Ordered?: Yes (Coumadin) VTE Exclusion Pharmacological: Other (surgery tomorrow) VS, I&O, 24H, Fishbone Vital Signs/I&O Vital Signs Date Time Temp Pulse Resp B/P (MAP) Pulse Ox O2 Delivery O2 Flow Rate FiO2 02/17/19 14:11 18 02/17/19 09:10 100 02/17/19 09:10 138/70 02/17/19 06:36 2.0 02/17/19 06:00 98.2 95 I&O- Last 24 Hours up to 6 AM 02/17/19 06:00 Intake Total 150 ml Output Total 3900 ml Balance -3750 ml Laboratory Data 24H LABS Laboratory Tests 2 02/16/19 17:20: Bedside Glucose (Misc Panel) 104 02/16/19 23:58: Bedside Glucose (Misc Panel) 152H 02/17/19 06:00: Nucleated Red Blood Cells % (auto) 0.0, Prothrombin Time 13.5, Prothromb Time International Ratio 1.06, Anion Gap 7L, Glomerular Filtration Rate > 60.0, Blood Urea Nitrogen 12, Creatinine 0.81, Sodium Level 137, Potassium Level 3.6, Chloride Level 103, Carbon Dioxide Level 27, Calcium Level 8.8, Digoxin Level 0.6 02/17/19 06:07: Bedside Glucose (Misc Panel) 156H 02/17/19 12:38: Bedside Glucose (Misc Panel) 166H CBC/BMP Laboratory Tests 02/17/19 06:00 Red Blood Count 4.22 L, Mean Corpuscular Volume 88.2, Mean Corpuscular Hemoglobin 28.7, Mean Corpuscular Hemoglobin Concent 32.5, Red Cell Distribution Width 13.3, Calcium Level 8.8 Pranav Shaw MD Feb 17, 2019 14:31
--- NOTE | 2019-02-17 15:45 | IPN ---
CARDIOLOGY PROGRESS NOTE DATE OF SERVICE: 02/17/2019 SUBJECTIVE: The patient is seen at bedside. He is pleasant and cooperative though somewhat discouraged. He had over 2 liters of output through his nasogastric (NG) tube yesterday and then another 1000 out yesterday. He states that he is still having significant abdominal pain but denies any paroxysmal nocturnal dyspnea, chest pain, shortness of breath or leg swelling. He states that he is going to be going in for surgery tomorrow with Dr. Fry. OBJECTIVE: Vitals: Temperature 98.2, pulse 75 and irregular, respiratory rate 18, blood pressure 138/70, pulse ox 95% on 2 liters. This is a morbidly obese male who appears his stated age lying comfortably in bed with the head of the bed elevated 30 degrees. There is no conjunctival pallor or icterus. Normal oral moisture. Jugular venous pulsations are difficult to assess secondary to body habitus. Apical impulse is present lateral to the midclavicular line about the sixth intercostal space. Heart sounds are distant and variable with accentuated pulmonary closure, with splitting audible over the left base. No audible gallops, murmurs or rubs. Normal carotid upstroke, but variable volume related to his arrhythmia. No bruits. Abdominal aorta and femoral arteries are not palpable due to his obesity. Pedal pulses are 2+ bilaterally and there is no bilateral lower extremity edema. Lungs: Increased AP chest diameter with reduced chest excursion. Chemotherapy port present in the right chest. Reduced breath sounds but no localized inspiratory rales. Slight prolongation of expiration. No audible wheezes are present. LABORATORY DATA: The patient continues with mild anemia with a hemoglobin of 12.1 which is improved 1 unit from yesterday. Platelet count is slightly low and he does have a low WBC count as well at 2.1. Electrolytes remain in balance with a sodium of 137, potassium 3.4, chloride 103, bicarbonate 27, BUN 12 and creatinine of 0.81. Fasting glucose this morning was 158. Digoxin level is 0.6. IMPRESSION/PLAN: 1. Heart failure (diastolic/chronic): The patient remains clinically compensated. He does receive IV fluids and partial parenteral nutrition (PPN). His electrolyte balance is normal. He is currently not receiving any of diuretic therapy. 2. Chronic atrial fibrillation. Current ventricular response is well controlled with digoxin and carvedilol. His oral anticoagulation continues to be held in preparation for surgery tomorrow. He is currently receiving antithrombotic measures to his lower extremities with thromboembolic deterrent stockings (TEDS) and sequentials. 3. Coronary artery disease (circle vessel), status post coronary artery bypass graft (CABG): He remains free of symptomatic myocardial ischemia. He remains on protective combination carvedilol and atorvastatin. 4. Hypertensive heart disease with heart failure: Current blood pressure is in acceptable range. Chemistries as mentioned above. 5. Chronic cor pulmonale: Remains an issue that may complicate surgical anesthetic measures. He remains on controlled supplemental oxygen. Unfortunate with his nasogastric (NG) tube he is unable to wear his BiPap mask, and is subsequently sleeping in a more upright position at night. 6. Preoperative cardiac examination: We would continue to be in favor of the most minimal procedure necessary, however, with the patient continued to be unable to eat, with increased abdominal pain and gastric distension he obviously does require decompression. His long-term prognosis continues to be guarded especially with his metastatic cancer. He remains a DO NOT RESUSCITATE. We will continue to follow. My faculty preceptor for this patient encounter was physically present during the encounter and was fully available. All aspects of the patient interview, examination, medical decision making process, and medical care plan development were reviewed and approved by the faculty preceptor. The faculty preceptor is aware and concurs with the plan as stated in the body of this note and will attest to such by his/her cosignature.
[2019-02-17] MEDS ORDERED: POTASSIUM CHLORIDE INJ 20 MEQ in AMINO AC/ELECTROLYTE/DEX/CALC 2,000 ML IV SCH (18:00)
[2019-02-17] MEDS ORDERED: FAT EMULSION IV 20% 500 ML IV SCH (18:00)
[2019-02-17] MEDS: ATORVASTATIN 20 MG TAB PO SCH (19:54)
[2019-02-17 22:00] VITALS: BP 134/89
[2019-02-18] VITALS (11 sets, daily range): BP systolic 111–160; BP diastolic 56–90; O2SAT 93–95
[2019-02-18] MEDS: PROMETHAZINE INJ 25 MG/ML VIAL (J2550) IV PRN ×3 (02:22→23:59)
[2019-02-18] MEDS: MORPHINE 4 MG/ML 1ML VIAL/SYRINGE (J2270) IV PRN ×3 (02:23→09:17)
[2019-02-18] MEDS: HumaLOG INSULIN (NovoLOG) PER UNIT SC SCH ×2 (06:07→12:00)
[2019-02-18] MEDS: ONDANSETRON 4MG/2ML VIAL (J2405) IV PRN (06:07)
--- NOTE | 2019-02-18 07:53 | IPNPDOC ---
Subjective Date Seen The patient was seen on 02/18/19. Subjective Chief Complaint/HPI Pt this morning anticipates OR later this morning. He c/o progressively worsening nausea, less and less responsive to antiemetics. General: Reports: Fatigue Constitutional: Denies: Chills, Fever Pulmonary: Denies: Dyspnea, Cough Cardiovascular: Denies: Chest Pain, Palpitations Gastrointestinal: Reports: Abdominal Pain, Diarrhea (ostomy with light brown watery output); Denies: Nausea (+NG) Neurological: Reports: Weakness Psych: Reports: Depression Objective Physical Examination General Exam: Positive: Alert, Mild Distress (+ diaphoresis to forehead) ENT Exam: Positive: Mucous membr. moist/pink; Negative: Nares Patent (+ NG present) Neck Exam: Positive: Supple; Negative: thyromegaly Chest Exam: Positive: Clear to auscultation, Diminished; Negative: Rales, Rhonchi, Wheezing Heart Exam: Positive: Rate Normal, Normal S1, Normal S2 Abdomen Exam: Positive: BS Hypoactive, Other (tympanitic but not particularly tender, + ostomy with light brown watery stool) Extremity Exam: Positive: Edema (1+ LE edema) Neuro Exam: Positive: Normal Speech Psych Exam: Positive: Mental status NL Assessment /Plan Problems (1) Small bowel obstruction Status: Acute Response to Treatment: Stable Problem Text: 02/18 Plan for OR today with Dr Fry. 02/17 NG is keeping him fairly comfortable. minimal output at ostomy. 02/16: surgery Thursday. Dr. Fry ordered repeat CT today 02/15 - per Surgery - plan is for OR thursday for presumed excision of new tumor obstructing colon Will need COuadin held in anticipation for surgery Consult Cardiology and Pulmonary who followe him periopertively last month due to his complicated history and risk going through surgery - 02/14/19: continue with surgical recommendations. OOB tid. Mag level pending. 02/13 -- reports that he feels similar to yesterday 02/12 -- Patient reports that nausea is improved today. NG tube continues to drain. Reports he is much more comfortable today. Per surgery NG tube in place Nausea persists - I will increase phnergan dose if ok with Dr. jang Cont IVF WBC down. Faint hypoactive Bowel sounds with some output in Ostomy (2) Neuroendocrine carcinoma metastatic to liver Onset Date: Unknown Status: Chronic Response to Treatment: Stable (3) CALE on CPAP Status: Chronic Problem Text: not on cpap due to NG in place. sats monitored overnight, continuous (4) Diastolic CHF, chronic Status: Chronic Response to Treatment: Stable Problem Specific Plan: Consult Specialist Problem Text: Appears clinically stable/compensated. Rubina following. (5) A-fib Status: Chronic Response to Treatment: Stable Problem Text: Hold coumadin in incapacitation for surgery resume Warfarin at lower dose: 5 mg. INR daily. Teds and SCDs rate controlled Coumadin held due to high INR and in case of need for surgery- Vit K given x 2 (6) Diabetes Status: Chronic Problem Text: Blood sugars are running 100s currnetly - NPO - D/C sliding scale to prevent hypoglycemia (7) CAD (coronary artery disease) Status: Chronic Response to Treatment: Stable Problem Specific Plan: Consult Specialist (Dr. Amin following.) (8) Elevated INR Status: Acute Problem Text: see above Plan/VTE VTE Prophylaxis Ordered?: Yes (Coumadin) VTE Exclusion Pharmacological: Other (surgery tomorrow) VS, I&O, 24H, Fishbone Vital Signs/I&O Vital Signs Date Time Temp Pulse Resp B/P (MAP) Pulse Ox O2 Delivery O2 Flow Rate FiO2 02/18/19 06:17 18 2.0 02/18/19 06:00 97.9 105 126/80 (95) 98 I&O- Last 24 Hours up to 6 AM 02/18/19 06:00 Intake Total 1140 ml Output Total 4350 ml Balance -3210 ml Laboratory Data 24H LABS Laboratory Tests 2 02/17/19 12:38: Bedside Glucose (Misc Panel) 166H 02/17/19 17:14: Bedside Glucose (Misc Panel) 155H 02/17/19 23:52: Bedside Glucose (Misc Panel) 153H 02/18/19 05:46: Bedside Glucose (Misc Panel) 166H JAZMIN WILLIAMSON PA-C Feb 18, 2019 07:53
[2019-02-18] MEDS: PANTOPRAZOLE 40MG INJ (PROTONIX) (C9113) IV SCH (08:46)
[2019-02-18] MEDS: DIGOXIN INJ 0.5 MG/2 ML AMP (J1160) IV SCH (08:51)
[2019-02-18] MEDS: CARVedilol 6.25 MG TAB PO SCH ×2 (08:54→09:00)
--- NOTE | 2019-02-18 09:07 | IPNPDOC ---
Subjective General Date/Time Seen The patient was seen on 02/18/19 at 09:03. Subject Chief Complaint/History The patient is a 63-year-old male admitted with a reason for visit of Ileus, Small Bowel Obstruction. Patient continues to go showing some bowel obstruction with only a small amount of enteric contents and gas in the ileostomy the past 24 hours and markedly increase in amount of drainage from his nasogastric tube yesterday. He is scheduled for surgery today. Current Medications Current Medications Current Medications Atorvastatin Calcium (Lipitor) 80 mg QHS PO Last administered on 02/17/19at 19:54; Start 02/10/19 at 21:00 Carvedilol (COReg) 6.25 mg BID PO Last administered on 02/18/19at 08:54; Start 02/10/19 at 21:00 Dextrose (Dextrose 50%) 25 ml ASDIRECTED PRN IV SEE LABEL COMMENTS; Start 02/10/19 at 16:00 Digoxin (Lanoxin) 0.25 mg DAILY IV Last administered on 02/18/19at 08:51; Start 02/11/19 at 09:00 Fat Emulsion Intravenous 500 ml @ 20 mls/hr ONCE@1800 IV Last administered on 02/15/19at 17:55; Start 02/15/19 at 18:00; Stop 02/16/19 at 18:00; Status DC Fat Emulsion Intravenous 500 ml @ 20 mls/hr ONCE@1800 IV Last administered on 02/16/19at 17:52; Start 02/16/19 at 18:00; Stop 02/17/19 at 17:59; Status DC Fat Emulsion Intravenous 500 ml @ 20 mls/hr ONCE@1800 IV Last administered on 02/17/19at 17:43; Start 02/17/19 at 18:00; Stop 02/18/19 at 17:59 Glucagon (Glucagon) 1 mg ASDIRECTED PRN SC SEE LABEL COMMENTS; Start 02/10/19 at 16:00 Glucose (Glucose) 16 GM ASDIRECTED PRN PO SEE LABEL COMMENTS; Start 02/10/19 at 16:00 Heparin Sodium (Heparin (Flush)) 500 units ASDIRECTED PRN IV SEE LABEL COMMENTS; Start 02/10/19 at 12:00; Stop 02/10/19 at 16:25; Status DC Heparin Sodium (Porcine) (Heparin) 5,000 units Q8H SQ ; Start 02/13/19 at 00:00; Stop 02/13/19 at 00:46; Status DC Heparin Sodium (Porcine) (Heparin) 5,000 units Q8H SQ Last administered on 02/14/19at 05:45; Start 02/13/19 at 06:00; Stop 02/14/19 at 11:50; Status DC Home Med (Med Rec Complete!) ASDIRECTED XX ; Start 02/10/19 at 14:00; Stop 02/10/19 at 14:00; Status DC Insulin Human Lispro (HumaLOG INSULIN) SEE PROTOCOL TABLE Q6H SC Last administered on 02/10/19at 18:43; Start 02/10/19 at 18:00; Stop 02/11/19 at 09:13; Status DC Insulin Human Lispro (HumaLOG INSULIN) See Protocol Table Q6H SC Last administered on 02/16/19at 06:13; Start 02/15/19 at 18:00; Stop 02/16/19 at 12:01; Status DC Insulin Human Lispro (HumaLOG INSULIN) See Protocol Table Q6H SC Last administered on 02/17/19at 12:46; Start 02/16/19 at 18:00; Stop 02/17/19 at 12 :01; Status DC Insulin Human Lispro (HumaLOG INSULIN) See Protocol Table Q6H SC Last administered on 02/18/19at 06:07; Start 02/17/19 at 18:00; Stop 02/18/19 at 12:01 Magnesium Sulfate 8 meq/Amino Ac/ Electrol/Dextrose/ Calcium 2,002 ml @ 75 mls/hr ONCE@1800 IV Last administered on 02/15/19at 17:55; Start 02/15/19 at 18:00; Stop 02/16/19 at 18:00; Status DC Magnesium Sulfate/ Dextrose 1 gm/IV Miscellaneous Supplies 100 ml @ 100 mls/hr Q1H IV Last administered on 02/14/19at 14:12; Start 02/14/19 at 14:00; Stop 02/14/19 at 15:59; Status DC Metoclopramide HCl (REGLAN INJection) 10 mg Q6HP PRN IV NAUSEA OR VOMITING; Start 02/10/19 at 15:00; Stop 02/10/19 at 15:28; Status DC Morphine Sulfate (Morphine Sulfate Inj) 2 mg Q2HP PRN IV MODERATE PAIN (PS 5-7) Last administered on 02/17/19 14:11; Start 02/10/19 at 15:00 Morphine Sulfate (Morphine Sulfate Inj) 4 mg Q2HP PRN IV SEVERE PAIN (PS 8-10) Last administered on 02/18/19 06:07; Start 02/10/19 at 15:00 Morphine Sulfate (Morphine Sulfate Inj) 4 mg Q30M PRN IV SEVERE PAIN (PS 8-10) Last administered on 02/10/19 11:50; Start 02/10/19 at 11:45; Stop 02/10/19 at 16:24; Status DC Multivitamins 10 ml/Chromium/ Copper/Manganese/ Seleni/Zn 1 ml/ Potassium Chloride 20 meq/ Magnesium Sulfate 8 meq/Amino Ac/ Electrol/Dextrose/ Calcium 2,023 ml @ 75 mls/hr ONCE@1800 IV Last administered on 02/16/19 17:53; Start 02/16/19 at 18:00; Stop 02/17/19 at 17:59; Status DC Ondansetron HCl (ZOFRAN INJection) 4 mg Q4HP PRN IV NAUSEA OR VOMITING Last administered on 02/18/19 06:07; Start 02/11/19 at 09:45 Ondansetron HCl (ZOFRAN INJection) 4 mg Q6HP PRN IV NAUSEA OR VOMITING Last administered on 02/11/19 02:07; Start 02/10/19 at 15:00; Stop 02/11/19 at 09:38; Status DC Pantoprazole Sodium (Protonix) 40 mg DAILY IV Last administered on 02/18/19 08:46; Start 02/11/19 at 09:00 Phenol (Chloraseptic [place]) 1 spray Q2HP PRN MT SORE THROAT Last administered on 02/17/19 14:10; Start 02/17/19 at 12:45 Potassium Chloride 20 meq/ Amino Ac/Electrol/ Dextrose/Calcium 2,010 ml @ 75 mls/hr ONCE@1800 IV Last administered on 02/17/19 17:43; Start 02/17/19 at 18:00; Stop 02/18/19 at 17:59 Promethazine HCl (PHENERGAN INJection) 12.5 mg Q6HP PRN IV NAUSEA Last administered on 6/21/19at 03:01; Start 02/10/19 at 15:00; Stop 02/11/19 at 0 9:13; Status DC Promethazine HCl (PHENERGAN INJection) 25 mg Q6HP PRN IV NAUSEA Last administered on 02/18/19at 08:46; Start 02/11/19 at 09:15 Sodium Chloride 1,000 ml @ 100 mls/hr Q10H IV Last administered on 02/10/19at 11:50; Start 02/10/19 at 11:43; Stop 02/10/19 at 16:00; Status DC Sodium Chloride 1,000 ml @ 125 mls/hr Q8H IV Last administered on 02/15/19at 06:51; Start 02/10/19 at 14:47; Stop 02/15/19 at 08:27; Status DC Sodium Chloride (Saline Lock Flush) 10 ml ASDIRECTED PRN IV SEE LABEL COMMENTS; Start 02/10/19 at 12:00; Stop 02/10/19 at 16:25; Status DC Warfarin Sodium (Coumadin) 5 mg DAILY@17 PO Last administered on 02/14/19at 18:09; Start 02/14/19 at 17:00; Stop 02/15/19 at 10:26; Status DC Allergies Coded Allergies: No Known Allergies (Unverified , 12/27/18) Objective Physical Examination Examination GENERAL APPEARANCE: Mildly uncomfortable. Reports pain in the throat due to presence of a nasogastric tube, abdominal discomfort on the left side of the abdomen. SKIN: Wound dry. HEENT: Nasogastric tube in place, working. Lips dry.. NECK: Short supple neck, no jugular venous distention. LUNGS: Clear to auscultation bilaterally. No wheezing appreciated. HEART:. Heart rate and rhythm. ABDOMEN: Abdomen is round, soft, appears more distended today, tympanitic to percussion. Mild discomfort on palpation in the lower central abdomen, left lower abdomen less so on the right lower abdomen. Ileostomy with the bag empty, small amount of liquid draining from from the ileostomy. . EXTREMITIES: No edema. Vital Signs Vital Signs Date Time Temp Pulse Resp B/P (MAP) Pulse Ox O2 Delivery O2 Flow Rate FiO2 02/18/19 08:54 106 140/82 02/18/19 06:17 18 2.0 02/18/19 06:00 97.9 98 I&Os I&O- Last 24 Hours up to 6 AM 02/18/19 06:00 Intake Total 1140 ml Output Total 4350 ml Balance -3210 ml Laboratory Data Labs 24H Laboratory Tests 2 02/17/19 12:38: Bedside Glucose (Misc Panel) 166H 02/17/19 17:14: Bedside Glucose (Misc Panel) 155H 02/17/19 23:52: Bedside Glucose (Misc Panel) 153H 02/18/19 05:46: Bedside Glucose (Misc Panel) 166H Impression Patient continues to show evidence for bowel obstruction. Etiology may be adhesions post surgery versus secondary to his carcinoid tumor involvement. The CT enterography wasn't really helpful in trying to delineate this. He is scheduled for surgery today. Have extensively spoken to him and his as well as the other providers involved with regards to the plan of surgery and expected postoperative course. He has multiple medical problems including cardiac and pulmonary (sleep apnea) that might complicate his postoperative course. I expect he probably will be in the PCU or ICU postoperatively for closer monitoring. Plan / VTE VTE Prophylaxis Ordered?: Yes (Coumadin) VTE Exclusion Pharmacological: Other (surgery tomorrow) NEDRA MARTINEZ MD Feb 18, 2019 09:07
[2019-02-18] MEDS ORDERED: BUPIVACAINE HCL 0.25% 30 ML VIAL As Ordered ONE (09:45)
[2019-02-18] MEDS ORDERED: LIDOCAINE 1% SDV INJ 30 ML VIAL As Ordered ONE (09:45)
[2019-02-18] MEDS ORDERED: LIDOCAINE 2% INJ 100 MG/5 ML SDV (FOR ANES.) As Ordered ONE (09:48)
[2019-02-18] MEDS ORDERED: ROCURONIUM BROMIDE 50 MG/5 ML VIAL As Ordered ONE ×3 (09:48→13:34)
[2019-02-18] MEDS ORDERED: dexameTHASONE 4 MG/ML 1ML VIAL (J1100) As Ordered ONE (09:48)
[2019-02-18] MEDS ORDERED: ONDANSETRON 4MG/2ML VIAL (J2405) As Ordered ONE ×2 (09:48→16:46)
[2019-02-18] MEDS ORDERED: PROPOFOL 200 MG/20 ML VIAL As Ordered ONE (09:48)
[2019-02-18] MEDS ORDERED: fentaNYL 250 MCG/5 ML INJECTION (J3010) As Ordered ONE (09:59)
[2019-02-18] MEDS ORDERED: MIDAZOLAM INJ 2 MG/2 ML VIAL (J2250) As Ordered ONE (09:59)
[2019-02-18] MEDS ORDERED: ETOMIDATE INJ 20MG/10ML VIAL As Ordered ONE (10:33)
[2019-02-18] MEDS ORDERED: SUCCINYLCHOLINE 100 MG/5 ML SYRINGE (J0330) As Ordered ONE (10:34)
[2019-02-18] MEDS ORDERED: ERTAPENEM 1 GM INJ (INVanz) (J1335) As Ordered ONE (10:35)
[2019-02-18] MEDS ORDERED: LABETALOL HCL 100 MG/20 ML VIAL As Ordered ONE (11:25)
[2019-02-18] MEDS ORDERED: HYDROmorphone HCL 2 MG/ML 1ML VIAL (J1170) As Ordered ONE (13:01)
[2019-02-18] MEDS ORDERED: SUGAMMADEX SODIUM 500 MG/5 ML VIAL (BRIDION) As Ordered ONE (14:44)
[2019-02-18] MEDS ORDERED: BUPIVACAINE HCL 0.25% 10 ML VIAL As Ordered ONE (14:45)
[2019-02-18] MEDS ORDERED: BUPIVACAINE LIPOSOME/PF 1.3% 20ML VIAL (13.3MG/ML)(EXPAREL)(C9290 PER1MG) As Ordered ONE (14:45)
[2019-02-18] MEDS ORDERED: NS 1,000 ML IV SCH (15:48)
[2019-02-18] MEDS ORDERED: MORPHINE 1MG/ML IN 0.9% NACL 100ML IV BAG As Ordered ONE (15:57)
[2019-02-18] MEDS ORDERED: NALBUPHINE HCL 10 MG/ML AMP (J2300) IV PRN (16:00)
[2019-02-18] MEDS ORDERED: METOCLOPRAMIDE INJ 10MG/2ML VIAL (J2765) IV PRN (16:00)
[2019-02-18] MEDS ORDERED: PERCOCET 5MG/325MG TAB PO PRN (16:00)
[2019-02-18] MEDS ORDERED: NALOXONE INJ 0.4 MG/1 ML VIAL (J2310) IV PRN (16:00)
[2019-02-18] MEDS ORDERED: diphenhydrAMINE INJ 50MG/ML VIAL (J1200) IV PRN (16:00)
[2019-02-18] MEDS ORDERED: fentaNYL 100 MCG/2 ML INJECTION (J3010) IV PRN (16:00)
[2019-02-18] MEDS ORDERED: LR 1,000 ML IV SCH (16:00)
[2019-02-18] MEDS ORDERED: EPIDURAL/PCA KEYS XX PRN (16:00)
[2019-02-18] MEDS ORDERED: ONDANSETRON 4MG/2ML VIAL (J2405) IV PRN (16:00)
[2019-02-18] MEDS: MORPHINE 1MG/ML IN 0.9% NACL 100ML IV BAG IV PRN (16:10)
[2019-02-18] MEDS ORDERED: METOCLOPRAMIDE INJ 10MG/2ML VIAL (J2765) As Ordered ONE (16:24)
[2019-02-18] MEDS ORDERED: METOPROLOL 5 MG/5 ML VIAL As Ordered ONE (16:51)
[2019-02-18] MEDS: METOPROLOL 5 MG/5 ML VIAL IV SCH ×6 (16:51→18:31)
[2019-02-18] MEDS: LR 1,000 ML IV SCH (18:32)
--- NOTE | 2019-02-18 20:05 | ROOPDOC ---
[facility] Report Of Operation Report of Operation DATE OF PROCEDURE: 02/18/19 PREPROCEDURE DIAGNOSES: Small bowel obstruction, metastatic neuroendocrine tumor. POSTPROCEDURE DIAGNOSES: Small bowel obstruction, metastatic neuroendocrine tumor. PROCEDURE: Initial diagnostic laparoscopy converted to open exploratory laparotomy, lysis of adhesions, small bowel bypass, open Wili gastrostomy. Ultrasound-guided transversus abdominis plane block using Exparel. SURGEON: Nedra Fry MD [employer] SUPERVISOR: Bentley Darnell MD ANESTHESIA: Gen. anesthesia ESTIMATED BLOOD LOSS: Approximately 150 mL. COMPLICATIONS: None patient extubated. REMARKS: 63-year-old male who 6 weeks ago underwent right colon resection and ileostomy and found to have metastatic neuroendocrine tumor with metastasis to the omentum, and liver. He returned last week with symptoms of bowel obstruction has persistent obstruction. PROCEDURE NOTE: Markedly dilated loop of bowel in the mid abdomen extending into the right upper quadrant area where it looks to be encased by omental/metastatic carcinoid tissue including that of the ileostomy which is decompressed. The area in the right upper quadrant area is full of metastatic deposits. He adhered to the omentum, peritoneal peritoneal wall. I was not able to fully free up the bowels adhered to the right upper quadrant area safely. He also has multiple areas of adhesions to either chronic hard adhesions or metastatic deposits on the left side in the mesentery and retroperitoneum. DESCRIPTION OF PROCEDURE: . NEDRA FRY MD Feb 18, 2019 20:05
[2019-02-18] MEDS ORDERED: AMIODARONE HCL 150 MG in APPROPRIATE DILUENT 1 EA IV STA (21:15)
[2019-02-18] MEDS: ATORVASTATIN 20 MG TAB PO SCH (21:48)
[2019-02-18] MEDS: ALVIMOPAN 12 MG CAPSULE (ENTEREG) PO SCH (21:48)
[2019-02-19] VITALS (27 sets, daily range): BP systolic 104–130; BP diastolic 58–82; O2SAT 90–97
[2019-02-19] MEDS: METOPROLOL 5 MG/5 ML VIAL IV SCH ×4 (00:08→17:59)
[2019-02-19] MEDS: LR 1,000 ML IV SCH ×2 (01:43→08:45)
[2019-02-19] MEDS: ONDANSETRON 4MG/2ML VIAL (J2405) IV PRN (04:39)
[2019-02-19] MEDS ORDERED: NS 500 ML IV ONE (05:30)
[2019-02-19 05:45] LABS: HEMATOCRIT 36.7 % (42.0-52.0); HEMOGLOBIN 11.9 g/dl (13.5-17.5); MEAN CORPUSCULAR HGB CONC 32.4 g/dl (32.0-36.5); MEAN CORPUSCULAR VOLUME 89.3 fl (80.0-96.0); RED BLOOD COUNT 4.11 10^6/uL (4.30-6.10); WHITE BLOOD COUNT 2.1 10^3/uL (4.0-10.0)
[2019-02-19 06:07] LABS: ALBUMIN 2.4 GM/DL (3.2-5.2); ALT/SGPT 67 U/L (12-78); BILIRUBIN,TOTAL 1.2 MG/DL (0.2-1.0); BLOOD UREA NITROGEN 39 MG/DL (7-18); CALCIUM LEVEL 8.1 MG/DL (8.8-10.2); CARBON DIOXIDE LEVEL 26 MEQ/L (21-32); CHLORIDE LEVEL 101 MEQ/L (98-107); CREATININE FOR GFR 2.79 MG/DL (0.70-1.30); GLOMERULAR FILTRATION RATE 24.6 (>49); GLUCOSE, FASTING 240 MG/DL (70-100); POTASSIUM SERUM 5.8 MEQ/L (3.5-5.1); SODIUM LEVEL 137 MEQ/L (136-145); TOTAL PROTEIN 6.7 GM/DL (6.4-8.2)
[2019-02-19 07:37] LABS: PLATELET COUNT, AUTOMATED 77 10^3/uL (150-450)
[2019-02-19 07:45] LABS: ATYPICAL LYMPH 3 % (0-5); BASOPHILS 1 % (0-4); LYMPHOCYTES 34 % (16-52); MONOCYTES 1 % (0-8); NEUTROPHILS 52 % (35-75)
[2019-02-19 07:46] LABS: PLATELET ESTIMATE DECREASED (NORMAL)
[2019-02-19 07:47] LABS: ANISOCYTOSIS 1+
[2019-02-19] MEDS: ALVIMOPAN 12 MG CAPSULE (ENTEREG) PO SCH ×2 (08:24→21:30)
[2019-02-19] MEDS: PROMETHAZINE INJ 25 MG/ML VIAL (J2550) IV PRN (08:24)
[2019-02-19] MEDS: PANTOPRAZOLE 40MG INJ (PROTONIX) (C9113) IV SCH (08:25)
[2019-02-19] MEDS: DIGOXIN INJ 0.5 MG/2 ML AMP (J1160) IV SCH (08:27)
[2019-02-19] MEDS ORDERED: NS 1,000 ML IV ONE (09:30)
--- NOTE | 2019-02-19 09:53 | IPNPDOC ---
Subjective General Date/Time Seen The patient was seen on 02/19/19 at 09:27. Subject Chief Complaint/History The patient is a 63-year-old male admitted with a reason for visit of Ileus, Small Bowel Obstruction. Patient seen this morning, looks very sleepy, falls asleep during our conversation. Nurse reports he just gotten Phenergan. I checked the PIANO STRINGER and use it about 35 times overnight only 4 times this morning. He has concentrated urine and urine output was low overnight. His labs shows markedly bumped on his BUN and creatinine. No output from the gastrostomy nor from the ileostomy. Current Medications Current Medications Current Medications Alvimopan (Entereg) 12 mg BID PO Last administered on 02/19/19at 08:24; Start 02/18/19 at 21:00; Stop 02/23/19 at 20:59 Amiodarone HCl 150 mg/IV Miscellaneous Supplies 100 ml @ 600 mls/hr STAT STAT IV Last administered on 02/18/19at 21:39; Start 02/18/19 at 21:15; Stop 02/18/19 at 21:25; Status DC Atorvastatin Calcium (Lipitor) 80 mg QHS PO Last administered on 02/18/19at 21:48; Start 02/10/19 at 21:00 Carvedilol (COReg) 6.25 mg BID PO Last administered on 02/17/19at 19:55; Start 02/10/19 at 21:00; Stop 02/18/19 at 18:18; Status DC Dextrose (Dextrose 50%) 25 ml ASDIRECTED PRN IV SEE LABEL COMMENTS; Start 02/10/19 at 16:00 Digoxin (Lanoxin) 0.25 mg DAILY IV Last administered on 02/19/19at 08:27; Start 02/11/19 at 09:00 Diphenhydramine HCl (Benadryl) 12.5 mg Q4HP PRN IV ITCHING; Start 02/18/19 at 16:00 Fat Emulsion Intravenous 500 ml @ 20 mls/hr ONCE@1800 IV Last administered on 02/15/19at 17:55; Start 02/15/19 at 18:00; Stop 02/16/19 at 18:00; Status DC Fat Emulsion Intravenous 500 ml @ 20 mls/hr ONCE@1800 IV Last administered on 02/16/19at 17:52; Start 02/16/19 at 18:00; Stop 02/17/19 at 17:59; Status DC Fat Emulsion Intravenous 500 ml @ 20 mls/hr ONCE@1800 IV Last administered on 02/17/19at 17:43; Start 02/17/19 at 18:00; Stop 02/18/19 at 15:48; Status DC Fentanyl Citrate (Sublimaze) 25 mcg Q5MP PRN IV MODERATE PAIN (PS 4-7); Start 02/18/19 at 16:00; Stop 02/18/19 at 17:00; Status DC Glucagon (Glucagon) 1 mg ASDIRECTED PRN SC SEE LABEL COMMENTS; Start 02/10/19 at 16:00 Glucose (Glucose) 16 GM ASDIRECTED PRN PO SEE LABEL COMMENTS; Start 02/10/19 at 16:00 Heparin Sodium (Heparin (Flush)) 500 units ASDIRECTED PRN IV SEE LABEL COMMENTS; Start 02/10/19 at 12:00; Stop 02/10/19 at 16:25; Status DC Heparin Sodium (Porcine) (Heparin) 5,000 units Q8H SQ ; Start 02/13/19 at 00:00; Stop 02/13/19 at 00:46; Status DC Heparin Sodium (Porcine) (Heparin) 5,000 units Q8H SQ Last administered on 02/14/19at 05:45; Start 02/13/19 at 06:00; Stop 02/14/19 at 11:50; Status DC Home Med (Med Rec Complete!) ASDIRECTED XX ; Start 02/10/19 at 14:00; Stop 02/10/19 at 14:00; Status DC Insulin Human Lispro (HumaLOG INSULIN) SEE PROTOCOL TABLE Q6H SC Last administered on 02/10/19at 18:43; Start 02/10/19 at 18:00; Stop 02/11/19 at 09:13; Status DC Insulin Human Lispro (HumaLOG INSULIN) See Protocol Table Q6H SC Last administered on 02/16/19at 06:13; Start 02/15/19 at 18:00; Stop 02/16/19 at 12:01; Status DC Insulin Human Lispro (HumaLOG INSULIN) See Protocol Table Q6H SC Last a dministered on 02/17/19at 12:46; Start 02/16/19 at 18:00; Stop 02/17/19 at 12:01; Status DC Insulin Human Lispro (HumaLOG INSULIN) See Protocol Table Q6H SC Last administered on 02/18/19at 06:07; Start 02/17/19 at 18:00; Stop 02/18/19 at 12:01; Status DC Lactated Ringer's 1,000 ml @ 150 mls/hr Q6H40M IV Last administered on 02/18/19at 15:32; Start 02/18/19 at 16:00; Stop 02/18/19 at 17:00; Status DC Lactated Ringer's 1,000 ml @ 150 mls/hr Q6H40M IV Last administered on 02/19/19at 08:45; Start 02/18/19 at 18:15 Magnesium Sulfate 8 meq/Amino Ac/ Electrol/Dextrose/ Calcium 2,002 ml @ 75 mls/ hr ONCE@1800 IV Last administered on 02/15/19at 17:55; Start 02/15/19 at 18:00; Stop 02/16/19 at 18:00; Status DC Magnesium Sulfate/ Dextrose 1 gm/IV Miscellaneous Supplies 100 ml @ 100 mls/hr Q1H IV Last administered on 02/14/19at 14:12; Start 02/14/19 at 14:00; Stop 02/14/19 at 15:59; Status DC Metoclopramide HCl (REGLAN INJection) 10 mg Q6HP PRN IV NAUSEA OR VOMITING; Start 02/10/19 at 15:00; Stop 02/10/19 at 15:28; Status DC Metoclopramide HCl (REGLAN INJection) 10 mg Q6HP PRN IV NAUSEA OR VOMITING Last administered on 02/18/19at 16:24; Start 02/18/19 at 16:00; Stop 02/18/19 at 17:00; Status DC Metoprolol Tartrate (Lopressor) 1 mg Q5M IV Last administered on 02/18/19at 17:12; Start 02/18/19 at 17:30; Stop 02/18/19 at 17:51; Status DC Metoprolol Tartrate (Lopressor) 2.5 mg Q6H IV Last administered on 02/19/19at 05:37; Start 02/18/19 at 18:00 Morphine Sulfate (Morphine Sulfate In 0.9%Nacl Iv Bag) Concentration 1 mg/ml ASDIRECTED PRN IV SEE LABEL COMMENTS Last administered on 02/18/19 16:10; Start 02/18/19 at 16:00 Morphine Sulfate (Morphine Sulfate Inj) 2 mg Q2HP PRN IV MODERATE PAIN (PS 5-7) Last administered on 02/17/19at 14:11; Start 02/10/19 at 15:00; Stop 02/18/19 at 15:48; Status DC Morphine Sulfate (Morphine Sulfate Inj) 4 mg Q2HP PRN IV SEVERE PAIN (PS 8-10) Last administered on 02/18/19 09:17; Start 02/10/19 at 15:00; Stop 02/18/19 at 15:48; Status DC Morphine Sulfate (Morphine Sulfate Inj) 4 mg Q30M PRN IV SEVERE PAIN (PS 8-10) Last administered on 02/10/19at 11:50; Start 02/10/19 at 11:45; Stop 02/10/19 at 16:24; Status DC Multivitamins 10 ml/Chromium/ Copper/Manganese/ Seleni/Zn 1 ml/ Potassium Chloride 20 meq/ Magnesium Sulfate 8 meq/Amino Ac/ Electrol/Dextrose/ Calcium 2,023 ml @ 75 mls/hr ONCE@1800 IV Last administered on 02/16/19at 17:53; Start 02/16/19 at 18:00; Stop 02/17/19 at 17:59; Status DC Nalbuphine HCl (Nubain) 2.5 mg Q6HP PRN IV PRURITIS; Start 02/18/19 at 16:00; Stop 02/25/19 at 15:59 Naloxone HCl (Narcan) 0.1 mg Q5MP PRN IV SEE LABEL COMMENTS; Start 02/18/19 at 16:00 Non-Formulary Medication (Epidural/PIANO STRINGER [place]) USE THIS ENTRY TO VEND ... Q1M PRN XX SEE LABEL COMMENTS; Start 02/18/19 at 16:00 Ondansetron HCl (ZOFRAN INJection) 4 mg Q4HP PRN IV NAUSEA OR VOMITING Last administered on 02/19/19at 04:39; Start 02/11/19 at 09:45 Ondansetron HCl (ZOFRAN INJection) 4 mg Q4HP PRN IV NAUSEA OR VOMITING Last administered on 02/18/19at 16:46; Start 02/18/19 at 16:00; Stop 02/18/19 at 17:00; Status DC Ondansetron HCl (ZOFRAN INJection) 4 mg Q6HP PRN IV NAUSEA OR VOMITING Last administered on 02/11/19at 02:07; Start 02/10/19 at 15:00; Stop 02/11/19 at 09:38; Status DC Oxycodone/ Acetaminophen (Percocet 5mg/ 325mg Tablet) 1 tab ASDIRECTED PRN PO MILD/MODERATE PAIN (PS 1-7); Start 02/18/19 at 16:00; Stop 02/18/19 at 17:00; Status DC Pantoprazole Sodium (Protonix) 40 mg DAILY IV Last administered on 02/19/19at 08:25; Start 02/11/19 at 09:00 Phenol (Chloraseptic [place]) 1 spray Q2HP PRN MT SORE THROAT Last administered on 02/17/19at 14:10; Start 02/17/19 at 12:45 Potassium Chloride 20 meq/ Amino Ac/Electrol/ Dextrose/Calcium 2,010 ml @ 75 mls/hr ONCE@1800 IV Last administered on 02/17/19 17:43; Start 02/17/19 at 18:00; Stop 02/18/19 at 15:48; Status DC Promethazine HCl (PHENERGAN INJection) 12.5 mg Q6HP PRN IV NAUSEA Last administered on 02/11/19 03:01; Start 02/10/19 at 15:00; Stop 02/11/19 at 09:13 ; Status DC Promethazine HCl (PHENERGAN INJection) 25 mg Q6HP PRN IV NAUSEA Last administered on 02/19/19at 08:24; Start 02/11/19 at 09:15 Sodium Chloride 1,000 ml @ 15 mls/hr Q24H IV ; Start 02/18/19 at 15:48 Sodium Chloride 1,000 ml @ 100 mls/hr Q10H IV Last administered on 02/10/19at 11:50; Start 02/10/19 at 11:43; Stop 02/10/19 at 16:00; Status DC Sodium Chloride 1,000 ml @ 125 mls/hr Q8H IV Last administered on 02/15/19at 06:51; Start 02/10/19 at 14:47; Stop 02/15/19 at 08:27; Status DC Sodium Chloride (Saline Lock Flush) 10 ml ASDIRECTED PRN IV SEE LABEL COMMENTS; Start 02/10/19 at 12:00; Stop 02/10/19 at 16:25; Status DC Warfarin Sodium (Coumadin) 5 mg DAILY@17 PO Last administered on 02/14/19at 18:09; Start 02/14/19 at 17:00; Stop 02/15/19 at 10:26; Status DC Allergies Coded Allergies: No Known Allergies (Unverified , 12/27/18) Objective Physical Examination Examination GENERAL APPEARANCE: Very sleepy otherwise when he wakes up he looks to be oriented. SKIN: Warm, very dry. HEENT: Mild pale palpebral conjunctiva. Lips are dry. NECK: No obvious jugular venous distention. LUNGS: Clear to auscultation bilaterally. No wheezing appreciated. HEART: In A. fib, rates in the 120s. ABDOMEN: Abdomen is moderately distended, quiet, soft, midline incision dressings are clean, dry and intact minimal staining. GUILLERMO drain with serosanguineous fluid in the bowel. No ileostomy output yet. Gastrostomy output has not put out anything despite being in low intermittent wall suction. I tested this and I am not getting anything back myself. . EXTREMITIES: Minimal lower extremity edema. Vital Signs Vital Signs Date Time Temp Pulse Resp B/P (MAP) Pulse Ox O2 Delivery O2 Flow Rate FiO2 02/19/19 08:27 120 02/19/19 08:00 96 Nasal Cannula 3.0 02/19/19 08:00 97.2 19 119/75 (90) I&Os I&O- Last 24 Hours up to 6 AM 02/19/19 05:59 Intake Total 3200 ml Output Total 1565 ml Balance 1635 ml Laboratory Data Labs 24H Laboratory Tests 2 02/18/19 19:42: Bedside Glucose (Misc Panel) 237H 02/19/19 05:16: Nucleated Red Blood Cells % (auto) 0.0, Neutrophils 52, Band Neutrophils 9, Lymphocytes (Manual) 34, Monocytes (Manual) 1, Basophils (Manual) 1, Atypical Lymphocytes 3, Platelet Estimate DECREASED, Immature Platelet Fraction 4.5, Anisocytosis 1+, Macrocytosis 1+, Anion Gap 10, Glomerular Filtration Rate 24.6L, Blood Urea Nitrogen 39#H, Creatinine 2.79#H, Sodium Level 137, Potassium Level 5.8H, Chloride Level 101, Carbon Dioxide Level 26, Calcium Level 8.1L, Aspartate Amino Transf (AST/SGOT) 33, Alanine Aminotransferase (ALT/SGPT) 67, Alkaline Phosphatase 152H, Total Bilirubin 1.2H, Total Protein 6.7, Albumin 2.4L, Albumin/Globulin Ratio 0.56L CBC/BMP Laboratory Tests 02/19/19 05:16 Red Blood Count 4.11 L, Mean Corpuscular Volume 89.3, Mean Corpuscular Hemoglobin 29.0, Mean Corpuscular Hemoglobin Concent 32.4, Red Cell Distribution Width 13.4, Calcium Level 8.1 L, Aspartate Amino Transf (AST/SGOT) 33, Alanine Aminotransferase (ALT/SGPT) 67, Alkaline Phosphatase 152 H, Total Bilirubin 1.2 H, Total Protein 6.7, Albumin 2.4 L Impression Small Bowel Obstruction POD1 Exploratory Laparotomy, Lysis of Adhesion, small bowel bypass distal small bowel to just below ileostomy, gastrostomy tube placement metastatic neuroendocrine tumor mild malnutrition acute renal failure thrombocytopenia leukopenia He looks to be very dry. I'll give him an additional bolus of 1 normal saline. We were conservative on him in regards to fluid given his history of CHF. He is starting to make more urine though this looks very concentrated his BUN and creatinine is markedly pumped up this morning and his potassium is also elevated. Switching IV fluids remove the potassium, increase IV fluids at 200 ML's in our and recheck a lower BMP later during the day. I spoke to the nursery are my concern and he is falling asleep during our conversation. Concerns that he may be getting over narcotized. We reviewed the PIANO STRINGER diagnosis and he hasn't really gotten without much this morning. He used it about 35 times last night. He had just gotten Phenergan for the nausea this might be the side effects of the Phenergan. We may need to place back nasogastric tube if the gastrostomy tube is not working to relieve him of the nausea. I spoke to his yesterday after the surgery with regards to my operative findings and what I did during the surgery. Consent told her, I expect he will be slow to recover from this. There is extensive reforming of the mesh met astatic focus over the right upper quadrant area which is caught the loops of bowel prior to the ileostomy causing the obstruction. Unfortunately I could not get to that area safely less I had to do a [id number] small bowel bypass to the distended loop of bowel to the portion of the small bowel prior to the ileostomy. I placed the gastrostomy to allow for gastric drainage but unfortunately this has not been working with him supine. I spoke to the nurse in regards to getting out of bed sometime today. was concerned about that he is starting to get some early decubiti ulcer from him remaining bedridden the whole week. We'll continue the TPN tonight. I haven't spoken to him with regards to the operative findings due to him being sleepy. Plan / VTE VTE Prophylaxis Ordered?: Yes (Coumadin) VTE Exclusion Pharmacological: Other (surgery tomorrow) NEDRA MARTINEZ MD Feb 19, 2019 09:52
[2019-02-19 10:13] LABS: CK-MB VALUE MASS < 1.0 NG/ML (<3.6); CPK CREATINE PHOSPHOKINASE 71 U/L (39-308); MB/CK RELATIVE INDEX 1.41 (< OR =4); TROPONIN I < 0.02 NG/ML (< 0.10)
[2019-02-19] MEDS: NS 1,000 ML IV SCH ×3 (13:31→18:01)
[2019-02-19 14:33] LABS: CALCIUM LEVEL 7.6 MG/DL (8.8-10.2); CREATININE FOR GFR 2.74 MG/DL (0.70-1.30); GLOMERULAR FILTRATION RATE 25.1 (>49); POTASSIUM SERUM 5.7 MEQ/L (3.5-5.1)
[2019-02-19] MEDS: MORPHINE 1MG/ML IN 0.9% NACL 100ML IV BAG IV PRN (15:35)
[2019-02-19] MEDS: HumaLOG INSULIN (NovoLOG) PER UNIT SC SCH (17:58)
[2019-02-19] MEDS ORDERED: FAT EMULSION IV 20% 500 ML IV SCH (18:00)
[2019-02-19] MEDS ORDERED: AMINO AC/ELECTROLYTE/DEX/CALC 2,000 ML IV SCH (18:00)
--- NOTE | 2019-02-19 19:07 | IPNPDOC ---
Subjective Date Seen The patient was seen on 02/19/19. Subjective Chief Complaint/HPI Mr. Vyas reports that he feels like his abdomen has been hit with a cannonball. Other than this he does not have any complaints. His is encouraged by the fact that he is getting some gas in his ostomy bag now. General: Denies: Normal Appetite Constitutional: Denies: Chills, Fever Pulmonary: Denies: Cough Cardiovascular: Denies: Chest Pain, Palpitations Genitourinary: Denies: Dysuria Psych: Reports: Mood Normal Objective Physical Examination General Exam: Positive: Alert, No Acute Distress Eye Exam: Positive: Conjunctiva & lids normal; Negative: Sclera icteric ENT Exam: Positive: Mucous membr. moist/pink; Negative: Nares Patent (+ NG present) Neck Exam: Negative: Lymphadenopathy Chest Exam: Positive: Clear to auscultation, Diminished; Negative: Rales, Rhonchi, Wheezing Heart Exam: Positive: Rate Normal, Normal S1, Normal S2 Abdomen Exam: Positive: Other (there is scant brown to bilious thin output from his ostomy); Negative: Normal bowel sounds (abdomen is quiet) Extremity Exam: Positive: Edema (1+ LE edema) Neuro Exam: Positive: Normal Speech Psych Exam: Positive: Mental status NL Assessment /Plan Problems (1) Small bowel obstruction Status: Resolved Response to Treatment: Stable, Improving Discussed With: [employer] Apprentice, Patient, Family with Pt Consent Problem Specific Plan: Monitor Clinically Problem Text: 02/19: Postop day #1. In speaking to Dr. Fry and reviewing his operative report it looks like there were extensive metastatic lesions noted in the right upper quadrant. He did what he could for the patient and did create a [id number] bypass of the most encrusted/obstructed area. This should allow for his ileostomy to function again. Now it is a waiting game for the ileus to resolve. 02/18 Plan for OR today with Dr Fry. 02/17 NG is keeping him fairly comfortable. minimal output at ostomy. 02/16: surgery Thursday. Dr. Fry ordered repeat CT today 02/15 - per Surgery - plan is for OR thursday for presumed excision of new tumor obstructing colon Will need COuadin held in anticipation for surgery Consult Cardiology and Pulmonary who followe him periopertively last month due to his complicated history and risk going through surgery - 02/14/19: continue with surgical recommendations. OOB tid. Mag level pending. 02/13 -- reports that he feels similar to yesterday 02/12 -- Patient reports that nausea is improved today. NG tube continues to drain. Reports he is much more comfortable today. Per surgery NG tube in place Nausea persists - I will increase phnergan dose if ok with Dr. jang Cont IVF WBC down. Faint hypoactive Bowel sounds with some output in Ostomy (2) Neuroendocrine carcinoma metastatic to liver Onset Date: Unknown Status: Chronic Response to Treatment: Stable (3) CALE on CPAP Status: Chronic Problem Text: not on cpap due to NG in place. sats monitored overnight, continuous (4) Diastolic CHF, chronic Status: Chronic Response to Treatment: Stable Problem Specific Plan: Consult Specialist Problem Text: Appears clinically stable/compensated. BRYAN/Brennan following. (5) A-fib Status: Chronic Response to Treatment: Stable Problem Text: Hold coumadin in incapacitation for surgery resume Warfarin at lower dose: 5 mg. INR daily. Teds and SCDs rate controlled Coumadin held due to high INR and in case of need for surgery- Vit K given x 2 (6) Diabetes Status: Chronic Problem Text: Blood sugars are running 100s currnetly - NPO - D/C sliding scale to prevent hypoglycemia (7) CAD (coronary artery disease) Status: Chronic Response to Treatment: Stable Problem Specific Plan: Consult Specialist (Dr. Amin following.) (8) Elevated INR Status: Acute Problem Text: see above Plan/VTE VTE Prophylaxis Ordered?: Yes (Coumadin) VTE Exclusion Pharmacological: Other (surgery tomorrow) VS, I&O, 24H, Fishbone Vital Signs/I&O Vital Signs Date Time Temp Pulse Resp B/P (MAP) Pulse Ox O2 Delivery O2 Flow Rate FiO2 02/19/19 18:00 96 Nasal Cannula 3.0 02/19/19 17:59 111 102/58 02/19/19 16:00 96.8 22 I&O- Last 24 Hours up to 6 AM 02/19/19 06:00 Intake Total 3800 ml Output Total 1465 ml Balance 2335 ml Laboratory Data 24H LABS Laboratory Tests 2 02/18/19 19:42: Bedside Glucose (Misc Panel) 237H 02/19/19 05:16: Nucleated Red Blood Cells % (auto) 0.0, Neutrophils 52, Band Neutrophils 9, Lymphocytes (Manual) 34, Monocytes (Manual) 1, Basophils (Manual) 1, Atypical Lymphocytes 3, Platelet Estimate DECREASED, Immature Platelet Fraction 4.5, Anisocytosis 1+, Macrocytosis 1+, Anion Gap 10, Glomerular Filtration Rate 24.6L, Blood Urea Nitrogen 39#H, Creatinine 2.79#H, Sodium Level 137, Potassium Level 5.8H, Chloride Level 101, Carbon Dioxide Level 26, Calcium Level 8.1L, Aspartate Amino Transf (AST/SGOT) 33, Alanine Aminotransferase (ALT/SGPT) 67, Total Creatine Kinase 71, Alkaline Phosphatase 152H, Total Bilirubin 1.2H, Total Protein 6.7, Albumin 2.4L, Creatine Kinase MB < 1.0, Creatine Kinase MB Relative Index 1.41, Troponin I < 0.02, Albumin/Globulin Ratio 0.56L 02/19/19 11:38: Bedside Glucose (Misc Panel) 222H 02/19/19 14:03: Anion Gap 7L, Glomerular Filtration Rate 25.1L, Blood Urea Nitrogen 46H, Creatinine 2.74H, Sodium Level 134L, Potassium Level 5.7H, Chloride Level 101, Carbon Dioxide Level 26, Calcium Level 7.6L 02/19/19 16:33: Bedside Glucose (Misc Panel) 177H CBC/BMP Laboratory Tests 02/19/19 05:16 Red Blood Count 4.11 L, Mean Corpuscular Volume 89.3, Mean Corpuscular Hemoglobin 29.0, Mean Corpuscular Hemoglobin Concent 32.4, Red Cell Distribution Width 13.4, Calcium Level 8.1 L, Aspartate Amino Transf (AST/SGOT) 33, Alanine Aminotransferase (ALT/SGPT) 67, Total Creatine Kinase 71, Alkaline Phosphatase 152 H, Total Bilirubin 1.2 H, Total Protein 6.7, Albumin 2.4 L 02/19/19 14:03 Calcium Level 7.6 L Kevin Arevalo MD Feb 19, 2019 19:07
[2019-02-19] MEDS: ATORVASTATIN 20 MG TAB PO SCH (21:30)
[2019-02-20] VITALS (27 sets, daily range): BP systolic 100–122; BP diastolic 41–61; O2SAT 94–97
[2019-02-20] MEDS: HumaLOG INSULIN (NovoLOG) PER UNIT SC SCH ×4 (01:21→18:44)
[2019-02-20 05:14] LABS: EOS % 1.7 % (0.0-3.0); HEMATOCRIT 28.6 % (42.0-52.0); LYMPH # 0.3 10^3/uL (1.5-4.5); LYMPH % 27.8 % (24.0-44.0); MEAN CORPUSCULAR HEMOGLOBIN 29.2 pg (27.0-33.0); MEAN CORPUSCULAR HGB CONC 32.2 g/dl (32.0-36.5); MEAN CORPUSCULAR VOLUME 90.8 fl (80.0-96.0); MONO # 0.2 10^3/uL (0.0-0.8); MONO % 18.3 % (0.0-5.0); NEUTROPHILS % 50.5 % (36.0-66.0); RED BLOOD COUNT 3.15 10^6/uL (4.30-6.10)
[2019-02-20 05:29] LABS: WHITE BLOOD COUNT 1.2 10^3/uL (4.0-10.0)
[2019-02-20 05:30] LABS: HEMOGLOBIN 9.2 g/dl (13.5-17.5); NEUTROPHILS # 0.6 10^3/uL (1.8-7.7); PLATELET COUNT, AUTOMATED 43 10^3/uL (150-450)
[2019-02-20 05:44] LABS: ALBUMIN 1.8 GM/DL (3.2-5.2); ALT/SGPT 36 U/L (12-78); BILIRUBIN,TOTAL 0.5 MG/DL (0.2-1.0); BLOOD UREA NITROGEN 43 MG/DL (7-18); CALCIUM LEVEL 7.6 MG/DL (8.8-10.2); CARBON DIOXIDE LEVEL 28 MEQ/L (21-32); CHLORIDE LEVEL 101 MEQ/L (98-107); CHOLESTEROL LEVEL 55 MG/DL (< 200); CREATININE FOR GFR 1.76 MG/DL (0.70-1.30); GLOMERULAR FILTRATION RATE 41.8 (>49); GLUCOSE, FASTING 199 MG/DL (70-100); POTASSIUM SERUM 4.7 MEQ/L (3.5-5.1); SODIUM LEVEL 134 MEQ/L (136-145); TOTAL PROTEIN 6.3 GM/DL (6.4-8.2); TROPONIN I < 0.02 NG/ML (< 0.10)
[2019-02-20] MEDS: METOPROLOL 5 MG/5 ML VIAL IV SCH ×4 (06:00→18:42)
[2019-02-20] MEDS: PANTOPRAZOLE 40MG INJ (PROTONIX) (C9113) IV SCH (08:21)
[2019-02-20] MEDS: DIGOXIN INJ 0.5 MG/2 ML AMP (J1160) IV SCH (08:23)
--- NOTE | 2019-02-20 09:14 | IPNPDOC ---
Subjective General Date/Time Seen The patient was seen on 02/20/19 at 08:32. Subject Chief Complaint/History The patient is a 63-year-old male admitted with a reason for visit of Ileus, Small Bowel Obstruction. He is a lot more awake today. Feels mildly better in terms of the nausea. Making more urine. He is hemodynamically stable. His heart rate still in the 120s on A. fib. He denies any chest pains. His abdomen still distended. Current Medications Current Medications Current Medications Alvimopan (Entereg) 12 mg BID PO Last administered on 02/19/19at 21:30; Start 02/18/19 at 21:00; Stop 02/23/19 at 20:59 Amino Ac/Electrol/ Dextrose/Calcium 2,000 ml @ 75 mls/hr ONCE@1800 IV Last administered on 02/19/19at 18:00; Start 02/19/19 at 18:00; Stop 02/20/19 at 17:59 Amiodarone HCl 150 mg/IV Miscellaneous Supplies 100 ml @ 600 mls/hr STAT STAT IV Last administered on 02/18/19at 21:39; Start 02/18/19 at 21:15; Stop 02/18/19 at 21:25; Status DC Atorvastatin Calcium (Lipitor) 80 mg QHS PO Last administered on 02/19/19at 21:30; Start 02/10/19 at 21:00 Carvedilol (COReg) 6.25 mg BID PO Last administered on 02/17/19at 19:55; Start 02/10/19 at 21:00; Stop 02/18/19 at 18:18; Status DC Dextrose (Dextrose 50%) 25 ml ASDIRECTED PRN IV SEE LABEL COMMENTS; Start 02/10/19 at 16:00 Digoxin (Lanoxin) 0.25 mg DAILY IV Last administered on 02/20/19at 08:23; Start 02/11/19 at 09:00 Diphenhydramine HCl (Benadryl) 12.5 mg Q4HP PRN IV ITCHING; Start 02/18/19 at 1 6:00 Fat Emulsion Intravenous 500 ml @ 20 mls/hr ONCE@1800 IV Last administered on 02/15/19at 17:55; Start 02/15/19 at 18:00; Stop 02/16/19 at 18:00; Status DC Fat Emulsion Intravenous 500 ml @ 20 mls/hr ONCE@1800 IV Last administered on 02/16/19at 17:52; Start 02/16/19 at 18:00; Stop 02/17/19 at 17:59; Status DC Fat Emulsion Intravenous 500 ml @ 20 mls/hr ONCE@1800 IV Last administered on 02/17/19at 17:43; Start 02/17/19 at 18:00; Stop 02/18/19 at 15:48; Status DC Fat Emulsion Intravenous 500 ml @ 20 mls/hr ONCE@1800 IV Last administered on 02/19/19at 17:59; Start 02/19/19 at 18:00; Stop 02/20/19 at 17:59 Fentanyl Citrate (Sublimaze) 25 mcg Q5MP PRN IV MODERATE PAIN (PS 4-7); Start 02/18/19 at 16:00; Stop 02/18/19 at 17:00; Status DC Glucagon (Glucagon) 1 mg ASDIRECTED PRN SC SEE LABEL COMMENTS; Start 02/10/19 at 16:00 Glucose (Glucose) 16 GM ASDIRECTED PRN PO SEE LABEL COMMENTS; Start 02/10/19 at 16:00 Heparin Sodium (Heparin (Flush)) 500 units ASDIRECTED PRN IV SEE LABEL COMMENTS; Start 02/10/19 at 12:00; Stop 02/10/19 at 16:25; Status DC Heparin Sodium (Porcine) (Heparin) 5,000 units Q8H SQ ; Start 02/13/19 at 00:00; Stop 02/13/19 at 00:46; Status DC Heparin Sodium (Porcine) (Heparin) 5,000 units Q8H SQ Last administered on 02/14/19at 05:45; Start 02/13/19 at 06:00; Stop 02/14/19 at 11:50; Status DC Home Med (Med Rec Complete!) ASDIRECTED XX ; Start 02/10/19 at 14:00; Stop 02/10/19 at 14:00; Status DC Insulin Human Lispro (HumaLOG INSULIN) SEE PROTOCOL TABLE Q6H SC Last administered on 02/10/19at 18:43; Start 02/10/19 at 18:00; Stop 02/11/19 at 09:13; Status DC Insulin Human Lispro (HumaLOG INSULIN) See Protocol Table Q6H SC Last administered on 02/16/19at 06:13; Start 02/15/19 at 18:00; Stop 02/16/19 at 12:01; Status DC Insulin Human Lispro (HumaLOG INSULIN) See Protocol Table Q6H SC Last administered on 02/17/19at 12:46; Start 02/16/19 at 18:00; Stop 02/17/19 at 12:01; Status DC Insulin Human Lispro (HumaLOG INSULIN) See Protocol Table Q6H SC Last administered on 02/18/19at 06:07; Start 02/17/19 at 18:00; Stop 02/18/19 at 12:01; Status DC Insulin Human Lispro (HumaLOG INSULIN) See Protocol Table Q6H SC Last administered on 02/20/19at 06:40; Start 02/19/19 at 18:00; Stop 02/20/19 at 12:01 Lactated Ringer's 1,000 ml @ 150 mls/hr Q6H40M IV Last administered on 02/18/19at 15:32; Start 02/18/19 at 16:00; Stop 02/18/19 at 17:00; Status DC Lactated Ringer's 1,000 ml @ 150 mls/hr Q6H40M IV Last administered on 02/19/19at 08:45; Start 02/18/19 at 18:15; Stop 02/19/19 at 09:56; Status DC Magnesium Sulfate 8 meq/Amino Ac/ Electrol/Dextrose/ Calcium 2,002 ml @ 75 mls/hr ONCE@1800 IV Last administered on 02/15/19at 17:55; Start 02/15/19 at 18:00; Stop 02/16/19 at 18:00; Status DC Magnesium Sulfate/ Dextrose 1 gm/IV Miscellaneous Supplies 100 ml @ 100 mls/hr Q1H IV Last administered on 02/14/19at 14:12; Start 02/14/19 at 14:00; Stop 02/14/19 at 15:59; Status DC Metoclopramide HCl (REGLAN INJection) 10 mg Q6HP PRN IV NAUSEA OR VOMITING; Start 02/10/19 at 15:00; Stop 02/10/19 at 15:28; Status DC Metoclopramide HCl (REGLAN INJection) 10 mg Q6HP PRN IV NAUSEA OR VOMITING Last administered on 02/18/19 16:24; Start 02/18/19 at 16:00; Stop 02/18/19 at 17:00; Status DC Metoprolol Tartrate (Lopressor) 1 mg Q5M IV Last administered on 02/18/19at 17:12; Start 02/18/19 at 17:30; Stop 02/18/19 at 17:51; Status DC Metoprolol Tartrate (Lopressor) 2.5 mg Q6H IV Last administered on 02/19/19at 17:59; Start 02/18/19 at 18:00 Morphine Sulfate (Morphine Sulfate In 0.9%Nacl Iv Bag) Concentration 1 mg/ml ASDIRECTED PRN IV SEE LABEL COMMENTS Last administered on 02/19/19at 15:35; Start 02/18/19 at 16:00 Morphine Sulfate (Morphine Sulfate Inj) 2 mg Q2HP PRN IV MODERATE PAIN (PS 5-7) Last administered on 02/17/19 14:11; Start 02/10/19 at 15:00; Stop 02/18/19 at 15:48; Status DC Morphine Sulfate (Morphine Sulfate Inj) 4 mg Q2HP PRN IV SEVERE PAIN (PS 8-10) Last administered on 02/18/19at 09:17; Start 02/10/19 at 15:00; Stop 02/18/19 at 15:48; Status DC Morphine Sulfate (Morphine Sulfate Inj) 4 mg Q30M PRN IV SEVERE PAIN (PS 8-10) Last administered on 02/10/19at 11:50; Start 02/10/19 at 11:45; Stop 02/10/19 at 16:24; Status DC Multivitamins 10 ml/Chromium/ Copper/Manganese/ Seleni/Zn 1 ml/ Potassium Chloride 20 meq/ Magnesium Sulfate 8 meq/Amino Ac/ Electrol/Dextrose/ Calcium 2,023 ml @ 75 mls/hr ONCE@1800 IV Last administered on 02/16/19at 17:53; Start 02/16/19 at 18:00; Stop 02/17/19 at 17:59; Status DC Nalbuphine HCl (Nubain) 2.5 mg Q6HP PRN IV PRURITIS; Start 02/18/19 at 16:00; Stop 02/25/19 at 15:59 Naloxone HCl (Narcan) 0.1 mg Q5MP PRN IV SEE LABEL COMMENTS; Start 02/18/19 at 16:00 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 Q1M PRN XX SEE LABEL COMMENTS; Start 02/18/19 at 16:00 Ondansetron HCl (ZOFRAN INJection) 4 mg Q4HP PRN IV NAUSEA OR VOMITING Last administered on 02/19/19at 04:39; Start 02/11/19 at 09:45 Ondansetron HCl (ZOFRAN INJection) 4 mg Q4HP PRN IV NAUSEA OR VOMITING Last administered on 02/18/19at 16:46; Start 02/18/19 at 16:00; Stop 02/18/19 at 17: 00; Status DC Ondansetron HCl (ZOFRAN INJection) 4 mg Q6HP PRN IV NAUSEA OR VOMITING Last administered on 02/11/19at 02:07; Start 02/10/19 at 15:00; Stop 02/11/19 at 09:38; Status DC Oxycodone/ Acetaminophen (Percocet 5mg/ 325mg Tablet) 1 tab ASDIRECTED PRN PO MILD/MODERATE PAIN (PS 1-7); Start 02/18/19 at 16:00; Stop 02/18/19 at 17:00; Status DC Pantoprazole Sodium (Protonix) 40 mg DAILY IV Last administered on 02/20/19at 08:21; Start 02/11/19 at 09:00 Phenol (Chloraseptic [place]) 1 spray Q2HP PRN MT SORE THROAT Last administered on 02/17/19at 14:10; Start 02/17/19 at 12:45 Potassium Chloride 20 meq/ Amino Ac/Electrol/ Dextrose/Calcium 2,010 ml @ 75 mls/hr ONCE@1800 IV Last administered on 02/17/19at 17:43; Start 02/17/19 at 18:00; Stop 02/18/19 at 15:48; Status DC Promethazine HCl (PHENERGAN INJection) 12.5 mg Q6HP PRN IV NAUSEA Last administered on 02/11/19at 03:01; Start 02/10/19 at 15:00; Stop 02/11/19 at 09:13; Status DC Promethazine HCl (PHENERGAN INJection) 25 mg Q6HP PRN IV NAUSEA Last administered on 02/19/19at 08:24; Start 02/11/19 at 09:15 Sodium Chloride 1,000 ml @ 15 mls/hr Q24H IV ; Start 02/18/19 at 15:48; Stop 02/19/19 at 09:57; Status DC Sodium Chloride 1,000 ml @ 75 mls/hr [id number] IV Last administered on 02/19/19at 18:01; Start 02/19/19 at 18:00 Sodium Chloride 1,000 ml @ 100 mls/hr Q10H IV Last administered on 02/10/19at 11:50; Start 02/10/19 at 11:43; Stop 02/10/19 at 16:00; Status DC Sodium Chloride 1,000 ml @ 125 mls/hr Q8H IV Last administered on 02/15/19at 06:51; Start 02/10/19 at 14:47; Stop 02/15/19 at 08:27; Status DC Sodium Chloride 1,000 ml @ 200 mls/hr Q5H IV Last administered on 02/19/19at 15:34; Start 02/19/19 at 10:00; Stop 02/19/19 at 17:59; Status DC Sodium Chloride (Saline Lock Flush) 10 ml ASDIRECTED PRN IV SEE LABEL COMMENTS; Start 02/10/19 at 12:00; Stop 02/10/19 at 16:25; Status DC Warfarin Sodium (Coumadin) 5 mg DAILY@17 PO Last administered on 02/14/19at 18:09; Start 02/14/19 at 17:00; Stop 02/15/19 at 10:26; Status DC Allergies Coded Allergies: No Known Allergies (Unverified , 12/27/18) Objective Physical Examination Examination GENERAL APPEARANCE: Relatively comfortable. Awake, alert, oriented. SKIN: Warm and dry. HEENT: Mild pale palpebral conjunctiva. Nasogastric tube in place and working and draining bilious fluid. 5 L drained yesterday. Lips are dry. NECK: Supple, no thyromegaly. No obvious jugular venous distention. LUNGS: Clear to auscultation bilaterally. No wheezing appreciated. HEART: No chest wall abnormalities. Regular rate and rhythm with no murmurs appreciated. ABDOMEN: Abdomen is morbidly obese, moderately rounded, distended, quiet abdomen, soft, midline incision dressings are relatively clean dry and intact, minimal staining. GUILLERMO drainage is serosanguineous. Mild tenderness around the incision site also in the right side of the abdomen.. EXTREMITIES: Starting to have increasing lower extremity edema. Vital Signs Vital Signs Date Time Temp Pulse Resp B/P (MAP) Pulse Ox O2 Delivery O2 Flow Rate FiO2 02/20/19 08:23 120 02/20/19 06:00 100/64 02/20/19 05:00 94 Nasal Cannula 3.0 02/20/19 04:00 98.1 18 I&Os I&O- Last 24 Hours up to 6 AM 02/20/19 06:00 Intake Total 5730 ml Output Total 7676 ml Balance -1946 ml Laboratory Data Labs 24H Laboratory Tests 2 02/19/19 11:38: Bedside Glucose (Misc Panel) 222H 02/19/19 14:03: Anion Gap 7L, Glomerular Filtration Rate 25.1L, Blood Urea Nitrogen 46H, Creatinine 2.74H, Sodium Level 134L, Potassium Level 5.7H, Chloride Level 101, Carbon Dioxide Level 26, Calcium Level 7.6L 02/19/19 16:33: Bedside Glucose (Misc Panel) 177H 02/20/19 00:07: Bedside Glucose (Misc Panel) 211H 02/20/19 04:54: Immature Granulocyte % (Auto) 1.7, White Blood Count 1.2L, Red Blood Count 3.1 5L, Hemoglobin 9.2#L, Hematocrit 28.6L, Mean Corpuscular Volume 90.8, Mean Corpuscular Hemoglobin 29.2, Mean Corpuscular Hemoglobin Concent 32.2, Red Cell Distribution Width 13.7, Platelet Count 43#L, Neutrophils (%) (Auto) 50.5, Lymphocytes (%) (Auto) 27.8, Monocytes (%) (Auto) 18.3H, Eosinophils (%) (Auto) 1.7, Basophils (%) (Auto) 0.0, Neutrophils # (Auto) 0.6L, Lymphocytes # (Auto) 0.3L, Monocytes # (Auto) 0.2, Eosinophils # (Auto) 0.0, Basophils # (Auto) 0.0, Nucleated Red Blood Cells % (auto) 0.0, Anion Gap 5L, Glomerular Filtration Rate 41.8L, Blood Urea Nitrogen 43H, Creatinine 1.76H, Sodium Level 134L, Potassium Level 4.7, Chloride Level 101, Carbon Dioxide Level 28, Calcium Level 7.6L, Aspartate Amino Transf (AST/SGOT) 17, Alanine Aminotransferase (ALT/SGPT) 36, Alkaline Phosphatase 98, Total Bilirubin 0.5#, Cholesterol Level 55, Total Protein 6.3L, Albumin 1.8#L, Troponin I < 0.02, Albumin/Globulin Ratio 0.40L 02/20/19 06:22: Bedside Glucose (Misc Panel) 210H CBC/BMP Laboratory Tests 02/19/19 14:03 Calcium Level 7.6 L 02/20/19 04:54 Calcium Level 7.6 L, Red Blood Count 3.15 L, Mean Corpuscular Volume 90.8, Mean Corpuscular Hemoglobin 29.2, Mean Corpuscular Hemoglobin Concent 32.2, Red Cell Distribution Width 13.7, Neutrophils (%) (Auto) 50.5, Lymphocytes (%) (Auto) 27.8, Monocytes (%) (Auto) 18.3 H, Eosinophils (%) (Auto) 1.7, Basophils (%) (Auto) 0.0, Neutrophils # (Auto) 0.6 L, Lymphocytes # (Auto) 0.3 L, Monocytes # (Auto) 0.2, Eosinophils # (Auto) 0.0, Basophils # (Auto) 0.0, Aspartate Amino Transf (AST/SGOT) 17, Alanine Aminotransferase (ALT/SGPT) 36, Alkaline Phosphatase 98, Total Bilirubin 0.5 #, Cholesterol Level 55, Total Protein 6.3 L, Albumin 1.8 #L Impression Small Bowel Obstruction POD2 Exploratory Laparotomy, Lysis of Adhesion, small bowel bypass distal small bowel to just below ileostomy, gastrostomy tube placement metastatic neuroendocrine tumor mild malnutrition acute renal failure Pancytopenia from Etoposide? He is more awake today and I finally have a chance to discuss with him my intraoperative findings. Bowel obstruction from 3 loops of bowel adhered to the right upper quadrant around his tumor bed which unfortunately I could not get into due to the amount of tumor, adherence of the tumor to the liver and to the abdominal wall on the right upper quadrant in between the liver and the ileostomy. I did a small bowel bypass between the proximal dilated loop of bowel to the portion of the ileostomy prior to it coming out of the abdominal wall and place a gastrostomy in anticipation of prolonged postoperative course and strong possibility of recurrent bowel obstructions. Unfortunately his gastrostomy does not seem to be working adequately to decompress his stomach so a nasogastric tube was placed back again yesterday and this drained more than 5 L. He is comfortable now. He appears to be quite dry operatively and is starting to make better amounts of urine and likewise more clear urine with his BUN and creatinine trending down. I'll keep the extra IV fluid condition to the TPN until we got up. Might need to diurese him later on. I will continue with the TPN until he is able to get adequate output from ileostomy to allow us to enterally feed him. I have discussed with him that I would anticipate a prolonged course this time around. I have encouraged him to try to get up and ambulate. was concerned about him starting to get some skin breakdown in his posterior sacral area from laying down. I'll get physical therapy to start working with him. Another concern of wine is the developing pancytopenia which could be a side effect of the top was side that he got prior to his admission. I'll discuss whether he'll be a candidate for would benefit from granulocyte colony stimulating factor at this time. Plan / VTE VTE Prophylaxis Ordered?: Yes (Coumadin) VTE Exclusion Pharmacological: Other (surgery tomorrow) NEDRA MARTINEZ MD Feb 20, 2019 08:33
[2019-02-20] MEDS: ALVIMOPAN 12 MG CAPSULE (ENTEREG) PO SCH ×2 (10:15→20:59)
[2019-02-20] MEDS: MORPHINE 1MG/ML IN 0.9% NACL 100ML IV BAG IV PRN (11:39)
[2019-02-20] MEDS ORDERED: DEX IV SCH (18:00)
[2019-02-20] MEDS ORDERED: FAT EMULSION IV 20% 500 ML IV SCH (18:00)
[2019-02-20] MEDS ORDERED: ELECTROLYTE IV SCH (18:00)
[2019-02-20] MEDS ORDERED: CALC IV SCH (18:00)
[2019-02-20] MEDS ORDERED: AMINO AC IV SCH (18:00)
[2019-02-20] MEDS ORDERED: INSULIN HUMAN REGULAR IV SCH (18:00)
[2019-02-20] MEDS: MEROPENEM INJ 1 GM in APPROPRIATE DILUENT 1 EA IV SCH (20:58)
[2019-02-20] MEDS: ATORVASTATIN 20 MG TAB PO SCH (20:59)
[2019-02-20] MEDS: FILGRASTIM 300 MCG/0.5 ML SYRINGE (J1442 PER 1MCG) SC SCH (20:59)
[2019-02-20] MEDS: NS 1,000 ML IV SCH (20:59)
--- NOTE | 2019-02-20 23:56 | IPNPDOC ---
Subjective Date Seen The patient was seen on 02/20/19. Objective Physical Examination General Exam: Positive: Alert, No Acute Distress Eye Exam: Positive: Conjunctiva & lids normal; Negative: Sclera icteric ENT Exam: Positive: Mucous membr. moist/pink; Negative: Nares Patent (+ NG present) Neck Exam: Negative: Lymphadenopathy Chest Exam: Positive: Clear to auscultation, Diminished; Negative: Rales, Rhonchi, Wheezing Heart Exam: Positive: Rate Normal, Normal S1, Normal S2 Abdomen Exam: Positive: Other (there is scant brown to bilious thin output from his ostomy); Negative: Normal bowel sounds (abdomen is quiet) Extremity Exam: Positive: Edema (1+ LE edema) Neuro Exam: Positive: Normal Speech Psych Exam: Positive: Mental status NL Assessment /Plan Problems (1) Pancytopenia due to chemotherapy Status: Acute Response to Treatment: Worse Discussed With: Engineering Psychologist, Patient, Family with Pt Consent Problem Specific Plan: Repeat Labs Problem Text: He received his third dose of etoposide 10 days ago. The fact that he has a pancytopenia isn't that surprising. The question is what to do about it. At this point the anemia and decreased platelets, while needing to be monitored, are not yet low enough to be truly dangerous. Regarding the neutropenia with an ANC of 1050, initially I hesitated on doing anything. However, by about 4pm he had spiked a little temperature. While I don't think this would qualify as true neutropenic fever (the Tmax was only 100.3, but he tends to run lower than 98 as well), this was enough to push me to start Neupogen and initiate antibiotics. I spoke with Ms. Yuliya Lindsay who was emulsion operator for Dr. Jose. She suggested 300mg of Neupogen for at least three days and monitor the improvement in ANC. We discussed the proper dose, since his body weight is significantly different than his ideal body weight. She recommended 300, but stated that 400 would be ok as well; it was a matter of preference. Based on this discussion I started 300mg of Nupogen SC x 3 days. We will look for an ANC >10k, or we may decide to extend the course of Neupogen. I also spoke with Dr. Fry about initiating abx. He has not been on any since his surgery. He agreed that we could do this and always withdraw them if it seemed that he didn't need them. I selected meropenem and he agreed. (2) Ileus Status: Acute Response to Treatment: Improving Discussed With: Engineering Psychologist, Patient, Family with Pt Consent Problem Text: His ileus is starting to resolve. His ostomy bag has needed to be "burped" throughout the day, though there is still very little actual output. His bowel sounds are now hypoactive rather than a quiet abdomen. Will continue to monitor. (3) Neuroendocrine carcinoma metastatic to liver Onset Date: Unknown Status: Chronic Response to Treatment: Stable Problem Text: He has been receiving some treatment, though I believe that this is officially considered palliative, since had has extensive stage IV disease and did on diagnosis. I communicated with TATI Vance from Dr. Jose's of [facility] today so they would know that the patient is admitted (among other things). (4) A-fib Status: Chronic Response to Treatment: Stable Problem Text: 02/20/19: anticoagulation still is held. May resume once ok with surgery. In the meantime we will focus of mechanical DVT prevention. 02/18/10: Hold coumadin in in anticipaitation for surgery resume Warfarin at lower dose: 5 mg. INR daily. Teds and SCDs rate controlled Coumadin held due to high INR and in case of need for surgery- Vit K given x 2 (5) CALE on CPAP Status: Chronic Problem Text: not on cpap due to NG in place. sats monitored overnight, continuous (6) Diastolic CHF, chronic Status: Chronic Response to Treatment: Stable Problem Specific Plan: Consult Specialist Problem Text: Appears clinically stable/compensated. BRYAN/Brennan following. (7) Diabetes Status: Chronic Problem Text: Blood sugars are running 100s currnetly - NPO - D/C sliding scale to prevent hypoglycemia (8) CAD (coronary artery disease) Status: Chronic Response to Treatment: Stable Problem Specific Plan: Consult Specialist (Dr. Amin following.) (9) Small bowel obstruction Status: Resolved Response to Treatment: Stable, Improving Discussed With: Engineering Psychologist, Patient, Family with Pt Consent Problem Specific Plan: Monitor Clinically Problem Text: 02/19: Postop day #1. In speaking to Dr. Fry and reviewing his operative report it looks like there were extensive metastatic lesions noted in the right upper quadrant. He did what he could for the patient and did create a [id number] bypass of the most encrusted/obstructed area. This should allow for his ileostomy to function again. Now it is a waiting game for the ileus to resolve. 02/18 Plan for OR today with Dr Fry. 02/17 NG is keeping him fairly comfortable. minimal output at ostomy. 02/16: surgery Thursday. Dr. Fry ordered repeat CT today 02/15 - per Surgery - plan is for OR thursday for presumed excision of new tumor ob structing colon Will need COuadin held in anticipation for surgery Consult Cardiology and Pulmonary who followe him periopertively last month due to his complicated history and risk going through surgery - 02/14/19: continue with surgical recommendations. OOB tid. Mag level pending. 02/13 -- reports that he feels similar to yesterday 02/12 -- Patient reports that nausea is improved today. NG tube continues to drain. Reports he is much more comfortable today. Per surgery NG tube in place Nausea persists - I will increase phnergan dose if ok with Dr. jang Cont IVF WBC down. Faint hypoactive Bowel sounds with some output in Ostomy (10) Elevated INR Status: Resolved Problem Text: see above Plan/VTE VTE Prophylaxis Ordered?: Yes ( ffffff mechanical only for now. ) VTE Exclusion Pharmacological: Other (surgery tomorrow) VS, I&O, 24H, Fishbone Vital Signs/I&O Vital Signs Date Time Temp Pulse Resp B/P (MAP) Pulse Ox O2 Delivery O2 Flow Rate FiO2 02/20/19 20:00 3.0 02/20/19 20:00 98.9 100 20 113/57 (75) 99 02/20/19 18:00 Nasal Cannula I&O- Last 24 Hours up to 6 AM 02/20/19 06:00 Intake Total 5730 ml Output Total 7676 ml Balance -1946 ml Laboratory Data 24H LABS Laboratory Tests 2 02/20/19 00:07: Bedside Glucose (Misc Panel) 211H 02/20/19 04:54: Immature Granulocyte % (Auto) 1.7, White Blood Count 1.2L, Red Blood Count 3.15L, Hemoglobin 9.2#L, Hematocrit 28.6L, Mean Corpuscular Volume 90.8, Mean Corpuscular Hemoglobin 29.2, Mean Corpuscular Hemoglobin Concent 32.2, Red Cell Distribution Width 13.7, Platelet Count 43#L, Neutrophils (%) (Auto) 50.5, Ly mphocytes (%) (Auto) 27.8, Monocytes (%) (Auto) 18.3H, Eosinophils (%) (Auto) 1.7, Basophils (%) (Auto) 0.0, Neutrophils # (Auto) 0.6L, Lymphocytes # (Auto) 0.3L, Monocytes # (Auto) 0.2, Eosinophils # (Auto) 0.0, Basophils # (Auto) 0.0, Nucleated Red Blood Cells % (auto) 0.0, Anion Gap 5L, Glomerular Filtration Rate 41.8L, Blood Urea Nitrogen 43H, Creatinine 1.76H, Sodium Level 134L, Potassium Level 4.7, Chloride Level 101, Carbon Dioxide Level 28, Calcium Level 7.6L, Aspartate Amino Transf (AST/SGOT) 17, Alanine Aminotransferase (ALT/SGPT) 36, Alkaline Phosphatase 98, Total Bilirubin 0.5#, Cholesterol Level 55, Total Protein 6.3L, Albumin 1.8#L, Troponin I < 0.02, Albumin/Globulin Ratio 0.40L 02/20/19 06:22: Bedside Glucose (Misc Panel) 210H 02/20/19 12:02: Bedside Glucose (Misc Panel) 235H 02/20/19 17:57: Bedside Glucose (Misc Panel) 203H CBC/BMP Laboratory Tests 02/20/19 04:54 Red Blood Count 3.15 L, Mean Corpuscular Volume 90.8, Mean Corpuscular Hemoglobin 29.2, Mean Corpuscular Hemoglobin Concent 32.2, Red Cell Distribution Width 13.7, Neutrophils (%) (Auto) 50.5, Lymphocytes (%) (Auto) 27.8, Monocytes (%) (Auto) 18.3 H, Eosinophils (%) (Auto) 1.7, Basophils (%) (Auto) 0.0, Neutrophils # (Auto) 0.6 L, Lymphocytes # (Auto) 0.3 L, Monocytes # (Auto) 0.2, Eosinophils # (Auto) 0.0, Basophils # (Auto) 0.0, Calcium Level 7.6 L, Aspartate Amino Transf (AST/SGOT) 17, Alanine Aminotransferase (ALT/SGPT) 36, Alkaline Phosphatase 98, Total Bilirubin 0.5 #, Cholesterol Level 55, Total Protein 6.3 L, Albumin 1.8 #L Kevin Arevalo MD Feb 20, 2019 23:56
[2019-02-21] VITALS (28 sets, daily range): BP systolic 106–127; BP diastolic 55–64; O2SAT 94–98
--- NOTE | 2019-02-21 01:24 | ECGEPIP ---
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 HEART RATE IS NOW FASTER Electronically Signed on 02-21-2019 1:24:05 EDT by Cornelio Fowler
[2019-02-21] MEDS: METOPROLOL 5 MG/5 ML VIAL IV SCH ×5 (01:58→23:55)
[2019-02-21] MEDS: HumaLOG INSULIN (NovoLOG) PER UNIT SC SCH ×4 (01:58→17:31)
[2019-02-21] MEDS: NS 1,000 ML IV SCH (04:56)
[2019-02-21] MEDS: MEROPENEM INJ 1 GM in APPROPRIATE DILUENT 1 EA IV SCH ×3 (04:56→20:31)
[2019-02-21 06:00] LABS: HEMATOCRIT 26.5 % (42.0-52.0); HEMOGLOBIN 8.5 g/dl (13.5-17.5); MEAN CORPUSCULAR HEMOGLOBIN 30.4 pg (27.0-33.0); MEAN CORPUSCULAR HGB CONC 32.1 g/dl (32.0-36.5); MEAN CORPUSCULAR VOLUME 94.6 fl (80.0-96.0)
[2019-02-21 06:02] LABS: PLATELET COUNT, AUTOMATED 39 10^3/uL (150-450); WHITE BLOOD COUNT 1.2 10^3/uL (4.0-10.0)
[2019-02-21 06:27] LABS: BLOOD UREA NITROGEN 34 MG/DL (7-18); CALCIUM LEVEL 7.8 MG/DL (8.8-10.2); CARBON DIOXIDE LEVEL 29 MEQ/L (21-32); CHLORIDE LEVEL 103 MEQ/L (98-107); CREATININE FOR GFR 1.23 MG/DL (0.70-1.30); GLOMERULAR FILTRATION RATE > 60.0 (>49); GLUCOSE, FASTING 176 MG/DL (70-100); POTASSIUM SERUM 4.4 MEQ/L (3.5-5.1); SODIUM LEVEL 137 MEQ/L (136-145); TROPONIN I < 0.02 NG/ML (< 0.10)
[2019-02-21 06:33] LABS: BASOPHILS 1 % (0-4); EOSINOPHILS 5 % (0-5); LYMPHOCYTES 51 % (16-52); MONOCYTES 4 % (0-8); NEUTROPHILS 39 % (35-75); PLATELET ESTIMATE MARKED DECREASE (NORMAL)
[2019-02-21] MEDS: ALVIMOPAN 12 MG CAPSULE (ENTEREG) PO SCH ×2 (09:22→20:32)
[2019-02-21] MEDS: DIGOXIN INJ 0.5 MG/2 ML AMP (J1160) IV SCH (09:22)
[2019-02-21] MEDS: PANTOPRAZOLE 40MG INJ (PROTONIX) (C9113) IV SCH (09:22)
[2019-02-21] MEDS: FILGRASTIM 300 MCG/0.5 ML SYRINGE (J1442 PER 1MCG) SC SCH (10:05)
--- NOTE | 2019-02-21 10:58 | IPNPDOC ---
Subjective Date Seen The patient was seen on 02/21/19. Subjective Chief Complaint/HPI ileus Events since last encounter POD #3 from KAYLI and SBO. Has noted weakness and needing Susan-steady to get OOB. 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 Constitutional: Reports: Weakness, Fatigue; Denies: Chills, Fever, Night Sweats ENT: Denies: Head Aches, Ear Pain, Dysphagia Pulmonary: Denies: Dyspnea, Cough Cardiovascular: Denies: Chest Pain, Palpitations, Orthopnea, Paroxysmal Noc. Dyspnea, Lt Headedness Gastrointestinal: Reports: Other Symptoms (NGT-LWS) Genitourinary: Reports: Other Symptoms (Roman catheter) Neurological: Reports: Weakness (generalized) Psych: Reports: Mood Normal Objective Physical Examination General Exam: Positive: Alert, No Acute Distress Eye Exam: Positive: Conjunctiva & lids normal; Negative: Sclera icteric ENT Exam: Positive: Mucous membr. moist/pink; Negative: Nares Patent (+ NG present) Neck Exam: Negative: Lymphadenopathy Chest Exam: Positive: Clear to auscultation, Diminished; Negative: Rales, Rhonchi, Wheezing Heart Exam: Positive: Rate Normal, Normal S1, Normal S2 Abdomen Exam: Positive: Other (ostomy intact with thin brown liquid output. Abdominal incision: small amount serous dranage from lower portion. ); Negative: Normal bowel sounds (abdomen is quiet) Extremity Exam: Positive: Edema (1+ LE edema) Neuro Exam: Positive: Normal Speech Psych Exam: Positive: Mental status NL Assessment /Plan Assessment Patient seen, agree with note below. He is taking PO liquids, though NG still to suction. Somewhat confused, though feels cognitively clearer earlier in the day, before he became tired. -- CDT Problems (1) Pancytopenia due to chemotherapy Status: Acute Response to Treatment: Worse Discussed With: New Media Strategist, Patient, Family with Pt Consent Problem Specific Plan: Repeat Labs Problem Text: 02/21/19: platelets remain lower today. WBC 1.2 He received his third dose of etoposide 10 days ago. The fact that he has a pancytopenia isn't that surprising. The question is what to do about it. At this point the anemia and decreased platelets, while needing to be monitored, are not yet low enough to be truly dangerous. Regarding the neutropenia with an ANC of 1050, initially I hesitated on doing anything. However, by about 4pm he had spiked a little temperature. While I don't think this would qualify as true neutropenic fever (the Tmax was only 100.3, but he tends to run lower than 98 as well), this was enough to push me to start Neupogen and initiate antibiotics. I spoke with Yuliyachari Lindsay who was online content editor for Dr. Jose. She suggested 300mg of Neupogen for at least three days and monitor the improvement in ANC. We discussed the proper dose, since his body weight is significantly different than his ideal body weight. She recommended 300, but stated that 400 would be ok as well; it was a matter of preference. Based on this discussion I started 300mg of Nupogen SC x 3 days. We will look for an ANC >10k, or we may decide to extend the course of Neupogen. I also spoke with Dr. Fry about initiating abx. He has not been on any since his surgery. He agreed that we could do this and always withdraw them if it seemed that he didn't need them. I selected meropenem and he agreed. (2) Ileus Status: Acute Response to Treatment: Improving Discussed With: New Media Strategist, Patient, Family with Pt Consent Problem Text: His ileus is starting to resolve. His ostomy bag has needed to be "burped" throughout the day, though there is still very little actual output. His bowel sounds are now hypoactive rather than a quiet abdomen. Will continue to monitor. (3) Neuroendocrine carcinoma metastatic to liver Onset Date: Unknown Status: Chronic Response to Treatment: Stable Problem Text: He has been receiving some treatment, though I believe that this is officially considered palliative, since had has extensive stage IV disease and did on diagnosis. I communicated with TATI Vance from Dr. Jose's office today so they would know that the patient is admitted (among other things). (4) A-fib Status: Chronic Response to Treatment: Stable Problem Text: 02/21/19: HOLD Anti-coagulation until platelets return to normal value 02/20/19: anticoagulation still is held. May resume once ok with surgery. In the meantime we will focus of mechanical DVT prevention. 02/18/10: Hold coumadin in in anticipaitation for surgery resume Warfarin at lower dose: 5 mg. INR daily. Teds and SCDs rate controlled Coumadin held due to high INR and in case of need for surgery- Vit K given x 2 (5) CALE on CPAP Status: Chronic Problem Text: not on cpap due to NG in place. sats monitored overnight, continuous (6) Diastolic CHF, chronic Status: Chronic Response to Treatment: Stable Problem Specific Plan: Consult Specialist Problem Text: Appears clinically stable/compensated. BRYAN/Brennan following. (7) Diabetes Status: Chronic Problem Text: Blood sugars are running 100s currnetly - NPO - D/C sliding scale to prevent hypoglycemia (8) CAD (coronary artery disease) Status: Chronic Response to Treatment: Stable Problem Specific Plan: Consult Specialist (Dr. Amin following.) (9) Small bowel obstruction Status: Resolved Response to Treatment: Stable, Improving Discussed With: New Media Strategist, Patient, Family with Pt Consent Problem Specific Plan: Monitor Clinically Problem Text: 02/19: Postop day #1. In speaking to Dr. Fry and reviewing his operative report it looks like there were extensive metastatic lesions noted in the right upper quadrant. He did what he could for the patient and did create a [id number] bypass of the most encrusted/obstructed area. This should allow for his ileostomy to function again. Now it is a waiting game for the ileus to resolve. 02/18 Plan for OR today with Dr Fry. 02/17 NG is keeping him fairly comfortable. minimal output at ostomy. 02/16: surgery Thursday. Dr. Fry ordered repeat CT today 02/15 - per Surgery - plan is for OR thursday for presumed excision of new tumor obstructing colon Will need COuadin held in anticipation for surgery Consult Cardiology and Pulmonary who followe him periopertively last month due to his complicated history and risk going through surgery - 02/14/19: continue with surgical recommendations. OOB tid. Mag level pending. 02/13 -- reports that he feels similar to yesterday 02/12 -- Patient reports that nausea is improved today. NG tube continues to drain. Reports he is much more comfortable today. Per surgery NG tube in place Nausea persists - I will increase phnergan dose if ok with Dr. jang Cont IVF WBC down. Faint hypoactive Bowel sounds with some output in Ostomy (10) Elevated INR Status: Resolved Problem Text: see above Plan/VTE VTE Prophylaxis Ordered?: Yes ( ffffff mechanical only for now. ) VTE Exclusion Pharmacological: Other (surgery tomorrow) VS, I&O, 24H, Fishbone Vital Signs/I&O Vital Signs Date Time Temp Pulse Resp B/P (MAP) Pulse Ox O2 Delivery O2 Flow Rate FiO2 02/21/19 09:22 96 02/21/19 08:00 98.2 18 109/64 (79) 100 3.0 02/21/19 06:00 Nasal Cannula I&O- Last 24 Hours up to 6 AM 02/21/19 06:00 Intake Total 8800 ml Output Total 61341 ml Balance -1750 ml Laboratory Data 24H LABS Laboratory Tests 2 02/20/19 12:02: Bedside Glucose (Misc Panel) 235H 02/20/19 17:57: Bedside Glucose (Misc Panel) 203H 02/21/19 01:36: Bedside Glucose (Misc Panel) 187H 02/21/19 05:35: Immature Granulocyte % (Auto) , White Blood Count 1.2L, Red Blood Count 2.80L, Hemoglobin 8.5L, Hematocrit 26.5L, Mean Corpuscular Volume 94.6, Mean Corpuscular Hemoglobin 30.4, Mean Corpuscular Hemoglobin Concent 32.1, Red Cell Distribution Width 13.6, Platelet Count 39L, Neutrophils # (Auto) , Nucleated Red Blood Cells % (auto) 0.0, Neutrophils 39, Lymphocytes (Manual) 51, Monocytes (Manual) 4, Eosinophils (Manual) 5, Basophils (Manual) 1, Platelet Estimate MARKED DECREASE, Immature Platelet Fraction 5.6, Red Blood Cell Morphology NORMAL, Anion Gap 5L, Glomerular Filtration Rate > 60.0, Blood Urea Nitrogen 34H, Creatinine 1.23, Sodium Level 137, Potassium Level 4.4, Chloride Level 103, Carbon Dioxide Level 29, Calcium Level 7.8L, Troponin I < 0.02 02/21/19 05:53: Bedside Glucose (Misc Panel) 170H CBC/BMP Laboratory Tests 02/21/19 05:35 Red Blood Count 2.80 L, Mean Corpuscular Volume 94.6, Mean Corpuscular Hemoglobin 30.4, Mean Corpuscular Hemoglobin Concent 32.1, Red Cell Distribution Width 13.6, Neutrophils # (Auto) , Calcium Level 7.8 L Sherry Salamanca [facility] Feb 21, 2019 10:58 AMRIK GIRARD DO Feb 22, 2019 23:20
[2019-02-21] MEDS: MORPHINE 1MG/ML IN 0.9% NACL 100ML IV BAG IV PRN (11:34)
[2019-02-21] MEDS ORDERED: FAT EMULSION IV 20% 500 ML IV SCH (18:00)
[2019-02-21] MEDS ORDERED: [UNRECOGNIZED DRUG - MIXTURE] IV SCH ×4 (18:00)
[2019-02-21] MEDS: ATORVASTATIN 20 MG TAB PO SCH (20:31)
[2019-02-22] VITALS (17 sets, daily range): BP systolic 96–136; BP diastolic 49–73; O2SAT 94–99
[2019-02-22] MEDS: HumaLOG INSULIN (NovoLOG) PER UNIT SC SCH ×4 (00:12→18:39)
[2019-02-22] MEDS: MEROPENEM INJ 1 GM in APPROPRIATE DILUENT 1 EA IV SCH ×3 (03:56→20:54)
[2019-02-22] MEDS: METOPROLOL 5 MG/5 ML VIAL IV SCH ×3 (05:44→18:41)
[2019-02-22 06:01] LABS: HEMATOCRIT 27.3 % (42.0-52.0); HEMOGLOBIN 8.6 g/dl (13.5-17.5); MEAN CORPUSCULAR HEMOGLOBIN 28.9 pg (27.0-33.0); MEAN CORPUSCULAR HGB CONC 31.5 g/dl (32.0-36.5); MEAN CORPUSCULAR VOLUME 91.6 fl (80.0-96.0); RED BLOOD COUNT 2.98 10^6/uL (4.30-6.10); WHITE BLOOD COUNT 3.8 10^3/uL (4.0-10.0)
[2019-02-22 06:07] LABS: PLATELET COUNT, AUTOMATED 45 10^3/uL (150-450)
[2019-02-22 06:19] LABS: BLOOD UREA NITROGEN 20 MG/DL (7-18); CALCIUM LEVEL 8.3 MG/DL (8.8-10.2); CARBON DIOXIDE LEVEL 31 MEQ/L (21-32); CHLORIDE LEVEL 103 MEQ/L (98-107); CREATININE FOR GFR 0.89 MG/DL (0.70-1.30); GLOMERULAR FILTRATION RATE > 60.0 (>49); GLUCOSE, FASTING 178 MG/DL (70-100); POTASSIUM SERUM 3.9 MEQ/L (3.5-5.1); SODIUM LEVEL 139 MEQ/L (136-145); TROPONIN I < 0.02 NG/ML (< 0.10)
[2019-02-22 07:24] LABS: EOSINOPHILS 3 % (0-5); LYMPHOCYTES 15 % (16-52); METAMYELOCYTES 5 % (0-0); MONOCYTES 5 % (0-8); MYELOCYTES 1 % (0-0); NEUTROPHILS 62 % (35-75); PLATELET ESTIMATE MARKED DECREASE (NORMAL); POLYCHROMASIA 1+
[2019-02-22 07:25] LABS: DOHLE BODIES 1+
--- NOTE | 2019-02-22 07:45 | ECGEPIP ---
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
--- NOTE | 2019-02-22 07:56 | ECGEPIP ---
[facility] Test Date: 2019-02-22 Pat Name: NAEL TODD Department: Room: [place] [address] Gender: Male Third Helper: : 1955 Requested By: Jose M Amin Order Number: [id number] Reading MD: Shannan Tenorio Measurements Intervals [place] Rate: 96 P: LA: -1 QRS: 3 QRSD: 110 T: QT: 303 QTc: 383 Interpretive Statements ATRIAL FIBRILLATION NONSPECIFIC ST & T-WAVE ABNORMALITY ABNORMAL RHYTHM ECG NO CHANGE COMPARED TO 02/21/19 Electronically Signed on 02-22-2019 7:55:59 EDT by Shannan Tenorio
--- NOTE | 2019-02-22 08:05 | IPNPDOC ---
Date Seen The patient was seen on 02/22/19. The patient is awake. Complains of pain in the lower abdomen that radiates to the left side has NGT in place / colostomy Pain is 8/10 he has more pain on movement with am care and with the OOB instructions Patient had one course of etoposide and carboplatin prior to surgery and is on neupogen due to neutropenia ( hit serafin counts ) Progress Note SUBJECTIVE: Patient is a 63-year-old white male now post op for exploratory lap Ileius SBO and ostomy OBJECTIVE PHYSICAL EXAMINATION: VITAL SIGNS: Please see below. GENERAL: NC AT PERRL sclera white muddy bt non icteric HEENT: NGT in place CARDIOVASCULAR: S1 S2 appreciated nnb murmurs ]. RESPIRATORY: [clear to A&P no rales rhonci or wheezes noted . ABDOMINAL: [ distention incision is intat no bleeding ostomy scant drainage EXTREMITIES: SCD in place no edema NEUROLOGICAL: [intact no focal defeceit ] PSYCHOLOGICAL: [ depression over pain and inability to move without pain] LABORATORY DATA, IMAGING STUDIES, MICROBIOLOGY: Please see below. Laboratory Tests 02/21/19 05:35 Red Blood Count 2.80 L, Mean Corpuscular Volume 94.6, Mean Corpuscular Hem oglobin 30.4, Mean Corpuscular Hemoglobin Concent 32.1, Red Cell Distribution Width 13.6, Neutrophils # (Auto) , Calcium Level 7.8 L 02/22/19 05:36 Red Blood Count 2.98 L, Mean Corpuscular Volume 91.6, Mean Corpuscular Hemoglobin 28.9, Mean Corpuscular Hemoglobin Concent 31.5 L, Red Cell Distribution Width 13.8, Calcium Level 8.3 L I&O- Last 24 Hours up to 6 AM 02/22/19 06:00 Intake Total 3400 ml Output Total 8005 ml Balance -4605 ml Allergies Coded Allergies No Known Allergies (Unverified12/27/18) Current Medications Alvimopan (Entereg) 12 mg BID PO Last administered on 02/21/19at 20:32; Start 02/18/19 at 21:00; Stop 02/23/19 at 20:59 Amino Ac/Electrol/ Dextrose/Calcium 2,000 ml @ 75 mls/hr ONCE@1800 IV Last administered on 02/19/19at 18:00; Start 02/19/19 at 18:00; Stop 02/20/19 at 17:59; Status DC Amiodarone HCl 150 mg/IV Miscellaneous Supplies 100 ml @ 600 mls/hr STAT STAT IV Last administered on 02/18/19at 21:39; Start 02/18/19 at 21:15; Stop 02/18/19 at 21:25; Status DC Atorvastatin Calcium (Lipitor) 80 mg QHS PO Last administered on 02/21/19at 20:31; Start 02/10/19 at 21:00 Carvedilol (COReg) 6.25 mg BID PO Last administered on 02/17/19at 19:55; Start 02/10/19 at 21:00; Stop 02/18/19 at 18:18; Status DC Dextrose (Dextrose 50%) 25 ml ASDIRECTED PRN IV SEE LABEL COMMENTS; Start 02/10/19 at 16:00 Digoxin (Lanoxin) 0.25 mg DAILY IV Last administered on 02/21/19at 09:22; Start 02/11/19 at 09:00 Diphenhydramine HCl (Benadryl) 12.5 mg Q4HP PRN IV ITCHING; Start 02/18/19 at 16:00 Fat Emulsion Intravenous 500 ml @ 20 mls/hr ONCE@1800 IV Last administered on 02/15/19at 17:55; Start 02/15/19 at 18:00; Stop 02/16/19 at 18:00; Status DC Fat Emulsion Intravenous 500 ml @ 20 mls/hr ONCE@1800 IV Last administered on 02/16/19at 17:52; Start 02/16/19 at 18:00; Stop 02/17/19 at 17:59; Status DC Fat Emulsion Intravenous 500 ml @ 20 mls/hr ONCE@1800 IV Last administered on 02/17/19at 17:43; Start 02/17/19 at 18:00; Stop 02/18/19 at 15:48; Status DC Fat Emulsion Intravenous 500 ml @ 20 mls/hr ONCE@1800 IV Last administered on 02/19/19at 17:59; Start 02/19/19 at 18:00; Stop 02/20/19 at 17:59; Status DC Fat Emulsion Intravenous 500 ml @ 20 mls/hr ONCE@1800 IV Last administered on 02/20/19at 17:58; Start 02/20/19 at 18:00; Stop 02/21/19 at 17:59; Status DC Fat Emulsion Intravenous 500 ml @ 20 mls/hr ONCE@1800 IV Last administered on 02/21/19at 17:32; Start 02/21/19 at 18:00; Stop 02/22/19 at 17:59 Fentanyl Citrate (Sublimaze) 25 mcg Q5MP PRN IV MODERATE PAIN (PS 4-7); Start 02/18/19 at 16:00; Stop 02/18/19 at 17:00; Status DC Filgrastim (Neupogen) 300 mcg DAILY SC Last administered on 02/21/19at 10:05; Start 02/20/19 at 20:00; Stop 02/22/19 at 09:01 Glucagon (Glucagon) 1 mg ASDIRECTED PRN SC SEE LABEL COMMENTS; Start 02/10/19 at 16:00 Glucose (Glucose) 16 GM ASDIRECTED PRN PO SEE LABEL COMMENTS; Start 02/10/19 at 16:00 Heparin Sodium (Heparin (Flush)) 500 units ASDIRECTED PRN IV SEE LABEL COMMENTS; Start 02/10/19 at 12:00; Stop 02/10/19 at 16:25; Status DC Heparin Sodium (Porcine) (Heparin) 5,000 units Q8H SQ ; Start 02/13/19 at 00:00; Stop 02/13/19 at 00:46; Status DC Heparin Sodium (Porcine) (Heparin) 5,000 units Q8H SQ Last administered on 02/14/19at 05:45; Start 02/13/19 at 06:00; Stop 02/14/19 at 11:50; Status DC Home Med (Med Rec Complete!) ASDIRECTED XX ; Start 02/10/19 at 14:00; Stop 02/10/19 at 14:00; Status DC Insulin Human Lispro (HumaLOG INSULIN) SEE PROTOCOL TABLE Q6H SC Last administered on 02/10/19at 18:43; Start 02/10/19 at 18:00; Stop 02/11/19 at 09:13; Status DC Insulin Human Lispro (HumaLOG INSULIN) See Protocol Table Q6H SC Last administered on 02/16/19at 06:13; Start 02/15/19 at 18:00; Stop 02/16/19 at 12:01; Status DC Insulin Human Lispro (HumaLOG INSULIN) See Protocol Table Q6H SC Last administered on 02/17/19at 12:46; Start 02/16/19 at 18:00; Stop 02/17/19 at 12:01; Status DC Insulin Human Lispro (HumaLOG INSULIN) See Protocol Table Q6H SC Last administered on 02/18/19at 06:07; Start 02/17/19 at 18:00; Stop 02/18/19 at 12:01; Status DC Insulin Human Lispro (HumaLOG INSULIN) See Protocol Table Q6H SC Last administered on 02/20/19at 12:29; Start 02/19/19 at 18:00; Stop 02/20/19 at 12:01; Status DC Insulin Human Lispro (HumaLOG INSULIN) See Protocol Table Q6H SC Last adm inistered on 02/21/19at 12:17; Start 02/20/19 at 18:00; Stop 02/21/19 at 12:01; Status DC Insulin Human Lispro (HumaLOG INSULIN) See Protocol Table Q6H SC Last administered on 02/22/19at 05:45; Start 02/21/19 at 18:00; Stop 02/22/19 at 12:01 Insulin Human Regular 11 units/ Amino Ac/Electrol/ Dextrose/Calcium 2,000.11 ml @ 75 mls/hr ONCE@1800 IV Last administered on 02/20/19at 17:58; Start 02/20/19 at 18:00; Stop 02/21/19 at 17:59; Status DC Lactated Ringer's 1,000 ml @ 150 mls/hr Q6H40M IV Last administered on 02/18/19at 15:32; Start 02/18/19 at 16:00; Stop 02/18/19 at 17:00; Status DC Lactated Ringer's 1,000 ml @ 150 mls/hr Q6H40M IV Last administered on 02/19/19at 08:45; Start 02/18/19 at 18:15; Stop 02/19/19 at 09:56; Status DC Magnesium Sulfate 8 meq/Amino Ac/ Electrol/Dextrose/ Calcium 2,002 ml @ 75 mls/hr ONCE@1800 IV Last administered on 02/15/19at 17:55; Start 02/15/19 at 18:00; Stop 02/16/19 at 18:00; Status DC Magnesium Sulfate/ Dextrose 1 gm/IV Miscellaneous Supplies 100 ml @ 100 mls/hr Q1H IV Last administered on 02/14/19at 14:12; Start 02/14/19 at 14:00; Stop 02/14/19 at 15:59; Status DC Meropenem 1 gm/IV Miscellaneous Supplies 50 ml @ 100 mls/hr Q8H IV Last admi nistered on 02/22/19at 03:56; Start 02/20/19 at 20:00 Metoclopramide HCl (REGLAN INJection) 10 mg Q6HP PRN IV NAUSEA OR VOMITING; Start 02/10/19 at 15:00; Stop 02/10/19 at 15:28; Status DC Metoclopramide HCl (REGLAN INJection) 10 mg Q6HP PRN IV NAUSEA OR VOMITING Last administered on 02/18/19 16:24; Start 02/18/19 at 16:00; Stop 02/18/19 at 17:00; Status DC Metoprolol Tartrate (Lopressor) 1 mg Q5M IV Last administered on 02/18/19 17:12; Start 02/18/19 at 17:30; Stop 02/18/19 at 17:51; Status DC Metoprolol Tartrate (Lopressor) 2.5 mg Q6H IV Last administered on 02/22/19 05:44; Start 02/18/19 at 18:00 Morphine Sulfate (Morphine Sulfate In 0.9%Nacl Iv Bag) Concentration 1 mg/ml ASDIRECTED PRN IV SEE LABEL COMMENTS Last administered on 02/21/19at 11:34; Start 02/18/19 at 16:00 Morphine Sulfate (Morphine Sulfate Inj) 2 mg Q2HP PRN IV MODERATE PAIN (PS 5-7) Last administered on 02/17/19 14:11; Start 02/10/19 at 15:00; Stop 02/18/19 at 15:48; Status DC Morphine Sulfate (Morphine Sulfate Inj) 4 mg Q2HP PRN IV SEVERE PAIN (PS 8-10) Last administered on 02/18/19 09:17; Start 02/10/19 at 15:00; Stop 02/18/19 at 15:48; Status DC Morphine Sulfate (Morphine Sulfate Inj) 4 mg Q30M PRN IV SEVERE PAIN (PS 8-10) Last administered on 02/10/19at 11:50; Start 02/10/19 at 11:45; Stop 02/10/19 at 16:24; Status DC Multivitamins 10 ml/Chromium/ Copper/Manganese/ Seleni/Zn 1 ml/ Insulin Human Regular 11.1 units/Amino Ac/ Electrol/Dextrose/ Calcium 2,011.111 ml @ 75 mls/hr ONCE@1800 IV Last administered on 02/21/19at 17:32; Start 02/21/19 at 18:00; Stop 02/22/19 at 17:59 Multivitamins 10 ml/Chromium/ Copper/Manganese/ Seleni/Zn 1 ml/ Potassium Chloride 20 meq/ Magnesium Sulfate 8 meq/Amino Ac/ Electrol/Dextrose/ Calcium 2,023 ml @ 75 mls/hr ONCE@1800 IV Last administered on 02/16/19at 17:53; Start 02/16/19 at 18:00; Stop 02/17/19 at 17:59; Status DC Nalbuphine HCl (Nubain) 2.5 mg Q6HP PRN IV PRURITIS; Start 02/18/19 at 16:00; Stop 02/25/19 at 15:59 Naloxone HCl (Narcan) 0.1 mg Q5MP PRN IV SEE LABEL COMMENTS; Start 02/18/19 at 16:00 Non-Formulary Medication (Epidural/BUSINESS SYSTEMS ADMINISTRATOR [place]) USE THIS ENTRY TO VEND ... Q1M PRN XX SEE LABEL COMMENTS; Start 02/18/19 at 16:00 Ondansetron HCl (ZOFRAN INJection) 4 mg Q4HP PRN IV NAUSEA OR VOMITING Last administered on 02/19/19at 04:39; Start 02/11/19 at 09:45 Ondansetron HCl (ZOFRAN INJection) 4 mg Q4HP PRN IV NAUSEA OR VOMITING Last administered on 02/18/19at 16:46; Start 02/18/19 at 16:00; Stop 02/18/19 at 17:00; Status DC Ondansetron HCl (ZOFRAN INJection) 4 mg Q6HP PRN IV NAUSEA OR VOMITING Last administered on 02/11/19at 02:07; Start 02/10/19 at 15:00; Stop 02/11/19 at 09:38; Status DC Oxycodone/ Acetaminophen (Percocet 5mg/ 325mg Tablet) 1 tab ASDIRECTED PRN PO MILD/MODERATE PAIN (PS 1-7); Start 02/18/19 at 16:00; Stop 02/18/19 at 17:00; Status DC Pantoprazole Sodium (Protonix) 40 mg DAILY IV Last administered on 02/21/19at 09:22; Start 02/11/19 at 09:00 Phenol (Chloraseptic [place]) 1 spray Q2HP PRN MT SORE THROAT Last administered on 02/17/19at 14:10; Start 02/17/19 at 12:45 Potassium Chloride 20 meq/ Amino Ac/Electrol/ Dextrose/Calcium 2,010 ml @ 75 mls/hr ONCE@1800 IV Last administered on 02/17/19at 17:43; Start 02/17/19 at 18:00; Stop 02/18/19 at 15:48; Status DC Promethazine HCl (PHENERGAN INJection) 12.5 mg Q6HP PRN IV NAUSEA Last administered on 02/11/19at 03:01; Start 02/10/19 at 15:00; Stop 02/11/19 at 0 9:13; Status DC Promethazine HCl (PHENERGAN INJection) 25 mg Q6HP PRN IV NAUSEA Last administered on 02/19/19at 08:24; Start 02/11/19 at 09:15 Sodium Chloride 1,000 ml @ 15 mls/hr Q24H IV ; Start 02/18/19 at 15:48; Stop 02/19/19 at 09:57; Status DC Sodium Chloride 1,000 ml @ 75 mls/hr [id number] IV Last administered on 02/21/19at 04:56; Start 02/19/19 at 18:00; Stop 02/21/19 at 08:24; Status DC Sodium Chloride 1,000 ml @ 100 mls/hr Q10H IV Last administered on 02/10/19at 11:50; Start 02/10/19 at 11:43; Stop 02/10/19 at 16:00; Status DC Sodium Chloride 1,000 ml @ 125 mls/hr Q8H IV Last administered on 02/15/19at 06:51; Start 02/10/19 at 14:47; Stop 6/25/19 at 08:27; Status DC Sodium Chloride 1,000 ml @ 200 mls/hr Q5H IV Last administered on 02/19/19at 15:34; Start 02/19/19 at 10:00; Stop 02/19/19 at 17:59; Status DC Sodium Chloride (Saline Lock Flush) 10 ml ASDIRECTED PRN IV SEE LABEL COMMENTS; Start 02/10/19 at 12:00; Stop 02/10/19 at 16:25; Status DC Warfarin Sodium (Coumadin) 5 mg DAILY@17 PO Last administered on 02/14/19at 18:09; Start 02/14/19 at 17:00; Stop 02/15/19 at 10:26; Status DC Echocardiogram: . DVT prophylaxis ordered?: [ SCD's ] ASSESSMENT AND PLAN: High grade neuroendocrine Cancer with liver mets s/p SBO neutropenia post chemo now resolving with neupogen pancytopenia due to chemo - platelets 45 K Plan continue the neupogen until the ANC is 5,000 or greater as it will drop by half when stopped . routine post op surgical care pain management by surgery further chemo on hold until ambulatory Hold platelet transfusions unless bleeding VS, I&O, 24H, Fishbone Vital Signs/I&O Vital Signs Date Time Temp Pulse Resp B/P (MAP) Pulse Ox O2 Delivery O2 Flow Rate FiO2 02/22/19 07:44 97.5 103 22 116/64 (81) 94 3.0 02/22/19 04:00 Nasal Cannula I&O- Last 24 Hours up to 6 AM 02/22/19 06:00 Intake Total 3400 ml Output Total 8005 ml Balance -4605 ml Laboratory Data 24H LABS Laboratory Tests 2 02/21/19 11:43: Bedside Glucose (Misc Panel) 179H 02/21/19 17:13: Bedside Glucose (Misc Panel) 170H 02/22/19 00:06: Bedside Glucose (Misc Panel) 177H 02/22/19 05:32: Bedside Glucose (Misc Panel) 181H 02/22/19 05:36: Immature Granulocyte % (Auto) , Nucleated Red Blood Cells % (auto) 1.3H, Neutrophils 62, Band Neutrophils 9, Lymphocytes (Manual) 15L, Monocytes (Manual) 5, Eosinophils (Manual) 3, Metamyelocytes 5H, Myelocytes 1H, Dohle Bodies 1+, Platelet Estimate MARKED DECREASE, Immature Platelet Fraction 5.5, Polychromasia 1+, Anion Gap 5L, Glomerular Filtration Rate > 60.0, Blood Urea Nitrogen 20H, Creatinine 0.89, Sodium Level 139, Potassium Level 3.9, Chloride Level 103, Carbon Dioxide Level 31, Calcium Level 8.3L, Troponin I < 0.02 CBC/BMP Laboratory Tests 02/22/19 05:36 Red Blood Count 2.98 L, Mean Corpuscular Volume 91.6, Mean Corpuscular Hemoglobin 28.9, Mean Corpuscular Hemoglobin Concent 31.5 L, Red Cell Distribution Width 13.8, Calcium Level 8.3 L Susan Jose MD Feb 22, 2019 08:05
[2019-02-22] MEDS: MORPHINE 1MG/ML IN 0.9% NACL 100ML IV BAG IV PRN (09:36)
[2019-02-22] MEDS: DIGOXIN INJ 0.5 MG/2 ML AMP (J1160) IV SCH (09:36)
[2019-02-22] MEDS: ALVIMOPAN 12 MG CAPSULE (ENTEREG) PO SCH ×2 (09:43→20:54)
[2019-02-22] MEDS: PANTOPRAZOLE 40MG INJ (PROTONIX) (C9113) IV SCH (09:43)
--- NOTE | 2019-02-22 09:46 | IPNPDOC ---
Subjective Date Seen The patient was seen on 02/22/19. Subjective Chief Complaint/HPI c/o pain with sitting up or standing. Feels very worn out today - did not sleep well. "Too much activity in his room last night" Constitutional: Denies: Chills, Fever Pulmonary: Denies: Dyspnea, Cough Cardiovascular: Denies: Chest Pain, Palpitations Gastrointestinal: Reports: Nausea, Abdominal Pain; Denies: Vomiting, Diarrhea Objective Physical Examination General Exam: Positive: Alert, No Acute Distress Eye Exam: Positive: Conjunctiva & lids normal; Negative: Sclera icteric ENT Exam: Positive: Mucous membr. moist/pink; Negative: Nares Patent (+ NG present) Neck Exam: Negative: Lymphadenopathy Chest Exam: Positive: Clear to auscultation, Diminished; Negative: Rales, Rhonchi, Wheezing Heart Exam: Positive: Rate Normal, Normal S1, Normal S2 Abdomen Exam: Positive: Normal bowel sounds, Tenderness, Other (drian with scant sero-sang fluid. Ostomy with liquid green-brown output) Extremity Exam: Positive: Edema (1+ LE edema) Neuro Exam: Positive: Normal Speech Psych Exam: Positive: Mental status NL Assessment /Plan Assessment Patient seen, agree with note below. He now has output from his ostomy. Has not been out of bed to chair today, but has been sitting on the edge of the bed. Overall feeling a bit better. -- CDT Problems (1) Pancytopenia due to chemotherapy Status: Acute Response to Treatment: Worse Discussed With: Cell Preparer, Patient, Family with Pt Consent Problem Specific Plan: Repeat Labs Problem Text: 02/22 - Appreciate Oncology input - s/p Neupogen - WBC improved - cont Neupogen until ANC above 5000. Platelets better today. No platelet transfusion unless bleeding occurs 02/21/19: platelets remain lower today. WBC 1.2 He received his third dose of etoposide 10 days ago. The fact that he has a pancytopenia isn't that surprising. The question is what to do about it. At this point the anemia and decreased platelets, while needing to be monitored, are not yet low enough to be truly dangerous. Regarding the neutropenia with an ANC of 1050, initially I hesitated on doing anything. However, by about 4pm he had spiked a little temperature. While I don't think this would qualify as true n eutropenic fever (the Tmax was only 100.3, but he tends to run lower than 98 as well), this was enough to push me to start Neupogen and initiate antibiotics. I spoke with Ms. Yuliyachari Lindsay who was sail repair person for Dr. Jose. She suggested 300mg of Neupogen for at least three days and monitor the improvement in ANC. We discussed the proper dose, since his body weight is significantly different than his ideal body weight. She recommended 300, but stated that 400 would be ok as well; it was a matter of preference. Based on this discussion I started 300mg of Nupogen SC x 3 days. We will look for an ANC >10k, or we may decide to extend the course of Neupogen. I also spoke with Dr. Fry about initiating abx. He has not been on any since his surgery. He agreed that we could do this and always withdraw them if it seemed that he didn't need them. I selected meropenem and he agreed. (2) Ileus Status: Acute Response to Treatment: Improving Discussed With: Cell Preparer, Patient, Family with Pt Consent Problem Text: 02/22 - Having some output from ostomy - illeus starting to resolve - still with significant post-surgical abd pain requiring Morphine CUTTING MACHINE TENDER HELPER and phenergan on occasion for nausea (3) Neuroendocrine carcinoma metastatic to liver Onset Date: Unknown Status: Chronic Response to Treatment: Stable Problem Text: 02/22 - Chemo on hold until ambulating Pancytopenia secondary to chemotherapy - improving with Neupogen Defer further treatment to Oncology (4) A-fib Status: Chronic Response to Treatment: Stable Problem Text: 02/21/19: HOLD Anti-coagulation until platelets return to normal value 02/20/19: anticoagulation still is held. May resume once ok with surgery. In the meantime we will focus of mechanical DVT prevention. 02/18/10: Hold coumadin in in anticipaitation for surgery resume Warfarin at lower dose: 5 mg. INR daily. Teds and SCDs rate controlled Coumadin held due to high INR and in case of need for surgery- Vit K given x 2 (5) CALE on CPAP Status: Chronic Problem Text: not on cpap due to NG in place. sats monitored overnight, continuous (6) Diastolic CHF, chronic Status: Chronic Response to Treatment: Stable Problem Specific Plan: Consult Specialist Problem Text: Appears clinically stable/compensated. BRYAN/Brennan following. (7) Diabetes Status: Chronic Problem Text: Blood sugars are running 100s currnetly - NPO - D/C sliding scale to prevent hypoglycemia (8) CAD (coronary artery disease) Status: Chronic Response to Treatment: Stable Problem Specific Plan: Consult Specialist (Dr. Amin following.) (9) Small bowel obstruction Status: Resolved Response to Treatment: Stable, Improving Discussed With: Cell Preparer, Patient, Family with Pt Consent Problem Specific Plan: Monitor Clinically Problem Text: 02/19: Postop day #1. In speaking to Dr. Fry and reviewing his operative report it looks like there were extensive metastatic lesions noted in the right upper quadrant. He did what he could for the patient and did create a uwbm-tp-cden bypass of the most encrusted/obstructed area. This should allow for his ileostomy to function again. Now it is a waiting game for the ileus to resolve. 02/18 Plan for OR today with Dr Fry. 02/17 NG is keeping him fairly comfortable. minimal output at ostomy. 02/16: surgery Thursday. Dr. Fry ordered repeat CT today 02/15 - per Surgery - plan is for OR thursday for presumed excision of new tumor obstructing colon Will need COuadin held in anticipation for surgery Consult Cardiology and Pulmonary who followe him periopertively last month due to his complicated history and risk going through surgery - 02/14/19: continue with surgical recommendations. OOB tid. Mag level pending. 02/13 -- reports that he feels similar to yesterday 02/12 -- Patient reports that nausea is improved today. NG tube continues to drain. Reports he is much more comfortable today. Per surgery NG tube in place Nausea persists - I will increase phnergan dose if ok with Dr. jang Cont IVF WBC down. Faint hypoactive Bowel sounds with some output in Ostomy (10) Elevated INR Status: Resolved Problem Text: see above Plan/VTE VTE Prophylaxis Ordered?: Yes ( ffffff mechanical only for now. ) VTE Exclusion Pharmacological: Other (surgery tomorrow) Plan Therapy: PT, OT Disposition Patient will need to get moving, but will likely need to take this slowly due to pain issues. Will likely need rehab once medically stable VS, I&O, 24H, Fishbone Vital Signs/I&O Vital Signs Date Time Temp Pulse Resp B/P (MAP) Pulse Ox O2 Delivery O2 Flow Rate FiO2 02/22/19 09:36 104 02/22/19 07:44 97.5 22 116/64 (81) 94 3.0 02/22/19 04:00 Nasal Cannula I&O- Last 24 Hours up to 6 AM 02/22/19 06:00 Intake Total 3400 ml Output Total 8005 ml Balance -4605 ml Laboratory Data 24H LABS Laboratory Tests 2 02/21/19 11:43: Bedside Glucose (Misc Panel) 179H 02/21/19 17:13: Bedside Glucose (Misc Panel) 170H 02/22/19 00:06: Bedside Glucose (Misc Panel) 177H 02/22/19 05:32: Bedside Glucose (Misc Panel) 181H 02/22/19 05:36: Immature Granulocyte % (Auto) , Nucleated Red Blood Cells % (auto) 1.3H, Neutrophils 62, Band Neutrophils 9, Lymphocytes (Manual) 15L, Monocytes (Manual) 5, Eosinophils (Manual) 3, Metamyelocytes 5H, Myelocytes 1H, Dohle Bodies 1+, Platelet Estimate MARKED DECREASE, Immature Platelet Fraction 5.5, Polychromasia 1+, Anion Gap 5L, Glomerular Filtration Rate > 60.0, Blood Urea Nitrogen 20H, Creatinine 0.89, Sodium Level 139, Potassium Level 3.9, Chloride Level 103, Carbon Dioxide Level 31, Calcium Level 8.3L, Troponin I < 0.02 CBC/BMP Laboratory Tests 02/22/19 05:36 Red Blood Count 2.98 L, Mean Corpuscular Volume 91.6, Mean Corpuscular Hemoglobin 28.9, Mean Corpuscular Hemoglobin Concent 31.5 L, Red Cell Distribution Width 13.8, Calcium Level 8.3 L AMANDA VIRAMONTES PA-C Feb 22, 2019 09:46 AMRIK GIRARD DO Feb 22, 2019 23:42
[2019-02-22] MEDS: ONDANSETRON 4MG/2ML VIAL (J2405) IV PRN (10:45)
--- NOTE | 2019-02-22 10:56 | REP ---
Clinical: Small bowel obstruction. Comparison: 02/15/2019. Findings: Frontal view of the chest demonstrates nasogastric tube in satisfactory position and right-sided Icakow-W-Rnke with tip in the SVC. Diffuse bilateral infiltrates are appreciated. Supine and upright views of the abdomen and pelvis demonstrate the postsurgical changes along with relatively nonspecific bowel gas pattern without definite obstruction. Ostomy identified in the right lower quadrant. Skeletal structures demonstrate degenerative changes. Impression: 1. The bowel gas pattern is nonspecific although ileus cannot be excluded no definite bowel obstruction. 2. Postsurgical changes. 3. Frontal view of the chest demonstrates diffuse infiltrates. Electronically Signed by Chad Weldon MD 02/22/2019 10:47 A
[2019-02-22] MEDS: KETOROLAC 30 MG/ML VIAL (J1885) IV PRN ×2 (11:53→18:40)
[2019-02-22] MEDS: FUROSEMIDE 40 MG/4 ML VIAL (J1940) IV SCH (11:54)
[2019-02-22] MEDS: FILGRASTIM 300 MCG/0.5 ML SYRINGE (J1442 PER 1MCG) SC SCH (16:14)
--- NOTE | 2019-02-22 17:20 | ROOPDOC ---
[facility] Report Of Operation Report of Operation DATE OF PROCEDURE: 02/18/19 PREPROCEDURE DIAGNOSES: Small bowel obstruction, history of metastatic neuroendocrine tumor in the abdomen, peritoneum, omentum. POSTPROCEDURE DIAGNOSES: Small bowel obstruction from encasement/involvement of tumor pulling the distal bowel prior to the ileostomy to the right upper quadrant area, metastatic neuroendocrine tumor involving the omentum, peritoneum. PROCEDURE: Diagnostic laparoscopy converted to exploratory laparotomy, lysis of adhesion, small bowel bypass from distended distal small bowel to ileostomy, open Wili gastrostomy tube placement. SURGEON: Pasha Fry MD ARCHEOLOGIST: Bentley Darnell MD ANESTHESIA: General anesthesia. ESTIMATED BLOOD LOSS: Approximately 200 mL. COMPLICATIONS: None patient extubated. REMARKS: 63-year-old male, morbidly obese who approximately 6 weeks ago had right colectomy with ileostomy performed for a malignant obstruction to his right colon. Pathology of this turned out to be a neuroendocrine tumor that is metastatic and is not of colon primary. This was causing external obstruction or compression of the hepatic flexure. He did well from this and was just starting his chemotherapy when he developed abdominal distention nausea and vomiting and markedly decreased output in his ileostomy and subsequently admitted for small bowel obstruction. There has been no improvement despite maintaining nasogastric tube decompression for a week now and he is brought to the operating room to try and relieve the obstruction. PROCEDURE NOTE: Multiple markedly enlarged loops of bowel largest of which is more than 5 cm in size with a loop of bowel getting pulled into the recurrent mass over the patient's right upper quadrant area and this seems to also involve the loop of bowel prior to his ileostomy causing decompression of the his ileostomy portion of his bowel. The mass has prevented us to get into between the liver and the ileostomy is this virtually filled up that area that was not able to separate that from the abdominal wall, liver and ileostomy and was unable to get behind the mass to release that portion of bowel. Handed up doing a small bowel bypass between that portion with a markedly enlarged small bowel and the wall of the ileostomy prior to it entering the abdominal wall. Roughly a 3 cm wduq-js-wiry anastomosis was performed handsewn. I also placed a gastrostomy tube as I think he will be prone to recurrent bowel obstructions. DESCRIPTION OF PROCEDURE: Patient was given a dose of Invanz 1 g IV preoperatively for wound prophylaxis. He has a nasogastric tube in place which is draining a large amount of bilious fluid. He has a recent ileostomy that is not putting out any output. He has a very protuberant and rounded abdomen. A sub centimeter portion of the previous midline incision has purulent drainage without any associated erythema when pressed around the opening. This is located a few centimeters just above the umbilical skin cleft. He was brought to the operating room, laid supine on the table, compression boots and teds stockings placed on the lower extremities for DVT prophylaxis. General endotracheal anesthesia was started. Anesthesia attempted to place a radial catheter for arterial blood pressure monitoring but was unsuccessful. I closed the ileostomy in a running suture of 2-0 silks. A Tegaderm was placed on top of the ileostomy and the abdomen was prepped and draped in the usual sterile fashion. We paused for a surgical timeout using both pre-incision safety checklist to verify correct patient, procedure site and additional clinical information prior to beginning the procedure. I started our surgical procedure by trying entered the abdomen over the patient's left upper quadrant area using a Veress needle technique. His abdomen is already moderately distended today but I was able to get through to the peritoneum confirming the positive saline drop technique. CO2 insufflation started to pressure 15 mmHg. There is fairly uniform distention of the abdomen. Under direct vision of the laparoscope a 5 mm optical blade trocar was placed into the abdomen. The insertion site was inspected for bleeding or injury and I did not nausea any. Directly in front of me as I entered the abdomen are markedly enlarged loops of bowel most prominent over the patient's midline area spanning the epigastric area going down to the portion above the pelvis and eventually disappearing into view. On the x-ray this loop of bowel was being described as distended colon. There were multiple areas of adhesion to the abdominal wall which appears dense. I wasn't able to maneuver towards the right upper quadrant to visualize the liver but I was not able to pass the area of the falciform ligament as this did not insufflate/separate from the abdominal wall with hard in areas of omentum appearing tissues covering the area. It was hard to delineate where the ileosto my was or what its course is. This seems to be decompressed. I did not see any further decompressed bowels with this vantage point. I repositioned the patient with a slight Trendelenburg position tilted towards the right side trying see if I can maneuver and find an adequate space in the left side. I was able to maneuver towards the pelvis I still did not have an adequate view of the right lower quadrant area and there remains multiple loops of bowel attached to the left and lower abdominal wall. With this laparoscopic findings, I decided to terminate the laparoscopy portion and convert to open laparotomy via the midline incision. Prior to me exiting with the laparoscope I mapped the area where I think taking I can make asafe entry at the midline were there are no loops of of bowel adhered to the abdominal wall and this seems to be at the midepigastric portion. I made a skin incision at the midline of the upper abdomen on top of what I thought was a free area laparoscopically. This was carefully taken down deep through the abdominal wall layers. He actually has a very thin abdominal wall with mesh placed in what I pressume is the retrorectus space. I carefully undid the previously placed PDS closure. I was able to successfully enter the abdomen without injury to the bowel. I carefully enlarged the incision as I'm able to palpate and visualize the loops of bowel together crossing the midline abdomen both inferiorly and superiorly. While doing this I am carefully lysing the bowel adhesions mostly sharply with Metzenbaum scissors with my assistant corporation counsel tugging on the abdominal wall to help with the exposure. As we were able to gain space and free up the loops of bowel and proceeded continuing inferiorly. Until we got into a loop of distended small bowel that is densely adhered loop of bowel close to the umbilicus where there seems to be some mesh that was exposed. The bowel loops were adhered to the mesh. It wasn't clear whether there is peritoneum in between this. I went pre-peritoneally removing that portion of the mesh with the abdominal wall to try not to get into the bowel and cause injury until I can get into a plane inferiorly and superiorly in My hands around this loop of bowel. Eventually I was successfully able to free this up from the abdominal wall. I proceeded extending the incision and carving around the necrotic portion where it was draining out of the privious midline incision to healthy tissues. Then I proceeded inferiorly taking down abdominal adhesions which are more flimsy and easier to detach from the abdominal wall. Still after freeing the bowels from the abdominal I was not able to lift any of the bowels exteriorly to have an adequate view of the adhesions. This seems to be tethered both to the retroperitoneum and to some areas more laterally on both sides. I continued to enlarge the incision superiorly then and eventually was able to get into a plane over the left upper quadrant area that is relatively free and started freeing up the bowels over that site. I then worked on the markedly distended loop of small bowel at the midabdomen trying to free this up from the interbowel adhesions and slowly was able to exteriorize this portion of the bowel to a point as this seems to be still tethered somewhere on the right side of the abdomen. I was able to identify the ileostomy by palpation and its location. After a few centimeters the loop prior to the ileostomy disappears towards the right upper quadrant area. The area above the ileostomy has a hardened mass that I could not separate from the abdominal wall and the underlying tissues. This is the tissue bed where I performed a right colectomy. Since this seems to be adhering the abd ominal wall to that mass involving the retroperitoneum at that area possibly the duodenum. I was not able to get above this area to even visualize the right lobe of the liver beyond the falciform ligament. This unfortunately impedes me getting around the ileostomy and towards the loops of bowel that are adhered underneath the liver to free this up or possibly even resect this. This seems to me as to point of obstruction. At this point, I reassessed and since there was clear obstruction with a markedly dilated loop of bowel within the area on the right upper quadrant in between this markedly bloody enlarged loop of bowel and ileostomy that is the point of obstruction where the malignancy is located I decided to perform a small bowel bypass. I do not have enough length of the ileostomy to perform stapled bypass thus I decided to perform a sutured fejn-hy-xebw anastomosis between the markedly enlarged loop of bowel and the ileostomy prior to the bowel reaching the abdominal wall. I cleared the adipose tissue around this area to about 3-4 cm. I placed a geovanny suture to align both bowels superiorly and inferiorly and made about a 2 cm longitudinal incision in each part of the bowel. I inserted an 18 [place] nasogastric tube through the enlarged loop of bowel and decompressed this by attaching it to the suction and got some whitish thick fluid from this until the bowel was fully decompressed. Using a PDS in a running suture was created at the midpoint of the posterior wall in between the 2 bowels on both ends transitioning to a canal suture anteriorly. A separate 3-0 PDS was also used going superiorly in the opposite direction again in a running fashion on the posterior wall transitioning to a canal running suture anteriorly until full anastomosis was created and the sutures were tied off. I placed interrupted Lembert sutures with 3-0 silk's and placed a couple of separate sutures to align further the 2 loops of bowel. The size of the anastomosis seems to be adequate. I proceeded looking at further the bowels in the left side of the abdomen. There are some mildly dilated loops of bowels bowels adhered to one another as well as to the retroperitoneum. I was not clear whether this is to one deposits were deciduous adhesions this does not seem to be causing obstruction of this point. I continued following the bowel to the ligament of Treitz which also seems to be distended. As he is most likely to develop further adhesions in the progression of the cancer with most likely recurrent obstructions, I decided to put a gastrostomy tube. I chose a 24 [place] gastrostomy tube for drainage. He had a previous feeding gastrostomy and I detach the attachments of the stomach to the abdominal wall. I further dissected the adhered gastrocolic ligament and omentum on the left upper quadrant area to further expose the body of the gallbladder along the greater curvature. When I have enough purchase on the stomach I placed a pursestring suture with 3-0 silk and made a gastrotomy to accommodate the feeding tube. I chose an area on the left upper quadrant abdominal wall and the G-tube was threaded through the abdominal wall and then through the stomach and the pursestring suture was cinched. The balloon was inflated with saline. This was then tethered to the abdominal wall along the tubes entry site using silk sutures. This was then tested, saline was pushed through the gastrostomy tube and no leakage found. At this point a irrigated the abdomen. I placed a 19 [place] drain to run through the left upper quadrant port site to close to where our small bowel bypass is and secured this to the skin with 2-0 silk's. The incision was then closed with a double looped PDS in a running fashion freeing up the anterior fascia from the subcutaneous space to create a sufficient area for our fascial bites. Venus were then placed to close the skin. I then released the suture placed on the ileostomy and placing an ileostomy appliance. Dry gauze dressings were placed in top of the incision. Patient was promptly awakened, extubated and brought to recovery room stable. I decided to remove the nasogastric tube on extubation as he already has the gastrostomy tube. Counts of sponges and instruments were verified correct. PASHA FRY MD Feb 22, 2019 17:20
[2019-02-22] MEDS ORDERED: FAT EMULSION IV 20% 500 ML IV SCH (18:00)
[2019-02-22] MEDS ORDERED: AMINO AC/ELECTROLYTE/DEX/CALC 2,000 ML IV SCH (18:00)
[2019-02-22] MEDS: ATORVASTATIN 20 MG TAB PO SCH (20:55)
[2019-02-23] VITALS (21 sets, daily range): BP systolic 114–129; BP diastolic 53–72; O2SAT 84–97
[2019-02-23] MEDS: METOPROLOL 5 MG/5 ML VIAL IV SCH ×3 (00:16→12:19)
[2019-02-23] MEDS: KETOROLAC 30 MG/ML VIAL (J1885) IV PRN ×2 (00:17→21:45)
[2019-02-23] MEDS: HumaLOG INSULIN (NovoLOG) PER UNIT SC SCH ×4 (00:31→18:41)
[2019-02-23] MEDS: MEROPENEM INJ 1 GM in APPROPRIATE DILUENT 1 EA IV SCH ×2 (03:52→12:19)
[2019-02-23 06:16] LABS: HEMATOCRIT 28.2 % (42.0-52.0); MEAN CORPUSCULAR HEMOGLOBIN 28.9 pg (27.0-33.0); MEAN CORPUSCULAR HGB CONC 31.9 g/dl (32.0-36.5); MEAN CORPUSCULAR VOLUME 90.7 fl (80.0-96.0); RED BLOOD COUNT 3.11 10^6/uL (4.30-6.10); WHITE BLOOD COUNT 14.1 10^3/uL (4.0-10.0)
[2019-02-23 06:20] LABS: PLATELET COUNT, AUTOMATED 64 10^3/uL (150-450)
[2019-02-23 06:42] LABS: BLOOD UREA NITROGEN 20 MG/DL (7-18); CARBON DIOXIDE LEVEL 31 MEQ/L (21-32); CHLORIDE LEVEL 100 MEQ/L (98-107); CREATININE FOR GFR 0.76 MG/DL (0.70-1.30); GLOMERULAR FILTRATION RATE > 60.0 (>49); GLUCOSE, FASTING 172 MG/DL (70-100); POTASSIUM SERUM 3.6 MEQ/L (3.5-5.1); SODIUM LEVEL 138 MEQ/L (136-145)
[2019-02-23 06:43] LABS: LYMPHOCYTES 5 % (16-52); MONOCYTES 5 % (0-8); NEUTROPHILS 83 % (35-75); PLATELET ESTIMATE DECREASED (NORMAL)
--- NOTE | 2019-02-23 07:58 | IPNPDOC ---
Subjective General Date/Time Seen The patient was seen on 02/23/19 at 07:55. Subject Chief Complaint/History The patient is a 63-year-old male admitted with a reason for visit of Ileus, Small Bowel Obstruction. Patient seen just after working with PT, complains of pain in abdomen. Only able to do little activity with at least 2 person assisting him. We are seeing more out of the ileostomy and less from the NGT. He has been afebrile. Small amount of drainage in the wound on top of the umbilicus. Current Medications Current Medications Current Medications Alvimopan (Entereg) 12 mg BID PO Last administered on 02/22/19at 20:54; Start 02/18/19 at 21:00; Stop 02/23/19 at 20:59 Amino Ac/Electrol/ Dextrose/Calcium 2,000 ml @ 75 mls/hr ONCE@1800 IV Last administered on 02/19/19at 18:00; Start 02/19/19 at 18:00; Stop 02/20/19 at 17:59; Status DC Amino Ac/Electrol/ Dextrose/Calcium 2,000 ml @ 75 mls/hr ONCE@1800 IV Last administered on 02/22/19at 18:42; Start 02/22/19 at 18:00; Stop 02/23/19 at 17:59 Amiodarone HCl 150 mg/IV Miscellaneous Supplies 100 ml @ 600 mls/hr STAT STAT IV Last administered on 02/18/19at 21:39; Start 02/18/19 at 21:15; Stop 02/18/19 at 21:25; Status DC Atorvastatin Calcium (Lipitor) 80 mg QHS PO Last administered on 02/22/19at 20:55 ; Start 02/10/19 at 21:00 Carvedilol (COReg) 6.25 mg BID PO Last administered on 02/17/19at 19:55; Start 02/10/19 at 21:00; Stop 02/18/19 at 18:18; Status DC Dextrose (Dextrose 50%) 25 ml ASDIRECTED PRN IV SEE LABEL COMMENTS; Start 02/10/19 at 16:00 Digoxin (Lanoxin) 0.25 mg DAILY IV Last administered on 02/22/19at 09:36; Start 02/11/19 at 09:00 Diphenhydramine HCl (Benadryl) 12.5 mg Q4HP PRN IV ITCHING; Start 02/18/19 at 16:00 Fat Emulsion Intravenous 500 ml @ 20 mls/hr ONCE@1800 IV Last administered on 02/15/19at 17:55; Start 02/15/19 at 18:00; Stop 02/16/19 at 18:00; Status DC Fat Emulsion Intravenous 500 ml @ 20 mls/hr ONCE@1800 IV Last administered on 02/16/19at 17:52; Start 02/16/19 at 18:00; Stop 02/17/19 at 17:59; Status DC Fat Emulsion Intravenous 500 ml @ 20 mls/hr ONCE@1800 IV Last administered on 02/17/19at 17:43; Start 02/17/19 at 18:00; Stop 02/18/19 at 15:48; Status DC Fat Emulsion Intravenous 500 ml @ 20 mls/hr ONCE@1800 IV Last administered on 02/19/19at 17:59; Start 02/19/19 at 18:00; Stop 02/20/19 at 17:59; Status DC Fat Emulsion Intravenous 500 ml @ 20 mls/hr ONCE@1800 IV Last administered on 02/20/19at 17:58; Start 02/20/19 at 18:00; Stop 02/21/19 at 17:59; Status DC Fat Emulsion Intravenous 500 ml @ 20 mls/hr ONCE@1800 IV Last administered on 02/21/19at 17:32; Start 02/21/19 at 18:00; Stop 02/22/19 at 17:59; Status DC Fat Emulsion Intravenous 500 ml @ 20 mls/hr ONCE@1800 IV Last administered on 02/22/19at 18:42; Start 02/22/19 at 18:00; Stop 02/23/19 at 17:59 Fentanyl Citrate (Sublimaze) 25 mcg Q5MP PRN IV MODERATE PAIN (PS 4-7); Start 02/18/19 at 16:00; Stop 02/18/19 at 17:00; Status DC Filgrastim (Neupogen) 300 mcg DAILY SC Last administered on 02/22/19at 16:14; Start 02/20/19 at 20:00; Stop 02/22/19 at 18:00; Status DC Furosemide (LASIX injection) 40 mg DAILY IV Last administered on 02/22/19at 11:54; Start 02/22/19 at 09:00 Glucagon (Glucagon) 1 mg ASDIRECTED PRN SC SEE LABEL COMMENTS; Start 02/10/19 at 16:00 Glucose (Glucose) 16 GM ASDIRECTED PRN PO SEE LABEL COMMENTS; Start 02/10/19 at 16:00 Heparin Sodium (Heparin (Flush)) 500 units ASDIRECTED PRN IV SEE LABEL COMMENTS; Start 02/10/19 at 12:00; Stop 02/10/19 at 16:25; Status DC Heparin Sodium (Porcine) (Heparin) 5,000 units Q8H SQ ; Start 02/13/19 at 00:00; Stop 02/13/19 at 00:46; Status DC Heparin Sodium (Porcine) (Heparin) 5,000 units Q8H SQ Last administered on 01/23 12/10at 05:45; Start 02/13/19 at 06:00; Stop 02/14/19 at 11:50; Status DC Home Med (Med Rec Complete!) ASDIRECTED XX ; Start 02/10/19 at 14:00; Stop 02/10/19 at 14:00; Status DC Insulin Human Lispro (HumaLOG INSULIN) SEE PROTOCOL TABLE Q6H SC Last administered on 02/10/19at 18:43; Start 02/10/19 at 18:00; Stop 02/11/19 at 09:13; Status DC Insulin Human Lispro (HumaLOG INSULIN) See Protocol Table Q6H SC Last administered on 02/16/19at 06:13; Start 02/15/19 at 18:00; Stop 02/16/19 at 12:01; Status DC Insulin Human Lispro (HumaLOG INSULIN) See Protocol Table Q6H SC Last administered on 02/17/19at 12:46; Start 02/16/19 at 18:00; Stop 02/17/19 at 12:01; Status DC Insulin Human Lispro (HumaLOG INSULIN) See Protocol Table Q6H SC Last administered on 02/18/19at 06:07; Start 02/17/19 at 18:00; Stop 02/18/19 at 12:01; Status DC Insulin Human Lispro (HumaLOG INSULIN) See Protocol Table Q6H SC Last administered on 02/20/19at 12:29; Start 02/19/19 at 18:00; Stop 02/20/19 at 12:01; Status DC Insulin Human Lispro (HumaLOG INSULIN) See Protocol Table Q6H SC Last administered on 02/21/19at 12:17; Start 02/20/19 at 18:00; Stop 02/21/19 at 12:01; Status DC Insulin Human Lispro (HumaLOG INSULIN) See Protocol Table Q6H SC Last administered on 02/22/19at 11:54; Start 02/21/19 at 18:00; Stop 02/22/19 at 12:01; Status DC Insulin Human Lispro (HumaLOG INSULIN) See Protocol Table Q6H SC Last admini stered on 02/23/19at 06:16; Start 02/22/19 at 18:00; Stop 02/23/19 at 12:01 Insulin Human Regular 11 units/ Amino Ac/Electrol/ Dextrose/Calcium 2,000.11 ml @ 75 mls/hr ONCE@1800 IV Last administered on 02/20/19at 17:58; Start 02/20/19 at 18:00; Stop 02/21/19 at 17:59; Status DC Ketorolac Tromethamine (ToRADol) 30 mg Q6H PRN IV PAIN Last administered on 02/23/19at 00:17; Start 02/22/19 at 11:30; Stop 02/27/19 at 11:29 Lactated Ringer's 1,000 ml @ 150 mls/hr Q6H40M IV Last administered on 02/18/19at 15:32; Start 02/18/19 at 16:00; Stop 02/18/19 at 17:00; Status DC Lactated Ringer's 1,000 ml @ 150 mls/hr Q6H40M IV Last administered on 02/19/19at 08:45; Start 02/18/19 at 18:15; Stop 02/19/19 at 09:56; Status DC Magnesium Sulfate 8 meq/Amino Ac/ Electrol/Dextrose/ Calcium 2,002 ml @ 75 mls/hr ONCE@1800 IV Last administered on 02/15/19at 17:55; Start 02/15/19 at 18:00; Stop 02/16/19 at 18:00; Status DC Magnesium Sulfate/ Dextrose 1 gm/IV Miscellaneous Supplies 100 ml @ 100 mls/hr Q1H IV Last administered on 02/14/19 14:12; Start 02/14/19 at 14:00; Stop 02/14/19 at 15:59; Status DC Meropenem 1 gm/IV Miscellaneous Supplies 50 ml @ 100 mls/hr Q8H IV Last administered on 02/23/19 03:52; Start 02/20/19 at 20:00 Metoclopramide HCl (REGLAN INJection) 10 mg Q6HP PRN IV NAUSEA OR VOMITING; Start 02/10/19 at 15:00; Stop 02/10/19 at 15:28; Status DC Metoclopramide HCl (REGLAN INJection) 10 mg Q6HP PRN IV NAUSEA OR VOMITING Last administered on 02/18/19 16:24; Start 02/18/19 at 16:00; Stop 02/18/19 at 17:00; Status DC Metoprolol Tartrate (Lopressor) 1 mg Q5M IV Last administered on 02/18/19 17:12; Start 02/18/19 at 17:30; Stop 02/18/19 at 17:51; Status DC Metoprolol Tartrate (Lopressor) 2.5 mg Q6H IV Last administered on 02/23/19 06:16; Start 02/18/19 at 18:00 Morphine Sulfate (Morphine Sulfate In 0.9%Nacl Iv Bag) Concentration 1 mg/ml ASDIRECTED PRN IV SEE LABEL COMMENTS Last administered on 02/22/19 09:36; Start 02/18/19 at 16:00 Morphine Sulfate (Morphine Sulfate Inj) 2 mg Q2HP PRN IV MODERATE PAIN (PS 5-7) Last administered on 02/17/19 14:11; Start 02/10/19 at 15:00; Stop 02/18/19 at 15:48; Status DC Morphine Sulfate (Morphine Sulfate Inj) 4 mg Q2HP PRN IV SEVERE PAIN (PS 8-10) Last administered on 02/18/19 09:17; Start 02/10/19 at 15:00; Stop 02/18/19 at 15:48; Status DC Morphine Sulfate (Morphine Sulfate Inj) 4 mg Q30M PRN IV SEVERE PAIN (PS 8-10) Last administered on 02/10/19 11:50; Start 02/10/19 at 11:45; Stop 02/10/19 at 16:24; Status DC Multivitamins 10 ml/Chromium/ Copper/Manganese/ Seleni/Zn 1 ml/ Insulin Human Regular 11.1 units/Amino Ac/ Electrol/Dextrose/ Calcium 2,011.111 ml @ 75 mls/hr ONCE@1800 IV Last administered on 02/21/19at 17:32; Start 02/21/19 at 18:00; Stop 02/22/19 at 17:59; Status DC Multivitamins 10 ml/Chromium/ Copper/Manganese/ Seleni/Zn 1 ml/ Potassium Chloride 20 meq/ Magnesium Sulfate 8 meq/Amino Ac/ Electrol/Dextrose/ Calcium 2,023 ml @ 75 mls/hr ONCE@1800 IV Last administered on 02/16/19at 17:53; Start 02/16/19 at 18:00; Stop 02/17/19 at 17:59; Status DC Nalbuphine HCl (Nubain) 2.5 mg Q6HP PRN IV PRURITIS; Start 02/18/19 at 16:00; Stop 02/25/19 at 15:59 Naloxone HCl (Narcan) 0.1 mg Q5MP PRN IV SEE LABEL COMMENTS; Start 02/18/19 at 16:00 Non-Formulary Medication (Epidural/BENCH WORKER [place]) USE THIS ENTRY TO VEND ... Q1M PRN XX SEE LABEL COMMENTS; Start 02/18/19 at 16:00 Ondansetron HCl (ZOFRAN INJection) 4 mg Q4HP PRN IV NAUSEA OR VOMITING Last administered on 02/22/19at 10:45; Start 02/11/19 at 09:45 Ondansetron HCl (ZOFRAN INJection) 4 mg Q4HP PRN IV NAUSEA OR VOMITING Last administered on 02/18/19at 16:46; Start 02/18/19 at 16:00; Stop 02/18/19 at 17:00; Status DC Ondansetron HCl (ZOFRAN INJection) 4 mg Q6HP PRN IV NAUSEA OR VOMITING Last administered on 02/11/19at 02:07; Start 02/10/19 at 15:00; Stop 02/11/19 at 09:38; Status DC Oxycodone/ Acetaminophen (Percocet 5mg/ 325mg Tablet) 1 tab ASDIRECTED PRN PO MILD/MODERATE PAIN (PS 1-7); Start 02/18/19 at 16:00; Stop 02/18/19 at 17:00; S kieraus DC Pantoprazole Sodium (Protonix) 40 mg DAILY IV Last administered on 02/22/19at 09:43; Start 02/11/19 at 09:00 Phenol (Chloraseptic [place]) 1 spray Q2HP PRN MT SORE THROAT Last administered on 02/17/19at 14:10; Start 02/17/19 at 12:45 Potassium Chloride 20 meq/ Amino Ac/Electrol/ Dextrose/Calcium 2,010 ml @ 75 mls/hr ONCE@1800 IV Last administered on 02/17/19at 17:43; Start 02/17/19 at 18:00; Stop 02/18/19 at 15:48; Status DC Promethazine HCl (PHENERGAN INJection) 12.5 mg Q6HP PRN IV NAUSEA Last administered on 02/11/19at 03:01; Start 02/10/19 at 15:00; Stop 02/11/19 at 09:13; Status DC Promethazine HCl (PHENERGAN INJection) 25 mg Q6HP PRN IV NAUSEA Last administered on 02/19/19at 08:24; Start 02/11/19 at 09:15 Sodium Chloride 1,000 ml @ 15 mls/hr Q24H IV ; Start 02/18/19 at 15:48; Stop 02/19/19 at 09:57; Status DC Sodium Chloride 1,000 ml @ 75 mls/hr [id number] IV Last administered on 02/21/19at 04:56; Start 02/19/19 at 18:00; Stop 02/21/19 at 08:24; Status DC Sodium Chloride 1,000 ml @ 100 mls/hr Q10H IV Last administered on 02/10/19at 11:50; Start 02/10/19 at 11:43; Stop 02/10/19 at 16:00; Status DC Sodium Chloride 1,000 ml @ 125 mls/hr Q8H IV Last administered on 02/15/19at 06:51; Start 02/10/19 at 14:47; Stop 02/15/19 at 08:27; Status DC Sodium Chloride 1,000 ml @ 200 mls/hr Q5H IV Last administered on 02/19/19at 15:34; Start 02/19/19 at 10:00; Stop 02/19/19 at 17:59; Status DC Sodium Chloride (Saline Lock Flush) 10 ml ASDIRECTED PRN IV SEE LABEL COMMENTS; Start 02/10/19 at 12:00; Stop 02/10/19 at 16:25; Status DC Warfarin Sodium (Coumadin) 5 mg DAILY@17 PO Last administered on 02/14/19at 18:09; Start 02/14/19 at 17:00; Stop 02/15/19 at 10:26; Status DC Allergies Coded Allergies: No Known Allergies (Unverified , 12/27/18) Objective Physical Examination Examination GENERAL APPEARANCE:mild discomfort from recent activity. SKIN: warm and dry. HEENT: mild pale palpebral conjunctivae. NGT functioning, not much bilious stuff out. lips dry.. NECK: Supple, no thyromegaly. No obvious jugular venous distention. LUNGS: Clear to auscultation bilaterally. No wheezing appreciated. HEART: tachycardia better, irregular rhythm. ABDOMEN: Abdomen is round, soft, still noticeably distended, mildly improved, beginning bowel sounds appreciated. Ileostomy with liquid stool in bag but not much air out. There is a small portion of the midline incision with beginning erythema. . EXTREMITIES: mild edema. Vital Signs Vital Signs Date Time Temp Pulse Resp B/P (MAP) Pulse Ox O2 Delivery O2 Flow Rate FiO2 02/23/19 07:48 96.5 97 20 122/57 (78) 98 2.0 02/23/19 06:00 Nasal Cannula I&Os I&O- Last 24 Hours up to 6 AM 02/23/19 06:00 Intake Total 3080 ml Output Total 3490 ml Balance -410 ml Laboratory Data Labs 24H Laboratory Tests 2 02/22/19 11:39: Bedside Glucose (Misc Panel) 191H 02/22/19 17:45: Bedside Glucose (Misc Panel) 162H 02/23/19 00:27: Bedside Glucose (Misc Panel) 157H 02/23/19 05:46: Anion Gap 7L, Glomerular Filtration Rate > 60.0, Blood Urea Nitrogen 20H, Creatinine 0.76, Sodium Level 138, Potassium Level 3.6, Chloride Level 100, Ca rbon Dioxide Level 31, Calcium Level 8.0L 02/23/19 05:47: Immature Granulocyte % (Auto) , Nucleated Red Blood Cells % (auto) 0.6H, Neutrophils 83H, Band Neutrophils 7, Lymphocytes (Manual) 5L, Monocytes (Manual) 5, Platelet Estimate DECREASED, Immature Platelet Fraction 7.0, Red Blood Cell Morphology NORMAL CBC/BMP Laboratory Tests 02/23/19 05:46 Calcium Level 8.0 L 02/23/19 05:47 Red Blood Count 3.11 L, Mean Corpuscular Volume 90.7, Mean Corpuscular Hemoglobin 28.9, Mean Corpuscular Hemoglobin Concent 31.9 L, Red Cell Distribution Width 14.0 Impression Small Bowel Obstruction POD5 Exploratory Laparotomy, Lysis of Adhesion, small bowel bypass distal dilated small bowel to just below ileostomy, gastrostomy tube placement metastatic neuroendocrine tumor mild malnutrition acute renal failure improved Pancytopenia from Etoposide given Neupogen D3 - WBC up to 14 today acute debility d/c cody drain today clamp gastrostomy tube - not working I have spoken to him about removing his arias. He is concerned he is too weak and would not be able to manage. He is getting IV lasix, will keep it for another day. I opened up a small portion of the midline incision above the umbilicus and took out one staple with drainage of a small amount of brownish, red drainage. - use iodoform for packing wound. His leukopenia has improved and has not been having any fever since thursday (only once 100.3). I would like to d/c antibiotics for now. I reiterated to patient and importance of trying to increase activity kvng almanza. He is so far behind his baseline from being bed ridden, so will need to actively work with PT for this. Plan / VTE VTE Prophylaxis Ordered?: Yes ( ffffff mechanical only for now. ) VTE Exclusion Pharmacological: Bleeding Risk NEDRA MARTINEZ MD Feb 23, 2019 07:58
--- NOTE | 2019-02-23 10:15 | IPNPDOC ---
Subjective Date Seen The patient was seen on 02/23/19. Subjective Chief Complaint/HPI Patient lying in bed sleeping with at bedside as I entered the room. No acute events overnight. He states he feels about the same. Constitutional: Denies: Chills, Fever Pulmonary: Denies: Dyspnea, Cough, Pleuritic Chest Pain Cardiovascular: Denies: Chest Pain, Palpitations, Orthopnea Gastrointestinal: Reports: Abdominal Pain, Other Symptoms (colostomy ); Denies: Nausea, Vomiting Psych: Reports: Mood Normal Objective Physical Examination General Exam: Positive: Alert, No Acute Distress Eye Exam: Positive: Conjunctiva & lids normal; Negative: Sclera icteric ENT Exam: Positive: Mucous membr. moist/pink, Other ENT (NG tube); Negative: Nares Patent (+ NG present) Neck Exam: Negative: Lymphadenopathy Chest Exam: Positive: Clear to auscultation, Diminished; Negative: Rales, Rhonchi, Wheezing Heart Exam: Positive: Rate Normal, Normal S1, Normal S2 Abdomen Exam: Positive: Normal bowel sounds, Tenderness, Other (drian with scant sero-sang fluid. Ostomy with liquid green-brown output) Extremity Exam: Positive: Edema (1+ LE edema) Neuro Exam: Positive: Normal Speech Psych Exam: Positive: Mental status NL Assessment /Plan Assessment Patient seen, agree with note. Ostomy output improving. Activity remains limited. No new complaints today. Overall appears to be improving slowly over the course of this week. -- CDT Problems (1) Pancytopenia due to chemotherapy Status: Acute Response to Treatment: Worse Discussed With: Square Shear Operator, Patient, Family with Pt Consent Problem Specific Plan: Repeat Labs Problem Text: 02/23/19: S/P Neupogen. WBC 14.1 02/22 - Appreciate Oncology input - s/p Neupogen - WBC improved - cont Neupogen until ANC above 5000. Platelets better today. No platelet transfusion unless bleeding occurs 02/21/19: platelets remain lower today. WBC 1.2 He received his third dose of etoposide 10 days ago. The fact that he has a pancytopenia isn't that surprising. The question is what to do about it. At this point the anemia and decreased platelets, while needing to be monitored, are not yet low enough to be truly dangerous. Regarding the neutropenia with an ANC of 1050, initially I hesitated on doing anything. However, by about 4pm he had spiked a little temperature. While I don't think this would qualify as true neutropenic fever (the Tmax was only 100.3, but he tends to run lower than 98 as well), this was enough to push me to start Neupogen and initiate antibiotics. I spoke with Ms. Yuliya Lindsay who was smoke control supervisor for Dr. Jose. She suggested 300mg of Neupogen for at least three days and monitor the improvement in ANC. We discussed the proper dose, since his body weight is significantly different than his ideal body weight. She recommended 300, but stated that 400 would be ok as well; it was a matter of preference. Based on this discussion I started 300mg of Nupogen SC x 3 days. We will look for an ANC >10k, or we may decide to extend the course of Neupogen. I also spoke with Dr. Fry about initiating abx. He has not been on any since his surgery. He agreed that we could do this and always withdraw them if it seemed that he didn't need them. I selected meropenem and he agreed. (2) Ileus Status: Acute Response to Treatment: Improving Discussed With: Square Shear Operator, Patient, Family with Pt Consent Problem Text: 02/23/19: He continues to have output from his ostomy. Surgery continues to follow 02/22 - Having some output from ostomy - illeus starting to resolve - still with significant post-surgical abd pain requiring Morphine KEYING MACHINE OPERATOR and phenergan on occasion for nausea (3) Neuroendocrine carcinoma metastatic to liver Onset Date: Unknown Status: Chronic Response to Treatment: Stable Problem Text: 02/23/19: S/P Neupogen. Oncology following: further chemo on hold until ambulatory and hold platelet transfusions unless bleeding 02/22 - Chemo on hold until ambulating Pancytopenia secondary to chemotherapy - improving with Neupogen Defer further treatment to Oncology (4) A-fib Status: Chronic Response to Treatment: Stable Problem Text: 02/23/19: Plt 64 02/21/19: HOLD Anti-coagulation until platelets return to normal value 02/20/19: anticoagulation still is held. May resume once ok with surgery. In the meantime we will focus of mechanical DVT prevention. 02/18/10: Hold coumadin in in anticipaitation for surgery resume Warfarin at lower dose: 5 mg. INR daily. Teds and SCDs rate controlled Coumadin held due to high INR and in case of need for surgery- Vit K given x 2 (5) CALE on CPAP Status: Chronic Problem Text: not on cpap due to NG in place. sats monitored overnight, continuous (6) Diastolic CHF, chronic Status: Chronic Response to Treatment: Stable Problem Specific Plan: Consult Specialist Problem Text: 02/23/19: Appears well compensated Appears clinically stable/compensated. BRYAN/Brennan following. (7) Diabetes Status: Chronic Problem Text: Blood sugars are running 100s currnetly - NPO - D/C sliding scale to prevent hypoglycemia (8) CAD (coronary artery disease) Status: Chronic Response to Treatment: Stable Problem Specific Plan: Consult Specialist (Dr. Amin following.) (9) Small bowel obstruction Status: Resolved Response to Treatment: Stable, Improving Discussed With: Square Shear Operator, Patient, Family with Pt Consent Problem Specific Plan: Monitor Clinically Problem Text: 02/19: Postop day #1. In speaking to Dr. Fry and reviewing his operative report it looks like there were extensive metastatic lesions noted in the right upper quadrant. He did what he could for the patient and did create a wesu-wa-dugi bypass of the most encrusted/obstructed area. This should allow for his ileostomy to function again. Now it is a waiting game for the ileus to resolve. 02/18 Plan for OR today with Dr Fry. 02/17 NG is keeping him fairly comfortable. minimal output at ostomy. 02/16: surgery Thursday. Dr. Fry ordered repeat CT today 02/15 - per Surgery - plan is for OR thursday for presumed excision of new tumor obstructing colon Will need COuadin held in anticipation for surgery Consult Cardiology and Pulmonary who followe him periopertively last month due to his complicated history and risk going through surgery - 02/14/19: continue with surgical recommendations. OOB tid. Mag level pending. 02/13 -- reports that he feels similar to yesterday 02/12 -- Patient reports that nausea is improved today. NG tube continues to drain. Reports he is much more comfortable today. Per surgery NG tube in place Nausea persists - I will increase phnergan dose if ok with Dr. jang Cont IVF WBC down. Faint hypoactive Bowel sounds with some output in Ostomy (10) Elevated INR Status: Resolved Problem Text: see above Plan/VTE VTE Prophylaxis Ordered?: Yes ( ffffff mechanical only for now. ) VTE Exclusion Pharmacological: Other (surgery tomorrow) Plan Therapy: PT, OT VS, I&O, 24H, Fishbone Vital Signs/I&O Vital Signs Date Time Temp Pulse Resp B/P (MAP) Pulse Ox O2 Delivery O2 Flow Rate FiO2 02/23/19 07:48 96.5 97 20 122/57 (78) 98 2.0 02/23/19 06:00 Nasal Cannula I&O- Last 24 Hours up to 6 AM 02/23/19 06:00 Intake Total 3080 ml Output Total 3490 ml Balance -410 ml Laboratory Data 24H LABS Laboratory Tests 2 02/22/19 11:39: Bedside Glucose (Misc Panel) 191H 02/22/19 17:45: Bedside Glucose (Misc Panel) 162H 02/23/19 00:27: Bedside Glucose (Misc Panel) 157H 02/23/19 05:46: Anion Gap 7L, Glomerular Filtration Rate > 60.0, Blood Urea Nitrogen 20H, Creatinine 0.76, Sodium Level 138, Potassium Level 3.6, Chloride Level 100, Carbon Dioxide Level 31, Calcium Level 8.0L 02/23/19 05:47: Immature Granulocyte % (Auto) , Nucleated Red Blood Cells % (auto) 0.6H, Neutrophils 83H, Band Neutrophils 7, Lymphocytes (Manual) 5L, Monocytes (Manual) 5, Platelet Estimate DECREASED, Immature Platelet Fraction 7.0, Red Blood Cell Morphology NORMAL CBC/BMP Laboratory Tests 02/23/19 05:46 Calcium Level 8.0 L 02/23/19 05:47 Red Blood Count 3.11 L, Mean Corpuscular Volume 90.7, Mean Corpuscular Hemoglobin 28.9, Mean Corpuscular Hemoglobin Concent 31.9 L, Red Cell Distribution Width 14.0 PREETI BURT Feb 23, 2019 10:15 AMRIK GIRARD DO Feb 24, 2019 00:02
[2019-02-23] MEDS: MORPHINE 1MG/ML IN 0.9% NACL 100ML IV BAG IV PRN (10:19)
[2019-02-23] MEDS: DIGOXIN INJ 0.5 MG/2 ML AMP (J1160) IV SCH (10:35)
[2019-02-23] MEDS: PANTOPRAZOLE 40MG INJ (PROTONIX) (C9113) IV SCH (10:35)
[2019-02-23] MEDS: FUROSEMIDE 40 MG/4 ML VIAL (J1940) IV SCH (10:36)
[2019-02-23] MEDS: ALVIMOPAN 12 MG CAPSULE (ENTEREG) PO SCH (10:36)
[2019-02-23] MEDS ORDERED: [UNRECOGNIZED DRUG - MIXTURE] IV SCH ×4 (18:00)
[2019-02-23] MEDS ORDERED: FAT EMULSION IV 20% 500 ML IV SCH (18:00)
[2019-02-23] MEDS: CARVedilol 6.25 MG TAB PO SCH (21:44)
[2019-02-23] MEDS: ATORVASTATIN 20 MG TAB PO SCH (21:45)
[2019-02-24] MEDS: HumaLOG INSULIN (NovoLOG) PER UNIT SC SCH ×4 (00:58→18:56)
[2019-02-24 02:00] VITALS: BP 127/69
[2019-02-24 06:00] VITALS: BP 122/75
[2019-02-24 07:06] LABS: HEMOGLOBIN 8.9 g/dl (13.5-17.5); MEAN CORPUSCULAR HEMOGLOBIN 30.4 pg (27.0-33.0); MEAN CORPUSCULAR VOLUME 92.2 fl (80.0-96.0); RED BLOOD COUNT 2.93 10^6/uL (4.30-6.10); WHITE BLOOD COUNT 17.4 10^3/uL (4.0-10.0)
[2019-02-24 07:12] LABS: PLATELET COUNT, AUTOMATED 85 10^3/uL (150-450)
[2019-02-24 07:25] LABS: BLOOD UREA NITROGEN 19 MG/DL (7-18); CALCIUM LEVEL 8.5 MG/DL (8.8-10.2); CARBON DIOXIDE LEVEL 33 MEQ/L (21-32); CHLORIDE LEVEL 99 MEQ/L (98-107); CREATININE FOR GFR 0.81 MG/DL (0.70-1.30); GLOMERULAR FILTRATION RATE > 60.0 (>49); GLUCOSE, FASTING 178 MG/DL (70-100); POTASSIUM SERUM 3.5 MEQ/L (3.5-5.1); SODIUM LEVEL 138 MEQ/L (136-145)
[2019-02-24 07:43] LABS: ATYPICAL LYMPH 2 % (0-5); LYMPHOCYTES 7 % (16-52); METAMYELOCYTES 2 % (0-0); MONOCYTES 4 % (0-8); MYELOCYTES 9 % (0-0); NEUTROPHILS 70 % (35-75); PROMYELOCYTES 1 % (0-0)
[2019-02-24 07:44] LABS: ANISOCYTOSIS 1+; PLATELET ESTIMATE DECREASED (NORMAL)
[2019-02-24 07:45] LABS: SMUDGE CELLS 1+
[2019-02-24] MEDS: CARVedilol 6.25 MG TAB PO SCH ×2 (08:37→22:04)
[2019-02-24] MEDS: PANTOPRAZOLE 40MG INJ (PROTONIX) (C9113) IV SCH (08:37)
[2019-02-24] MEDS: FUROSEMIDE 40 MG/4 ML VIAL (J1940) IV SCH (08:37)
[2019-02-24] MEDS: KETOROLAC 30 MG/ML VIAL (J1885) IV PRN (08:38)
[2019-02-24 09:50] VITALS: O2SAT 95
--- NOTE | 2019-02-24 10:15 | IPNPDOC ---
Subjective Date Seen The patient was seen on 02/24/19. Subjective Chief Complaint/HPI Pt this morning is agitated and would like his arias cath out. When attempting ROS with him he answers yes to everything and blames in on his arias catheter. He states that at times the arias feels like it is tugging on him and this is quite uncomfortable for him. He states that he thinks he has two catheters in place and that is the problem although he isn't really sure as he can't see down there. He is not very mobile and not likely to be able to use a urinal. Nursings only concern this morning is his repeated request to have the arias removed and their subsequent concern about this being done and his immobility. General: Reports: ROS Unobtainable Objective Physical Examination General Exam: Positive: Alert, No Acute Distress Eye Exam: Negative: Sclera icteric ENT Exam: Positive: Mucous membr. moist/pink; Negative: Nares Patent (+ NG present) Neck Exam: Negative: Lymphadenopathy Chest Exam: Positive: Clear to auscultation, Diminished; Negative: Rales, Rhonchi, Wheezing Heart Exam: Positive: Rate Normal, Normal S1, Normal S2 Abdomen Exam: Positive: Normal bowel sounds, Tenderness, Other (drain with scant sero-sang fluid. Ostomy with liquid green-brown output) Extremity Exam: Positive: Edema (1+ LE edema) Neuro Exam: Positive: Normal Speech Psych Exam: Positive: Mental status NL Assessment /Plan Problems (1) Pancytopenia due to chemotherapy Status: Acute Response to Treatment: Worse Discussed With: Processing Technologist, Patient, Family with Pt Consent Problem Specific Plan: Repeat Labs Problem Text: 02/24 up to 17.4/8.9/85K 02/20-02/22/19 sp filgrastim 300 SC QD x 3 He received his third dose of etoposide 10 days ago. The fact that he has a pancytopenia isn't that surprising. The question is what to do about it. At this point the anemia and decreased platelets, while needing to be monitored, are not yet low enough to be truly dangerous. Regarding the neutropenia with an ANC of 1050, initially I hesitated on doing anything. However, by about 4pm he had spiked a little temperature. While I don't think this would qualify as true neutropenic fever (the Tmax was only 100.3, but he tends to run lower than 98 as well), this was enough to push me to start Neupogen and initiate antibiotics. I spoke with Ms. Yuliya Lindsay who was section housekeeper for Dr. Jose. S (2) Ileus Status: Acute Response to Treatment: Improving Discussed With: Processing Technologist, Patient, Family with Pt Consent Problem Text: 02/24 GS following, + Output 02/23/19: He continues to have output from his ostomy. Surgery continues to follow 02/22 - Having some output from ostomy - illeus starting to resolve - still with significant post-surgical abd pain requiring Morphine PRODUCT PICKER and phenergan on occasion for nausea (3) Neuroendocrine carcinoma metastatic to liver Onset Date: Unknown Status: Chronic Response to Treatment: Stable Problem Text: 02/23/19: S/P Neupogen. Oncology following: further chemo on hold u ntil ambulatory and hold platelet transfusions unless bleeding 02/22 - Chemo on hold until ambulating Pancytopenia secondary to chemotherapy - improving with Neupogen Defer further treatment to Oncology (4) A-fib Status: Chronic Response to Treatment: Stable Problem Text: on HD dig 250, carve 6.25 BID for RC AC held 2 thrombocytopenia (5) CALE on CPAP Status: Chronic Problem Text: not on cpap due to NG in place. sats monitored overnight, continuous (6) Diastolic CHF, chronic Status: Chronic Response to Treatment: Stable Problem Specific Plan: Consult Specialist Problem Text: Euvolemic on HD fur 60 qAM (7) Diabetes Status: Chronic Problem Text: HD ins deg 26 QHS 02/24 AC BG mid-high 100s; therefore, + ins det 10 QHS to SSLI (8) CAD (coronary artery disease) Status: Chronic Response to Treatment: Stable Problem Specific Plan: Consult Specialist (Dr. Amin following.) (9) Small bowel obstruction Status: Resolved Response to Treatment: Stable, Improving Discussed With: Processing Technologist, Patient, Family with Pt Consent Problem Specific Plan: Monitor Clinically Problem Text: 02/19: Postop day #1. In speaking to Dr. Fry and reviewing his operative report it looks like there were extensive metastatic lesions noted in the right upper quadrant. He did what he could for the patient and did create a [id number] bypass of the most encrusted/obstructed area. This should allow for his ileostomy to function again. Now it is a waiting game for the ileus to resolve. 02/18 Plan for OR today with Dr Fry. 02/17 NG is keeping him fairly comfortable. minimal output at ostomy. 02/16: surgery Thursday. Dr. Fry ordered repeat CT today 02/15 - per Surgery - plan is for OR thursday for presumed excision of new tumor obstructing colon Will need COuadin held in anticipation for surgery Consult Cardiology and Pulmonary who followe him periopertively last month due to his complicated history and risk going through surgery - 02/14/19: continue with surgical recommendations. OOB tid. Mag level pending. 02/13 -- reports that he feels similar to yesterday 02/12 -- Patient reports that nausea is improved today. NG tube continues to drain. Reports he is much more comfortable today. Per surgery NG tube in place Nausea persists - I will increase phnergan dose if ok with Dr. jang Cont IVF WBC down. Faint hypoactive Bowel sounds with some output in Ostomy (10) Elevated INR Status: Resolved Problem Text: see above Plan/VTE VTE Prophylaxis Ordered?: Yes ( ffffff mechanical only for now. ) VTE Exclusion Pharmacological: Bleeding Risk Plan Therapy: PT, OT VS, I&O, 24H, Fishbone Vital Signs/I&O Vital Signs Date Time Temp Pulse Resp B/P (MAP) Pulse Ox O2 Delivery O2 Flow Rate FiO2 02/24/19 08:37 95 122/75 02/24/19 06:00 98.1 18 89 2.0 02/23/19 21:00 Nasal Cannula I&O- Last 24 Hours up to 6 AM 02/24/19 06:00 Intake Total 1800 ml Output Total 3530 ml Balance -1730 ml Laboratory Data 24H LABS Laboratory Tests 2 02/23/19 12:07: Bedside Glucose (Misc Panel) 204H 02/23/19 18:04: Bedside Glucose (Misc Panel) 173H 02/24/19 00:14: Bedside Glucose (Misc Panel) 161H 02/24/19 06:26: Bedside Glucose (Misc Panel) 171H 02/24/19 06:36: Immature Granulocyte % (Auto) , Nucleated Red Blood Cells % (auto) 0.4H, Neutrophils 70, Band Neutrophils 5, Lymphocytes (Manual) 7L, Monocytes (Manual) 4, Metamyelocytes 2H, Myelocytes 9H, Promyelocytes 1H, Atypical Lymphocytes 2, Smudge Cells 1+, Platelet Estimate DECREASED, Immature Platelet Fraction 7.6, Anisocytosis 1+, Anion Gap 6L, Glomerular Filtration Rate > 60.0, Blood Urea Nitrogen 19H, Creatinine 0.81, Sodium Level 138, Potassium Level 3.5, Chloride Level 99, Carbon Dioxide Level 33H, Calcium Level 8.5L CBC/BMP Laboratory Tests 02/24/19 06:36 Red Blood Count 2.93 L, Mean Corpuscular Volume 92.2, Mean Corpuscular Hemoglobin 30.4, Mean Corpuscular Hemoglobin Concent 33.0, Red Cell Distribution Width 14.1, Calcium Level 8.5 L JAZMIN WILLIAMSON PA-C Feb 24, 2019 10:14 Elroy Woods M.D. Feb 24, 2019 15:54
[2019-02-24] MEDS: DIGOXIN INJ 0.5 MG/2 ML AMP (J1160) IV SCH (12:24)
[2019-02-24] MEDS: MORPHINE 1MG/ML IN 0.9% NACL 100ML IV BAG IV PRN (14:59)
--- NOTE | 2019-02-24 16:56 | IPN ---
DATE: 02/24/2019 HISTORY: Patient is now postoperative day #6 from laparotomy and creation of a small bowel bypass to address his intestinal obstruction in the face of metastatic carcinoid tumor. He has had some of fluid and some air out of his ostomy. He has a nasogastric (NG) tube in place, as his gastrostomy tube was not functioning to adequately drain his stomach. He is complaining today about his Roman catheter being very uncomfortable. Vital signs show that he has been afebrile over the past 24 hours. His pulse is in the mid 90s and his blood pressure is acceptable. Intake and output shows that yesterday he had 3600 in with 3400 out. He remains on total parenteral nutrition. He had 50 mL of liquid stool recorded yesterday. His drain was noted to have 105 mL out yesterday. PHYSICAL EXAMINATION: Patient is lying quietly in the bed. He does not appear to be particularly uncomfortable. Nasogastric tube has a minimal amount of fluid in the tubing and in the container. Heart exam shows a regular rhythm still in the 90s. The lungs are clear. The abdomen remains somewhat protuberant, but is fairly soft on the left. He has some significant tenderness on the right-hand side, particularly lateral to the ostomy. The ostomy appears viable and there is a small amount of brownish fluid with flex and a small amount of air in the ostomy appliance. His gastrostomy (G) tube site on the left is clean. His midline incision is largely closed with selena, though there Is a small portion that has been packed open. He does have a few bowel sounds present. Laboratory studies today show a white count of 17,000, with a differential showing 70% neutrophils, 5% bands, 7% lymphocytes and 4% monocytes. He has some immature forms noted as well. Hemoglobin is 9, with a hematocrit of 27 and the platelet count is 85,000, which is significantly improved over the last few days. His chemistry profile today shows a sodium of 138, potassium 3.5, chloride 99, CO2 of 33, BUN of 19, creatinine 0.8 and a glucose of 178. IMPRESSION: Patient is now postop day #6 from his exploratory laparotomy and creation of a bypass from a dilated loop of small bowel to the side of his ileostomy. He is starting to have some increased liquid stool and some air from the ostomy. His NG tube still has had a lot of fluid with 850 out so far today. He has been taking some liquids while his NG tube is in place. He is using a patient-controlled analgesia (HEALTH ANALYST) for pain management and has used approximately 70 mg of morphine over the last 24 hours. He continues to use approximately 3 mg of morphine per hour on average. PLAN Patient will be continued on the total parenteral nutrition (TPN). His NG tube will be continued and we will continue to watch his ileostomy output. I will remove his Roman catheter today. We discussed that he will need to be up adequately to use the urinal and he believes he can accomplish this. Therefore, the Roman will be removed.
[2019-02-24] MEDS ORDERED: FAT EMULSION IV 20% 500 ML IV SCH (18:00)
[2019-02-24] MEDS ORDERED: AMINO AC/ELECTROLYTE/DEX/CALC 2,000 ML IV SCH (18:00)
[2019-02-24 22:00] VITALS: BP 156/78
[2019-02-24] MEDS: LEVEMIR (INSULIN DETEMIR) 1 UNITS/0.01ML SC SCH (22:05)
[2019-02-24] MEDS: ATORVASTATIN 20 MG TAB PO SCH (22:05)
[2019-02-25] MEDS: HumaLOG INSULIN (NovoLOG) PER UNIT SC SCH ×5 (00:56→23:47)
[2019-02-25] MEDS: KETOROLAC 30 MG/ML VIAL (J1885) IV PRN ×3 (00:58→21:31)
[2019-02-25 06:00] VITALS: BP 107/66
[2019-02-25 06:28] LABS: HEMATOCRIT 27.9 % (42.0-52.0); HEMOGLOBIN 9.1 g/dl (13.5-17.5); MEAN CORPUSCULAR HEMOGLOBIN 29.9 pg (27.0-33.0); MEAN CORPUSCULAR HGB CONC 32.6 g/dl (32.0-36.5); MEAN CORPUSCULAR VOLUME 91.8 fl (80.0-96.0); PLATELET COUNT, AUTOMATED 104 10^3/uL (150-450); RED BLOOD COUNT 3.04 10^6/uL (4.30-6.10); WHITE BLOOD COUNT 16.1 10^3/uL (4.0-10.0)
[2019-02-25 06:55] LABS: ALBUMIN 1.8 GM/DL (3.2-5.2); ALT/SGPT 36 U/L (12-78); BILIRUBIN,TOTAL 0.5 MG/DL (0.2-1.0); BLOOD UREA NITROGEN 21 MG/DL (7-18); CALCIUM LEVEL 8.6 MG/DL (8.8-10.2); CARBON DIOXIDE LEVEL 31 MEQ/L (21-32); CHLORIDE LEVEL 99 MEQ/L (98-107); CREATININE FOR GFR 0.84 MG/DL (0.70-1.30); GLOMERULAR FILTRATION RATE > 60.0 (>49); GLUCOSE, FASTING 172 MG/DL (70-100); POTASSIUM SERUM 3.6 MEQ/L (3.5-5.1); SODIUM LEVEL 138 MEQ/L (136-145); TOTAL PROTEIN 7.2 GM/DL (6.4-8.2)
[2019-02-25 07:11] LABS: LYMPHOCYTES 6 % (16-52); METAMYELOCYTES 3 % (0-0); MONOCYTES 3 % (0-8); MYELOCYTES 4 % (0-0); NEUTROPHILS 67 % (35-75); PLATELET ESTIMATE DECREASED (NORMAL)
--- NOTE | 2019-02-25 08:57 | IPNPDOC ---
Subjective Date Seen The patient was seen on 02/25/19. Subjective Chief Complaint/HPI Pt this morning states that his pain is not too bad, he then reaches for his FERMENTER WINE button and presses it. He denies nausea and reports that his breathing is just fine. General: Denies: Fatigue Constitutional: Denies: Chills, Fever ENT: Denies: Head Aches Pulmonary: Denies: Dyspnea, Cough Cardiovascular: Denies: Chest Pain, Palpitations Gastrointestinal: Denies: Nausea, Vomiting, Diarrhea Neurological: Reports: Weakness Psych: Reports: Mood Normal Objective Physical Examination General Exam: Positive: Alert, No Acute Distress ENT Exam: Negative: Nares Patent (+ NG present) Chest Exam: Positive: Clear to auscultation, Diminished; Negative: Rales, Rhonchi, Wheezing Heart Exam: Positive: Rate Normal, Normal S1, Normal S2 Abdomen Exam: Positive: Normal bowel sounds, Tenderness, Other (Ostomy with liquid brown output) Extremity Exam: Positive: Edema (trace BLE) Neuro Exam: Positive: Normal Speech Psych Exam: Positive: Mental status NL Assessment /Plan Assessment Patient seen today, agree with note. Surgery ordered a CT of the abdomen and pelvis, and abscess was noted. I started Zosyn for this. -- CDT Problems (1) Pancytopenia due to chemotherapy Status: Acute Response to Treatment: Worse Discussed With: Clutch Rebuilder, Patient, Family with Pt Consent Problem Specific Plan: Repeat Labs Problem Text: 02/25 WBC down slightly from 17.4 to 16.1 02/24 up to 17.4/8.9/85K 02/20-02/22/19 sp filgrastim 300 SC QD x 3 He received his third dose of etoposide 10 days ago. The fact that he has a pancytopenia isn't that surprising. The question is what to do about it. At this point the anemia and decreased platelets, while needing to be monitored, are not yet low enough to be truly dangerous. Regarding the neutropenia with an ANC of 1050, initially I hesitated on doing anything. However, by about 4pm he had spiked a little temperature. While I don't think this would qualify as true n eutropenic fever (the Tmax was only 100.3, but he tends to run lower than 98 as well), this was enough to push me to start Neupogen and initiate antibiotics. I spoke with Yuliya Lindsay who was maintenance mechanic telephone for Dr. Jose. S (2) Ileus Status: Acute Response to Treatment: Improving Discussed With: Clutch Rebuilder, Patient, Family with Pt Consent Problem Text: 02/24 GS following, + Output 02/23/19: He continues to have output from his ostomy. Surgery continues to follow 02/22 - Having some output from ostomy - illeus starting to resolve - still with significant post-surgical abd pain requiring Morphine FERMENTER WINE and phenergan on occasion for nausea (3) Neuroendocrine carcinoma metastatic to liver Onset Date: Unknown Status: Chronic Response to Treatment: Stable Problem Text: 02/23/19: S/P Neupogen. Oncology following: further chemo on hold until ambulatory and hold platelet transfusions unless bleeding 02/22 - Chemo on hold until ambulating Pancytopenia secondary to chemotherapy - improving with Neupogen Defer further treatment to Oncology (4) A-fib Status: Chronic Response to Treatment: Stable Problem Text: on HD dig 250, carve 6.25 BID for RC AC held 2 thrombocytopenia (5) CALE on CPAP Status: Chronic Problem Text: not on cpap due to NG in place. sats monitored overnight, continuous (6) Diastolic CHF, chronic Status: Chronic Response to Treatment: Stable Problem Specific Plan: Consult Specialist Problem Text: Euvolemic on HD fur 60 qAM (7) Diabetes Status: Chronic Problem Text: HD ins deg 26 QHS 02/24 AC BG mid-high 100s; therefore, + ins det 10 QHS to SSLI (8) CAD (coronary artery disease) Status: Chronic Response to Treatment: Stable Problem Specific Plan: Consult Specialist (Dr. Amin following.) (9) Small bowel obstruction Status: Resolved Response to Treatment: Stable, Improving Discussed With: Clutch Rebuilder, Patient, Family with Pt Consent Problem Specific Plan: Monitor Clinically Problem Text: 02/19: Postop day #1. In speaking to Dr. Fry and reviewing his operative report it looks like there were extensive metastatic lesions noted in the right upper quadrant. He did what he could for the patient and did create a [id number] bypass of the most encrusted/obstructed area. This should allow for his ileostomy to function again. Now it is a waiting game for the ileus to resolve. 02/18 Plan for OR today with Dr Fry. 02/17 NG is keeping him fairly comfortable. minimal output at ostomy. 02/16: surgery Thursday. Dr. Fry ordered repeat CT today 02/15 - per Surgery - plan is for OR thursday for presumed excision of new tumor obstructing colon Will need COuadin held in anticipation for surgery Consult Cardiology and Pulmonary who followe him periopertively last month due to his complicated history and risk going through surgery - 02/14/19: continue with surgical recommendations. OOB tid. Mag level pending. 02/13 -- reports that he feels similar to yesterday 02/12 -- Patient reports that nausea is improved today. NG tube continues to drain. Reports he is much more comfortable today. Per surgery NG tube in place Nausea persists - I will increase phnergan dose if ok with Dr. jang Cont IVF WBC down. Faint hypoactive Bowel sounds with some output in Ostomy (10) Elevated INR Status: Resolved Problem Text: see above Plan/VTE VTE Prophylaxis Ordered?: Yes ( ffffff mechanical only for now. ) VTE Exclusion Pharmacological: Bleeding Risk Plan Therapy: PT, OT VS, I&O, 24H, Fishbone Vital Signs/I&O Vital Signs Date Time Temp Pulse Resp B/P (MAP) Pulse Ox O2 Delivery O2 Flow Rate FiO2 02/25/19 06:00 97.7 93 18 107/66 (80) 96 2.0 02/24/19 09:50 Nasal Cannula I&O- Last 24 Hours up to 6 AM 02/25/19 06:00 Intake Total 0 ml Output Total 3500 ml Balance -3500 ml Laboratory Data 24H LABS Laboratory Tests 2 02/24/19 11:29: Bedside Glucose (Misc Panel) 190H 02/24/19 16:40: Bedside Glucose (Misc Panel) 191H 02/24/19 21:21: Bedside Glucose (Misc Panel) 191H 02/25/19 00:16: Bedside Glucose (Misc Panel) 172H 02/25/19 05:46: Immature Granulocyte % (Auto) , Nucleated Red Blood Cells % (auto) 0.7H, Neutrophils 67, Band Neutrophils 17H, Lymphocytes (Manual) 6L, Monocytes (Manual) 3, Metamyelocytes 3H, Myelocytes 4H, Platelet Estimate DECREASED, Red Blood Cell Morphology NORMAL, Anion Gap 8, Glomerular Filtration Rate > 60.0, Blood Urea Nitrogen 21H, Creatinine 0.84, Sodium Level 138, Potassium Level 3.6, Chloride Level 99, Carbon Dioxide Level 31, Calcium Level 8.6L, Aspartate Amino Transf (AST/SGOT) 35, Alanine Aminotransferase (ALT/SGPT) 36, Alkaline Phospha tase 175H, Total Bilirubin 0.5, Total Protein 7.2, Albumin 1.8L, Albumin/Globulin Ratio 0.33L 02/25/19 05:59: Bedside Glucose (Misc Panel) 181H CBC/BMP Laboratory Tests 02/25/19 05:46 Red Blood Count 3.04 L, Mean Corpuscular Volume 91.8, Mean Corpuscular Hemog lobin 29.9, Mean Corpuscular Hemoglobin Concent 32.6, Red Cell Distribution Width 14.5, Calcium Level 8.6 L, Aspartate Amino Transf (AST/SGOT) 35, Alanine Aminotransferase (ALT/SGPT) 36, Alkaline Phosphatase 175 H, Total Bilirubin 0.5, Total Protein 7.2, Albumin 1.8 L JAZMIN WILLIAMSON PA-C Feb 25, 2019 08:57 AMRIK GIRARD DO Feb 25, 2019 23:10
[2019-02-25] MEDS: DIGOXIN 0.25 MG TAB PO SCH (09:15)
[2019-02-25] MEDS: FUROSEMIDE 20 MG TAB PO SCH (09:16)
[2019-02-25] MEDS: CARVedilol 6.25 MG TAB PO SCH ×2 (09:17→21:10)
[2019-02-25] MEDS: PANTOPRAZOLE 40MG INJ (PROTONIX) (C9113) IV SCH (09:17)
[2019-02-25 10:06] VITALS: BP 122/58
[2019-02-25 14:15] VITALS: BP 119/68
[2019-02-25] MEDS: GASTROGRAFIN SOLUTION 30ML PO SCH ×2 (14:32→14:35)
[2019-02-25] MEDS ORDERED: ISOVUE-370 76% 100ML VIAL (Q9967) As Ordered ONE (15:16)
--- NOTE | 2019-02-25 16:37 | REP ---
Clinical: Evaluate for abscess. Technique: Axial contrast enhanced images from the lung bases to the pubic symphysis coronal and sagittal re-formations using 100 ml Isovue 70 intravenous contrast material. Comparison: 02/11/2019. Findings: Postoperative changes are identified along with a percutaneous gastrostomy tube in satisfactory position, postsurgical changes involving the bowel, and evidence for ostomy via the right anterior abdominal wall. Diffuse inflammatory changes through the mesentery are appreciated along with small amount of fluid extending along the pericolic gutters into the pelvis. Few residual loops of bowel are identified and appear somewhat tethered to the anterior abdominal wall and demonstrate mucosal thickening and inflammatory changes. There appears to be an adjacent irregular fluid collection with small amounts of gas just under the surgical incision within the peritoneal cavity and inseparable from loops of bowel which measures roughly 5.8 x 4.5 x 3.0 cm (images 55-82) most likely reflecting abscess. Innumerable low density liver lesions consistent with metastatic disease noted. Spleen, pancreas, right adrenal gland and bilateral kidneys appear normal. The left adrenal gland demonstrates a mild nodular contour which is likely nonspecific although subtle early metastatic disease cannot definitively be excluded. Scattered lymph nodes throughout the mesentery are nonspecific measuring up to approximately 2.3 cm. Pelvis demonstrates collapsed bladder and relatively normal age appropriate prostate gland. Small early fat containing inguinal hernias noted. Abdominal aorta without aneurysm or dissection. No obvious retroperitoneal adenopathy. Musculoskeletal structures demonstrate degenerative changes. Lung bases demonstrate minimal bibasilar atelectasis and trace pleural reactions. Impression: 1. Small somewhat irregular abscess collection in the peritoneal cavity just below the surgical incision and inseparable from adjacent irregular loops of bowel. 2. Hepatic metastatic disease. 3. Minimal bibasilar atelectasis. 4. Further nonacute findings as described above. Electronically Signed by Chad Weldon MD 02/25/2019 04:29 P
--- NOTE | 2019-02-25 17:28 | IPN ---
DATE: 02/25/2019 HISTORY The patient is postop day #7 from exploratory laparotomy and a small bowel bypass from an obstructed loop of small bowel to the side of his ileostomy for obstruction secondary to metastatic neuroendocrine tumor. He has a nasogastric tube in place as well as a gastrostomy tube. His ileostomy has been putting out better air and fluid today. He still complains of pain and is using his ATMOSPHERIC DRIER TENDER to the tune of 70 mg of morphine per day. Vital signs: Show that he has been afebrile over the past 24 hours. His pulse is in the 90s generally speaking with a good blood pressure and a normal room air pulse oximetry. Intake and output shows that he has had 3100 out yesterday and there was nothing recorded for intake, though he was on total parenteral nutrition yesterday. This should give him approximately 2400 mL of fluid per day. Yesterday he had 400 mL of stool recorded out in his ostomy. He has been taking some ice chips with his NG tube in place. He does report having voided since his Roman catheter was removed yesterday. PHYSICAL EXAMINATION: The patient is alert and lying quietly in the hospital bed. The nasogastric tube remains in place. Heart exam shows a regular rhythm at about 90. The lungs show clear breath sounds bilaterally. The abdomen is obese. He has a long midline incision with some surgical selena in place. There is one small area lower down were Dr. Fry had removed several selena and has some packing in place and I removed this and inspected the wound and this appears to be fairly clean. His ostomy on the right-hand side is viable and he has probably 200 mL of liquid stool in the bag. He is quite tender on the right side of the abdomen, just lateral to the ileostomy. The left side of the abdomen is much softer and without significant tenderness. He does have some bowel sounds present. His drain site below the ostomy is fairly clean. LABS: Laboratory studies show today a white count of 16,000 with a differential showing 67% neutrophils, 17% bands and 6% lymphocytes. Hemoglobin is 9 with a hematocrit of 28 and a platelet count is 104,000. Chemistry shows sodium of 138, potassium 3.6, chloride 99, CO2 of 31, BUN of 21, creatinine 0.8 and a glucose of 172. His liver function tests are not significantly abnormal with the exception of a slight elevation in alkaline phosphatase 275. Total protein is 7.2 with an albumin of 1.8. A CT scan was obtained today to evaluate the abdomen for any evidence of abscess. I ordered this because of his significant tenderness just lateral to the ileostomy as well as the changes in his blood count with his white count at 16 with 17% bands. He has had some premature forms of white cells with this seen slightly more prominent today. The CT scan shows possibly a small fluid collection just beneath his midline incision but this is small. He has extensive metastatic disease in his liver and this could well be the source for some of his tenderness. There is no sign of inflammatory change or abscess lateral to his ileostomy and his small bowel all appears to be quite decompressed. IMPRESSION The patient overall is doing fairly well and his nutritional parameters are not bad on his current TPN. PLAN The patient appears to be having better output from his ileostomy. If this continues, I will consider either clamping or just removing his NG tube. He does have a gastrostomy tube in place though Dr. Fry had reported that this did not seem to drain his stomach well. I encouraged the patient to be up out of bed.
[2019-02-25] MEDS ORDERED: FAT EMULSION IV 20% 500 ML IV SCH (18:00)
[2019-02-25] MEDS ORDERED: MULTIVITAMIN -ADULT INJECTION 10 ML, CR/CU/SE/MN/ZN INJ 1 ML in AMINO AC/ELECTROLYTE/DE... IV SCH (18:00)
[2019-02-25] MEDS: MORPHINE 1MG/ML IN 0.9% NACL 100ML IV BAG IV PRN (20:09)
[2019-02-25] MEDS: ATORVASTATIN 20 MG TAB PO SCH (21:10)
[2019-02-25] MEDS: LEVEMIR (INSULIN DETEMIR) 1 UNITS/0.01ML SC SCH (21:10)
[2019-02-25 22:00] VITALS: BP 121/65
[2019-02-25] MEDS: PIPERACILLIN/TAZOBACTAM SOD 3.375 GM in D5W MINI-BAG PLUS 50 ML IV SCH (23:47)
[2019-02-26] VITALS (7 sets, daily range): BP systolic 121–143; BP diastolic 63–72
[2019-02-26] MEDS: HumaLOG INSULIN (NovoLOG) PER UNIT SC SCH ×4 (05:32→23:43)
[2019-02-26] MEDS: PIPERACILLIN/TAZOBACTAM SOD 3.375 GM in D5W MINI-BAG PLUS 50 ML IV SCH ×4 (05:32→23:43)
[2019-02-26 06:32] LABS: HEMATOCRIT 26.9 % (42.0-52.0); HEMOGLOBIN 8.7 g/dl (13.5-17.5); MEAN CORPUSCULAR HEMOGLOBIN 29.6 pg (27.0-33.0); MEAN CORPUSCULAR HGB CONC 32.3 g/dl (32.0-36.5); MEAN CORPUSCULAR VOLUME 91.5 fl (80.0-96.0); PLATELET COUNT, AUTOMATED 106 10^3/uL (150-450); RED BLOOD COUNT 2.94 10^6/uL (4.30-6.10); WHITE BLOOD COUNT 12.2 10^3/uL (4.0-10.0)
[2019-02-26 06:47] LABS: BLOOD UREA NITROGEN 23 MG/DL (7-18); CALCIUM LEVEL 8.4 MG/DL (8.8-10.2); CARBON DIOXIDE LEVEL 34 MEQ/L (21-32); CHLORIDE LEVEL 98 MEQ/L (98-107); CREATININE FOR GFR 0.78 MG/DL (0.70-1.30); GLOMERULAR FILTRATION RATE > 60.0 (>49); GLUCOSE, FASTING 197 MG/DL (70-100); POTASSIUM SERUM 3.4 MEQ/L (3.5-5.1); SODIUM LEVEL 137 MEQ/L (136-145)
[2019-02-26 07:38] LABS: ANISOCYTOSIS 1+; LYMPHOCYTES 6 % (16-52); METAMYELOCYTES 3 % (0-0); MONOCYTES 3 % (0-8); MYELOCYTES 1 % (0-0); NEUTROPHILS 76 % (35-75); PLATELET ESTIMATE DECREASED (NORMAL)
--- NOTE | 2019-02-26 08:29 | REP ---
Clinical: Follow up. Technique: Two supine views of the abdomen and pelvis. Findings: Bowel gas pattern is grossly nonspecific. Ostomy identified in the right mid abdomen. Postsurgical changes including midline skin selena and evidence for prior cholecystectomy. Skeletal structures intact. Very subtle vague contrast outlines the kidneys and bladder. Intraluminal oral contrast is not definitively appreciated and may have either passed or is too dilute to be identified. Impression: Nonspecific bowel pattern. Electronically Signed by Chad Weldon MD 02/26/2019 08:21 A
[2019-02-26] MEDS: PANTOPRAZOLE 40MG INJ (PROTONIX) (C9113) IV SCH (09:21)
[2019-02-26] MEDS: FUROSEMIDE 20 MG TAB PO SCH (09:22)
[2019-02-26] MEDS: CARVedilol 6.25 MG TAB PO SCH ×2 (09:23→21:43)
[2019-02-26] MEDS: DIGOXIN 0.25 MG TAB PO SCH (09:23)
--- NOTE | 2019-02-26 14:26 | IPN ---
DATE: 02/26/2019 HISTORY: Patient is now day #8 postop from an exploratory laparotomy with a small bowel anastomosis from a dilated loop to the side of his ileostomy. He remains on total parenteral nutrition (TPN). He continues to use a patient-controlled anesthesia (RISK AND INSURANCE MANAGER) device. The report today indicates that he has used 86 mg of morphine in the last 24 hours. Vital signs show that he has been afebrile over the past 24 hours. His pulse has ranged between 73 and 108. His blood pressure is good with a systolic in the 120s to 130s. Intake and output show that yesterday he had 2600 recorded in with 3100 recorded out. There was 1600 recorded out from his nasogastric (NG) tube and 675 from his ileostomy. PHYSICAL EXAMINATION: Patient is alert. He appears slightly disoriented at times and is slightly slow to answer questions. Heart exam shows a regular rhythm. The abdomen is obese, but soft on the left and slightly firmer on the right. The ileostomy has perhaps 100-200 mL of liquid stool in the bag. His incision is partially dressed and appears acceptable. He does have some bowel sounds present. The NG tube is currently clamped. Laboratory studies today show a white count of 12, hemoglobin 9, hematocrit of 27 and a platelet count of 106,000. Differential count showed 76% neutrophils, 11% bands, 6% monocytes and 3% eosinophils. Chemistry profile shows a sodium of 137, potassium 3.4, chloride 98, CO2 of 34, BUN of 23, creatinine 0.8 and a glucose of 197. IMAGING STUDIES: Patient had a CT scan of the abdomen and pelvis yesterday. I ordered this because I was concerned by the degree of tenderness he had on the right lateral to his ileostomy. This study confirmed his multiple liver metastases and this may actually be part of the part of the firmness and tenderness on the right. There is a small collection of fluid beneath the surgical incision measuring maximally 5.8 cm. The radiologist interpreted this as suggestive of an abscess, though certainly this is not definite and he could certainly have a small collection of residual fluid just from his surgery. He does not seem to have any distended bowel anymore on his current study. I obtained a repeat KUB this morning to see if there was any oral contrast that suggested a residual area of dilated bowel or obstruction and this shows no significant residual oral contrast. IMPRESSION: Patient appears to be making slow progress. I am not convinced that the small fluid collection seen on the CT scan is an abscess, but the family practitioner has started him on some antibiotics as of last evening. I clamped his NG tube earlier today to see how he tolerates this. PLAN: We will continue his TPN. If he tolerates the NG clamped, this will be removed and this will allow us to start placing him on some oral fluids and medications. I will adjust his RISK AND INSURANCE MANAGER to lengthen the lockout interval so that he will max out at a lower level of morphine usage and I encouraged him to decrease use of the morphine as able.
[2019-02-26] MEDS ORDERED: MORPHINE 1MG/ML IN 0.9% NACL 100ML IV BAG IV PRN (15:45)
[2019-02-26] MEDS ORDERED: ISOVUE-370 76% 100ML VIAL (Q9967) As Ordered ONE (16:01)
--- NOTE | 2019-02-26 16:42 | REP ---
Clinical: Altered mental status/confusion with history of malignancy. Technique: Axial pre and postcontrast images from the skull base to the vertex using 100 ml Isovue 370 intravenous contrast material. Findings: Age-related atrophy. Ventricles are symmetric. Frost-white differentiation is maintained. No intracranial hemorrhage, mass or mass effect. No enhancing abnormal lesions are identified. No evidence for arteriovenous malformation or further vascular abnormality identified. Sinuses are clear. Calvarium is intact. Impression: Atrophy and age-related changes. No evidence for acute pathology. No enhancing abnormality. Electronically Signed by Chad Weldon MD 02/26/2019 04:32 P
[2019-02-26] MEDS ORDERED: FAT EMULSION IV 20% 500 ML IV SCH (18:00)
[2019-02-26] MEDS ORDERED: AMINO AC/ELECTROLYTE/DEX/CALC 2,000 ML IV SCH (18:00)
[2019-02-26] MEDS ORDERED: ACETAMINOPHEN 500 MG TAB PO PRN (18:30)
[2019-02-26] MEDS ORDERED: MORPHINE 4 MG/ML 1ML VIAL/SYRINGE (J2270) IV PRN (18:30)
[2019-02-26] MEDS: MORPHINE 4 MG/ML 1ML VIAL/SYRINGE (J2270) IV PRN ×2 (19:09→22:17)
[2019-02-26] MEDS: KETOROLAC 30 MG/ML VIAL (J1885) IV PRN (20:12)
[2019-02-26] MEDS: ATORVASTATIN 20 MG TAB PO SCH (21:42)
[2019-02-26] MEDS: LEVEMIR (INSULIN DETEMIR) 1 UNITS/0.01ML SC SCH (21:44)
[2019-02-26] MEDS: ONDANSETRON 4MG/2ML VIAL (J2405) IV PRN (22:17)
--- NOTE | 2019-02-27 00:17 | IPNPDOC ---
Subjective Date Seen The patient was seen on 02/26/19. Subjective Chief Complaint/HPI Discussed with surgery the results of last night's CT abd/pelvis, and general surgery is unpersuaded that the fluid collection visualized is an abscess. He is tolerating IV antibiotics. He had a trial with NG tube off suction, and unfortunately vomited. Nursing staff had noticed a couple episodes of confusion, and a head CT was ordered. His morphine STORAGE ADMINISTRATOR was disconnected when he went down for the head CT and, perhaps forgetting that it was disconnected, he went nearly 3 hours without using or requesting morphine, much longer than he previously had. Constitutional: Denies: Chills, Fever, Malaise Pulmonary: Denies: Dyspnea, Cough Cardiovascular: Denies: Chest Pain Gastrointestinal: Reports: Nausea, Abdominal Pain; Denies: Vomiting Objective Physical Examination General Exam: Positive: Alert, No Acute Distress ENT Exam: Negative: Nares Patent (+ NG present) Chest Exam: Positive: Clear to auscultation, Diminished; Negative: Rales, Rhonchi, Wheezing Heart Exam: Positive: Rate Normal, Normal S1, Normal S2 Abdomen Exam: Positive: Normal bowel sounds, Tenderness, Other (Ostomy with liquid brown output) Extremity Exam: Positive: Edema (trace BLE) Neuro Exam: Positive: Normal Speech Psych Exam: Positive: Mental status NL Assessment /Plan Problems (1) Intra-abdominal fluid collection Problem Text: Radiology feels that this is likely an abscess, and general surgery is less persuaded. I did order IV antibiotics to cover this. (2) Pancytopenia due to chemotherapy Status: Acute Response to Treatment: Worse Discussed With: Certified Composites Technician, Patient, Family with Pt Consent Problem Specific Plan: Repeat Labs Problem Text: 02/26 -- WBCs continue to trend downward 02/25 WBC down slightly from 17.4 to 16.1 02/24 up to 17.4/8.9/85K 02/20-02/22/19 sp filgrastim 300 SC QD x 3 He received his third dose of etoposide 10 days ago. The fact that he has a p ancytopenia isn't that surprising. The question is what to do about it. At this point the anemia and decreased platelets, while needing to be monitored, are not yet low enough to be truly dangerous. Regarding the neutropenia with an ANC of 1050, initially I hesitated on doing anything. However, by about 4pm he had spiked a little temperature. While I don't think this would qualify as true neutropenic fever (the Tmax was only 100.3, but he tends to run lower than 98 as well), this was enough to push me to start Neupogen and initiate antibiotics. I spoke with . Yuliya Lindsay who was systems integration manager for Dr. Jose. Chelita (3) Ileus Status: Acute Response to Treatment: Improving Discussed With: Certified Composites Technician, Patient, Family with Pt Consent Problem Text: 02/24 GS following, + Output 02/23/19: He continues to have output from his ostomy. Surgery continues to follow 02/22 - Having some output from ostomy - illeus starting to resolve - still with significant post-surgical abd pain requiring Morphine STORAGE ADMINISTRATOR and phenergan on occasion for nausea (4) Neuroendocrine carcinoma metastatic to liver Onset Date: Unknown Status: Chronic Response to Treatment: Stable Problem Text: 02/23/19: S/P Neupogen. Oncology following: further chemo on hold until ambulatory and hold platelet transfusions unless bleeding 02/22 - Chemo on hold until ambulating Pancytopenia secondary to chemotherapy - improving with Neupogen Defer further treatment to Oncology (5) A-fib Status: Chronic Response to Treatment: Stable Problem Text: on HD dig 250, carve 6.25 BID for RC AC held 2 thrombocytopenia (6) CALE on CPAP Status: Chronic Problem Text: not on cpap due to NG in place. sats monitored overnight, continuous (7) Diastolic CHF, chronic Status: Chronic Response to Treatment: Stable Problem Specific Plan: Consult Specialist Problem Text: Euvolemic on HD fur 60 qAM (8) Diabetes Status: Chronic Problem Text: HD ins deg 26 QHS 02/24 AC BG mid-high 100s; therefore, + ins det 10 QHS to SSLI (9) CAD (coronary artery disease) Status: Chronic Response to Treatment: Stable Problem Specific Plan: Consult Specialist (Dr. Amin following.) (10) Small bowel obstruction Status: Resolved Response to Treatment: Stable, Improving Discussed With: Certified Composites Technician, Patient, Family with Pt Consent Problem Specific Plan: Monitor Clinically Problem Text: 02/19: Postop day #1. In speaking to Dr. Fry and reviewing his operative report it looks like there were extensive metastatic lesions noted in the right upper quadrant. He did what he could for the patient and did create a hhbc-sj-paso bypass of the most encrusted/obstructed area. This should allow for his ileostomy to function again. Now it is a waiting game for the ileus to resolve. 02/18 Plan for OR today with Dr Fry. 02/17 NG is keeping him fairly comfortable. minimal output at ostomy. 02/16: surgery Thursday. Dr. Fry ordered repeat CT today 02/15 - per Surgery - plan is for OR thursday for presumed excision of new tumor obstructing colon Will need COuadin held in anticipation for surgery Consult Cardiology and Pulmonary who followe him periopertively last month due to his complicated history and risk going through surgery - 02/14/19: continue with surgical recommendations. OOB tid. Mag level pending. 02/13 -- reports that he feels similar to yesterday 02/12 -- Patient reports that nausea is improved today. NG tube continues to drain. Reports he is much more comfortable today. Per surgery NG tube in place Nausea persists - I will increase phnergan dose if ok with Dr. jang Cont IVF WBC down. Faint hypoactive Bowel sounds with some output in Ostomy (11) Elevated INR Status: Resolved Problem Text: see above Plan/VTE VTE Prophylaxis Ordered?: Yes ( ffffff mechanical only for now. ) VTE Exclusion Pharmacological: Bleeding Risk Plan Therapy: PT, OT VS, I&O, 24H, Fishbone Vital Signs/I&O Vital Signs Date Time Temp Pulse Resp B/P (MAP) Pulse Ox O2 Delivery O2 Flow Rate FiO2 02/26/19 22:27 18 02/26/19 22:00 98.5 89 126/69 (88) 94 02/26/19 20:00 2.0 02/24/19 09:50 Nasal Cannula I&O- Last 24 Hours up to 6 AM 02/27/19 06:00 Intake Total 2035 ml Output Total 1450 ml Balance 585 ml Laboratory Data 24H LABS Laboratory Tests 2 02/26/19 05:13: Bedside Glucose (Misc Panel) 177H 02/26/19 06:02: Immature Granulocyte % (Auto) , Nucleated Red Blood Cells % (auto) 0.7H, Neutrophils 76H, Band Neutrophils 11, Lymphocytes (Manual) 6L, Monocytes (Manual) 3, Metamyelocytes 3H, Myelocytes 1H, Platelet Estimate DECREASED, Anisocytosis 1+, Macrocytosis 1+, Anion Gap 5L, Glomerular Filtration Rate > 60.0, Blood Urea Nitrogen 23H, Creatinine 0.78, Sodium Level 137, Potassium Level 3.4L, Chloride Level 98, Carbon Dioxide Level 34H, Calcium Level 8.4L 02/26/19 11:03: Bedside Glucose (Misc Panel) 184H 02/26/19 16:50: Bedside Glucose (Misc Panel) 158H 02/26/19 21:30: Bedside Glucose (Misc Panel) 185H 02/26/19 23:32: Bedside Glucose (Misc Panel) 193H CBC/BMP Laboratory Tests 02/26/19 06:02 Red Blood Count 2.94 L, Mean Corpuscular Volume 91.5, Mean Corpuscular Hemoglobin 29.6, Mean Corpuscular Hemoglobin Concent 32.3, Red Cell Distribution Width 14.5, Calcium Level 8.4 L AMRIK GIRARD DO Feb 27, 2019 00:17
[2019-02-27] MEDS: MORPHINE 4 MG/ML 1ML VIAL/SYRINGE (J2270) IV PRN ×10 (00:20→23:13)
[2019-02-27 02:00] VITALS: BP 120/65
[2019-02-27] MEDS: KETOROLAC 30 MG/ML VIAL (J1885) IV PRN ×2 (04:22→10:22)
[2019-02-27] MEDS: HumaLOG INSULIN (NovoLOG) PER UNIT SC SCH ×2 (05:57→12:00)
[2019-02-27] MEDS: PIPERACILLIN/TAZOBACTAM SOD 3.375 GM in D5W MINI-BAG PLUS 50 ML IV SCH (05:58)
[2019-02-27 06:00] VITALS: BP 128/74
[2019-02-27 07:15] LABS: HEMATOCRIT 26.2 % (42.0-52.0); HEMOGLOBIN 8.6 g/dl (13.5-17.5); MEAN CORPUSCULAR HEMOGLOBIN 30.3 pg (27.0-33.0); MEAN CORPUSCULAR HGB CONC 32.8 g/dl (32.0-36.5); MEAN CORPUSCULAR VOLUME 92.3 fl (80.0-96.0); PLATELET COUNT, AUTOMATED 137 10^3/uL (150-450); RED BLOOD COUNT 2.84 10^6/uL (4.30-6.10); WHITE BLOOD COUNT 13.2 10^3/uL (4.0-10.0)
[2019-02-27 07:38] LABS: BLOOD UREA NITROGEN 23 MG/DL (7-18); CARBON DIOXIDE LEVEL 34 MEQ/L (21-32); CHLORIDE LEVEL 97 MEQ/L (98-107); GLOMERULAR FILTRATION RATE > 60.0 (>49); GLUCOSE, FASTING 188 MG/DL (70-100); POTASSIUM SERUM 3.5 MEQ/L (3.5-5.1); SODIUM LEVEL 135 MEQ/L (136-145)
[2019-02-27 07:46] LABS: EOSINOPHILS 2 % (0-5); LYMPHOCYTES 10 % (16-52); MONOCYTES 2 % (0-8); MYELOCYTES 1 % (0-0); NEUTROPHILS 83 % (35-75)
[2019-02-27 07:47] LABS: PLATELET ESTIMATE NORMAL (NORMAL)
[2019-02-27 07:48] LABS: PLATELET CLUMPS SMALL AMT
[2019-02-27] MEDS: DIGOXIN 0.25 MG TAB PO SCH (09:00)
[2019-02-27] MEDS: CARVedilol 6.25 MG TAB PO SCH (09:00)
[2019-02-27] MEDS: FUROSEMIDE 20 MG TAB PO SCH (09:00)
[2019-02-27] MEDS: PANTOPRAZOLE 40MG INJ (PROTONIX) (C9113) IV SCH (09:13)
[2019-02-27] MEDS ORDERED: SCOPOLAMINE 1MG TRANSDERMAL PATCH TOP PRN (12:15)
[2019-02-27] MEDS ORDERED: ACETAMINOPHEN 650 MG SUPP PR PRN (12:15)
[2019-02-27] MEDS ORDERED: HYOSCYAMINE SULFATE 0.125 MG SUBL TABLET PO PRN (12:15)
[2019-02-27] MEDS ORDERED: BISACODYL 10 MG SUPP PR PRN (12:15)
[2019-02-27] MEDS ORDERED: FLEET ENEMA PR PRN (12:15)
[2019-02-27] MEDS: LORazepam 2 MG/ML VIAL (J2060) IV PRN ×4 (14:09→23:12)
--- NOTE | 2019-02-27 15:37 | IPNPDOC ---
Subjective Date Seen The patient was seen on 02/27/19. Subjective Chief Complaint/HPI Patient is seen with his at bedside. He has had worsening discomfort with increased output from NG tube, and surgery thinks that he has another small bowel obstruction. Patient and have talked extensively, and he would like to be made comfort measures only. Constitutional: Denies: Chills, Fever Pulmonary: Reports: Other Symptoms (pain with deep breath); Denies: Dyspnea, Cough Cardiovascular: Denies: Chest Pain Gastrointestinal: Reports: Nausea, Abdominal Pain (RUQ pain) Psych: Reports: Mood Normal Objective Physical Examination General Exam: Positive: Alert, No Acute Distress ENT Exam: Negative: Nares Patent (+ NG present) Chest Exam: Positive: Clear to auscultation, Diminished; Negative: Rales, Rhonchi, Wheezing Heart Exam: Positive: Rate Normal, Normal S1, Normal S2 Abdomen Exam: Positive: Normal bowel sounds, Tenderness, Other (Ostomy with liquid brown output) Extremity Exam: Positive: Edema (trace BLE) Neuro Exam: Positive: Normal Speech Psych Exam: Positive: Mental status NL Assessment /Plan Problems (1) Comfort measures only status Problem Text: Declines hospice care. Discussed in depth, and patient confirms his desire to be comfort measures only. (2) Intra-abdominal fluid collection Problem Text: Radiology feels that this is likely an abscess, and general surgery is less persuaded. I did order IV antibiotics to cover this. (3) Pancytopenia due to chemotherapy Status: Acute Response to Treatment: Worse Discussed With: Catalyst Concentration Operator, Patient, Family with Pt Consent Problem Specific Plan: Repeat Labs Problem Text: 02/26 -- WBCs continue to trend downward 02/25 WBC down slightly from 17.4 to 16.1 02/24 up to 17.4/8.9/85K 02/20-02/22/19 sp filgrastim 300 SC QD x 3 He received his third dose of etoposide 10 days ago. The fact that he has a pancytopenia isn't that surprising. The question is what to do about it. At this point the anemia and decreased platelets, while needing to be monitored, are not yet low enough to be truly dangerous. Regarding the neutropenia with an ANC of 1050, initially I hesitated on doing anything. However, by about 4pm he had spiked a little temperature. While I don't think this would qualify as true neutropenic fever (the Tmax was only 100.3, but he tends to run lower than 98 as well), this was enough to push me to start Neupogen and initiate antibiotics. I spoke with Ms. Yuliya Lindsay who was production line technician for Dr. Jose. Chelita (4) Ileus Status: Acute Response to Treatment: Improving Discussed With: Catalyst Concentration Operator, Patient, Family with Pt Consent Problem Text: 02/24 GS following, + Output 02/23/19: He continues to have output from his ostomy. Surgery continues to follow 02/22 - Having some output from ostomy - illeus starting to resolve - still with significant post-surgical abd pain requiring Morphine POTTERY DECORATION DESIGNER and phenergan on occasion for nausea (5) Neuroendocrine carcinoma metastatic to liver Onset Date: Unknown Status: Chronic Response to Treatment: Stable Problem Text: 02/23/19: S/P Neupogen. Oncology following: further chemo on hold until ambulatory and hold platelet transfusions unless bleeding 02/22 - Chemo on hold until ambulating Pancytopenia secondary to chemotherapy - improving with Neupogen Defer further treatment to Oncology (6) A-fib Status: Chronic Response to Treatment: Stable Problem Text: on HD dig 250, carve 6.25 BID for RC AC held 2 thrombocytopenia (7) CALE on CPAP Status: Chronic Problem Text: not on cpap due to NG in place. sats monitored overnight, continuous (8) Diastolic CHF, chronic Status: Chronic Response to Treatment: Stable Problem Specific Plan: Consult Specialist Problem Text: Euvolemic on HD fur 60 qAM (9) Diabetes Status: Chronic Problem Text: HD ins deg 26 QHS 02/24 AC BG mid-high 100s; therefore, + ins det 10 QHS to SSLI (10) CAD (coronary artery disease) Status: Chronic Response to Treatment: Stable Problem Specific Plan: Consult Specialist (Dr. Amin following.) (11) Small bowel obstruction Status: Resolved Response to Treatment: Stable, Improving Discussed With: Catalyst Concentration Operator, Patient, Family with Pt Consent Problem Specific Plan: Monitor Clinically Problem Text: 02/19: Postop day #1. In speaking to Dr. Fry and reviewing his operative report it looks like there were extensive metastatic lesions noted in the right upper quadrant. He did what he could for the patient and did create a oeep-ei-davf bypass of the most encrusted/obstructed area. This should allow for his ileostomy to function again. Now it is a waiting game for the ileus to resolve. 02/18 Plan for OR today with Dr Fry. 02/17 NG is keeping him fairly comfortable. minimal output at ostomy. 02/16: surgery Thursday. Dr. Fry ordered repeat CT today 02/15 - per Surgery - plan is for OR thursday for presumed excision of new tumor obstructing colon Will need COuadin held in anticipation for surgery Consult Cardiology and Pulmonary who followe him periopertively last month due to his complicated history and risk going through surgery - 02/14/19: continue with surgical recommendations. OOB tid. Mag level pending. 02/13 -- reports that he feels similar to yesterday 02/12 -- Patient reports that nausea is improved today. NG tube continues to drain. Reports he is much more comfortable today. Per surgery NG tube in place Nausea persists - I will increase phnergan dose if ok with Dr. jang Cont IVF WBC down. Faint hypoactive Bowel sounds with some output in Ostomy (12) Elevated INR Status: Resolved Problem Text: see above Plan/VTE VTE Prophylaxis Ordered?: Yes ( ffffff mechanical only for now. ) VTE Exclusion Pharmacological: Bleeding Risk Plan Therapy: PT, OT VS, I&O, 24H, Fishbone Vital Signs/I&O Vital Signs Date Time Temp Pulse Resp B/P (MAP) Pulse Ox O2 Delivery O2 Flow Rate FiO2 02/27/19 14:18 18 02/27/19 10:46 2.0 02/27/19 06:00 97.8 90 128/74 (92) 95 02/24/19 09:50 Nasal Cannula I&O- Last 24 Hours up to 6 AM 02/27/19 06:00 Intake Total 2255 ml Output Total 2625 ml Balance -370 ml Laboratory Data 24H LABS Laboratory Tests 2 02/26/19 16:50: Bedside Glucose (Misc Panel) 158H 02/26/19 21:30: Bedside Glucose (Misc Panel) 185H 02/26/19 23:32: Bedside Glucose (Misc Panel) 193H 02/27/19 05:49: Bedside Glucose (Misc Panel) 182H 02/27/19 06:36: Immature Granulocyte % (Auto) , Nucleated Red Blood Cells % (auto) 0.3H, Neutrophils 83H, Band Neutrophils 2, Lymphocytes (Manual) 10L, Monocytes (Manual) 2, Eosinophils (Manual) 2, Myelocytes 1H, Platelet Estimate NORMAL, Clumped Platelets SMALL AMT, Anion Gap 4L, Glomerular Filtration Rate > 60.0, Blood Urea Nitrogen 23H, Creatinine 0.80, Sodium Level 135L, Potassium Level 3.5, Chloride Level 97L, Carbon Dioxide Level 34H, Calcium Level 8.0L CBC/BMP Laboratory Tests 02/27/19 06:36 Red Blood Count 2.84 L, Mean Corpuscular Volume 92.3, Mean Corpuscular Hemoglobin 30.3, Mean Corpuscular Hemoglobin Concent 32.8, Red Cell Distribution Width 14.5, Calcium Level 8.0 L AMRIK GIRARD DO Feb 27, 2019 15:37
--- NOTE | 2019-02-27 20:17 | IPN ---
DATE: 02/27/2019 HISTORY: Patient is now postop day #9 from his laparotomy and a small bowel bypass from a dilated loop of small bowel to the ileum at the ileostomy. His ostomy has been putting out small amounts of watery, greenish-brown stool. However, his nasogastric (NG) tube continues to put out large amounts of fluid as well. I performed a trial of clamping this yesterday, but after approximately 6-7 hours, he developed nausea and vomiting and had a large amount of fluid coming from the tube. He denies having taken any significant amount orally. We had turned off his patient-controlled analgesia (WILDLIFE CONSERVATIONIST) yesterday and substituted some as needed nurse administered medications and for a time, this appeared to be adequate, but this morning he has been having more pain not controlled by the as needed medications. Patient and his have inquired about comfort measures. Vital signs show that the patient has been afebrile over the past 24 hours. His pulse has been in the 80s to as high as 100. His blood pressure has been good. Intake and output show that yesterday he had 2200 in with 2400 out. Today he already had over a liter out from his NG tube. He remains on the total parenteral nutrition (TPN). PHYSICAL EXAMINATION: Patient appears alert, but very tired. Skin is warm and dry. The abdomen shows that his ostomy has a small amount of brownish fluid in the bag. His midline incision is closed with selena and there is no sign of active infection. He is quite tender on the right side of the abdomen and soft and without significant tenderness on the left. IMPRESSION: Patient continues with a large amount of fluid from the NG tube. Initially, I had thought he was taking more than small amounts of ice chips, but he is adamant that he is taking nothing additionally. The amount of fluid can only represent that he has a persistent obstruction. I reviewed his most recent CT scan and I think there may well be an obstruction in the proximal duodenum in the mid left upper quadrant of the abdomen. If this is truly the case then his distal small bowel bypass will be of no benefit. Certainly, he is not a candidate for additional surgery, given his extensive disease with extensive bowel involvement. PLAN: Dr. Kaye and I both spoke with the patient and his at some length about his current state and his prospects. Patient is tired of being in pain constantly and sees no improvement in sight. Given his persistent evidence of bowel obstruction, I advised him that I also do not see any likelihood of return of being able to eat normally. I think much of his pain on the right is related to his metastatic deposits within the liver. He and his both inquired of both of Dr. Kaye and myself about comfort measures and how this was would compare to his current treatment and how that would relate to hospice care. After a long and honest discussion, the patient has indicated a desire to proceed with comfort measures only and Dr. Kaye has indicated that she will address the orders in the computer. I think this is a very reasonable approach for this patient, given what I think is a very poor prognosis.
[2019-02-28] MEDS: LORazepam 2 MG/ML VIAL (J2060) IV PRN ×11 (01:28→23:08)
[2019-02-28] MEDS: MORPHINE 4 MG/ML 1ML VIAL/SYRINGE (J2270) IV PRN ×4 (01:29→07:19)
--- NOTE | 2019-02-28 08:25 | IPNPDOC ---
Subjective Date Seen The patient was seen on 02/28/19. Subjective Chief Complaint/HPI Pt this morning asleep. His is at bedside. She is quite upset. States that the patient was very restless overnight. Pulled his NG tube out. Did not have a arias in place and yelled out and fought staff when they attempted to clean him up. Pts states that she had to consistently ask for medications all night otherwise the pt wouldn't receive any. States that she went for a couple of walks each time she came back the pt had undressed himself and was lying exposed on the bed. General: Reports: ROS Unobtainable Objective Physical Examination General Exam: Positive: No Acute Distress; Negative: Alert, Cooperative ENT Exam: Negative: Nares Patent (+ NG present) Chest Exam: Positive: Clear to auscultation, Diminished; Negative: Rales, Rhonchi, Wheezing Heart Exam: Positive: Rate Normal, Normal S1, Normal S2 Abdomen Exam: Positive: BS Hypoactive, Other (Ostomy with liquid brown output) Extremity Exam: Positive: Edema (trace BLE) Neuro Exam: Negative: Normal Speech Psych Exam: Negative: Mental status NL Assessment /Plan Problems (1) Comfort measures only status Problem Text: 02/28 Pt has requested [employer] without Hospice. I spoke with nursing and NM regarding family concerns. He has a very attentive nurse today. I have adjusted his morphine to IV drip at 4 mg per hour, it appears as though he was receiving morphine 4 mg every 2-3 hours which clearly was insufficient. Last week on PITCH WORKER he was getting 70 mg per 24 h. I have also increased Ativan from 1 mg to 2 mg. Pts as well as nurse aware of changes. 02/27 Declines hospice care. Discussed in depth, and patient confirms his desire to be comfort measures only. (2) Intra-abdominal fluid collection Problem Text: Radiology feels that this is likely an abscess, and general surgery is less persuaded. I did order IV antibiotics to cover this. (3) Pancytopenia due to chemotherapy Status: Acute Response to Treatment: Worse Discussed With: Senior Developer, Patient, Family with Pt Consent Problem Specific Plan: Repeat Labs Problem Text: 02/26 -- WBCs continue to trend downward 02/25 WBC down slightly from 17.4 to 16.1 02/24 up to 17.4/8.9/85K 02/20-02/22/19 sp filgrastim 300 SC QD x 3 He received his third dose of etoposide 10 days ago. The fact that he has a pancytopenia isn't that surprising. The question is what to do about it. At this point the anemia and decreased platelets, while needing to be monitored, are not yet low enough to be truly dangerous. Regarding the neutropenia with an ANC of 1050, initially I hesitated on doing anything. However, by about 4pm he had spiked a little temperature. While I don't think this would qualify as true neutropenic fever (the Tmax was only 100.3, but he tends to run lower than 98 as well), this was enough to push me to start Neupogen and initiate antibiotics. I spoke with Ms. Yuliya Lindsay who was race relations adviser for Dr. Jose. [place] (4) Ileus Status: Acute Response to Treatment: Improving Discussed With: Senior Developer, Patient, Family with Pt Consent Problem Text: 02/24 GS following, + Output 02/23/19: He continues to have output from his ostomy. Surgery continues to follow 02/22 - Having some output from ostomy - illeus starting to resolve - still with significant post-surgical abd pain requiring Morphine PITCH WORKER and phenergan on occasion for nausea (5) Neuroendocrine carcinoma metastatic to liver Onset Date: Unknown Status: Chronic Response to Treatment: Stable Problem Text: 02/23/19: S/P Neupogen. Oncology following: further chemo on hold until ambulatory and hold platelet transfusions unless bleeding 02/22 - Chemo on hold until ambulating Pancytopenia secondary to chemotherapy - improving with Neupogen Defer further treatment to Oncology (6) A-fib Status: Chronic Response to Treatment: Stable Problem Text: on HD dig 250, carve 6.25 BID for RC AC held 2 thrombocytopenia (7) CALE on CPAP Status: Chronic Problem Text: not on cpap due to NG in place. sats monitored overnight, continuous (8) Diastolic CHF, chronic Status: Chronic Response to Treatment: Stable Problem Specific Plan: Consult Specialist Problem Text: Euvolemic on HD fur 60 qAM (9) Diabetes Status: Chronic Problem Text: HD ins deg 26 QHS 02/24 AC BG mid-high 100s; therefore, + ins det 10 QHS to SSLI (10) CAD (coronary artery disease) Status: Chronic Response to Treatment: Stable Problem Specific Plan: Consult Specialist (Dr. Amin following.) (11) Small bowel obstruction Status: Resolved Response to Treatment: Stable, Improving Discussed With: Senior Developer, Patient, Family with Pt Consent Problem Specific Plan: Monitor Clinically Problem Text: 02/19: Postop day #1. In speaking to Dr. Fry and reviewing his operative report it looks like there were extensive metastatic lesions noted in the right upper quadrant. He did what he could for the patient and did create a [id number] bypass of the most encrusted/obstructed area. This should allow for his ileostomy to function again. Now it is a waiting game for the ileus to resolve. 02/18 Plan for OR today with Dr Fry. 02/17 NG is keeping him fairly comfortable. minimal output at ostomy. 02/16: surgery Thursday. Dr. Fry ordered repeat CT today 02/15 - per Surgery - plan is for OR thursday for presumed excision of new tumor obstructing colon Will need COuadin held in anticipation for surgery Consult Cardiology and Pulmonary who followe him periopertively last month due to his complicated history and risk going through surgery - 02/14/19: continue with surgical recommendations. OOB tid. Mag level pending. 02/13 -- reports that he feels similar to yesterday 02/12 -- Patient reports that nausea is improved today. NG tube continues to drain. Reports he is much more comfortable today. Per surgery NG tube in place Nausea persists - I will increase phnergan dose if ok with Dr. jang Cont IVF WBC down. Faint hypoactive Bowel sounds with some output in Ostomy (12) Elevated INR Status: Resolved Problem Text: see above Plan/VTE VTE Prophylaxis Ordered?: Yes ( ffffff mechanical only for now. ) VTE Exclusion Pharmacological: Bleeding Risk Plan Therapy: PT, OT VS, I&O, 24H, Fishbone Vital Signs/I&O Vital Signs Date Time Temp Pulse Resp B/P (MAP) Pulse Ox O2 Delivery O2 Flow Rate FiO2 02/28/19 04:41 2.0 02/27/19 21:07 18 02/27/19 06:00 97.8 90 128/74 (92) 95 02/24/19 09:50 Nasal Cannula I&O- Last 24 Hours up to 6 AM 02/28/19 06:00 Intake Total 60 ml Output Total 4850 ml Balance -4790 ml JAZMIN WILLIAMSON PA-C Feb 28, 2019 08:25
[2019-02-28] MEDS: MORPHINE SULF IN 0.9% NACL 100 MG in APPROPRIATE DILUENT 1 EA IV SCH ×2 (08:43)
[2019-03-01] MEDS: LORazepam 2 MG/ML VIAL (J2060) IV PRN ×10 (01:16→23:00)
[2019-03-01] MEDS: MORPHINE SULF IN 0.9% NACL 100 MG in APPROPRIATE DILUENT 1 EA IV SCH ×2 (03:24)
--- NOTE | 2019-03-01 08:19 | IPNPDOC ---
Subjective Date Seen The patient was seen on 03/01/19. Subjective Chief Complaint/HPI Pt asleep this morning, nursing reports restful night. No family at bedside. General: Reports: ROS Unobtainable Objective Physical Examination General Exam: Positive: No Acute Distress; Negative: Alert, Cooperative ENT Exam: Negative: Mucous membr. moist/pink, Nares Patent (+ NG present) Chest Exam: Positive: Clear to auscultation (shallow), Diminished; Negative: Rales, Rhonchi, Wheezing Heart Exam: Positive: Rate Normal, Normal S1, Normal S2 Abdomen Exam: Positive: BS Hypoactive, Other (Ostomy with liquid brown output) Extremity Exam: Positive: Edema (trace BLE) Neuro Exam: Negative: Normal Speech Psych Exam: Negative: Mental status NL Assessment /Plan Problems (1) Comfort measures only status Problem Text: 03/[address], pt appears comfortable, no changes to mgmt. 02/28 Pt has requested [employer] without Hospice. I spoke with nursing and NM regarding family concerns. He has a very attentive nurse today. I have adjusted his morphine to IV drip at 4 mg per hour, it appears as though he was receiving morphine 4 mg every 2-3 hours which clearly was insufficient. Last week on FRONT END LOADER DRIVER he was getting 70 mg per 24 h. I have also increased Ativan from 1 mg to 2 mg. Pts as well as nurse aware of changes. 02/27 Declines hospice care. Discussed in depth, and patient confirms his desire to be comfort measures only. (2) Intra-abdominal fluid collection Problem Text: Radiology feels that this is likely an abscess, and general surgery is less persuaded. I did order IV antibiotics to cover this. (3) Pancytopenia due to chemotherapy Status: Acute Response to Treatment: Worse Discussed With: Machine Paint Mixer, Patient, Family with Pt Consent Problem Specific Plan: Repeat Labs Problem Text: 02/26 -- WBCs continue to trend downward 02/25 WBC down slightly from 17.4 to 16.1 02/24 up to 17.4/8.9/85K 02/20-02/22/19 sp filgrastim 300 SC QD x 3 He received his third dose of etoposide 10 days ago. The fact that he has a pancytopenia isn't that surprising. The question is what to do about it. At this point the anemia and decreased platelets, while needing to be monitored, are not yet low enough to be truly dangerous. Regarding the neutropenia with an ANC of 1050, initially I hesitated on doing anything. However, by about 4pm he had spiked a little temperature. While I don't think this would qualify as true neutropenic fever (the Tmax was only 100.3, but he tends to run lower than 98 as well), this was enough to push me to start Neupogen and initiate antibiotics. I spoke with Ms. Yuliya Lindsay who was chief juvenile probation officer for Dr. Jsoe. S (4) Ileus Status: Acute Response to Treatment: Improving Discussed With: Machine Paint Mixer, Patient, Family with Pt Consent Problem Text: 02/24 GS following, + Output 02/23/19: He continues to have output from his ostomy. Surgery continues to follow 02/22 - Having some output from ostomy - illeus starting to resolve - still with significant post-surgical abd pain requiring Morphine FRONT END LOADER DRIVER and phenergan on occasion for nausea (5) Neuroendocrine carcinoma metastatic to liver Onset Date: Unknown Status: Chronic Response to Treatment: Stable Problem Text: 02/23/19: S/P Neupogen. Oncology following: further chemo on hold until ambulatory and hold platelet transfusions unless bleeding 02/22 - Chemo on hold until ambulating Pancytopenia secondary to chemotherapy - improving with Neupogen Defer further treatment to Oncology (6) A-fib Status: Chronic Response to Treatment: Stable Problem Text: on HD dig 250, carve 6.25 BID for RC AC held 2 thrombocytopenia (7) CALE on CPAP Status: Chronic Problem Text: not on cpap due to NG in place. sats monitored overnight, continuous (8) Diastolic CHF, chronic Status: Chronic Response to Treatment: Stable Problem Specific Plan: Consult Specialist Problem Text: Euvolemic on HD fur 60 qAM (9) Diabetes Status: Chronic Problem Text: HD ins deg 26 QHS 02/24 AC BG mid-high 100s; therefore, + ins det 10 QHS to SSLI (10) CAD (coronary artery disease) Status: Chronic Response to Treatment: Stable Problem Specific Plan: Consult Specialist (Dr. Amin following.) (11) Small bowel obstruction Status: Resolved Response to Treatment: Stable, Improving Discussed With: Machine Paint Mixer, Patient, Family with Pt Consent Problem Specific Plan: Monitor Clinically Problem Text: 02/19: Postop day #1. In speaking to Dr. Fry and reviewing his operative report it looks like there were extensive metastatic lesions noted in the right upper quadrant. He did what he could for the patient and did create a [id number] bypass of the most encrusted/obstructed area. This should allow for his ileostomy to function again. Now it is a waiting game for the ileus to resolve. 02/18 Plan for OR today with Dr Fry. 02/17 NG is keeping him fairly comfortable. minimal output at ostomy. 02/16: surgery Thursday. Dr. Fry ordered repeat CT today 02/15 - per Surgery - plan is for OR thursday for presumed excision of new tumor obstructing colon Will need COuadin held in anticipation for surgery Consult Cardiology and Pulmonary who followe him periopertively last month due to his complicated history and risk going through surgery - 02/14/19: continue with surgical recommendations. OOB tid. Mag level pending. 02/13 -- reports that he feels similar to yesterday 02/12 -- Patient reports that nausea is improved today. NG tube continues to drain. Reports he is much more comfortable today. Per surgery NG tube in place Nausea persists - I will increase phnergan dose if ok with Dr. jang Cont IVF WBC down. Faint hypoactive Bowel sounds with some output in Ostomy (12) Elevated INR Status: Resolved Problem Text: see above Plan/VTE VTE Prophylaxis Ordered?: Yes ( ffffff mechanical only for now. ) VTE Exclusion Pharmacological: Bleeding Risk Plan Therapy: PT, OT VS, I&O, 24H, Fishbone Vital Signs/I&O Vital Signs Date Time Temp Pulse Resp B/P (MAP) Pulse Ox O2 Delivery O2 Flow Rate FiO2 02/28/19 20:58 3.0 02/27/19 21:07 18 02/27/19 06:00 97.8 90 128/74 (92) 95 02/24/19 09:50 Nasal Cannula I&O- Last 24 Hours up to 6 AM 03/01/19 06:00 Intake Total 24 ml Output Total 600 ml Balance -576 ml JAZMIN WILLIAMSON PA-C Mar 01, 2019 08:19
--- NOTE | 2019-03-01 14:17 | IPNPDOC ---
Subjective General Date/Time Seen The patient was seen on 03/01/19 at 14:11. Subject Chief Complaint/History The patient is a 63-year-old male admitted with a reason for visit of Ileus, Small Bowel Obstruction. Patient seen in the room. He is sedated on a morphine drip. Looks comfortable. He still has a nasogastric tube hooked to low intermittent wall suction and a Roman catheter with dark concentrated urine. Current Medications Current Medications Current Medications Acetaminophen (Tylenol Suppository) [address] MILD PAIN or TEMP > 101; Start 02/27/19 at 12:15 Acetaminophen (Tylenol Tab) 1,000 mg Q6HP PRN PO MILD PAIN or TEMP > 100.4; Start 02/26/19 at 18:30 Alvimopan (Entereg) 12 mg BID PO Last administered on 02/23/19at 10:36; Start 02/18/19 at 21:00; Stop 02/23/19 at 20:59; Status DC Amino Ac/Electrol/ Dextrose/Calcium 2,000 ml @ 75 mls/hr ONCE@1800 IV Last administered on 02/19/19at 18:00; Start 02/19/19 at 18:00; Stop 02/20/19 at 17:59; Status DC Amino Ac/Electrol/ Dextrose/Calcium 2,000 ml @ 75 mls/hr ONCE@1800 IV Last administered on 02/22/19at 18:42; Start 02/22/19 at 18:00; Stop 02/23/19 at 17:59; Status DC Amino Ac/Electrol/ Dextrose/Calcium 2,000 ml @ 75 mls/hr ONCE@1800 IV Last administered on 02/24/19at 18:55; Start 02/24/19 at 18:00; Stop 02/25/19 at 17:59; Status DC Amino Ac/Electrol/ Dextrose/Calcium 2,000 ml @ 75 mls/hr ONCE@1800 IV Last administered on 02/26/19at 17:29; Start 02/26/19 at 18:00; Stop 02/27/19 at 12:13; Status DC Amiodarone HCl 150 mg/IV Miscellaneous Supplies 100 ml @ 600 mls/hr STAT STAT IV Last administered on 02/18/19at 21:39; Start 02/18/19 at 21:15; Stop 02/18/19 at 21:25; Status DC Atorvastatin Calcium (Lipitor) 80 mg QHS PO Last administered on 02/26/19 21:42; Start 02/10/19 at 21:00; Stop 02/27/19 at 12:13; Status DC Bisacodyl (Dulcolax Suppository) [address] CONSTIPATION; Start 02/27/19 at 12:15 Carvedilol (COReg) 6.25 mg BID PO Last administered on 02/17/19at 19:55; Start 02/10/19 at 21:00; Stop 02/18/19 at 18:18; Status DC Carvedilol (COReg) 6.25 mg BID PO Last administered on 02/26/19at 21:43; Start 02/23/19 at 21:00; Stop 02/27/19 at 12:13; Status DC Dextrose (Dextrose 50%) 25 ml ASDIRECTED PRN IV SEE LABEL COMMENTS; Start 02/10/19 at 16:00; Stop 02/25/19 at 13:25; Status DC Diatrizoate Meglum/ Diatrizoate Sod (Gastrografin) 10 ml Q30M PO Last administered on 02/25/19at 14:32; Start 02/25/19 at 14:05; Stop 02/25/19 at 14:36; Status DC Digoxin (Lanoxin) 0.25 mg DAILY IV Last administered on 02/24/19at 12:24; Start 02/11/19 at 09:00; Stop 02/24/19 at 15:50; Status DC Digoxin (Lanoxin) 0.25 mg DAILY PO Last administered on 02/26/19at 09:23; Start 02/25/19 at 09:00; Stop 02/27/19 at 12:13; Status DC Diphenhydramine HCl (Benadryl) 12.5 mg Q4HP PRN IV ITCHING; Start 02/18/19 at 16:00; Stop 02/26/19 at 18:32; Status DC Fat Emulsion Intravenous 500 ml @ 20 mls/hr ONCE@1800 IV Last administered on 02/15/19at 17:55; Start 02/15/19 at 18:00; Stop 02/16/19 at 18:00; Status DC Fat Emulsion Intravenous 500 ml @ 20 mls/hr ONCE@1800 IV Last administered on 02/16/19at 17:52; Start 02/16/19 at 18:00; Stop 02/17/19 at 17:59; Status DC Fat Emulsion Intravenous 500 ml @ 20 mls/hr ONCE@1800 IV Last administered on 02/17/19at 17:43; Start 02/17/19 at 18:00; Stop 02/18/19 at 15:48; Status DC Fat Emulsion Intravenous 500 ml @ 20 mls/hr ONCE@1800 IV Last administered on 02/19/19at 17:59; Start 02/19/19 at 18:00; Stop 02/20/19 at 17:59; Status DC Fat Emulsion Intravenous 500 ml @ 20 mls/hr ONCE@1800 IV Last administered on 02/20/19at 17:58; Start 02/20/19 at 18:00; Stop 02/21/19 at 17:59; Status DC Fat Emulsion Intravenous 500 ml @ 20 mls/hr ONCE@1800 IV Last administered on 02/21/19at 17:32; Start 02/21/19 at 18:00; Stop 02/22/19 at 17:59; Status DC Fat Emulsion Intravenous 500 ml @ 20 mls/hr ONCE@1800 IV Last administered on 02/22/19at 18:42; Start 02/22/19 at 18:00; Stop 02/23/19 at 17:59; Status DC Fat Emulsion Intravenous 500 ml @ 20 mls/hr ONCE@1800 IV Last administered on 02/23/19at 18:06; Start 02/23/19 at 18:00; Stop 02/24/19 at 17:59; Status DC Fat Emulsion Intravenous 500 ml @ 20 mls/hr ONCE@1800 IV Last administered on 02/24/19at 18:55; Start 02/24/19 at 18:00; Stop 02/25/19 at 17:59; Status DC Fat Emulsion Intravenous 500 ml @ 20 mls/hr ONCE@1800 IV Last administered on 02/25/19at 18:07; Start 02/25/19 at 18:00; Stop 02/26/19 at 17:59; Status DC Fat Emulsion Intravenous 500 ml @ 20 mls/hr ONCE@1800 IV Last administered on 02/26/19at 17:29; Start 02/26/19 at 18:00; Stop 02/27/19 at 12:13; Status DC Fentanyl Citrate (Sublimaze) 25 mcg Q5MP PRN IV MODERATE PAIN (PS 4-7); Start 02/18/19 at 16:00; Stop 02/18/19 at 17:00; Status DC Filgrastim (Neupogen) 300 mcg DAILY SC Last administered on 02/22/19at 16:14; Start 02/20/19 at 20:00; Stop 02/22/19 at 18:00; Status DC Furosemide (LASIX injection) 40 mg DAILY IV Last administered on 02/24/19at 08:37; Start 02/22/19 at 09:00; Stop 02/24/19 at 15:50; Status DC Furosemide (Lasix) 60 mg DAILY PO Last administered on 02/26/19at 09:22; Start 02/25/19 at 09:00; Stop 02/27/19 at 12:13; Status DC Glucagon (Glucagon) 1 mg ASDIRECTED PRN SC SEE LABEL COMMENTS; Start 02/10/19 at 16:00; Stop 02/25/19 at 13:25; Status DC Glucose (Glucose) 16 GM ASDIRECTED PRN PO SEE LABEL COMMENTS; Start 02/10/19 at 16:00; Stop 02/25/19 at 13:25; Status DC Heparin Sodium (Heparin (Flush)) 500 units ASDIRECTED PRN IV SEE LABEL COMMENTS; Start 02/10/19 at 12:00; Stop 02/10/19 at 16:25; Status DC Heparin Sodium (Porcine) (Heparin) 5,000 units Q8H SQ ; Start 02/13/19 at 00:00; Stop 02/13/19 at 00:46; Status DC Heparin Sodium (Porcine) (Heparin) 5,000 units Q8H SQ Last administered on 02/14/19at 05:45; Start 02/13/19 at 06:00; Stop 02/14/19 at 11:50; Status DC Home Med (Med Rec Complete!) ASDIRECTED XX ; Start 02/10/19 at 14:00; Stop 02/10/19 at 14:00; Status DC Hyoscyamine Sulfate (Levsin) 0.125 mg Q4HP PRN PO TERMINAL SECRETIONS; Start 02/27/19 at 12:15 Insulin Detemir (Levemir Insulin) 10 units QHS SC Last administered on 02/26/19at 21:44; Start 02/24/19 at 21:00; Stop 02/27/19 at 12:13; Status DC Insulin Human Lispro (HumaLOG INSULIN) SEE PROTOCOL TABLE Q6H SC Last administered on 02/10/19at 18:43; Start 02/10/19 at 18:00; Stop 02/11/19 at 09:13; Status DC Insulin Human Lispro (HumaLOG INSULIN) See Protocol Table Q6H SC Last administered on 02/16/19at 06:13; Start 02/15/19 at 18:00; Stop 02/16/19 at 12:01; Status DC Insulin Human Lispro (HumaLOG INSULIN) See Protocol Table Q6H SC Last administered on 02/17/19at 12:46; Start 02/16/19 at 18:00; Stop 02/17/19 at 12:01; Status DC Insulin Human Lispro (HumaLOG INSULIN) See Protocol Table Q6H SC Last administered on 02/18/19at 06:07; Start 02/17/19 at 18:00; Stop 02/18/19 at 12:01; Status DC Insulin Human Lispro (HumaLOG INSULIN) See Protocol Table Q6H SC Last administered on 02/20/19at 12:29; Start 02/19/19 at 18:00; Stop 02/20/19 at 12:01; Status DC Insulin Human Lispro (HumaLOG INSULIN) See Protocol Table Q6H SC Last administered on 02/21/19at 12:17; Start 02/20/19 at 18:00; Stop 02/21/19 at 12:01; Status DC Insulin Human Lispro (HumaLOG INSULIN) See Protocol Table Q6H SC Last administered on 02/22/19at 11:54; Start 02/21/19 at 18:00; Stop 02/22/19 at 12:01; Status DC Insulin Human Lispro (HumaLOG INSULIN) See Protocol Table Q6H SC Last administered on 02/23/19at 12:20; Start 02/22/19 at 18:00; Stop 02/23/19 at 12:01; Status DC Insulin Human Lispro (HumaLOG INSULIN) See Protocol Table Q6H SC Last administered on 02/24/19at 12:24; Start 02/23/19 at 18:00; Stop 02/24/19 at 12:01; Status DC Insulin Human Lispro (HumaLOG INSULIN) See Protocol Table Q6H SC Last administered on 02/25/19at 13:16; Start 02/24/19 at 18:00; Stop 02/25/19 at 12:01; Status DC Insulin Human Lispro (HumaLOG INSULIN) See Protocol Table Q6H SC Last administered on 02/26/19at 13:04; Start 02/25/19 at 18:00; Stop 02/26/19 at 12:01; Status DC Insulin Human Lispro (HumaLOG INSULIN) See Protocol Table Q6H SC Last administered on 02/27/19at 05:57; Start 02/26/19 at 18:00; Stop 02/27/19 at 12:01; Status DC Insulin Human Regular 11 units/ Amino Ac/Electrol/ Dextrose/Calcium 2,000.11 ml @ 75 mls/hr ONCE@1800 IV Last administered on 02/20/19at 17:58; Start 02/20/19 a t 18:00; Stop 02/21/19 at 17:59; Status DC Ketorolac Tromethamine (ToRADol) 30 mg Q6H PRN IV PAIN Last administered on 02/27/19at 10:22; Start 02/22/19 at 11:30; Stop 02/27/19 at 11:29; Status DC Lactated Ringer's 1,000 ml @ 150 mls/hr Q6H40M IV Last administered on 02/18/19at 15:32; Start 02/18/19 at 16:00; Stop 02/18/19 at 17:00; Status DC Lactated Ringer's 1,000 ml @ 150 mls/hr Q6H40M IV Last administered on 02/19/19at 08:45; Start 02/18/19 at 18:15; Stop 02/19/19 at 09:56; Status DC Lorazepam (Ativan) 1 mg Q2HP PRN IV ANXIETY Last administered on 02/28/19at 05:37; Start 02/27/19 at 12:15; Stop 02/28/19 at 08:20; Status DC Lorazepam (Ativan) 2 mg Q2HP PRN IV ANXIETY Last administered on 03/01/19at 12:31; Start 02/28/19 at 08:30 Magnesium Sulfate 8 meq/Amino Ac/ Electrol/Dextrose/ Calcium 2,002 ml @ 75 mls/hr ONCE@1800 IV Last administered on 02/15/19at 17:55; Start 02/15/19 at 18:00; Stop 02/16/19 at 18:00; Status DC Magnesium Sulfate/ Dextrose 1 gm/IV Miscellaneous Supplies 100 ml @ 100 mls/hr Q1H IV Last administered on 02/14/19at 14:12; Start 02/14/19 at 14:00; Stop 02/14/19 at 15:59; Status DC Meropenem 1 gm/IV Miscellaneous Supplies 50 ml @ 100 mls/hr Q8H IV Last administered on 02/23/19at 12:19; Start 02/20/19 at 20:00; Stop 02/23/19 at 14:23; Status DC Metoclopramide HCl (REGLAN INJection) 10 mg Q6HP PRN IV NAUSEA OR VOMITING; Start 02/10/19 at 15:00; Stop 02/10/19 at 15:28; Status DC Metoclopramide HCl (REGLAN INJection) 10 mg Q6HP PRN IV NAUSEA OR VOMITING Last administered on 02/18/19at 16:24; Start 02/18/19 at 16:00; Stop 02/18/19 at 17:00; Status DC Metoprolol Tartrate (Lopressor) 1 mg Q5M IV Last administered on 02/18/19at 17:12; Start 02/18/19 at 17:30; Stop 02/18/19 at 17:51; Status DC Metoprolol Tartrate (Lopressor) 2.5 mg Q6H IV Last administered on 02/23/19at 12:19; Start 02/18/19 at 18:00; Stop 02/23/19 at 14:11; Status DC Miscellaneous (Unresolved Clarification Entry) SEE LABEL COMMENTS DAILY XX ; Start 02/24/19 at 09:00; Stop 02/24/19 at 17:13; Status DC Morphine Sulfate (Morphine Sulfate In 0.9%Nacl Iv Bag) Concentration 1 mg/ml ASDIRECTED PRN IV SEE LABEL COMMENTS Last administered on 02/25/19at 20:09; Start 02/18/19 at 16:00; Stop 02/26/19 at 15:40; Status DC Morphine Sulfate (Morphine Sulfate In 0.9%Nacl Iv Bag) Concentration 1 mg/ml ASDIRECTED PRN IV SEE LABEL COMMENTS; Start 02/26/19 at 15:45; Stop 02/26/19 at 18:32; Status DC Morphine Sulfate (Morphine Sulfate Inj) 2 mg Q1HP PRN IV MODERATE PAIN (PS 5- 7); Start 02/26/19 at 18:30; Stop 02/27/19 at 12:13; Status DC Morphine Sulfate (Morphine Sulfate Inj) 2 mg Q2HP PRN IV MODERATE PAIN (PS 5-7) Last administered on 02/17/19at 14:11; Start 02/10/19 at 15:00; Stop 02/18/19 at 15:48; Status DC Morphine Sulfate (Morphine Sulfate Inj) 4 mg Q1HP PRN IV SEVERE PAIN (PS 8-10) Last administered on 02/28/19at 07:19; Start 02/27/19 at 12:15; Stop 02/28/19 at 08:20; Status DC Morphine Sulfate (Morphine Sulfate Inj) 4 mg Q2HP PRN IV SEVERE PAIN (PS 8-10) Last administered on 02/18/19at 09:17; Start 02/10/19 at 15:00; Stop 02/18/19 at 15:48; Status DC Morphine Sulfate (Morphine Sulfate Inj) 4 mg Q2HP PRN IV MODERATE/SEVERE PAIN (PS 5-10) Last administered on 02/27/19at 11:20; Start 02/26/19 at 18:30; Stop 02/27/19 at 12:13; Status DC Morphine Sulfate (Morphine Sulfate Inj) 4 mg Q30M PRN IV SEVERE PAIN (PS 8-10) Last administered on 02/10/19at 11:50; Start 02/10/19 at 11:45; Stop 02/10/19 at 16:24; Status DC Morphine Sulfate 100 mg/IV Miscellaneous Supplies 100 ml @ 4 mls/hr Q24H IV Last administered on 03/01/19at 03:24; Start 02/28/19 at 09:00 Multivitamins 10 ml/Chromium/ Copper/Manganese/ Seleni/Zn 1 ml/ Amino Ac/Electrol/ Dextrose/Calcium 2,011 ml @ 75 mls/hr ONCE@1800 IV Last administered on 02/25/19at 18:06; Start 02/25/19 at 18:00; Stop 02/26/19 at 17:59; Status DC Multivitamins 10 ml/Chromium/ Copper/Manganese/ Seleni/Zn 1 ml/ Insulin Human Regular 11.1 units/Amino Ac/ Electrol/Dextrose/ Calcium 2,011.111 ml @ 75 mls/hr ONCE@1800 IV Last administered on 02/21/19at 17:32; Start 02/21/19 at 18:00; Stop 02/22/19 at 17:59; Status DC Multivitamins 10 ml/Chromium/ Copper/Manganese/ Seleni/Zn 1 ml/ Insulin Human Regular 12 units/ Amino Ac/Electrol/ Dextrose/Calcium 2,011.12 ml @ 75 mls/hr ONCE@1800 IV Last administered on 02/23/19at 18:07; Start 02/23/19 at 18:00; Stop 02/24/19 at 17:59; Status DC Multivitamins 10 ml/Chromium/ Copper/Manganese/ Seleni/Zn 1 ml/ Potassium Chloride 20 meq/ Magnesium Sulfate 8 meq/Amino Ac/ Electrol/Dextrose/ Calcium 2,023 ml @ 75 mls/hr ONCE@1800 IV Last administered on 02/16/19at 17:53; Start 02/16/19 at 18:00; Stop 02/17/19 at 17:59; Status DC Nalbuphine HCl (Nubain) 2.5 mg Q6HP PRN IV PRURITIS; Start 02/18/19 at 16:00; Stop 02/25/19 at 15:59; Status DC Naloxone HCl (Narcan) 0.1 mg Q5MP PRN IV SEE LABEL COMMENTS; Start 02/18/19 at 16:00; Stop 02/26/19 at 18:32; Status DC Non-Formulary Medication (Epidural/BUSINESS PROCESS LEAD [place]) USE THIS ENTRY TO VEND ... Q1M PRN XX SEE LABEL COMMENTS; Start 02/18/19 at 16:00; Stop 02/26/19 at 18:32; Status DC Ondansetron HCl (ZOFRAN INJection) 4 mg Q4HP PRN IV NAUSEA OR VOMITING Last administered on 02/26/19at 22:17; Start 02/11/19 at 09:45 Ondansetron HCl (ZOFRAN INJection) 4 mg Q4HP PRN IV NAUSEA OR VOMITING Last administered on 02/18/19at 16:46; Start 02/18/19 at 16:00; Stop 02/18/19 at 17:00; Status DC Ondansetron HCl (ZOFRAN INJection) 4 mg Q6HP PRN IV NAUSEA OR VOMITING Last administered on 02/11/19at 02:07; Start 02/10/19 at 15:00; Stop 02/11/19 at 09:38; Status DC Oxycodone/ Acetaminophen (Percocet 5mg/ 325mg Tablet) 1 tab ASDIRECTED PRN PO MILD/MODERATE PAIN (PS 1-7); Start 02/18/19 at 16:00; Stop 02/18/19 at 17:00; Status DC Pantoprazole Sodium (Protonix) 40 mg DAILY IV Last administered on 02/27/19at 09:13; Start 02/11/19 at 09:00; Stop 02/27/19 at 12:13; Status DC Phenol (Chloraseptic [place]) 1 spray Q2HP PRN MT SORE THROAT Last administered on 02/17/19at 14:10; Start 02/17/19 at 12:45; Stop 02/25/19 at 13:25; Status DC Piperacillin Sod/ Tazobactam Sod 3.375 gm/Dextrose 50 ml @ 50 mls/hr Q6H IV Last administered on 02/27/19at 05:58; Start 02/26/19 at 00:00; Stop 02/27/19 at 12:13; Status DC Potassium Chloride 20 meq/ Amino Ac/Electrol/ Dextrose/Calcium 2,010 ml @ 75 mls/hr ONCE@1800 IV Last administered on 02/17/19at 17:43; Start 02/17/19 at 18:00; Stop 02/18/19 at 15:48; Status DC Promethazine HCl (PHENERGAN INJection) 12.5 mg Q6HP PRN IV NAUSEA Last administered on 02/11/19at 03:01; Start 02/10/19 at 15:00; Stop 02/11/19 at 09:13; Status DC Promethazine HCl (PHENERGAN INJection) 25 mg Q6HP PRN IV NAUSEA Last administered on 02/19/19at 08:24; Start 02/11/19 at 09:15; Stop 02/25/19 at 13:25; Status DC Scopolamine (Scopolamine) 1 mg Q3DP PRN TOP EXCESSIVE SECRETIONS Last administered on 02/28/19at 21:05; Start 02/27/19 at 12:15 Sodium Biphosphate/ Sodium Phosphate (Fleet Enema) [address] CONSTIPATION; Start 02/27/19 at 12:15 Sodium Chloride 1,000 ml @ 15 mls/hr Q24H IV ; Start 02/18/19 at 15:48; Stop 02/19/19 at 09:57; Status DC Sodium Chloride 1,000 ml @ 75 mls/hr [id number] IV Last administered on 02/21/19at 04:56; Start 02/19/19 at 18:00; Stop 02/21/19 at 08:24; Status DC Sodium Chloride 1,000 ml @ 100 mls/hr Q10H IV Last administered on 02/10/19at 11:50; Start 02/10/19 at 11:43; Stop 02/10/19 at 16:00; Status DC Sodium Chloride 1,000 ml @ 125 mls/hr Q8H IV Last administered on 02/15/19at 06:51; Start 02/10/19 at 14:47; Stop 02/15/19 at 08:27; Status DC Sodium Chloride 1,000 ml @ 200 mls/hr Q5H IV Last administered on 02/19/19at 15:34; Start 02/19/19 at 10:00; Stop 02/19/19 at 17:59; Status DC Sodium Chloride (Saline Lock Flush) 10 ml ASDIRECTED PRN IV SEE LABEL COMMENTS; Start 02/10/19 at 12:00; Stop 02/10/19 at 16:25; Status DC Warfarin Sodium (Coumadin) 5 mg DAILY@17 PO Last administered on 02/14/19at 18:09; Start 02/14/19 at 17:00; Stop 02/15/19 at 10:26; Status DC Allergies Coded Allergies: No Known Allergies (Unverified , 12/27/18) Objective Physical Examination Examination GENERAL APPEARANCE: Comfortable. HEENT: NG tube in place. ABDOMEN: Abdomen is round, soft, mildly distended. No output from ileostomy. Midline incision covered with gauze.. 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 I spoke to the and we talked about his decision to be placed in comfort measures only and this is very reasonable to me. She did say that she was expecting him to much faster than he is. I pointed out that this may take a while as he is not actively having process that may need to a terminal condition. Not sure why or how the cauterization about not going to hospice was made. I later on spoke to Shay Sullivan asking him what the options are as I would feel that this may take a couple weeks before he succumbs. Plan / VTE VTE Prophylaxis Ordered?: Yes ( ffffff mechanical only for now. ) VTE Exclusion Pharmacological: Bleeding Risk NEDRA MARTINEZ MD Mar 01, 2019 14:17
[2019-03-02] MEDS: LORazepam 2 MG/ML VIAL (J2060) IV PRN ×11 (01:04→21:49)
[2019-03-02] MEDS: MORPHINE SULF IN 0.9% NACL 100 MG in APPROPRIATE DILUENT 1 EA IV SCH ×4 (02:50→21:14)
--- NOTE | 2019-03-02 10:06 | IPNPDOC ---
Subjective Date Seen The patient was seen on 03/02/19. Subjective Chief Complaint/HPI Appeared comfortable upon my exam this am but since then had developed afever and so Tylenol supp was given. After being turned, he became more uncomfortable so Morhpine drip dose was increased from 4 - 5 mg and nurses will call if higher dose is needed. Objective Physical Examination General Exam: Positive: No Acute Distress; Negative: Alert, Cooperative ENT Exam: Negative: Mucous membr. 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 02/28 Pt has requested HVAC SHEET METAL INSTALLER HELPER without Hospice. I spoke with nursing and NM regarding family concerns. He has a very attentive nurse today. I have adjusted his morphine to IV drip at 4 mg per hour, it appears as though he was receiving morphine 4 mg every 2-3 hours which clearly was insufficient. Last week on CAR[employer] PLANT GRINDER he was getting 70 mg per 24 h. I have also increased Ativan from 1 mg to 2 mg. Pts as well as nurse aware of changes. 02/27 Declines hospice care. Discussed in depth, and patient confirms his desire to be comfort measures only. (2) Intra-abdominal fluid collection Problem Text: Radiology feels that this is likely an abscess, and general surgery is less persuaded. I did order IV antibiotics to cover this. (3) Pancytopenia due to chemotherapy Status: Acute Response to Treatment: Worse Discussed With: Shade Matcher, Patient, Family with Pt Consent Problem Specific Plan: Repeat Labs Problem Text: 02/26 -- WBCs continue to trend downward 02/25 WBC down slightly from 17.4 to 16.1 02/24 up to 17.4/8.9/85K 02/20-02/22/19 sp filgrastim 300 SC QD x 3 He received his third dose of etoposide 10 days ago. The fact that he has a pancytopenia isn't that surprising. The question is what to do about it. At this point the anemia and decreased platelets, while needing to be monitored, are not yet low enough to be truly dangerous. Regarding the neutropenia with an ANC of 1050, initially I hesitated on doing anything. However, by about 4pm he had spiked a little temperature. While I don't think this would qualify as true neutropenic fever (the Tmax was only 100.3, but he tends to run lower than 98 as well), this was enough to push me to start Neupogen and initiate antibiotics. I spoke with Ms. Yuliay Lindsay who was process control programmer for Dr. Jose. Chelita (4) Ileus Status: Acute Response to Treatment: Improving Discussed With: Shade Matcher, Patient, Family with Pt Consent Problem Text: 02/24 GS following, + Output 02/23/19: He continues to have output from his ostomy. Surgery continues to follow 02/22 - Having some output from ostomy - illeus starting to resolve - still with significant post-surgical abd pain requiring Morphine [employer] GRINDER and phenergan on occasion for nausea (5) Neuroendocrine carcinoma metastatic to liver Onset Date: Unknown Status: Chronic Response to Treatment: Stable Problem Text: 02/23/19: S/P Neupogen. Oncology following: further chemo on hold until ambulatory and hold platelet transfusions unless bleeding 02/22 - Chemo on hold until ambulating Pancytopenia secondary to chemotherapy - improving with Neupogen Defer further treatment to Oncology (6) A-fib Status: Chronic Response to Treatment: Stable Problem Text: on HD dig 250, carve 6.25 BID for RC AC held 2 thrombocytopenia (7) CALE on CPAP Status: Chronic Problem Text: not on cpap due to NG in place. sats monitored overnight, continuous (8) Diastolic CHF, chronic Status: Chronic Response to Treatment: Stable Problem Specific Plan: Consult Specialist Problem Text: Euvolemic on HD fur 60 qAM (9) Diabetes Status: Chronic Problem Text: HD ins deg 26 QHS 02/24 AC BG mid-high 100s; therefore, + ins det 10 QHS to SSLI (10) CAD (coronary artery disease) Status: Chronic Response to Treatment: Stable Problem Specific Plan: Consult Specialist (Dr. Amin following.) (11) Small bowel obstruction Status: Resolved Response to Treatment: Stable, Improving Discussed With: Shade Matcher, Patient, Family with Pt Consent Problem Specific Plan: Monitor Clinically Problem Text: 02/19: Postop day #1. In speaking to Dr. Fry and reviewing his operative report it looks like there were extensive metastatic lesions noted in the right upper quadrant. He did what he could for the patient and did create a [id number] bypass of the most encrusted/obstructed area. This should allow for his ileostomy to function again. Now it is a waiting game for the ileus to resolve. 02/18 Plan for OR today with Dr Fry. 02/17 NG is keeping him fairly comfortable. minimal output at ostomy. 02/16: surgery Thursday. Dr. Fry ordered repeat CT today 02/15 - per Surgery - plan is for OR thursday for presumed excision of new tumor obstructing colon Will need COuadin held in anticipation for surgery Consult Cardiology and Pulmonary who followe him periopertively last month due to his complicated history and risk going through surgery - 02/14/19: continue with surgical recommendations. OOB tid. Mag level pending. 02/13 -- reports that he feels similar to yesterday 02/12 -- Patient reports that nausea is improved today. NG tube continues to drain. Reports he is much more comfortable today. Per surgery NG tube in place Nausea persists - I will increase phnergan dose if ok with Dr. jang Cont IVF WBC down. Faint hypoactive Bowel sounds with some output in Ostomy (12) Elevated INR Status: Resolved Problem Text: see above Plan/VTE VTE Prophylaxis Ordered?: Yes ( ffffff mechanical only for now. ) VTE Exclusion Pharmacological: Bleeding Risk Plan Therapy: PT, OT VS, I&O, 24H, Fishbone Vital Signs/I&O Vital Signs Date Time Temp Pulse Resp B/P (MAP) Pulse Ox O2 Delivery O2 Flow Rate FiO2 03/01/19 19:59 3.0 02/27/19 21:07 18 02/27/19 06:00 97.8 90 128/74 (92) 95 02/24/19 09:50 Nasal Cannula I&O- Last 24 Hours up to 6 AM 03/02/19 05:59 Intake Total 24 ml Output Total 3150 ml Balance -3126 ml Attending Note Attending Note Looks more comfortable after Morphine dose increased. Respirations are becoming a bit noisier WETTERHAHN,AMANDA M PA-C Mar 02, 2019 10:06 Pranav Shaw MD Mar 02, 2019 12:15
--- NOTE | 2019-03-02 13:44 | IPNPDOC ---
Text Note Date of Service The patient was seen on 03/02/19. NOTE Patient seen, well sedated on a morphine drip. I reviewed the reports of the nurses and discussed the care in case with the nurses as well as with Shay Sullivan from Family patient services and with Dr. Shaw Small bowel obstruction from metastatic neuroendocrine tumor and persistent obstruction despite small bowel bypass Now on BROKER ASSISTANT Spoken with Dr. Shaw to transfer care to him. We will also spoken with patient and family services with regards to possible need to find a place for the patient if he will need prolonged care while on BROKER ASSISTANT. VS,Fishbone, I+O VS, Fishbone, I+O Vital Signs Date Time Temp Pulse Resp B/P (MAP) Pulse Ox O2 Delivery O2 Flow Rate FiO2 03/02/19 08:30 2.0 02/27/19 21:07 18 02/27/19 06:00 97.8 90 128/74 (92) 95 02/24/19 09:50 Nasal Cannula I&O- Last 24 Hours up to 6 AM 03/02/19 06:00 Intake Total 24 ml Output Total 3470 ml Balance -3446 ml NEDRA MARTINEZ MD Mar 02, 2019 13:44
[2019-03-02] MEDS ORDERED: MORPHINE SULF IN 0.9% NACL 100 MG in APPROPRIATE DILUENT 1 EA IV SCH ×2 (15:15)
[2019-03-02] MEDS ORDERED: EPIDURAL/PCA KEYS XX PRN (21:00)
--- NOTE | 2019-03-03 00:06 | IPNPDOC ---
Subjective General Date/Time Seen The patient was seen on 02/21/19 at 08:04. Subject Chief Complaint/History The patient is a 63-year-old male admitted with a reason for visit of Ileus, Small Bowel Obstruction. Reports right sided abdominal pain, no output yet from the ileostomy. NGT draining a lot. Afebrile. 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 SKIN: Warm and dry. HEENT: NG tube in place, suctioning well. Output yesterday was more than [address] ill admittedly patient is sipping water and taking ice chips. Admittedly this is very high NECK: Supple, no thyromegaly. No obvious jugular venous distention. LUNGS: Clear to auscultation bilaterally. No wheezing appreciated. HEART: Irregular rhythm, rate still in the 110s. ABDOMEN: Abdomen is round, soft, still moderately distended. Midline incision dressings are clean, dry and intact. Right-sided ileostomy minimal output, not much air coming out. GUILLERMO drainage with light pink serosanguineous fluid. He has some pronounced tenderness in the right lateral abdomen. EXTREMITIES: Mild lower extremity edema. Vital Signs Vital Signs Date Time Temp Pulse Resp B/P (MAP) Pulse Ox O2 Delivery O2 Flow Rate FiO2 02/21/19 06:05 112 110/60 02/21/19 06:00 95 Nasal Cannula 3.0 02/21/19 04:45 98.7 20 I&Os I&O- Last 24 Hours up to 6 AM 02/21/19 06:00 Intake Total 8800 ml Output Total 76058 ml Balance -1750 ml Laboratory Data Labs 24H Laboratory Tests 2 02/20/19 12:02: Bedside Glucose (Misc Panel) 235H 02/20/19 17:57: Bedside Glucose (Misc Panel) 203H 02/21/19 01:36: Bedside Glucose (Misc Panel) 187H 02/21/19 05:35: Immature Granulocyte % (Auto) , White Blood Count 1.2L, Red Blood Count 2.80L, Hemoglobin 8.5L, Hematocrit 26.5L, Mean Corpuscular Volume 94.6, Mean Corpuscular Hemoglobin 30.4, Mean Corpuscular Hemoglobin Concent 32.1, Red Cell Distribution Width 13.6, Platelet Count 39L, Neutrophils # (Auto) , Nucleated Red Blood Cells % (auto) 0.0, Neutrophils 39, Lymphocytes (Manual) 51, Monocytes (Manual) 4, Eosinophils (Manual) 5, Basophils (Manual) 1, Platelet Estimate MARKED DECREASE, Immature Platelet Fraction 5.6, Red Blood Cell Morphology NORMAL, Anion Gap 5L, Glomerular Filtration Rate > 60.0, Blood Urea Nitrogen 34H, Creatinine 1.23, Sodium Level 137, Potassium Level 4.4, Chloride Level 103, Carbon Dioxide Level 29, Calcium Level 7.8L, Troponin I < 0.02 02/21/19 05:53: Bedside Glucose (Misc Panel) 170H CBC/BMP Laboratory Tests 02/21/19 05:35 Red Blood Count 2.80 L, Mean Corpuscular Volume 94.6, Mean Corpuscular Hemoglobin 30.4, Mean Corpuscular Hemoglobin Concent 32.1, Red Cell Distribution Width 13.6, Neutrophils # (Auto) , Calcium Level 7.8 L Impression Small Bowel Obstruction POD3 Exploratory Laparotomy, Lysis of Adhesion, small bowel bypass distal small bowel to just below ileostomy, gastrostomy tube placement metastatic neuroendocrine tumor mild malnutrition acute renal failure improved - making adequate urine, Cr now normal Pancytopenia from Etoposide? He is more awake today and I finally have a chance to discuss with him my intraoperative findings. Bowel obstruction from 3 loops of bowel adhered to the right upper quadrant around his tumor bed which unfortunately I could not get into due to the amount of tumor, adherence of the tumor to the liver and to the abdominal wall on the right upper quadrant in between the liver and the ileostomy. I did a small bowel bypass between the proximal dilated loop of bowel to the portion of the ileostomy prior to it coming out of the abdominal wall and place a gastrostomy in anticipation of prolonged postoperative course and strong possibility of recurrent bowel obstructions. Unfortunately his gastrostomy does not seem to be working adequately to decompress his stomach so a nasogastric tube was placed back again yesterday and this drained more than 5 L. He is comfortable now. He appears to be quite dry operatively and is starting to make better amounts of urine and likewise more clear urine with his BUN and creatinine trending down. I'll keep the extra IV fluid condition to the TPN until we got up. Might need to diurese him later on. I will continue with the TPN until he is able to get adequate output from ileostomy to allow us to enterally feed him. I have discussed with him that I would anticipate a prolonged course this time around. I have encouraged him to try to get up and ambulate. was concerned about him starting to get some skin breakdown in his posterior sacral area from laying down. I'll get physical therapy to start working with him. Another concern of wine is the developing pancytopenia which could be a side effect of the top was side that he got prior to his admission. I'll discuss whether he'll be a candidate for would benefit from granulocyte colony stimulating factor at this time. Plan / VTE VTE Prophylaxis Ordered?: Yes ( ffffff mechanical only for now. ) VTE Exclusion Pharmacological: Other (surgery tomorrow) NEDRA MARTINEZ MD Feb 21, 2019 08:06
[2019-03-03] MEDS: LORazepam 2 MG/ML VIAL (J2060) IV PRN ×2 (02:21→04:25)
--- NOTE | 2019-03-03 18:49 | DSES ---
DATE OF ADMISSION: 02/10/2019 DATE OF /DISCHARGE: 03/03/2019 REASON FOR ADMISSION: Mr. Vyas was admitted with signs and symptoms of bowel obstruction initially under the surgical service. Patient had a history of a right hemicolectomy approximately one month prior to admission and found to have a neuroendocrine tumor with metastasis to his liver. He had been started on chemotherapy but before the admission had noticed decrease in ileostomy output, had increased intraabdominal distension and discomfort. He was found to have an ileus and nasogastric tube was placed on admission. The ileus did not improve and the patient was taken to operating room (OR) on 02/21/2019. He unfortunately developed recurrent bowel obstruction on 02/26/2019. CT suggested there might be a fluid collection and possible abscess but surgery was not convinced that this was true. Because of his chronic pain, evidence of widespread metastasis involving the liver and failure of the surgery to resolve his problem, the patient together with his family elected for COMFORT MEASURES ONLY, options for ongoing care. These measures were put in place with Dr. Newby initially with as-needed IV morphine and then changed to morphine drip on 02/28/2019 which provided better symptom control. The dose was titrated yesterday. He also received benzodiazepine and transdermal scopolamine for symptom control. With the morphine drip, his comfort level was achieved and the patient at 0615 as expected with the cause of being bowel obstruction due to carcinoid tumor with known metastasis, widespread including liver. No autopsy was requested. 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 2. Metastasis to liver. 3. Bowel obstruction. 4. Persistent ileus. 5. Pancytopenia secondary to chemotherapy agents. 6. Hypocalcemia. 7. Severe protein calorie malnutrition. Albumin 1.8.
== END 2019-03-03 05:40 | disposition expired | DRG 326 ==
LOC: M ED 11:02 → M ED INP 14:47 → M MS5PR 16:20 → M PCU 02-18 15:23 → M MS5PR 02-23 18:53
PROVIDERS: ADMIT Surgery; ATTEND Family Medicine
PROC: 3E06305 Introduction of Other Antineoplastic into Central Artery, Percutaneous Approach (ICD-10-PCS; 2019-02-08)
PROC: 3E06305 Introduction of Other Antineoplastic into Central Artery, Percutaneous Approach (ICD-10-PCS; 2019-02-09)
PROC: 3E06305 Introduction of Other Antineoplastic into Central Artery, Percutaneous Approach (ICD-10-PCS; 2019-02-10)
PROC: 0DN80ZZ Release Small Intestine, Open Approach (ICD-10-PCS; 2019-02-18)
PROC: 0DH60UZ Insertion of Feeding Device into Stomach, Open Approach (ICD-10-PCS; 2019-02-18)
PROC: 0D1 Gastrointestinal System, Bypass (ICD-10-PCS; principal; 2019-02-18 10:15)
DX: C78.6 Secondary malignant neoplasm of retroperitoneum and peritoneum (principal); D61.811 Other drug-induced pancytopenia; E43 Unspecified severe protein-calorie malnutrition; K56.7 Ileus, unspecified; I50.32 Chronic diastolic (congestive) heart failure; C7A.1 Malignant poorly differentiated neuroendocrine tumors; C78.7 Secondary malignant neoplasm of liver and intrahepatic bile duct; I48.2 Chronic atrial fibrillation; I11.0 Hypertensive heart disease with heart failure; K21.9 Gastro-esophageal reflux disease without esophagitis; G47.33 Obstructive sleep apnea (adult) (pediatric); I27.81 Cor pulmonale (chronic); I25.10 Atherosclerotic heart disease of native coronary artery without angina pectoris; E11.9 Type 2 diabetes mellitus without complications; Z93.2 Ileostomy status; Z95.1 Presence of aortocoronary bypass graft; Z79.01 Long term (current) use of anticoagulants; Z79.82 Long term (current) use of aspirin; Z79.899 Other long term (current) drug therapy; Z79.4 Long term (current) use of insulin; Z53.31 Laparoscopic surgical procedure converted to open procedure